=== PATIENT | male | born 1950 | race Caucasian/White ===

== ENCOUNTER 2020-08-26 11:20 | Outpatient (REF) | payer MEDICARE, SELFPAY ==
--- NOTE | 2020-08-26 11:25 | CT_ITS ---
EXAMINATION: CT CHEST SCREENING CLINICAL INFORMATION: Lung cancer screening COMPARISON: Previous chest CT August 2019 TECHNIQUE: Multidetector volumetric CT imaging of the chest is performed without contrast using low dose technique. Additional 2D coronal and sagittal reformatted images and axial 3D maximum intensity projection (MIP) images are generated on the CT workstation. This CT examination was performed using dose optimization techniques as appropriate, variously including the following: *Automated exposure control *Adjustment of mA and/or kV according to patient size (this includes techniques or standardized protocols for targeted exams where dose is matched to indication/reason for exam; i.e. extremities or head) *Use of iterative reconstruction technique DLP: 278 mGy-cm FINDINGS: LUNGS: The small 3 mm calcified right upper lobe nodule axial image 15 series 4 is stable. The lungs are otherwise clear. There is evidence of mild paraseptal emphysema. No evidence of interstitial lung disease or bronchiectasis is seen. There is no endobronchial or endotracheal lesion. MEDIASTINUM: The heart does not appear enlarged. There is no coronary artery calcification. There is no pericardial effusion. The thoracic aorta is normal upper normal in size. There are small mediastinal lymph nodes. No enlarged lymph nodes are seen. There may be a small esophageal hernia. There is question of a right inferior medial thyroid nodule. This is unchanged. PLEURA: There is no pleural effusion. No pleural mass or thickening. AXILLA: No lymphadenopathy. UPPER ABDOMEN: There are gallstones in the gallbladder. There are 2 low-attenuation liver lesions. The lesion in the lateral segment of the left lobe has decreased in size measuring 1.3 cm compared to 2.4 cm on prior exam. Smaller 1 cm lesion in the medial segment of the left lobe is unchanged. There are gallstones in the gallbladder and question on gallbladder wall thickening. This appears unchanged. There bilateral renal cysts that are stable. OSSEOUS STRUCTURES: There are degenerative changes of the spine. CT/CT lung screening IMPRESSION: Mild emphysema. Stable small calcified right upper lobe nodule. Upper normal-sized thoracic aorta. ASSESSMENT: Lung-RADS category 2: Benign RECOMMENDATION: Annual low-dose chest CT follow-up recommended.
== END 2020-08-26 11:21 | disposition home or self-care (01) ==
LOC: HO.CT 11:20
PROVIDERS: Visit Provider Surgery
DX: F17.210 Nicotine dependence, cigarettes, uncomplicated (principal)
CPT/HCPCS: 71250

== ENCOUNTER 2020-09-16 07:17 | Day surgery (SDC) | payer MEDICARE, SELFPAY ==
[2020-09-11 15:48] VITALS: BMI 33.5
[2020-09-16 07:56] VITALS: BP 113/79; PULSE 79; RESP 16; TEMP 36.3; O2SAT 100
--- NOTE | 2020-09-16 08:08 | HO.ANESPROP2 ---
[facility] Past Medical History Medical History COPD (chronic obstructive pulmonary disease) Hx of malignant melanoma Polymyositis Renal calculi Smoker Surgical History Surgical History Hx of colonoscopy Hx of hemorrhoidectomy Hx of parotidectomy Social History Social History Alcohol intake: never Smoking Status: Current every day smoker Cigarettes Per Day: 8 Advance Directives: No Advance Directives Information Provided: No Advance Directives on File: No Meds Allergies Allergy/AdvReac Type Severity Reaction Status Date / Time No Known Allergies Allergy Verified 09/11/20 15:47 [No Known Allergies*] Exam Exam Date and Time: September 16, 2020 0808 Height,Weight and Vital Signs: Height 5 ft 11 in Weight 108.862 kg Last Vital Signs Temp 97.3 F 09/16/20 07:56 Pulse 79 09/16/20 07:56 Resp 16 09/16/20 07:56 BP 113/79 09/16/20 07:56 Pulse Ox 100 09/16/20 07:56 Airway Mallampati Class: II TM Dist: >3cm Neck ROM: Full Denture: Upper and Lower
[2020-09-16] MEDS: Lactated Ringers 1,000 ML 100 ML IVCONT (08:14)
[2020-09-16 09:28] VITALS: BP 105/57; PULSE 66; RESP 14; TEMP 35.9; O2SAT 96
--- NOTE | 2020-09-16 09:29 | PM.OP ---
Brief Operative Note Date of Service: 09/16/20 Pre-op diagnosis: Screening Post-op diagnosis: other (Colon polyps, Diverticulosis) Procedure: Colonoscopy to cecum and TI with snare polypectomy, and biopsy and removal of polyps Surgeon: Jah Roth Anesthesia: MAC Estimated blood loss (mL): 2.0 Pathology: other (A. Polyp at 30cm B. Rectal polyps) Condition: stable Disposition: PACU
[2020-09-16 09:42] VITALS: BP 126/82; PULSE 68; RESP 15; TEMP 35.9; O2SAT 97
--- NOTE | 2020-09-16 10:11 | HO.POSTANES ---
Post Anesthesia Evaluation Post Anesthesia Evaluation Vital Signs: Vital Signs Temp Pulse Resp BP Pulse Ox 09/16/20 09:42 97.3 F 68 15 126/82 97 09/16/20 09:28 96.7 F L 66 14 105/57 L 96 09/16/20 07:56 97.3 F 79 16 113/79 100 Anesthesia: Monitored Mental Status: Awake Pain Control: Satisfactory Nausea/Vomiting: None Hydration: Adequate Anesthesia-Related Issues: No Anes. Related Issues
--- NOTE | 2020-09-26 21:32 | OP_ITS ---
SURGEON: Jah Roth MD INDICATIONS: The patient presents for evaluation of colorectal cancer screening and personal history of colon polyps. Full consent has been obtained from him for this, including risks of bleeding and perforation. PREOPERATIVE DIAGNOSIS: POSTOPERATIVE DIAGNOSIS: PROCEDURE PERFORMED: Colonoscopy to the cecum and terminal ileum with snare polypectomy, and biopsy and removal of polyps. ESTIMATED BLOOD LOSS: COMPLICATIONS: ANESTHESIA: Monitored anesthesia care. ASSISTANTS: SPECIMENS: PREOPERATIVE DIAGNOSES: Colorectal cancer screening and personal history of colon polyps. POSTOPERATIVE DIAGNOSES: Colorectal cancer screening and personal history of colon polyps, colon polyps, diverticulosis, and internal hemorrhoids. DESCRIPTION OF PROCEDURE: The patient was placed in the left lateral decubitus position. The digital rectal exam revealed no abnormalities. The Olympus video pediatric colonoscope was entered into the rectum and advanced to the cecum. Once in the cecum, I did identify normal-appearing cecal pouch with appendiceal orifice and a normal-appearing ileocecal valve. The terminal ileum was cannulated and appeared normal. The scope was withdrawn back in the colon. The entire cecum and ileocecal valve appeared normal. The scope was slowly withdrawn assessing all mucosal surfaces carefully. Preparation was excellent. At 30 cm, was an approximately 8 mm polyp, which was snared and recovered by suction. The polypectomy site appeared clean, without any sign of residual polyp nor bleeding. In the rectum, were flat less than 5 mm polyps, which were all biopsied and completely removed and placed in the same container. I did not visualize any other polyps, colitis, nor angiodysplasias. In the rectum, scope was retroflexed visualizing internal hemorrhoids as well. The scope was straightened out and withdrawn from the patient. He tolerated the procedure well and was returned to the recovery area in stable condition. IMPRESSION: 1. Small colon polyps. 2. Diverticulosis. 3. Internal hemorrhoids. PLAN: The results of the pathology will be checked. Given his previous history, I would recommend a followup colonoscopy in 5 years for further screening. He was advised not to use any aspirin and NSAIDs for 1 week. MD CONOR Larry/PATRICK / [phone]
== END 2020-09-16 10:08 | disposition home or self-care (01) ==
PROVIDERS: PCP Internal Medicine; Visit Provider Internal Medicine
PROC: 0DJD8ZZ Inspection of Lower Intestinal Tract, Via Natural or Artificial Opening Endoscopic (ICD-10-PCS; CPT 45378; principal; 2020-09-16 08:30)
DX: Z12.11 Encounter for screening for malignant neoplasm of colon (principal); Z86.010 Personal history of colon polyps; D12.8 Benign neoplasm of rectum; K63.5 Polyp of colon; K57.30 Diverticulosis of large intestine without perforation or abscess without bleeding; K64.8 Other hemorrhoids; M33.20 Polymyositis, organ involvement unspecified; Z85.820 Personal history of malignant melanoma of skin; F17.210 Nicotine dependence, cigarettes, uncomplicated; Z79.1 Long term (current) use of non-steroidal anti-inflammatories (NSAID)
CPT/HCPCS: 45385; 45380; 88305

== ENCOUNTER → 2020-11-05 13:47 | Outpatient (BNVA) | payer MEDICARE, SELFPAY | PROVIDERS: PCP Internal Medicine; Visit Provider Internal Medicine | DX: R91.1 Solitary pulmonary nodule (principal); J44.9 Chronic obstructive pulmonary disease, unspecified; Z72.0 Tobacco use | CPT/HCPCS: 99212 ==

== ENCOUNTER 2020-12-10 12:24 | Outpatient (REF) | payer MEDICARE, SELFPAY ==
[2020-12-10 13:27] LABS: MANUAL DIFF FLAG NO
[2020-12-10 13:29] LABS: Basophils Absolute Auto 0.1 X10*3/uL (0.0-0.2); Basophils Percent Auto 0.6 % (0-2); Eosinophils Absolute Auto 0.1 X10*3/uL (0.0-0.4); Eosinophils Percent Auto 1.5 % (0-4); Hematocrit 38.9 % (42-52); Hemoglobin 12.9 g/dl (14.0-18.0); Imm Gran Abs Auto 0.07 X10*3/uL (0.00-0.03); Imm Gran Pct Auto 0.9 % (0.0-0.4); Lymphocytes Absolute Auto 2.1 X10*3/uL (1.2-4.9); Lymphocytes Percent Auto 26.7 % (20-40); Mean Corpuscular HGB Conc 33.2 g/dl (31.0-36.0); Mean Corpuscular Volume 93.5 fL (80-98); Mean Platelet Volume 9.2 fL (9.4-12.4); Monocytes Absolute Auto 0.7 X10*3/uL (0.1-1.2); Monocytes Percent Auto 9.2 % (2-11); Neutrophils Absolute Auto 4.8 X10*3/uL (2.0-8.3); Neutrophils Percent Auto 61.1 % (45-73); Platelet Count 237 X10*3/uL (160-400); Red Blood Count 4.16 X10*6/uL (4.60-5.80); Red Cell Distribution Width 14.8 % (11.0-16.0); White Blood Count 7.9 X10*3/uL (4.8-10.8)
[2020-12-10 13:51] LABS: Alanine Aminotransferase 12 U/L (0-40); Albumin Level 3.9 g/dL (3.5-5.0); Alkaline Phosphatase 70 U/L (39-117); Anion Gap 11 (12-20); Aspartate Amino Transferase 16 U/L (5-37); Bilirubin Total 0.4 mg/dL (0.0-1.0); Blood Urea Nitrogen 16 mg/dL (9-16); C Reactive Protein 0.98 mg/dL (< or = 0.50); Calcium 8.9 mg/dL (8.4-10.2); Carbon Dioxide 29 mmol/L (22-29); Chloride 104 mmol/L (96-108); Estimated Glomerular Filt Rate > 60; Glucose Random 110 mg/dL (60-115); Potassium 4.7 mmol/L (3.3-5.1); Sodium 139 mmol/L (135-145)
[2020-12-10 14:36] LABS: Erythrocyte Sedimentation Rate 19 MM/HR (0-15)
== END 2020-12-10 12:25 | disposition home or self-care (01) ==
LOC: HO.LAB 12:24
PROVIDERS: PCP Internal Medicine; Referring Provider Internal Medicine; Visit Provider Student in an Organized Health Care Education/Training Program
DX: M33.20 Polymyositis, organ involvement unspecified (principal)
CPT/HCPCS: 36415; 80053; 85025; 85652; 86140; 99212

== ENCOUNTER 2020-12-30 12:21 | Outpatient (REF) | payer MEDICARE, SELFPAY ==
--- NOTE | ~2020-12-30 | US_ITS ---
EXAMINATION: US RETROPERITONEAL LIMITED (RENAL ONLY) CLINICAL INFORMATION: Renal cyst. COMPARISON: Renal ultrasound 12/19/2019 and 12/26/2018. CT abdomen and pelvis 07/13/2018. TECHNIQUE: Real-time imaging of the kidneys. FINDINGS: RIGHT KIDNEY: 11.7 x 5.3 x 5.9 cm (SAG x AP x TRV). The kidney is normal in size, contour, and echogenicity. Renal cortical thickness is normal. There are 3 oval cysts measuring 3.6 x 3.1 x 3.9 cm in the upper pole, 4.8 x 3.7 x 3.7 cm in the midpole and 2.2 x 1.2 x 2.8 cm in the lower pole. No renal calculi or hydronephrosis. LEFT KIDNEY: 12.3 x 6.0 x 5.3 cm (SAG x AP x TRV). The kidney is normal in size, contour, and echogenicity. Renal cortical thickness is normal. There are 3 simple cyst measuring 2.8 x 1.9 x 2 cm in the midpole, 1.2 x 0.8 x 1 cm in the midpole and 3.4 x 2.7 x 5 cm in the lower pole. No renal calculi or hydronephrosis. US/US renal BI IMPRESSION: Bilateral renal simple cysts not appreciably changed from previous exams.
== END 2020-12-30 12:22 | disposition home or self-care (01) ==
LOC: HO.US 12:21
PROVIDERS: Visit Provider Urology
DX: N28.1 Cyst of kidney, acquired (principal)
CPT/HCPCS: 76775

== ENCOUNTER → 2021-03-23 13:16 | Outpatient (BNVA) | payer MEDICARE, SELFPAY | PROVIDERS: Visit Provider Urology | DX: Z13.89 Encounter for screening for other disorder (principal) | CPT/HCPCS: 99212 ==

== ENCOUNTER → 2021-05-11 12:52 | Outpatient (BNVA) | payer MEDICARE, SELFPAY | PROVIDERS: PCP Internal Medicine; Visit Provider Student in an Organized Health Care Education/Training Program | DX: M33.20 Polymyositis, organ involvement unspecified (principal) | CPT/HCPCS: 99212 ==

== ENCOUNTER → 2021-06-07 10:49 | Outpatient (BNVA) | payer MEDICARE, SELFPAY | PROVIDERS: PCP Internal Medicine; Visit Provider Internal Medicine | DX: R91.1 Solitary pulmonary nodule (principal); J43.1 Panlobular emphysema; F17.210 Nicotine dependence, cigarettes, uncomplicated; Z71.6 Tobacco abuse counseling | CPT/HCPCS: 99212 ==

== ENCOUNTER 2021-09-15 14:43 | Outpatient (REF) | payer MEDICARE, SELFPAY ==
[2021-09-15 14:56] LABS: MANUAL DIFF FLAG NO
[2021-09-15 15:06] LABS: Basophils Absolute Auto 0.1 X10*3/uL (0.0-0.2); Basophils Percent Auto 0.9 % (0-2); Eosinophils Absolute Auto 0.1 X10*3/uL (0.0-0.4); Eosinophils Percent Auto 1.2 % (0-4); Hematocrit 40.7 % (42.0-52.0); Hemoglobin 13.7 g/dl (14.0-18.0); Imm Gran Abs Auto 0.08 X10*3/uL (0.00-0.03); Lymphocytes Absolute Auto 2.3 X10*3/uL (1.2-4.9); Lymphocytes Percent Auto 28.5 % (20-40); Mean Corpuscular HGB Conc 33.7 g/dl (31.0-36.0); Mean Corpuscular Hemoglobin 31.6 pg (27.0-33.0); Mean Corpuscular Volume 93.8 fL (80.0-98.0); Mean Platelet Volume 8.9 fL (9.4-12.4); Monocytes Absolute Auto 0.8 X10*3/uL (0.1-1.2); Monocytes Percent Auto 9.7 % (2-11); Neutrophils Absolute Auto 4.8 x10*3/uL (2.0-8.3); Neutrophils Percent Auto 58.7 % (45-73); Platelet Count 250 X10*3/uL (160-400); Red Blood Count 4.34 X10*6/uL (4.60-5.80); Red Cell Distribution Width 14.6 % (11.0-16.0); White Blood Count 8.2 X10*3/uL (4.8-10.8)
[2021-09-15 15:36] LABS: Alanine Aminotransferase 10 U/L (0-40); Alkaline Phosphatase 70 U/L (39-117); Anion Gap 9 (12-20); Aspartate Amino Transferase 12 U/L (5-37); Bilirubin Total 0.3 mg/dL (0.0-1.0); Blood Urea Nitrogen 11 mg/dL (9-16); C Reactive Protein 1.43 mg/dL (< or = 0.50); Calcium 8.9 mg/dL (8.4-10.2); Carbon Dioxide 28 mmol/L (22-29); Chloride 105 mmol/L (96-108); Estimated Glomerular Filt Rate > 60; Glucose Random 99 mg/dL (60-115); Potassium 4.2 mmol/L (3.3-5.1); Sodium 138 mmol/L (135-145); Total Protein 7.2 g/dL (6.5-8.0)
[2021-09-15 16:06] LABS: Erythrocyte Sedimentation Rate 25 MM/HR (0-15)
== END 2021-09-15 14:44 | disposition home or self-care (01) ==
LOC: HO.LAB 14:43
PROVIDERS: PCP Internal Medicine; Visit Provider Student in an Organized Health Care Education/Training Program
DX: M33.20 Polymyositis, organ involvement unspecified (principal)
CPT/HCPCS: 36415; 80053; 85025; 85652; 86140

== ENCOUNTER 2021-12-11 09:01 | Outpatient (REF) | payer MEDICARE, SELFPAY ==
[2021-12-11 09:18] LABS: MANUAL DIFF FLAG NO
[2021-12-11 10:09] LABS: Basophils Absolute Auto 0.1 X10*3/uL (0.0-0.2); Basophils Percent Auto 0.8 % (0-2); Eosinophils Absolute Auto 0.1 X10*3/uL (0.0-0.4); Eosinophils Percent Auto 1.5 % (0-4); Hematocrit 40.7 % (42.0-52.0); Hemoglobin 13.6 g/dl (14.0-18.0); Imm Gran Abs Auto 0.07 X10*3/uL (0.00-0.03); Imm Gran Pct Auto 0.9 % (0.0-0.4); Immature Retic Fraction 12.4 % (2.3-13.4); Lymphocytes Absolute Auto 1.9 X10*3/uL (1.2-4.9); Lymphocytes Percent Auto 24.9 % (20-40); Mean Corpuscular HGB Conc 33.4 g/dl (31.0-36.0); Mean Corpuscular Volume 92.7 fL (80.0-98.0); Mean Platelet Volume 9.2 fL (9.4-12.4); Monocytes Percent Auto 12.7 % (2-11); Neutrophils Absolute Auto 4.6 x10*3/uL (2.0-8.3); Neutrophils Percent Auto 59.2 % (45-73); Platelet Count 234 X10*3/uL (160-400); Red Blood Count 4.39 X10*6/uL (4.60-5.80); Red Cell Distribution Width 14.7 % (11.0-16.0); Retic HGB Equivalent 34.5 pg (30.0-35.0); Reticulocyte Percent 1.5 % (0.5-1.8); Reticulocytes Absolute 0.065 X10*6/uL (0.026-0.095); White Blood Count 7.8 X10*3/uL (4.8-10.8)
[2021-12-11 10:20] LABS: Estimated Average Glucose 117 mg/dL; Hemoglobin A1c % 5.7 %
[2021-12-11 10:29] LABS: Alanine Aminotransferase 9 U/L (0-40); Albumin Level 3.9 g/dL (3.5-5.0); Alkaline Phosphatase 68 U/L (39-117); Anion Gap 12 (12-20); Aspartate Amino Transferase 13 U/L (5-37); Bilirubin Total 0.6 mg/dL (0.0-1.0); Blood Urea Nitrogen 12 mg/dL (9-16); Calcium 9.2 mg/dL (8.4-10.2); Carbon Dioxide 27 mmol/L (22-29); Chloride 104 mmol/L (96-108); Cholesterol 189 mg/dL; Estimated Glomerular Filt Rate > 60; Glucose Random 91 mg/dL (60-115); HDL Cholesterol 38 mg/dL; Iron 108 mcg/dL (45-160); LDL Cholesterol Calculated 130 mg/dl; Potassium 4.7 mmol/L (3.3-5.1); Sodium 138 mmol/L (135-145); Total Protein 7.5 g/dL (6.5-8.0); Triglycerides 106 mg/dL
[2021-12-11 10:40] LABS: Percent Iron Saturation 39 % (15-50); Total Iron Binding Capacity 280 mcg/dL (228-428); Unsaturated Iron Binding 172 ug/dL
[2021-12-11 10:59] LABS: Ferritin 230 ng/mL (20-250); Free T4 (Free Thyroxine) 0.94 ng/dL (0.71-1.85); Thyroid Stimulating Hormone 1.97 uIU/mL (0.32-4.0)
[2021-12-13 04:46] LABS: Folate 8.5 ng/mL (> or = 4.0); Vitamin B12 312 pg/mL (200-900)
== END 2021-12-11 09:02 | disposition home or self-care (01) ==
LOC: HO.LAB 09:01
PROVIDERS: PCP Internal Medicine; Visit Provider Internal Medicine
DX: Z12.5 Encounter for screening for malignant neoplasm of prostate (principal); E66.9 Obesity, unspecified; E78.00 Pure hypercholesterolemia, unspecified; M33.20 Polymyositis, organ involvement unspecified
CPT/HCPCS: 36415; 80053; 80061; 82607; 82728; 82746; 83036; 83540; 84153; 84439; 84443; 85025; 85045

== ENCOUNTER 2021-12-29 12:35 | Outpatient (REF) | payer MEDICARE, SELFPAY ==
--- NOTE | ~2021-12-29 | CT_ITS ---
EXAMINATION: CT CHEST SCREENING CLINICAL INFORMATION: Current smoker. 30 pack-year history. COMPARISON: Previous CT of the chest most recent July 2020 TECHNIQUE: Multidetector volumetric CT imaging of the chest is performed without contrast using low dose technique. Additional 2D coronal and sagittal reformatted images and axial 3D maximum intensity projection (MIP) images are generated on the CT workstation. This CT examination was performed using dose optimization techniques as appropriate, variously including the following: *Automated exposure control *Adjustment of mA and/or kV according to patient size (this includes techniques or standardized protocols for targeted exams where dose is matched to indication/reason for exam; i.e. extremities or head) *Use of iterative reconstruction technique DLP: 83 mGy-cm FINDINGS: LUNGS: There is a 3 mm calcified right upper lobe nodule axial image 138 series 5 that is stable. The lungs are otherwise clear. There is evidence of mild paraseptal emphysema. No endobronchial or endotracheal lesion. MEDIASTINUM: The mediastinum is normal. PLEURA: There is no pleural effusion. No pleural mass or thickening. AXILLA: No lymphadenopathy. UPPER ABDOMEN: There is a 1 cm low-attenuation lesion in the medial segment of the liver axial image 67 series 3 that is stable. There is a 1.3 cm low-attenuation lesion left lobe of the liver axial image 56 series 3 that is stable. There are gallstones. There are bilateral renal cysts OSSEOUS STRUCTURES: There are mild degenerative changes. CT/CT lung screening IMPRESSION: Mild emphysema. Stable 3 mm calcified right upper lobe nodule. Stable abdominal findings. ASSESSMENT: Lung-RADS category 2: Benign RECOMMENDATION: Annual low-dose chest CT follow-up recommended.
== END 2021-12-29 12:36 | disposition home or self-care (01) ==
LOC: HO.CT 12:35
PROVIDERS: Visit Provider Physician Assistant Medical
DX: F17.210 Nicotine dependence, cigarettes, uncomplicated (principal)
CPT/HCPCS: 71271

== ENCOUNTER 2022-04-29 15:21 | Outpatient (REF) | payer MEDICARE, SELFPAY ==
--- NOTE | ~2022-04-29 | US_ITS ---
EXAMINATION: US RETROPERITONEAL LIMITED (RENAL ONLY) CLINICAL INFORMATION: Cyst of kidney, acquired. COMPARISON: Renal ultrasound 12/30/2020 and 12/19/2019. CT abdomen and pelvis 07/13/2018. TECHNIQUE: Real-time imaging of the kidneys. FINDINGS: RIGHT KIDNEY: 10.9 x 5.2 x 6.2 cm (SAG x AP x TRV). The kidney is normal in size, contour, and echogenicity. Renal cortical thickness is normal. There is an echogenic density questionable for a stone or cluster of stones in the upper pole measuring 7 x 7 x 5 mm. There are 3 left renal cysts measuring 4.1 x 3.6 x 3.1 cm and 4.3 x 3.8 x 3.7 cm in the upper pole and 1.7 x 1.6 x 1.3 cm in the midpole. No hydronephrosis. LEFT KIDNEY: 10.8 x 5.7 x 5.6 cm (SAG x AP x TRV). The kidney is normal in size, contour, and echogenicity. Renal cortical thickness is normal. There are 3 cysts in the midpole measuring 4 x 2 x 3 cm, 2.6 x 2.7 x 2 cm and 1.2 cm. No renal calculi or hydronephrosis. US/US renal BI IMPRESSION: Bilateral renal cysts. Question right upper pole renal stone.
== END 2022-04-29 15:22 | disposition home or self-care (01) ==
LOC: HO.US 15:21
PROVIDERS: Visit Provider Urology
DX: N28.1 Cyst of kidney, acquired (principal)
CPT/HCPCS: 76775

== ENCOUNTER → 2022-05-23 | Outpatient (BNVA) | payer MEDICARE, SELFPAY | PROVIDERS: PCP Internal Medicine; Visit Provider Internal Medicine | DX: J43.1 Panlobular emphysema (principal); R91.1 Solitary pulmonary nodule; F17.210 Nicotine dependence, cigarettes, uncomplicated | CPT/HCPCS: 99212 ==

== ENCOUNTER → 2022-05-25 09:16 | Outpatient (BNVA) | payer MEDICARE, SELFPAY | PROVIDERS: PCP Internal Medicine; Visit Provider Urology | DX: N52.9 Male erectile dysfunction, unspecified (principal); N28.1 Cyst of kidney, acquired; N40.0 Benign prostatic hyperplasia without lower urinary tract symptoms | CPT/HCPCS: 99212 ==

== ENCOUNTER 2023-03-10 07:03 | Outpatient (REF) | payer MEDICARE, SELFPAY ==
[2023-03-10 07:11] LABS: MANUAL DIFF FLAG NO
[2023-03-10 07:20] LABS: Basophils Absolute Auto 0.1 X10*3/uL (0.0-0.2); Basophils Percent Auto 0.8 % (0-2); Eosinophils Absolute Auto 0.1 X10*3/uL (0.0-0.4); Eosinophils Percent Auto 1.7 % (0-4); Hemoglobin 13.4 g/dl (14.0-18.0); Imm Gran Abs Auto 0.07 X10*3/uL (0.00-0.03); Imm Gran Pct Auto 0.8 % (0.0-0.4); Lymphocytes Percent Auto 23.9 % (20-40); Mean Corpuscular HGB Conc 33.5 g/dl (31.0-36.0); Mean Corpuscular Hemoglobin 32.1 pg (27.0-33.0); Mean Corpuscular Volume 95.9 fL (80.0-98.0); Mean Platelet Volume 9.4 fL (9.4-12.4); Monocytes Absolute Auto 1.3 X10*3/uL (0.1-1.2); Monocytes Percent Auto 15.4 % (2-11); Neutrophils Absolute Auto 4.8 x10*3/uL (2.0-8.3); Neutrophils Percent Auto 57.4 % (45-73); Platelet Count 217 X10*3/uL (160-400); Red Blood Count 4.17 X10*6/uL (4.60-5.80); Red Cell Distribution Width 14.6 % (11.0-16.0); Retic HGB Equivalent 36.2 pg (30.0-35.0); Reticulocyte Percent 1.5 % (0.5-1.8); Reticulocytes Absolute 0.064 X10*6/uL (0.026-0.095); White Blood Count 8.3 X10*3/uL (4.8-10.8)
[2023-03-10 07:44] LABS: Estimated Average Glucose 111 mg/dL; Hemoglobin A1c % 5.5 %
[2023-03-10 08:06] LABS: Alanine Aminotransferase 10 U/L (0-40); Albumin Level 3.9 g/dL (3.5-5.0); Alkaline Phosphatase 62 U/L (39-117); Anion Gap 11 (12-20); Aspartate Amino Transferase 13 U/L (5-37); Bilirubin Total 0.7 mg/dL (0.0-1.0); Blood Urea Nitrogen 12 mg/dL (9-16); Calcium 8.9 mg/dL (8.4-10.2); Carbon Dioxide 27 mmol/L (22-29); Chloride 108 mmol/L (96-108); Cholesterol 159 mg/dL; Estimated Glomerular Filt Rate > 60; Glucose Random 98 mg/dL (60-115); HDL Cholesterol 38 mg/dL; Iron 62 mcg/dL (45-160); LDL Cholesterol Calculated 110 mg/dl; Percent Iron Saturation 28 % (15-50); Potassium 4.7 mmol/L (3.3-5.1); Sodium 141 mmol/L (135-145); Total Iron Binding Capacity 224 mcg/dL (228-428); Total Protein 6.9 g/dL (6.5-8.0); Triglycerides 58 mg/dL; Unsaturated Iron Binding 162 ug/dL
[2023-03-10 08:35] LABS: Ferritin 196 ng/mL (20-250); Folate 10.1 ng/mL (> or = 4.0); Thyroid Stimulating Hormone 1.76 uIU/mL (0.32-4.0); Vitamin B12 278 pg/mL (200-900)
== END 2023-03-10 07:04 | disposition home or self-care (01) ==
LOC: HO.LAB 07:03
PROVIDERS: PCP Internal Medicine; Visit Provider Internal Medicine
DX: R73.01 Impaired fasting glucose (principal); H02.9 Unspecified disorder of eyelid; E78.00 Pure hypercholesterolemia, unspecified; D64.9 Anemia, unspecified
CPT/HCPCS: 36415; 80053; 80061; 82607; 82728; 82746; 83036; 83540; 84439; 84443; 85025; 85045

== ENCOUNTER 2023-05-01 12:29 | Outpatient (REF) | payer MEDICARE, SELFPAY | END 2023-05-01 12:30 | disposition home or self-care (01) | LOC: HO.US 12:29 | PROVIDERS: PCP Internal Medicine; Visit Provider Urology | DX: N28.1 Cyst of kidney, acquired (principal) | CPT/HCPCS: 76775 ==

== ENCOUNTER 2023-05-25 11:34 | Outpatient (AMB) | payer MEDICARE, SELFPAY ==
--- NOTE | 2023-05-25 11:43 | A.OFFVIS_ITS ---
Intake Intake Visit Reasons: 1Y US(set) Intake Note: Patient is present for Follow Up Ultrasound Urology Med: Sildenafil Antibiotic Allergy: None Blood Thinner: None Pharmacy: [facility] [place] Allergies No Known Allergies [No Known Allergies*] Allergy (Verified 02/10/23 15:45) Medication List - Last Reconciled 05/25/23 by Nino Castrejon MD clotrimazole 1% 1 appl topical BID 4 weeks ibuprofen (Advil) 200 mg PO Q6H PRN sildenafil 100 mg PO ONCE 30 days HPI HPI Comments History of Present Illness Details Mr Michel is a very pleasant male. They are a patient of Dr Peacock. They are seen in the office today for the following urologic conditions. - renal cyst - erectile dysfunction Telemedicine Evaluation 15 min Consultation [employer] Video attempted Good response to sildenafil 100 mg Refill provided Happy with response Erectile dysfunction: Symptoms have been present for/since occurred after interferon therapy. Current treatment includes OTC. Prior therapies include oral medications - had side effects with viagra Microscopic Hematuria: Bilateral cysts on imaging. 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 They are here for the discussion of imaging findings. Since the last visit the patient has has not noticed gross hematuria, continues to test postive for microscopic hematuria. Relevant medical history for tobacco use. Radiographic imaging: CT IVP March 2016 Dr Peacock - 12/16 US renal, bilateral cysts, 4 mm right kidney stone - 07/16 , US renal, bilateral cysts - 01/15 , US renal, bilateral small 1-2cm cysts, ? small right renal stone right - 12/19 US bilateral cysts 4cm, no stones - 01/17 renal ultrasound, bilateral cysts up to 4 cm, 3 cyst each side, no stones - 04/20 ultrasound bilateral renal cysts up to 4 cm, 3 cyst each side, question of stone on right side 7 mm Radiology report no genitourinary abnormality - hyperdense left upper pole renal cyst. Other investigations cytology, normal. Cystoscopy findings normal May 2016. Therapeutic plan surveillance imaging [facility] Medical History BPH (benign prostatic hyperplasia) Cholelithiasis COPD (chronic obstructive pulmonary disease) COPD (chronic obstructive pulmonary disease) Erectile dysfunction Hx of malignant melanoma Knee osteoarthritis Obesity (BMI 30-39.9) Parotid mass Polymyositis Polymyositis Pulmonary nodule Pulmonary nodule, right Renal calculi Tobacco abuse Vitamin D deficiency Surgical History History of melanoma excision Hx of colonoscopy Hx of hemorrhoidectomy Hx of parotidectomy Hx of rectal sphincterotomy Family History Father Lung cancer CVD (cardiovascular disease) Stroke Liver cancer CHF (congestive heart failure) Mother CVD (cardiovascular disease) CHF (congestive heart failure) Sister Ovarian cancer Social History Housing: House Alcohol intake: current Alcohol intake frequency: holidays/special occasions only Alcohol type: beer Patient Tobacco Use Status: Current everyday Tobacco user Tobacco use type: Cigarette Cigarettes Per Day: 15 Years Smoked: 40 e-Cigarette/Vaping Use: Never Used Second Hand Smoke Exposure: No service: Yes Current occupational status: retired Cognitive needs: No Hearing needs: No Vision needs: Yes Review of Systems Const Denies chills and Denies fever(s) Card Reports no additional complaints and Denies syncope Resp Denies cough GI Denies abdominal pain and Denies heartburn Reports as per HPI and Denies change in libido Neuro Denies syncope Psych Denies change in libido Endo Denies change in libido Physical Exam Const General: cooperative, healthy appearing, comfortable and no acute distress Orientation/consciousness: patient oriented x3 HEENT Face and sinus: Yes normal facial exam Mouth: moist mucous membranes Neck Neck: Yes normal visual inspection, Yes full ROM and Yes trachea midline Chest Chest palpation & inspection: normal inspection of the chest Resp Effort & Inspection: normal respiratory effort, able to speak in complete sentences and no respiratory distress GI Inspection: Yes normal to inspection Back/Spine/Pelvis Cervical Spine: normal cervical lordosis Thoracic/Lumbar Spine: thoracic and lumbar spine normal to inspection Skin General skin exam: no rashes or lesions noted Neuro General: patient oriented x3, gait normal, tone normal and moves all extremities Extrem General: Yes normal to inspection and Yes capillary refill normal Assessment & Plan Assessment & Plan (1) BPH (benign prostatic hyperplasia): Comment: October 2016 Code(s): N40.0 - Benign prostatic hyperplasia without lower urinary tract symptoms (2) Erectile dysfunction: Code(s): N52.9 - Male erectile dysfunction, unspecified Plan Six month follow-up Medications: Refilled sildenafil administer 60 minutes before intended activity 100 mg PO ONCE 30 days 30 tabs 1RF sexual activity N52.9 - Male erectile dysfunction, unspecified Patient Instructions: Imaging studies, laboratory and physical exam results were discussed and reviewed in detail. No major barriers to patient understanding were identified. An opportunity to ask questions regarding the treatment plan was provided. All questions were answered. The patient expressed understanding and agreement with the above treatment plan. The patient is aware they should contact our office by phone for worsening of their current condition or the appearance of new urologic symptoms. Compliance is encouraged with any medications and followup testing that is ordered. It is a privilege to participate in the urologic care of your patient. If you have any questions or concerns regarding treatment for the above conditions, or other urologic issues, please do not hesitate to contact me. The office telephone contact is [phone]. This note is constructed using voice recognition software. While every effort has been made to ensure accuracy homicide investigator errors may have been included. Yours sincerely, Dr Nino Castrejon MD, JD [facility] - Urology Providers of Expert, Compassionate Care for the Genitourinary System Coding Level of Care Code Est Pt Level 3 (02749) Diagnoses BPH (benign prostatic hyperplasia) N40.0 Erectile dysfunction N52.9
== END 2023-05-25 12:27 | disposition home or self-care (01) ==
PROVIDERS: Visit Provider Urology
DX: N40.0 Benign prostatic hyperplasia without lower urinary tract symptoms (principal); N52.9 Male erectile dysfunction, unspecified
CPT/HCPCS: 99213

== ENCOUNTER → 2023-05-25 11:34 | Outpatient (BNVA) | payer MEDICARE, SELFPAY | PROVIDERS: Visit Provider Urology | DX: N28.1 Cyst of kidney, acquired (principal); N52.9 Male erectile dysfunction, unspecified; R31.29 Other microscopic hematuria; N40.0 Benign prostatic hyperplasia without lower urinary tract symptoms; Z79.899 Other long term (current) drug therapy | CPT/HCPCS: 99212 ==

== ENCOUNTER 2023-05-30 13:12 | Outpatient (AMB) | payer MEDICARE, SELFPAY ==
[2023-05-30 13:23] VITALS: BP 128/70; PULSE 81; O2SAT 96; BMI 34.0
--- NOTE | 2023-05-30 13:23 | MHC.OFFVIS ---
Intake Vital Signs 05/30/23 13:23 Height 5 ft 11 in Weight 244 lb BMI 34.0 BP 128/70 Blood Pressure Location Lt brachial Position Standing Pulse 81 Pulse Source Pulse Oximeter Pulse Oximetry (%) 96 Oxygen Delivery Method Room Air Intake Visit Reasons: COPD Intake Note: pt is here for follow up and states he can feel the shortness of breath is increasing, he would like to know if copd is related to runny nose every morning for about an hour. Equipment Operation Instructor Required: No Allergies No Known Allergies [No Known Allergies*] Allergy (Verified 05/30/23 13:31) Medication List - Last Reconciled 05/30/23 by Maximilian Hager MD clotrimazole 1% 1 appl topical BID 4 weeks ibuprofen (Advil) 200 mg PO Q6H PRN sildenafil 100 mg PO ONCE 30 days Do you need a note to return to daycare/school/sports/work: No HPI COPD HPI Details 72 YEARS OLD GENTLEMAN, MILD COPD WHICH IS NOT VERY SYMPTOMATIC, SO HE HAS NOT USED ANY BRONCHODILATOR INHALER DURING THE PAST YEAR. GETS SHORT OF BREATH ONLY IF HE WALKS UP HILL OR. CLIMBS STAIRS NO WHEEZING ATTACKS. DOES HAVE MILD COUGH OFF. AND ON ESPECIALLY IN THE MORNING HOURS HIS MAIN COMPLAINT IS NASAL CONGESTION AND RUNNY NOSE WHEN HE WAKES UP IN THE MORNING AND THIS GOES ON FOR A FEW HOURS. IN THE PAST HE HAS TRY TO USE FLONASE BUT IT MAKES HIS NASAL CONGESTION WORSE. OTHER PROBLEM IS THAT HE CONTINUES TO SMOKE, ABOUT 15 CIGARETTES A DAY. IN THE PAST HE HAS TRIED NICOTINE PRODUCTS WELL CHANTIX WITHOUT ANY BENEFIT. HE IS LOOKING INTO UNDERGOING HIP NOTICE SOME, BUT CANNOT LOCATE ANY ANYONE WHO DOES HIP NOTICE IN THE DAYS. HE DOES PARTICIPATE IN ANNUAL LUNG SCREENING PROGRAM, LAST CT SCAN 1 YEAR AGO WHICH SHOWED A SMALL PULMONARY NODULE, HE IS STILL WAITING TO GET THE CT SCAN THIS YEAR. [facility] Medical History (Updated 05/30/23 @ 13:55 by Maximilian Hager MD) Allergic rhinitis BPH (benign prostatic hyperplasia) Cholelithiasis COPD (chronic obstructive pulmonary disease) COPD (chronic obstructive pulmonary disease) Erectile dysfunction Hx of malignant melanoma Knee osteoarthritis Obesity (BMI 30-39.9) Parotid mass Polymyositis Polymyositis Pulmonary nodule Pulmonary nodule, right Renal calculi Tobacco abuse Vitamin D deficiency Surgical History History of melanoma excision Hx of colonoscopy Hx of hemorrhoidectomy Hx of parotidectomy Hx of rectal sphincterotomy Family History Father Lung cancer CVD (cardiovascular disease) Stroke Liver cancer CHF (congestive heart failure) Mother CVD (cardiovascular disease) CHF (congestive heart failure) Sister Ovarian cancer Social History Housing: House Alcohol intake: current Alcohol intake frequency: holidays/special occasions only Alcohol type: beer Patient Tobacco Use Status: Current everyday Tobacco user Tobacco use type: Cigarette Cigarettes Per Day: 10 Years Smoked: 40 e-Cigarette/Vaping Use: Never Used Second Hand Smoke Exposure: No service: Yes Current occupational status: retired Cognitive needs: No Hearing needs: No Vision needs: Yes Review of Systems Const All systems reviewed & are unremarkable except as noted in HPI and below ENT Reports nasal congestion (IN A.M. HOURS) Card Denies chest pain and Reports dyspnea on exertion Resp Reports cough (mild intermittent .), Reports dyspnea on exertion and Denies wheezing Musc Reports arthralgias (rt elbow ) Aller/Immun Denies wheezing Physical Exam Vital Signs: Last Vital Signs Pulse 81 05/30/23 13:23 BP 128/70 05/30/23 13:23 Pulse Ox 96 05/30/23 13:23 Oxygen Delivery Method Room Air 05/30/23 13:23 BMI result Body Mass Index 34.0 Office Procedures Spirometry Testing Spirometry Comments: Spirometry done in the office, Dr. Hager has the results results scanned to his chart. [id number] Spirometry Results Reviewed Results Reviewed: SPIROMETRY FVC 86%, FEV1 59%, FEF 25-75 =32% c/w moderately severe obstructive airway disorder. No significant change from 2020. Assessment & Plan Assessment & Plan (1) Tobacco abuse: Comment: Had a good discussion again , he is made aware of all the risks involved due to continued smoking. Is going to try his best to stop or at least cut down as much as possible. Does not want to consider using nicotine patch or gums. Wants to look into undergoing Hypnotism . Code(s): Z72.0 - Tobacco use (2) COPD (chronic obstructive pulmonary disease): Comment: He does have Moderate degree of obstructive airway disorder. He is relatively asymptomatic and so he does not want to use any maintenance inhaler. Will use ProAir 2 puffs Q 4-6 hours only p.r.n. but has not used it for the last 1 year. RE VISIT Q 1 YEAR AND NEEDED . Code(s): J44.9 - Chronic obstructive pulmonary disease, unspecified Qualifiers: COPD type: emphysema Emphysema type: panlobular Qualified Code(s): J43.1 - Panlobular emphysema (3) Pulmonary nodule, right: Comment: He has a partially calcified nodule 3 mm. in right upper lobe.. Last low-dose CT scan in April 2022 , benign category 2 . Needs annual LDCT , for screening program. He is participating in the Annual screening program . Code(s): R91.1 - Solitary pulmonary nodule (4) Allergic rhinitis: Comment: Symptoms of ALLERGIC rhinitis especially in the morning probably related to allergy to household air and other items. TX: Does not want to use any nasal spray. May try cetirizine 10 mg or loratadine 10 mg 1 tablet at nighttime. Code(s): J30.9 - Allergic rhinitis, unspecified Orders: Orders AMB Spirometry Testing Today J44.9 - Chronic obstructive pulmonary disease, unspecified Coding Level of Care Code Est Pt Level 3 (93907) Diagnoses Tobacco abuse Z72.0 COPD (chronic obstructive pulmonary disease) J43.1 COPD type: emphysema Emphysema type: panlobular Pulmonary nodule, right R91.1 Allergic rhinitis J30.9 CPT Codes Spirometry - CPT: 37524- Spirometry ([id number])
== END 2023-05-30 13:57 | disposition home or self-care (01) ==
PROVIDERS: PCP Internal Medicine; Visit Provider Internal Medicine
DX: Z72.0 Tobacco use (principal); J43.1 Panlobular emphysema; R91.1 Solitary pulmonary nodule; J30.9 Allergic rhinitis, unspecified
CPT/HCPCS: 94010; 99213

== ENCOUNTER → 2023-05-30 13:12 | Outpatient (BNVA) | payer MEDICARE, SELFPAY | PROVIDERS: PCP Internal Medicine; Visit Provider Internal Medicine | DX: J43.1 Panlobular emphysema (principal); J30.9 Allergic rhinitis, unspecified; R91.1 Solitary pulmonary nodule; F17.210 Nicotine dependence, cigarettes, uncomplicated | CPT/HCPCS: 94010; 99212 ==

== ENCOUNTER 2023-06-07 11:14 | Outpatient (AMB) | payer MEDICARE, SELFPAY ==
[2023-06-07 11:22] VITALS: BP 112/66; PULSE 69; O2SAT 95; BMI 33.5
--- NOTE | 2023-06-07 11:22 | AM.OFFVISMDC ---
Intake Vital Signs 06/07/23 11:22 Height 5 ft 11 in Weight 240 lb BMI 33.5 BP 112/66 Blood Pressure Location Lt brachial Position Sitting Pulse 69 Pulse Source Pulse Oximeter Temp Source Skin Pulse Oximetry (%) 95 Oxygen Delivery Method Room Air Intake Visit Reasons: ROSELYN [id number] Intake Note: Patient is here for an Annual Wellness Visit. 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 Patient of Dr. Peacock. Today we discussed patient's need for prostate cancer screening. Up-to-date with immunizations. [place] of care was reviewed with the patient and he was provided with a screening schedule. End of life planning was discussed with the patient and he was provided with healthcare proxy and MOLST forms. [facility] Medical History Allergic rhinitis BPH (benign prostatic hyperplasia) Cholelithiasis COPD (chronic obstructive pulmonary disease) COPD (chronic obstructive pulmonary disease) Erectile dysfunction Hx of malignant melanoma Knee osteoarthritis Obesity (BMI 30-39.9) Parotid mass Polymyositis Polymyositis Pulmonary nodule Pulmonary nodule, right Renal calculi Tobacco abuse Vitamin D deficiency Surgical History History of melanoma excision Hx of colonoscopy Hx of hemorrhoidectomy Hx of parotidectomy Hx of rectal sphincterotomy Family History Father Lung cancer CVD (cardiovascular disease) Stroke Liver cancer CHF (congestive heart failure) Mother CVD (cardiovascular disease) CHF (congestive heart failure) Sister Ovarian cancer Social History Housing: House Alcohol intake: current Alcohol intake frequency: holidays/special occasions only Alcohol type: beer Patient Tobacco Use Status: Current everyday Tobacco user Tobacco use type: Cigarette Cigarettes Per Day: 10 Years Smoked: 40 e-Cigarette/Vaping Use: Never Used Second Hand Smoke Exposure: No service: Yes Current occupational status: retired Cognitive needs: No Hearing needs: No Vision needs: Yes Questionnaire Medicare Wellness Checkup [age] What gender do you identify with?: male During the past 4 weeks, how much have you been bothered by emotional problems such as feeling anxious, depressed, irritable, sad or downhearted, and blue?: not at all During the past 4 weeks, has your physical & emotional health limited your social activities with family, friends, neighbors, or groups?: not at all During the past 4 weeks, how much bodily pain have you generally had?: no pain During the past 4 weeks, was someone available to help you if you needed & wanted help?: yes, as much as I wanted During the past 4 weeks, what was the hardest physical activity you could do for at least 2 minutes?: heavy Can you get to places out of walking distance without help? (For eg., can you travel alone on buses, taxis or drive your car?): Yes Can you go shopping for groceries or clothes without someone's help?: Yes Can you prepare your own meals?: Yes Can you do your housework without help?: Yes Because of any health problems, do you need the help of another person with your personal care needs such as eating, bathing, dressing or getting around the house?: No Can you handle your own money without help?: Yes During the past 4 weeks, how would you rate your health in general?: very good During the past 4 weeks how have things been going for you?: very well; could hardly better Are you having difficulties driving your car?: no Do you always fasten your seat belt when you are in a car?: yes, sometimes During past 4 weeks, have you been bothered by the following: never: Falling or dizzy when standing up, Sexual problems?, Trouble eating well?, Teeth or denture problems?, Problems using the telephone? and Tiredness or fatigue? Have you fallen 2 or more times in the past year?: No Are you afraid of falling?: No Are you a smoker?: yes, and I might quit During the past 4 weeks, how many drinks of wine, beer, or other alcoholic beverages did you have?: 2-5 drinks per week Do you exercise for about 20 minutes 3 or more times a week?: no, I usually do not exercise this much Have you been given information to help with the following?: yes: Hazards in your house that might hurt you? and yes: Keeping track of your medications? How often do you have trouble taking medicines the way you have been told to take them?: I always take medicine as prescribed How confident are you that you can control & manage most of your health problems?: very confident What is your race?: White Mini Mental State Exam (MMSE) Orientation What is the (year) (season) (date) (day) (month)?: year, season, date, day and month Score Score: 5 Activity of Daily Living Bathing - sponge bath, tub bath or shower: receives no assistance (gets in/out by self, if usual bathing means Dressing - getting clothes from closets & drawers, including inner/outer garments & fasteners.: gets clothes & gets completely dressed without help Toileting - going to the 'toilet room' for urine/bowel elimination & cleaning self/arranging clothes: goes to toilet room, cleans self, arranges clothes without help Transfer: moves in & out of bed and chair without help (may use support object) Continence: controls urination/bowel movements completely by self Feeding: feeds self without help Total Score: 0 Information obtained from: patient Using telephone: independent Traveling: independent Shopping: independent Preparing meals: independent Housework: independent Taking medicine: independent Managing money: independent PHQ-9 Over the last 2 weeks, how often have you been bothered by any of the following problems? 1. Little interest or pleasure in doing things: not at all 2. Feeling down, depressed, or hopeless: not at all 3. Trouble falling or staying asleep, or sleeping too much: not at all 4. Feeling tired or having little energy: not at all 5. Poor appetite or overeating: not at all 6. Feeling bad about yourself - or that you are a failure or have let yourself or your family down: not at all 7. Trouble concentrating on things, such as reading the newspaper or watching television: not at all 8. Moving or speaking so slowly that other people could have noticed. Or the opposite - being so fidgety or restless that you have been moving around a lot more than usual: not at all 9. Thoughts that you would be better off or of hurting yourself in some way: not at all Total score: 0 Depression Screening Interpretation: Negative [id number] - PHQ-9 Billing: Yes Source: Developed by Drs. Jah Altamirano, Nicole Sandhu, Mc Gomez and colleagues, with an educational katharine from [employer]. ROB-7 AMB Questionnaire ROB-7 Date ROB - 7 assessed: 02/10/23 Feeling nervous, anxious, or on edge: 0 = Not at all Not being able to stop or control worryin = Not at all Worrying too much about different things: 0 = Not at all Trouble relaxin = Not at all Being so restless that it is hard to sit still: 0 = Not at all Becoming easily annoyed or irritable: 0 = Not at all Feeling afraid as if something awful might happen: 0 = Not at all Total ROB-7 score (0-4 normal; 5-9 mild; 10-14 moderate; 15-21 severe): 0 Source: Developed by Drs. Jah Altamirano, Nicole Sandhu, Mc Gomez and colleagues, with an educational katharine from [employer]. ROB-7 Assessment Billing ROB-7 Assessment Tool: ROB-7 Assessment 45636 AUDIT C Alcohol Use Questionnaire (AUDIT-C) 1. How often do you have a drink containing alcohol?: Monthly or less 2. How many drinks containing alcohol do you have on a typical day when you are drinking?: 1 or 2 3. How often do you have six or more drinks on one occasion?: Never Total Score: 1 Score Reviewed/Action Taken: No Thrive Questionnaire Date Thrive assessed: 02/10/23 I am a: Patient What is your living situation today?: I have a steady place to live Within the past 12 months, did the food you bought not last and you didn't have the money to get more?: Never true Within the past 12 months, did you worry whether your food would run out before you got money to buy more?: Never true Currently or been in a relationship where the following occur: no concerns reported Physical Exam Vital Signs: Last Vital Signs Pulse 69 06/07/23 11:22 BP 112/66 06/07/23 11:22 Pulse Ox 95 06/07/23 11:22 Oxygen Delivery Method Room Air 06/07/23 11:22 BMI result Body Mass Index 33.5 Const General: cooperative and no acute distress Orientation/consciousness: patient oriented x3 HEENT Other: Whisper test: pass Neuro Other: Balance: Normal Get up and walk: able to Romberg: negative Tandem gait: able to General: patient oriented x3 Assessment & Plan Assessment & Plan (1) Screening for prostate cancer: Code(s): Z12.5 - Encounter for screening for malignant neoplasm of prostate (2) Complex renal cyst: Code(s): N28.1 - Cyst of kidney, acquired Plan: Continue to follow-up with urology Dr. Castrejon as scheduled (3) Erectile dysfunction: Code(s): N52.9 - Male erectile dysfunction, unspecified Plan: Continue to follow-up with urology (4) BPH (benign prostatic hyperplasia): Comment: October 2016 Code(s): N40.0 - Benign prostatic hyperplasia without lower urinary tract symptoms Plan: Continue to follow-up with urology (5) Pulmonary nodule, right: Comment: He has a partially calcified nodule 3 mm. in right upper lobe.. Last low-dose CT scan in April 2022 , benign category 2 . Needs annual LDCT , for screening program. He is participating in the Annual screening program . Code(s): R91.1 - Solitary pulmonary nodule Plan: Continue to follow-up with pulmonology Dr. Hager (6) COPD (chronic obstructive pulmonary disease): Comment: He does have Moderate degree of obstructive airway disorder. He is relatively asymptomatic and so he does not want to use any maintenance inhaler. Will use ProAir 2 puffs Q 4-6 hours only p.r.n. but has not used it for the last 1 year. RE VISIT Q 1 YEAR AND NEEDED . Code(s): J44.9 - Chronic obstructive pulmonary disease, unspecified Qualifiers: COPD type: emphysema Emphysema type: panlobular Qualified Code(s): J43.1 - Panlobular emphysema Plan: Continue to follow-up with pulmonology Dr. Hager (7) Obesity (BMI 30-39.9): Code(s): E66.9 - Obesity, unspecified Plan: Healthy food choices and exercise as tolerated (8) Tobacco abuse: Comment: Had a good discussion again , he is made aware of all the risks involved due to continued smoking. Is going to try his best to stop or at least cut down as much as possible. Does not want to consider using nicotine patch or gums. Wants to look into undergoing Hypnotism . Code(s): Z72.0 - Tobacco use Plan: Encouraged smoking cessation (9) Impaired fasting glucose: Code(s): R73.01 - Impaired fasting glucose Plan: A1c 5.5 02/2023 (10) Hypercholesterolemia: Code(s): E78.00 - Pure hypercholesterolemia, unspecified Plan: Low-cholesterol diet and weight loss (11) Adult general medical exam: Code(s): Z00.00 - Encounter for general adult medical examination without abnormal findings Orders: Orders Prostate Specific Antigen Today Z12.5 - Encounter for screening for malignant neoplasm of prostate Quality Reporting (2019) Fall Risk Screening ([facility] 139) Last assessed Fall Risk: 06/07/23 Fall risk assessment: No Falls in past year Depression/Bipolar (159/160/161/177) PHQ-9: Total score: 0 Coding Level of Care Code Medicare Subsequent (G0439) Diagnoses Screening for prostate cancer Z12.5 Complex renal cyst N28.1 Erectile dysfunction N52.9 BPH (benign prostatic hyperplasia) N40.0 Pulmonary nodule, right R91.1 COPD (chronic obstructive pulmonary disease) J43.1 COPD type: emphysema Emphysema type: panlobular Obesity (BMI 30-39.9) E66.9 Tobacco abuse Z72.0 Impaired fasting glucose R73.01 Hypercholesterolemia E78.00 Adult general medical exam Z00.00 CPT Codes Advance Care Planning - Time spent: 1-15 minutes, not on file ([id number]) Additional Codes ROB-7 Assessment Billing - ROB-7 Assessment Tool: ROB-7 Assessment [id number] ([id number]) Advance Care Planning Date of discussion: 06/07/23 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
== END 2023-06-07 11:46 | disposition home or self-care (01) ==
PROVIDERS: PCP Internal Medicine; Visit Provider Nurse Practitioner Family
DX: Z00.00 Encounter for general adult medical examination without abnormal findings (principal); N40.0 Benign prostatic hyperplasia without lower urinary tract symptoms; J43.1 Panlobular emphysema; Z12.5 Encounter for screening for malignant neoplasm of prostate; N28.1 Cyst of kidney, acquired; N52.9 Male erectile dysfunction, unspecified; R91.1 Solitary pulmonary nodule; E66.9 Obesity, unspecified; Z72.0 Tobacco use; R73.01 Impaired fasting glucose; E78.00 Pure hypercholesterolemia, unspecified
CPT/HCPCS: 1124F; G0439

== ENCOUNTER 2023-08-14 13:23 | Outpatient (AMB) | payer MEDICARE, SELFPAY ==
[2023-08-14 13:38] VITALS: BP 128/82; PULSE 63; O2SAT 98; BMI 34.0
--- NOTE | 2023-08-14 13:38 | A.OFFPC_ITS ---
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 Patient is here for follow-up last seen in January 2023 colonoscopy is up-to-date. Review of the notes in May patient was seen by the nurse practitioner for annual well visit. Patient has seen Pulmonary in May 2023 regarding again about the tobacco abuse relatively asymptomatic and not using any inhaler patient has a partially calcified nodule 3 mm right upper lobe low-dose CT April [address] Patient also follows up with urology for the renal cyst and erectile dysfunction on sildenafil. still smoking - alittle under a pack . patient fell on the L rib area. no bruise. decline xray for rib. still has leg swelling PFSH Medical History Allergic rhinitis BPH (benign prostatic hyperplasia) Cholelithiasis COPD (chronic obstructive pulmonary disease) COPD (chronic obstructive pulmonary disease) Erectile dysfunction Hx of malignant melanoma Knee osteoarthritis Obesity (BMI 30-39.9) Parotid mass Polymyositis Polymyositis Pulmonary nodule Pulmonary nodule, right Renal calculi Tobacco abuse Vitamin D deficiency Surgical History History of melanoma excision Hx of colonoscopy Hx of hemorrhoidectomy Hx of parotidectomy Hx of rectal sphincterotomy Family History Father Lung cancer CVD (cardiovascular disease) Stroke Liver cancer CHF (congestive heart failure) Mother CVD (cardiovascular disease) CHF (congestive heart failure) Sister Ovarian cancer Social History Housing: House Alcohol intake: current Alcohol intake frequency: holidays/special occasions only Alcohol type: beer Patient Tobacco Use Status: Current everyday Tobacco user Tobacco use type: Cigarette Cigarettes Per Day: 10 Years Smoked: 40 e-Cigarette/Vaping Use: Never Used Second Hand Smoke Exposure: No service: Yes Current occupational status: retired Cognitive needs: No Hearing needs: No Vision needs: Yes Questionnaire Thrive Questionnaire Date Thrive assessed: 02/10/23 AUDIT C Alcohol Use Questionnaire (AUDIT-C) 1. How often do you have a drink containing alcohol?: Monthly or less 2. How many drinks containing alcohol do you have on a typical day when you are drinking?: 1 or 2 3. How often do you have six or more drinks on one occasion?: Never Total Score: 1 Score Reviewed/Action Taken: No ROB-7 AMB Questionnaire ROB-7 Date ROB - 7 assessed: 02/10/23 Source: Developed by Drs. Jah Altamirano, Nicole Sandhu, Mc Gomez and colleagues, with an educational katharine from [employer]. Physical exam (Primary Care) Vital Signs: Last Vital Signs Pulse 63 08/14/23 13:38 BP 128/82 08/14/23 13:38 Pulse Ox 98 08/14/23 13:38 Oxygen Delivery Method Room Air 08/14/23 13:38 BMI result Body Mass Index 34.0 Tobacco/Smoking Status: Tobacco use Status Tobacco use date assessed 08/14/23 08/14/23 13:42 Patient Tobacco Use Status Current everyday Tobacco 08/14/23 13:42 Tobacco use type Cigarette 08/14/23 13:42 e-Cigarette/Vaping Use Never Used 08/14/23 13:42 Thrive Assessment: Date of Thrive Assessment Date Thrive assessed 02/10/23 08/14/23 13:42 Const General: alert; No acute distress Eyes Conjunctivae: conjunctivae normal Resp Auscultation: clear to auscultation bilaterally Cardio Rate: regular rate Rhythm: regular rhythm GI Inspection: Yes normal to inspection Extrem General: Yes normal to inspection and No edema Assessment and Plan Assessment & Plan (1) Tobacco abuse: Comment: Had a good discussion again , he is made aware of all the risks involved due to continued smoking. Is going to try his best to stop or at least cut down as much as possible. Does not want to consider using nicotine patch or gums. Wants to look into undergoing Hypnotism . Code(s): Z72.0 - Tobacco use Plan: Patient strongly advised to stop smoking! (2) COPD (chronic obstructive pulmonary disease): Comment: He does have Moderate degree of obstructive airway disorder. He is relatively asymptomatic and so he does not want to use any maintenance inhaler. Will use ProAir 2 puffs Q 4-6 hours only p.r.n. but has not used it for the last 1 year. RE VISIT Q 1 YEAR AND NEEDED . Code(s): J44.9 - Chronic obstructive pulmonary disease, unspecified Qualifiers: COPD type: emphysema Emphysema type: panlobular Qualified Code(s): J43.1 - Panlobular emphysema Plan: Patient is controlled and does not need any inhaler (3) Pulmonary nodule, right: Comment: He has a partially calcified nodule 3 mm. in right upper lobe.. Last low-dose CT scan in April 2022 , benign category 2 . Needs annual LDCT , for screening program. He is participating in the Annual screening program . Code(s): R91.1 - Solitary pulmonary nodule Plan: Reminded about the CT scan that supposed to have been done in April 2023 (4) BPH (benign prostatic hyperplasia): Comment: October 2016 Code(s): N40.0 - Benign prostatic hyperplasia without lower urinary tract symptoms Plan: Patient continues to follow-up with Urology (5) Erectile dysfunction: Code(s): N52.9 - Male erectile dysfunction, unspecified Plan: Continue with sildenafil (6) Impaired fasting glucose: Code(s): R73.01 - Impaired fasting glucose Plan: Decrease the amount of carbohydrate intake, pasta, bread, rice and potatoes are all sugar and that is aside from all the sweet stuff, remember that fruits are good but they are Sweet also. (7) Hypercholesterolemia: Code(s): E78.00 - Pure hypercholesterolemia, unspecified Plan: Avoid fried foods, chicken skin, eggs, butter margarine, pastries and meat. Be it pork or beef they have a lot of cholesterol LDL goal of less than 130 and triglyceride of less than 150 (8) Vitamin B 12 deficiency: Code(s): E53.8 - Deficiency of other specified B group vitamins (9) Peripheral vascular disease: Code(s): I73.9 - Peripheral vascular disease, unspecified Plan: elevate legs, exercise or support stockings (10) Nasal congestion: Code(s): R09.81 - Nasal congestion Plan: flonase NS Orders: Referrals Thoracic Surgery Referral Z72.0 - Tobacco use Medications: New miconazole nitrate 2% (Zeasorb AF) 1 appl topical BID 85 grams 2RF B35.6 - Tinea cruris Refilled econazole 1% 1 appl topical BID 85 grams 0RF Z72.0 - Tobacco use Coding Level of Care Code Est Pt Level 4 (47399) Diagnoses Tobacco abuse Z72.0 Panlobular emphysema J43.1 COPD type: emphysema Emphysema type: panlobular Pulmonary nodule, right R91.1 BPH (benign prostatic hyperplasia) N40.0 Erectile dysfunction N52.9 Impaired fasting glucose R73.01 Hypercholesterolemia E78.00 Vitamin B 12 deficiency E53.8 Peripheral vascular disease I73.9 Nasal congestion R09.81
== END 2023-08-14 14:22 | disposition home or self-care (01) ==
PROVIDERS: Visit Provider Internal Medicine
DX: E78.00 Pure hypercholesterolemia, unspecified (principal); J43.1 Panlobular emphysema; I73.9 Peripheral vascular disease, unspecified; M33.20 Polymyositis, organ involvement unspecified; R91.1 Solitary pulmonary nodule; E53.8 Deficiency of other specified B group vitamins; R09.81 Nasal congestion
CPT/HCPCS: 99214

== ENCOUNTER 2023-09-08 14:12 | Outpatient (REF) | payer MEDICARE, SELFPAY ==
--- NOTE | ~2023-09-08 | CT_ITS ---
EXAMINATION: CT CHEST SCREENING CLINICAL INFORMATION: Current smoker. 50 pack year history. COMPARISON: Previous chest CT December 2021 TECHNIQUE: Multidetector volumetric CT imaging of the chest is performed without contrast using low dose technique. Additional 2D coronal and sagittal reformatted images and axial 3D maximum intensity projection (MIP) images are generated on the CT workstation. This CT examination was performed using dose optimization techniques as appropriate, variously including the following: *Automated exposure control *Adjustment of mA and/or kV according to patient size (this includes techniques or standardized protocols for targeted exams where dose is matched to indication/reason for exam; i.e. extremities or head) *Use of iterative reconstruction technique DLP: 63 mGy-cm FINDINGS: LUNGS: There is evidence of emphysema. There is a 3 mm calcified right upper lobe nodule axial image 105 series 5 that is stable. The lungs are otherwise clear. No endobronchial or endotracheal lesion. MEDIASTINUM: The mediastinum is normal. CORONARY ARTERY CALCIFICATION: None visualized on this study. PLEURA: There is no pleural effusion. No pleural mass or thickening. AXILLA: No lymphadenopathy. UPPER ABDOMEN: Unremarkable OSSEOUS STRUCTURES: Degenerative changes of the spine. CT/CT lung screening IMPRESSION: Emphysema. Stable small calcified right upper lobe nodule. ASSESSMENT: Lung-RADS category 2: Benign RECOMMENDATION: Annual low-dose chest CT follow-up in one year.
== END 2023-09-08 14:13 | disposition home or self-care (01) ==
LOC: HO.CT 14:12
PROVIDERS: PCP Internal Medicine; Visit Provider Physician Assistant Medical
DX: Z12.2 Encounter for screening for malignant neoplasm of respiratory organs (principal); F17.210 Nicotine dependence, cigarettes, uncomplicated
CPT/HCPCS: 71271

== ENCOUNTER 2023-11-28 11:35 | Outpatient (AMB) | payer MEDICARE, SELFPAY ==
--- NOTE | 2023-11-28 11:38 | A.OFFVIS_ITS ---
Intake Intake Visit Reasons: 6M Follow Up(BPH/ED) Intake Note: Patient is present for Follow Up Urology Med: Sildenafil Antibiotic Allergy: None Blood Thinner: None Pharmacy: [facility] Required: No Accompanied by: Self / Same As Patient Allergies No Known Allergies [No Known Allergies*] Allergy (Verified 11/28/23 11:38) Medication List - Last Reconciled 11/28/23 by Nino Castrejon MD clotrimazole 1% 1 appl topical BID 4 weeks econazole 1% 1 appl topical BID ibuprofen (Advil) 200 mg PO Q6H PRN miconazole nitrate 2% (Zeasorb AF) 1 appl topical BID sildenafil 100 mg PO ONCE 30 days HPI HPI Comments History of Present Illness Details Mr Michel is a very pleasant male. They are a patient of Dr Peacock. They are seen in the office today for the following urologic conditions. - renal cyst - erectile dysfunction Telemedicine Evaluation 15 min Consultation 5minutes Reji Video attempted Six-month follow-up Good response to sildenafil 100 mg Refill provided Happy with response Erectile dysfunction: Symptoms have been present for/since occurred after interferon therapy. Current treatment includes OTC. Prior therapies include oral medications - had side effects with viagra Microscopic Hematuria: Bilateral cysts on imaging. 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 They are here for the discussion of imaging findings. Since the last visit the patient has has not noticed gross hematuria, continues to test postive for microscopic hematuria. Relevant medical history for tobacco use. Radiographic imaging: CT IVP March 2016 Dr Peacock - 12/16 US renal, bilateral cysts, 4 mm right kidney stone - 07/16 , US renal, bilateral cysts - 01/15 , US renal, bilateral small 1-2cm cysts, ? small right renal stone right - 12/19 US bilateral cysts 4cm, no stones - 01/17 renal ultrasound, bilateral cysts up to 4 cm, 3 cyst each side, no stones - 04/20 ultrasound bilateral renal cysts up to 4 cm, 3 cyst each side, question of stone on right side 7 mm Radiology report no genitourinary abnormality - hyperdense left upper pole renal cyst. Other investigations cytology, normal. Cystoscopy findings normal May 2016. Therapeutic plan surveillance imaging [facility] Medical History Allergic rhinitis Polymyositis Pulmonary nodule, right COPD (chronic obstructive pulmonary disease) Pulmonary nodule Parotid mass Obesity (BMI 30-39.9) Knee osteoarthritis Tobacco abuse BPH (benign prostatic hyperplasia) Cholelithiasis Vitamin D deficiency Erectile dysfunction Hx of malignant melanoma Renal calculi Polymyositis COPD (chronic obstructive pulmonary disease) Surgical History History of melanoma excision Hx of rectal sphincterotomy Hx of colonoscopy Hx of hemorrhoidectomy Hx of parotidectomy Family History Father Lung cancer CVD (cardiovascular disease) Stroke Liver cancer CHF (congestive heart failure) Mother CVD (cardiovascular disease) CHF (congestive heart failure) Sister Ovarian cancer Social History Housing: House Alcohol intake: current Alcohol intake frequency: holidays/special occasions only Alcohol type: beer Patient Tobacco Use Status: Current everyday Tobacco user Tobacco use type: Cigarette Cigarettes Per Day: 10 Years Smoked: 40 e-Cigarette/Vaping Use: Never Used Second Hand Smoke Exposure: No service: Yes Current occupational status: retired Cognitive needs: No Hearing needs: No Vision needs: Yes Review of Systems Const All systems reviewed & are unremarkable except as noted in HPI and below Reports no additional complaints Resp Reports no additional complaints GI Reports no additional complaints Reports as per HPI Musc Reports no additional complaints Physical Exam Telemedicine evaluation Appropriate responses Regular breathing rate and rhythm HEENT Head: Yes normal to inspection Ears: hearing grossly normal bilaterally Eyes General: appearance normal, both eyes and all related structures Neck Neck: Yes normal visual inspection Chest Chest palpation & inspection: normal inspection of the chest Resp Effort & Inspection: normal respiratory effort and able to speak in complete sentences Assessment & Plan Assessment & Plan (1) Erectile dysfunction: Code(s): N52.9 - Male erectile dysfunction, unspecified (2) BPH (benign prostatic hyperplasia): Comment: October 2016 Code(s): N40.0 - Benign prostatic hyperplasia without lower urinary tract symptoms Plan Six-month follow-up renal ultrasound Refill sildenafil Orders: Orders US renal BI 6 Months N28.1 - Cyst of kidney, acquired Medications: Refilled sildenafil administer 60 minutes before intended activity 100 mg PO ONCE 30 tabs 1RF sexual activity 30 days N52.9 - Male erectile dysfunction, unspecified Patient Instructions: Imaging studies, laboratory and physical exam results were discussed and reviewed in detail. No major barriers to patient understanding were identified. An opportunity to ask questions regarding the treatment plan was provided. All questions were answered. The patient expressed understanding and agreement with the above treatment plan. The patient is aware they should contact our office by phone for worsening of their current condition or the appearance of new urologic symptoms. Compliance is encouraged with any medications and followup testing that is ordered. It is a privilege to participate in the urologic care of your patient. If you have any questions or concerns regarding treatment for the above conditions, or other urologic issues, please do not hesitate to contact me. The office telephone contact is [phone]. This note is constructed using voice recognition software. While every effort has been made to ensure accuracy joss house keeper errors may have been included. Yours sincerely, Dr Nino Castrejon MD, JD [facility] - Urology Providers of Expert, Compassionate Care for the Genitourinary System Telehealth Telehealth Location of provider rendering services: practice address Location of patient: address on file Patient Identification confirmed using: Name, : Yes Telehealth method: video Patient verbally consented to treatment: Yes Patient verbally consented to billing insurance company: Yes Patient informed of any privacy concerns related to visit: Yes Coding Level of Care Code Tele Est Pt Level 3 (62349) Diagnoses Erectile dysfunction N52.9 BPH (benign prostatic hyperplasia) N40.0
== END 2023-11-28 12:10 | disposition home or self-care (01) ==
LOC: HO.HUSH 11:35
PROVIDERS: PCP Internal Medicine; Visit Provider Urology
DX: N52.9 Male erectile dysfunction, unspecified (principal); N40.0 Benign prostatic hyperplasia without lower urinary tract symptoms
CPT/HCPCS: 99213

== ENCOUNTER → 2023-11-28 11:35 | Outpatient (BNVA) | payer MEDICARE, SELFPAY | PROVIDERS: PCP Internal Medicine; Visit Provider Urology ==

== ENCOUNTER 2024-02-20 13:23 | Outpatient (AMB) | payer MEDICARE, SELFPAY ==
--- NOTE | 2024-02-20 13:26 | MHC.PC.OV ---
Vital Signs 02/20/24 13:27 02/20/24 14:12 Height 5 ft 11 in Weight 246 lb BMI 34.3 BP 150/82 H 142/80 H Blood Pressure Location Lt brachial Lt brachial Position Sitting Sitting Pulse 85 Pulse Source Pulse Oximeter Pulse Oximetry (%) 98 Oxygen Delivery Method Room Air Intake Visit Reasons: COPD , smoking Allergies No Known Allergies [No Known Allergies*] Allergy (Verified 02/20/24 13:27) Medication List - Last Reconciled 02/20/24 by Dima Peacock MD clotrimazole 1% 1 appl topical BID 4 weeks econazole 1% 1 appl topical BID ibuprofen (Advil) 200 mg PO Q6H PRN miconazole nitrate 2% (Zeasorb AF) 1 appl topical BID sildenafil 100 mg PO ONCE 30 days Tobacco use date assessed: 02/20/24 Fall risk assessment: No Falls in past year Last assessed Fall Risk: 02/20/24 Dental Screening Dental Screen Date: 02/20/24 Did you have a dental visit in the last 12 months?: Yes Did you have a dental problem in the last 6 months where you did not have access to dental care?: No Was dental information given to patient?: Patient has dentist HPI COPD , smoking HPI Details 73-year-old obese male smoker with COPD BPH erectile dysfunction impaired glucose tolerance hypercholesterolemia peripheral vascular disease last seen in July 2023 patient is here for follow-up. Up-to-date with colonoscopy. Review of the notes has followed up with Urology had Telehealth on sildenafil patient has been advised ultrasound of the kidneys in 6 months. Because of the smoking patient had a CT scan in August 2023 and will have annual CT scan. still smoking [facility] Medical History Allergic rhinitis Polymyositis Pulmonary nodule, right COPD (chronic obstructive pulmonary disease) Pulmonary nodule Parotid mass Obesity (BMI 30-39.9) Knee osteoarthritis Tobacco abuse BPH (benign prostatic hyperplasia) Cholelithiasis Vitamin D deficiency Erectile dysfunction Hx of malignant melanoma Renal calculi Polymyositis COPD (chronic obstructive pulmonary disease) Surgical History History of melanoma excision Hx of rectal sphincterotomy Hx of colonoscopy Hx of hemorrhoidectomy Hx of parotidectomy Family History Father Lung cancer CVD (cardiovascular disease) Stroke Liver cancer CHF (congestive heart failure) Mother CVD (cardiovascular disease) CHF (congestive heart failure) Sister Ovarian cancer Social History Housing: House Alcohol intake: current Alcohol intake frequency: holidays/special occasions only Alcohol type: beer Patient Tobacco Use Status: Current everyday Tobacco user Tobacco use type: Cigarette Cigarettes Per Day: 10 Years Smoked: 40 e-Cigarette/Vaping Use: Never Used Second Hand Smoke Exposure: No service: Yes Current occupational status: retired Cognitive needs: No Hearing needs: No Vision needs: Yes Questionnaire PHQ-9 Over the last 2 weeks, how often have you been bothered by any of the following problems? 1. Little interest or pleasure in doing things: not at all 2. Feeling down, depressed, or hopeless: not at all 3. Trouble falling or staying asleep, or sleeping too much: not at all 4. Feeling tired or having little energy: not at all 5. Poor appetite or overeating: not at all 6. Feeling bad about yourself - or that you are a failure or have let yourself or your family down: not at all 7. Trouble concentrating on things, such as reading the newspaper or watching television: not at all 8. Moving or speaking so slowly that other people could have noticed. Or the opposite - being so fidgety or restless that you have been moving around a lot more than usual: not at all 9. Thoughts that you would be better off or of hurting yourself in some way: not at all Total score: 0 Depression Screening Interpretation: Negative Depression Screening Done: Yes 43192 - PHQ-9 Billing: Yes Source: Developed by Drs. Jah Altamirano, Nicole Sandhu, Mc Gomez and colleagues, with an educational katharine from [employer]. Thrive Questionnaire Date Thrive assessed: 02/20/24 I am a: Patient What is your living situation today?: I have a steady place to live Within the past 12 months, did the food you bought not last and you didn't have the money to get more?: Never true Within the past 12 months, did you worry whether your food would run out before you got money to buy more?: Never true Do you have trouble paying for medicines?: No Do you have trouble getting transportation to medical appointments?: No Do you have trouble paying your heating and electricity bill?: No Do you have trouble taking care of your child, family member or friend?: No Do you have trouble with day-to-day activities such as bathing, preparing meals, shopping, managing finances, etc.?: No Are you currently unemployed and looking for a job?: No Are you interested in more education?: No Currently or been in a relationship where the following occur: no concerns reported THRIVE Score: 0 AUDIT C Alcohol Use Questionnaire (AUDIT-C) 1. How often do you have a drink containing alcohol?: Monthly or less 2. How many drinks containing alcohol do you have on a typical day when you are drinking?: 1 or 2 3. How often do you have six or more drinks on one occasion?: Never Total Score: 1 Score Reviewed/Action Taken: No ROB-7 AMB Questionnaire ROB-7 Date ROB - 7 assessed: 02/20/24 Feeling nervous, anxious, or on edge: 0 = Not at all Not being able to stop or control worryin = Not at all Worrying too much about different things: 0 = Not at all Trouble relaxin = Not at all Being so restless that it is hard to sit still: 0 = Not at all Becoming easily annoyed or irritable: 0 = Not at all Feeling afraid as if something awful might happen: 0 = Not at all Total ROB-7 score (0-4 normal; 5-9 mild; 10-14 moderate; 15-21 severe): 0 Source: Developed by Drs. Jah Altamirano, Nicole Sandhu, Mc Gomez and colleagues, with an educational katharine from [employer]. Physical exam (Primary Care) Vital Signs: Last Vital Signs Pulse 85 02/20/24 13:27 BP 150/82 H 02/20/24 13:27 Pulse Ox 98 02/20/24 13:27 Oxygen Delivery Method Room Air 02/20/24 13:27 BMI result Body Mass Index 34.3 Tobacco/Smoking Status: Tobacco use Status Tobacco use date assessed 02/20/24 02/20/24 13:31 Patient Tobacco Use Status Current everyday Tobacco 02/20/24 13:31 Tobacco use type Cigarette 02/20/24 13:31 e-Cigarette/Vaping Use Never Used 02/20/24 13:31 PHQ-9: PHQ-9 Score PHQ-9: Total score 0 02/20/24 13:31 Depression Screening Interpretation: Negative Thrive Assessment: Date of Thrive Assessment Date Thrive assessed 02/20/24 02/20/24 13:31 Currently or been in a relationship where the following occur: no concerns reported Const General: alert; No acute distress Eyes Conjunctivae: conjunctivae normal Resp Auscultation: clear to auscultation bilaterally Cardio Rate: regular rate Rhythm: regular rhythm GI Inspection: Yes normal to inspection Extrem General: Yes normal to inspection and No edema Assessment and Plan Assessment & Plan (1) Tobacco abuse: Comment: Had a good discussion again , he is made aware of all the risks involved due to continued smoking. Is going to try his best to stop or at least cut down as much as possible. Does not want to consider using nicotine patch or gums. Wants to look into undergoing Hypnotism . Code(s): Z72.0 - Tobacco use Plan: Patient is strongly advised to stop smoking. Patient is enrolled in the lung cancer screening and the last CT scan was done in August 2023 (2) Obesity (BMI 30-39.9): Code(s): E66.9 - Obesity, unspecified Plan: Diet and exercise (3) COPD (chronic obstructive pulmonary disease): Comment: He does have Moderate degree of obstructive airway disorder. He is relatively asymptomatic and so he does not want to use any maintenance inhaler. Will use ProAir 2 puffs Q 4-6 hours only p.r.n. but has not used it for the last 1 year. RE VISIT Q 1 YEAR AND NEEDED . Code(s): J44.9 - Chronic obstructive pulmonary disease, unspecified Qualifiers: COPD type: emphysema Emphysema type: panlobular Qualified Code(s): J43.1 - Panlobular emphysema Plan: Stop smoking! . (4) BPH (benign prostatic hyperplasia): Comment: October 2016 Code(s): N40.0 - Benign prostatic hyperplasia without lower urinary tract symptoms Plan: Follows up with urology on sildenafil for erectile dysfunction. (5) Impaired fasting glucose: Code(s): R73.01 - Impaired fasting glucose Plan: Decrease the amount of carbohydrate intake, pasta, bread, rice and potatoes are all sugar and that is aside from all the sweet stuff, remember that fruits are good but they are Sweet also. (6) Hypercholesterolemia: Code(s): E78.00 - Pure hypercholesterolemia, unspecified Plan: Avoid fried foods, chicken skin, eggs, butter margarine, pastries and meat. Be it pork or beef they have a lot of cholesterol LDL goal of less than 130 and triglyceride of less than 150 (7) Peripheral vascular disease: Code(s): I73.9 - Peripheral vascular disease, unspecified Plan: When sitting down elevate the legs, exercise, and support stockings (8) Blood pressure elevated without history of HTN: Code(s): R03.0 - Elevated blood-pressure reading, without diagnosis of hypertension Plan: monitor BP and ff up Orders: Orders Lipid Panel Today E78.00 - Pure hypercholesterolemia, unspecified Free T4 (Free Thyroxine) Today E78.00 - Pure hypercholesterolemia, unspecified Vitamin B12 and Folate Today E78.00 - Pure hypercholesterolemia, unspecified Hemoglobin A1c Today R73.01 - Impaired fasting glucose Comprehensive Met. Panel Today R73.01 - Impaired fasting glucose Complete Blood Count Auto Diff Today E78.00 - Pure hypercholesterolemia, unspecified Thyroid Stimulating Hormone Today E78.00 - Pure hypercholesterolemia, unspecified Coding Level of Care Code Est Pt Level 4 (14391) Diagnoses Tobacco abuse Z72.0 Obesity (BMI 30-39.9) E66.9 Panlobular emphysema J43.1 COPD type: emphysema Emphysema type: panlobular BPH (benign prostatic hyperplasia) N40.0 Impaired fasting glucose R73.01 Hypercholesterolemia E78.00 Peripheral vascular disease I73.9 Blood pressure elevated without history of HTN R03.0
[2024-02-20 13:27] VITALS: BP 150/82; PULSE 85; O2SAT 98; BMI 34.3
[2024-02-20 14:12] VITALS: BP 142/80
== END 2024-02-20 14:15 | disposition home or self-care (01) ==
PROVIDERS: PCP Internal Medicine; Visit Provider Internal Medicine
DX: J43.1 Panlobular emphysema (principal); F17.210 Nicotine dependence, cigarettes, uncomplicated; R73.01 Impaired fasting glucose; E78.00 Pure hypercholesterolemia, unspecified; N40.0 Benign prostatic hyperplasia without lower urinary tract symptoms; I73.9 Peripheral vascular disease, unspecified; R03.0 Elevated blood-pressure reading, without diagnosis of hypertension
CPT/HCPCS: 99214

== ENCOUNTER 2024-03-22 06:46 | Outpatient (REF) | payer MEDICARE, SELFPAY ==
[2024-03-22 07:00] LABS: MANUAL DIFF FLAG NO
[2024-03-22 07:44] LABS: Basophils Absolute Auto 0.1 X10*3/uL (0.0-0.2); Basophils Percent Auto 0.9 % (0-2); Eosinophils Absolute Auto 0.2 X10*3/uL (0.0-0.4); Eosinophils Percent Auto 2.1 % (0-4); Hematocrit 41.4 % (42.0-52.0); Hemoglobin 13.7 g/dl (14.0-18.0); Imm Gran Abs Auto 0.06 X10*3/uL (0.00-0.03); Imm Gran Pct Auto 0.7 % (0.0-0.4); Lymphocytes Absolute Auto 2.6 X10*3/uL (1.2-4.9); Lymphocytes Percent Auto 31.2 % (20-40); Mean Corpuscular HGB Conc 33.1 g/dl (31.0-36.0); Mean Corpuscular Hemoglobin 31.6 pg (27.0-33.0); Mean Corpuscular Volume 95.4 fL (80.0-98.0); Monocytes Percent Auto 12.4 % (2-11); Neutrophils Absolute Auto 4.3 x10*3/uL (2.0-8.3); Neutrophils Percent Auto 52.7 % (45-73); Platelet Count 227 X10*3/uL (160-400); Red Blood Count 4.34 X10*6/uL (4.60-5.80); White Blood Count 8.2 X10*3/uL (4.8-10.8)
[2024-03-22 08:04] LABS: Estimated Average Glucose 114 mg/dL; Hemoglobin A1c % 5.6 % (<6.0)
[2024-03-22 08:28] LABS: Alanine Aminotransferase 10 U/L (0-40); Albumin Level 3.9 g/dL (3.5-5.0); Alkaline Phosphatase 58 U/L (39-117); Anion Gap 11 (12-20); Aspartate Amino Transferase 14 U/L (5-37); Bilirubin Total 0.5 mg/dL (0.0-1.0); Blood Urea Nitrogen 14 mg/dL (9-16); Carbon Dioxide 26 mmol/L (22-29); Chloride 107 mmol/L (96-108); Cholesterol 162 mg/dL (<200); Estimated Glomerular Filt Rate > 60; Glucose Random 95 mg/dL (60-115); HDL Cholesterol 43 mg/dL (>40); LDL Cholesterol Calculated 105 mg/dL (<100); Potassium 4.2 mmol/L (3.3-5.1); Sodium 140 mmol/L (135-145); Total Protein 7.2 g/dL (6.5-8.0); Triglycerides 70 mg/dL (<150)
[2024-03-22 08:30] LABS: Free T4 (Free Thyroxine) 1.11 ng/dL (0.71-1.85)
[2024-03-22 08:43] LABS: Folate 8.6 ng/mL (> or = 4.0); Vitamin B12 306 pg/mL (200-900)
== END 2024-03-22 06:47 | disposition home or self-care (01) ==
LOC: HO.LAB 06:46
PROVIDERS: PCP Internal Medicine; Visit Provider Internal Medicine
DX: E78.00 Pure hypercholesterolemia, unspecified (principal); R73.01 Impaired fasting glucose
CPT/HCPCS: 36415; 80053; 80061; 82607; 82746; 83036; 84439; 84443; 85025

== ENCOUNTER 2024-05-23 11:23 | Outpatient (REF) | payer MEDICARE, SELFPAY ==
--- NOTE | ~2024-05-23 | US_ITS ---
EXAMINATION: US RETROPERITONEAL LIMITED (RENAL ONLY) CLINICAL INFORMATION: Cyst of kidney, acquired. COMPARISON: Renal ultrasound 05/01/2023 and 04/29/2022. CT abdomen and pelvis 07/13/2018. TECHNIQUE: Real-time imaging of the kidneys. FINDINGS: RIGHT KIDNEY: 11.6 x 5.7 x 5.9 cm (SAG x AP x TRV). The kidney is normal in size, contour, and echogenicity. Renal cortical thickness is normal. No renal calculi or hydronephrosis. Cyst in the middle pole measures 4 x 3.8 x 4.5 cm there is echogenic focus within this cyst measures 9 mm. Might be a stone.. There is a simple cyst middle/upper pole measures 3.9 x 4.6 x 3.9 cm. Smaller cyst lower pole 1.9 x 2 x 2.3 cm. LEFT KIDNEY: 10.9 x 5.9 x 5.3 cm (SAG x AP x TRV). The kidney is normal in size, contour, and echogenicity. Renal cortical thickness is normal. No renal calculi or hydronephrosis. Cyst in the upper pole measures a 3.2 x 2.2 x 2.8 cm. Simple cyst middle pole 1.3 x 1.3 x 1.2 cm. Cyst protruding from the lower pole 2.5 x 2 x 4.2 cm. No solid lesion found. US/US renal BI IMPRESSION: Redemonstration of a cyst with echogenic focus upper pole right kidney 4.5 cm unchanged allowing for interobserver variability.. Redemonstration of multiple other simple cysts bilaterally. No kidney stone or hydronephrosis.
== END 2024-05-23 11:24 | disposition home or self-care (01) ==
LOC: HO.US 11:23
PROVIDERS: PCP Internal Medicine; Visit Provider Urology
DX: N28.1 Cyst of kidney, acquired (principal)
CPT/HCPCS: 76775

== ENCOUNTER 2024-05-28 10:48 | Outpatient (AMB) | payer MEDICARE, SELFPAY ==
--- NOTE | 2024-05-28 10:58 | MHC.OFFVIS ---
Intake Visit Reasons: 6M Follow Up- U/S(05/23) Intake Note: Patient is Present for Follow Up Ultrasound Urology Medication: Sildenafil Antibiotic Allergies: None Blood Thinners: None Cooling Machine Operator Required: No Allergies No Known Allergies [No Known Allergies*] Allergy (Verified 08/01/24 11:31) HPI Comments Details: Mr Michel is a very pleasant male. They are a patient of Dr Peacock. They are seen in the office today for the following urologic conditions. - renal cyst - erectile dysfunction Six-month follow-up Good response to sildenafil 100 mg Refill provided Happy with response Twelve month follow-up PSA Erectile dysfunction: Symptoms have been present for/since occurred after interferon therapy. Current treatment includes OTC. Prior therapies include oral medications - had side effects with viagra Microscopic Hematuria: Bilateral cysts on imaging. 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 They are here for the discussion of imaging findings. Since the last visit the patient has has not noticed gross hematuria, continues to test postive for microscopic hematuria. Relevant medical history for tobacco use. Radiographic imaging: CT IVP March 2016 Dr Peacock - 12/16 US renal, bilateral cysts, 4 mm right kidney stone - 07/16 , US renal, bilateral cysts - 01/15 , US renal, bilateral small 1-2cm cysts, ? small right renal stone right - 12/19 US bilateral cysts 4cm, no stones - 01/17 renal ultrasound, bilateral cysts up to 4 cm, 3 cyst each side, no stones - 04/20 ultrasound bilateral renal cysts up to 4 cm, 3 cyst each side, question of stone on right side 7 mm Radiology report no genitourinary abnormality - hyperdense left upper pole renal cyst. Other investigations cytology, normal. Cystoscopy findings normal May 2016. Therapeutic plan surveillance imaging [facility] Medical History Hx of malignant melanoma Polymyositis Parotid mass Peripheral vascular disease Hypercholesterolemia COPD (chronic obstructive pulmonary disease) Pulmonary nodule Nicotine dependence, cigarettes, uncomplicated Allergic rhinitis BPH (benign prostatic hyperplasia) Obesity (BMI 30-39.9) Knee osteoarthritis Cholelithiasis Vitamin D deficiency Erectile dysfunction Tubular adenoma of colon Renal calculi Surgical History History of parotidectomy History of melanoma excision History of rectal sphincterotomy History of hemorrhoidectomy History of colonoscopy Family History Father Lung cancer CVD (cardiovascular disease) Stroke Liver cancer CHF (congestive heart failure) Mother CVD (cardiovascular disease) CHF (congestive heart failure) Sister Ovarian cancer Social History Housing: House Alcohol intake: current Alcohol intake frequency: holidays/special occasions only Alcohol type: beer Patient Tobacco Use Status: Current everyday Tobacco user Tobacco use type: Cigarette Cigarettes Per Day: 10 Years Smoked: 40 e-Cigarette/Vaping Use: Never Used Second Hand Smoke Exposure: No Substance Use Type: Marijuana service: Yes Current occupational status: retired Cognitive needs: No Hearing needs: No Vision needs: Yes Review of Systems Const Denies chills and Denies fever(s) Card Reports no additional complaints and Denies syncope Resp Denies cough GI Denies abdominal pain and Denies heartburn Reports as per HPI and Denies change in libido Neuro Denies syncope Psych Denies change in libido Endo Denies change in libido Physical Exam Const General: cooperative, healthy appearing, comfortable and no acute distress Orientation/consciousness: patient oriented x3 HEENT Face and sinus: Yes normal facial exam Mouth: moist mucous membranes Neck Neck: Yes normal visual inspection, Yes full ROM and Yes trachea midline Chest Chest palpation & inspection: normal inspection of the chest Resp Effort & Inspection: normal respiratory effort, able to speak in complete sentences and no respiratory distress GI Inspection: Yes normal to inspection Back/Spine/Pelvis Cervical Spine: normal cervical lordosis Thoracic/Lumbar Spine: thoracic and lumbar spine normal to inspection Skin General skin exam: no rashes or lesions noted Neuro General: patient oriented x3, gait normal, tone normal and moves all extremities Extrem General: Yes normal to inspection and Yes capillary refill normal Assessment & Plan Assessment & Plan (1) BPH (benign prostatic hyperplasia): Comment: October 2016 Code(s): N40.0 - Benign prostatic hyperplasia without lower urinary tract symptoms Category: Medical Plan Nearly follow-up Orders: Orders Prostate Specific Antigen 364 Days N40.0 - Benign prostatic hyperplasia without lower urinary tract symptoms Patient Instructions: Imaging studies, laboratory and physical exam results were discussed and reviewed in detail. No major barriers to patient understanding were identified. An opportunity to ask questions regarding the treatment plan was provided. All questions were answered. The patient expressed understanding and agreement with the above treatment plan. The patient is aware they should contact our office by phone for worsening of their current condition or the appearance of new urologic symptoms. Compliance is encouraged with any medications and followup testing that is ordered. It is a privilege to participate in the urologic care of your patient. If you have any questions or concerns regarding treatment for the above conditions, or other urologic issues, please do not hesitate to contact me. The office telephone contact is [phone]. This note is constructed using voice recognition software. While every effort has been made to ensure accuracy market development executive errors may have been included. Yours sincerely, Dr Nino Castrejon MD, JD [facility] - Urology Providers of Expert, Compassionate Care for the Genitourinary System Coding Level of Care Code Est Pt Level 3 (99744) Diagnoses BPH (benign prostatic hyperplasia) N40.0
== END 2024-05-28 12:10 | disposition home or self-care (01) ==
PROVIDERS: PCP Internal Medicine; Visit Provider Urology
DX: N40.0 Benign prostatic hyperplasia without lower urinary tract symptoms (principal)
CPT/HCPCS: 99213

== ENCOUNTER → 2024-05-28 10:48 | Outpatient (BNVA) | payer MEDICARE, SELFPAY | PROVIDERS: PCP Internal Medicine; Visit Provider Urology | DX: N40.0 Benign prostatic hyperplasia without lower urinary tract symptoms (principal); N52.9 Male erectile dysfunction, unspecified; N28.1 Cyst of kidney, acquired | CPT/HCPCS: 99212 ==

== ENCOUNTER 2024-06-11 11:28 | Outpatient (AMB) | payer MEDICARE, SELFPAY ==
[2024-06-11 11:20] VITALS: BP 146/80; PULSE 66; O2SAT 95; BMI 32.9
--- NOTE | 2024-06-11 11:20 | AM.OFFVISMDC ---
Intake Vital Signs 06/11/24 11:20 06/11/24 11:53 Height 5 ft 11 in Weight 236 lb 0.6 oz BMI 32.9 BP 146/80 H 120/78 Blood Pressure Location Lt brachial Lt brachial Position Sitting Sitting Pulse 66 Pulse Source Pulse Oximeter Pulse Oximetry (%) 95 Oxygen Delivery Method Room Air Intake Visit Reasons: sawv Social Worker Clinical Required: No Allergies No Known Allergies [No Known Allergies*] Allergy (Verified 06/11/24 11:50) Medication List - Last Reconciled 06/11/24 by Natasha Moran PA-C clotrimazole 1% 1 appl topical BID 4 weeks ibuprofen (Advil) 200 mg PO Q6H PRN lactulose 20 grams (30 mL) PO BID sildenafil 100 mg PO ONCE 30 days HPI sawv HPI Details 73-year-old male with past medical history of tobacco abuse, COPD, BPH, hypercholesterolemia, impaired glucose tolerance, peripheral vascular disease last seen by Dr. Peacock January 2024 coming in for annual well visit. In review of the notes, patient was seen by Urology 04/2024 for erectile dysfunction and renal cyst. Doing well on sildenafil and we will continue to monitor with serial imaging for renal cyst. Patient is up-to-date with his colonoscopy 2019 with follow up in 5 years and he routinely follows with annual lung cancer screening 08/2023. Today he tells us he is still smoking cigarettes daily and is trying to quit. He has tried patches, pills, and gums in the past with no success. He also mentions he has mild leg swelling which has been chronic and not worsening. He has no other acute concerns today. [facility] Medical History Allergic rhinitis Polymyositis Pulmonary nodule, right COPD (chronic obstructive pulmonary disease) Pulmonary nodule Parotid mass Obesity (BMI 30-39.9) Knee osteoarthritis Tobacco abuse BPH (benign prostatic hyperplasia) Cholelithiasis Vitamin D deficiency Erectile dysfunction Hx of malignant melanoma Renal calculi Polymyositis COPD (chronic obstructive pulmonary disease) Surgical History History of melanoma excision Hx of rectal sphincterotomy Hx of colonoscopy Hx of hemorrhoidectomy Hx of parotidectomy Family History Father Lung cancer CVD (cardiovascular disease) Stroke Liver cancer CHF (congestive heart failure) Mother CVD (cardiovascular disease) CHF (congestive heart failure) Sister Ovarian cancer Social History Housing: House Alcohol intake: current Alcohol intake frequency: holidays/special occasions only Alcohol type: beer Patient Tobacco Use Status: Current everyday Tobacco user Tobacco use type: Cigarette Cigarettes Per Day: 10 Years Smoked: 40 e-Cigarette/Vaping Use: Never Used Second Hand Smoke Exposure: No service: Yes Current occupational status: retired Cognitive needs: No Hearing needs: No Vision needs: Yes Questionnaire Medicare Wellness Checkup [age] What gender do you identify with?: male During the past 4 weeks, how much have you been bothered by emotional problems such as feeling anxious, depressed, irritable, sad or downhearted, and blue?: slightly During the past 4 weeks, has your physical & emotional health limited your social activities with family, friends, neighbors, or groups?: not at all During the past 4 weeks, how much bodily pain have you generally had?: no pain During the past 4 weeks, was someone available to help you if you needed & wanted help?: yes, as much as I wanted During the past 4 weeks, what was the hardest physical activity you could do for at least 2 minutes?: heavy Can you get to places out of walking distance without help? (For eg., can you travel alone on buses, taxis or drive your car?): Yes Can you go shopping for groceries or clothes without someone's help?: Yes Can you prepare your own meals?: Yes Can you do your housework without help?: Yes Because of any health problems, do you need the help of another person with your personal care needs such as eating, bathing, dressing or getting around the house?: No Can you handle your own money without help?: Yes During the past 4 weeks, how would you rate your health in general?: very good During the past 4 weeks how have things been going for you?: very well; could hardly better Are you having difficulties driving your car?: no Do you always fasten your seat belt when you are in a car?: yes, usually During past 4 weeks, have you been bothered by the following: never: Trouble eating well? and Problems using the telephone?, seldom: Falling or dizzy when standing up and Tiredness or fatigue? and often: Sexual problems? and Teeth or denture problems? Have you fallen 2 or more times in the past year?: No Are you afraid of falling?: No Are you a smoker?: yes, and I might quit During the past 4 weeks, how many drinks of wine, beer, or other alcoholic beverages did you have?: 2-5 drinks per week Do you exercise for about 20 minutes 3 or more times a week?: yes, some of the time Have you been given information to help with the following?: yes: Hazards in your house that might hurt you? and no: Keeping track of your medications? How often do you have trouble taking medicines the way you have been told to take them?: I do not have to take medicine How confident are you that you can control & manage most of your health problems?: very confident What is your race?: White Activity of Daily Living Bathing - sponge bath, tub bath or shower: receives no assistance (gets in/out by self, if usual bathing means Dressing - getting clothes from closets & drawers, including inner/outer garments & fasteners.: gets clothes & gets completely dressed without help Toileting - going to the 'toilet room' for urine/bowel elimination & cleaning self/arranging clothes: goes to toilet room, cleans self, arranges clothes without help Transfer: moves in & out of bed and chair without help (may use support object) Continence: controls urination/bowel movements completely by self Feeding: feeds self without help Total Score: 0 Information obtained from: patient Using telephone: independent Traveling: independent Shopping: independent Preparing meals: independent Housework: independent Taking medicine: independent Managing money: independent PHQ-9 Over the last 2 weeks, how often have you been bothered by any of the following problems? 1. Little interest or pleasure in doing things: not at all 2. Feeling down, depressed, or hopeless: not at all 3. Trouble falling or staying asleep, or sleeping too much: not at all 4. Feeling tired or having little energy: not at all 5. Poor appetite or overeating: not at all 6. Feeling bad about yourself - or that you are a failure or have let yourself or your family down: not at all 7. Trouble concentrating on things, such as reading the newspaper or watching television: not at all 8. Moving or speaking so slowly that other people could have noticed. Or the opposite - being so fidgety or restless that you have been moving around a lot more than usual: not at all 9. Thoughts that you would be better off or of hurting yourself in some way: not at all Total score: 0 Depression Screening Interpretation: Negative Depression Screening Done: Yes 34183 - PHQ-9 Billing: Yes Source: Developed by Drs. Jah Altamirano, Nicole Sandhu, Mc Gomez and colleagues, with an educational katharine from [employer]). Review of Systems Const Denies body aches, Denies fatigue, Denies fever(s), Denies frequent falls, Denies headache(s) and Denies weakness Eyes Reports no additional complaints and Denies change in vision ENT Denies dysphagia, Denies dizziness, Denies facial pain, Denies headache(s), Denies nasal congestion and Denies odynophagia Card Denies chest pain, Denies syncope, Denies irregular heart rhythm, Denies leg edema, Denies lightheadedness and Denies dyspnea Resp Denies cough and Denies dyspnea GI Reports constipation, Denies dysphagia, Denies dyspepsia, Denies diarrhea, Denies nausea, Denies odynophagia and Denies vomiting Denies oliguria, Denies dysuria, Denies urinary frequency, Denies urinary hesitancy and Denies urinary urgency Musc Details: Mild bilateral leg swelling Denies back pain and Denies myalgias Skin/Breast Reports system reviewed and no additional complaints, except as documented Neuro Denies dizziness, Denies syncope, Denies frequent falls, Denies headache(s) and Denies weakness Psych Reports no additional complaints Endo Denies fatigue Physical Exam Vital Signs: Oxygen Delivery Method Room Air 06/11/24 11:20 Const General: cooperative, healthy appearing, comfortable and no acute distress Orientation/consciousness: patient oriented x3 HEENT Head: Yes normocephalic Ears: hearing grossly normal bilaterally, external ears normal, TM's normal bilaterally, EAC's normal and Abnormal EAC present excessive cerumen bilateral General nose exam: Normal external nose present Face and sinus: Yes normal facial exam and Yes sinuses nontender Mouth: Normal oral and palatal mucosa present and tongue normal Throat: Yes posterior oropharynx normal Eyes General: appearance normal, both eyes and all related structures Conjunctivae: conjunctivae normal Pupils: Equal, round and reactive pupils present EOM: EOMs intact bilaterally and No Nystagmus present Neck Neck: Yes normal visual inspection, Yes full ROM and Yes no lymphadenopathy Chest Chest palpation & inspection: normal inspection of the chest Resp Effort & Inspection: normal respiratory effort Auscultation: clear to auscultation bilaterally, no crackles, no rales, no rhonchi, no wheezes and breath sounds present Cardio Rate: regular rate Rhythm: regular rhythm Peripheral pulses: radial pulses present and dorsalis pedis present GI Inspection: Yes normal to inspection and No Abdominal wall edema Palpation (GI): Soft to palpation, not firm and nontender Auscultation: normal bowel sounds Rectal Exam - Male: Yes deferred General: Yes no CVA tenderness Back/Spine/Pelvis Back: no CVA tenderness Skin General skin exam: no rashes or lesions noted Neuro General: patient oriented x3 Cranial nerves: Yes Equal, round and reactive pupils present, Yes Midline tongue present, Yes Ability to bilaterally elevate shoulders present and No Nystagmus present Gait exam (Neuro): Normal gait present Extrem Other: Mild nonpitting edema of bilateral legs with intact pulses and without overlying skin changes. General: Yes normal to inspection, Yes full ROM, No no pedal edema and No edema Psych Speech and movement: Normal speech and movement present Affect: normal affect Insight: Good insight present (Psych) Judgement: Good judgement present (Psych) Assessment & Plan Assessment & Plan (1) Medicare annual wellness visit, subsequent: Code(s): Z00.00 - Encounter for general adult medical examination without abnormal findings Plan: Patient is up-to-date on all routine screenings and vaccinations for his age. Discussed abdominal aortic aneurysm screening and patient will consider this and have an answer at his next visit. Blood work is up-to-date and within normal limits. (2) Blood pressure elevated without history of HTN: Code(s): R03.0 - Elevated blood-pressure reading, without diagnosis of hypertension Plan: Blood pressure mildly elevated at the office today however when retaken was 120/78. Continue to monitor. Avoid salt intake and encourage healthy diet and regular exercise. (3) Peripheral vascular disease: Code(s): I73.9 - Peripheral vascular disease, unspecified Plan: Encouraged healthy diet and exercise with blood pressure management. (4) Hypercholesterolemia: Code(s): E78.00 - Pure hypercholesterolemia, unspecified Plan: Patient is not currently on medical management. Last labs showed LDL of 105 which is mildly elevated. Avoid foods that are high in cholesterol such as red meat, fried foods, eggs and baked goods. Triglyceride goal of less than 150 and LDL goal of less than 100. (5) Impaired fasting glucose: Code(s): R73.01 - Impaired fasting glucose Plan: Last A1c 5.6%. Not currently on medical management. Decrease the amount of carbohydrates such as pasta, bread, rice, and potatoes and limit the amount of sweets. Although fruits are generally healthy they should be eaten in moderation as they are still high in sugar. (6) BPH (benign prostatic hyperplasia): Comment: October 2016 Code(s): N40.0 - Benign prostatic hyperplasia without lower urinary tract symptoms Plan: Continue to follow with Urology and serial PSA. (7) Pulmonary nodule, right: Comment: He has a partially calcified nodule 3 mm. in right upper lobe.. Last low-dose CT scan in August 2023, benign category 2 . He is participating in the Annual screening program . Code(s): R91.1 - Solitary pulmonary nodule (8) COPD (chronic obstructive pulmonary disease): Comment: He does have Moderate degree of obstructive airway disorder. He is relatively asymptomatic and so he does not want to use any maintenance inhaler. RE VISIT Q 1 YEAR AND NEEDED . Code(s): J44.9 - Chronic obstructive pulmonary disease, unspecified Qualifiers: COPD type: emphysema Emphysema type: panlobular Qualified Code(s): J43.1 - Panlobular emphysema Plan: Continue to follow with pulmonology, not currently on medical management. Strongly advised to stop smoking. (9) Tobacco abuse: Code(s): Z72.0 - Tobacco use Plan: Discussed at length options for tobacco cessation. Patient states he would like to try hypnotism and will look into this further. Enrolled in annual lung cancer screening. Plan This note was constructed using voice recognition software. While every effort has been made to ensure accuracy and daub color mixer, still areas may have been included sometimes these areas may affect the content or meeting of the given symptoms. Total time spent caring for the patient today was 30 minutes. This includes time spent before the visit reviewing the chart, time spent during the visit, and time spent after the visit and documentation. Quality Reporting (2019) Adult ([facility] 138//69) Smoking risk assessment performed?: Yes Patient Tobacco Use Status: Current everyday Tobacco user Tobacco cessation counseling provided: Yes Depression screening performed: Yes Screen Results: Yes Negative screen Recommended changes: lifestyle and weight reduction Recommended changes not done: weight reduction Depression/Bipolar (159/160/161/177) PHQ-9: Total score: 0 Coding Level of Care Code Medicare Subsequent (G0439) Diagnoses Medicare annual wellness visit, subsequent Z00.00 Blood pressure elevated without history of HTN R03.0 Peripheral vascular disease I73.9 Hypercholesterolemia E78.00 Impaired fasting glucose R73.01 BPH (benign prostatic hyperplasia) N40.0 Pulmonary nodule, right R91.1 Panlobular emphysema J43.1 COPD type: emphysema Emphysema type: panlobular Tobacco abuse Z72.0 CPT Codes Advance Care Planning - Advance Care Planning discussion: On file, no changes ([id number]) Advance Care Planning - Time spent: 1-15 minutes, on File ([id number]) Advance Care Planning Advance Care Planning discussion: On file, no changes Date of discussion: 06/11/24 Forms completed: Health Care Proxy and [facility] Time spent: 1-15 minutes, on File Actual minutes spent: 5
[2024-06-11 11:53] VITALS: BP 120/78
== END 2024-06-11 12:14 | disposition home or self-care (01) ==
PROVIDERS: PCP Internal Medicine
DX: Z00.00 Encounter for general adult medical examination without abnormal findings (principal); R03.0 Elevated blood-pressure reading, without diagnosis of hypertension; I73.9 Peripheral vascular disease, unspecified; J43.1 Panlobular emphysema; E78.00 Pure hypercholesterolemia, unspecified; R73.01 Impaired fasting glucose; N40.0 Benign prostatic hyperplasia without lower urinary tract symptoms; R91.1 Solitary pulmonary nodule; Z72.0 Tobacco use
CPT/HCPCS: 1123F; G0439

== ENCOUNTER 2024-06-17 15:21 | Outpatient (AMB) | payer MEDICARE, SELFPAY ==
--- NOTE | 2024-06-17 15:28 | MHC.PC.OV ---
Vital Signs 06/17/24 15:33 Height 5 ft 11 in Weight 237 lb BMI 33.1 BP 134/72 Blood Pressure Location Lt brachial Position Sitting Pulse 70 Pulse Source Pulse Oximeter Pulse Oximetry (%) 98 Oxygen Delivery Method Room Air Intake Visit Reasons: Ear flush both ears Allergies No Known Allergies [No Known Allergies*] Allergy (Verified 06/11/24 11:50) Tobacco use date assessed: 02/20/24 Dental Screening Dental Screen Date: 02/20/24 HPI Ear flush both ears HPI Details 73-year-old male with past medical history of tobacco abuse, COPD, BPH, hypercholesterolemia, impaired glucose tolerance, peripheral vascular disease coming to the office for bilateral ear flushing. He routinely cleans his ears with a bulb syringe and ear wax softening drops. He does have issues with hearing and persistent ringing in the bilateral ears. He has not had his ears cleaned in around fifty years. [facility] Medical History Allergic rhinitis Polymyositis Pulmonary nodule, right COPD (chronic obstructive pulmonary disease) Pulmonary nodule Parotid mass Obesity (BMI 30-39.9) Knee osteoarthritis Tobacco abuse BPH (benign prostatic hyperplasia) Cholelithiasis Vitamin D deficiency Erectile dysfunction Hx of malignant melanoma Renal calculi Polymyositis COPD (chronic obstructive pulmonary disease) Surgical History History of melanoma excision Hx of rectal sphincterotomy Hx of colonoscopy Hx of hemorrhoidectomy Hx of parotidectomy Family History Father Lung cancer CVD (cardiovascular disease) Stroke Liver cancer CHF (congestive heart failure) Mother CVD (cardiovascular disease) CHF (congestive heart failure) Sister Ovarian cancer Social History Housing: House Alcohol intake: current Alcohol intake frequency: holidays/special occasions only Alcohol type: beer Patient Tobacco Use Status: Current everyday Tobacco user Tobacco use type: Cigarette Cigarettes Per Day: 10 Years Smoked: 40 e-Cigarette/Vaping Use: Never Used Second Hand Smoke Exposure: No service: Yes Current occupational status: retired Cognitive needs: No Hearing needs: No Vision needs: Yes Questionnaire Thrive Questionnaire Date Thrive assessed: 02/20/24 AUDIT C Alcohol Use Questionnaire (AUDIT-C) 1. How often do you have a drink containing alcohol?: Monthly or less 2. How many drinks containing alcohol do you have on a typical day when you are drinking?: 1 or 2 3. How often do you have six or more drinks on one occasion?: Never Total Score: 1 Score Reviewed/Action Taken: No ROB-7 AMB Questionnaire ROB-7 Date ROB - 7 assessed: 02/20/24 Source: Developed by Drs. Jah Altamirano, Nicole Sandhu, Mc Gomez and colleagues, with an educational katharine from [employer]. Review of Systems Eyes Reports no additional complaints ENT Reports as per HPI and Denies otalgia Card Reports no additional complaints Resp Reports no additional complaints GI Reports no additional complaints Reports no additional complaints Musc Reports no additional complaints and Denies abnormal gait Skin/Breast Reports system reviewed and no additional complaints, except as documented Neuro Denies abnormal gait Psych Reports no additional complaints Physical exam (Primary Care) Vital Signs: Last Vital Signs Pulse 70 06/17/24 15:33 BP 134/72 06/17/24 15:33 Pulse Ox 98 06/17/24 15:33 Oxygen Delivery Method Room Air 06/17/24 15:33 BMI result Body Mass Index 33.1 Tobacco/Smoking Status: Tobacco use Status Tobacco use date assessed 02/20/24 06/17/24 15:28 Patient Tobacco Use Status Current everyday Tobacco 06/17/24 15:28 Tobacco use type Cigarette 06/17/24 15:28 e-Cigarette/Vaping Use Never Used 06/17/24 15:28 Thrive Assessment: Date of Thrive Assessment Date Thrive assessed 02/20/24 06/17/24 15:28 Const General: cooperative, healthy appearing, comfortable and no acute distress HENMT Head: Yes normocephalic Ears: TM normal on the left, Abnormal EAC present excessive cerumen on the right and unable to visualize TM on the right Neck Neck: Yes full ROM and Yes no lymphadenopathy Resp Effort & Inspection: normal respiratory effort and able to speak in complete sentences Cardio Rate: regular rate Office Procedures Cerumen Removal From which ear canal was the cerumen removed: right Removal: irrigation Notes: patient tolerated procedure well, no complications and ear canal clear [id number] Irrigation/Lavage Assessment and Plan Assessment & Plan (1) Cerumen impaction: Code(s): H61.20 - Impacted cerumen, unspecified ear Plan: Right ear was irrigated with warm water and hydrogen peroxide. Bilateral TM were visualized as intact with well aerated middle ear spaces. No complications. Patient does have history of decreased hearing and tinnitus. Declined the need for audiogram or referral to speech and hearing. Follow up as needed for cerumen impaction. Plan This note was constructed using voice recognition software. While every effort has been made to ensure accuracy and travel freight and passenger agent, still areas may have been included sometimes these areas may affect the content or meeting of the given symptoms. Total time spent caring for the patient today was 20 minutes. This includes time spent before the visit reviewing the chart, time spent during the visit, and time spent after the visit and documentation. Coding Level of Care Code Est Pt Level 3 (08731) Diagnoses Cerumen impaction H61.20 CPT Codes Office Procedure - CPT: 33962-Hky Irrigation/Lavage ([id number])
[2024-06-17 15:33] VITALS: BP 134/72; PULSE 70; O2SAT 98; BMI 33.1
== END 2024-06-17 15:52 | disposition home or self-care (01) ==
PROVIDERS: PCP Internal Medicine
DX: H61.23 Impacted cerumen, bilateral (principal)
CPT/HCPCS: 69209; 99213

== ENCOUNTER 2024-07-17 20:18 | Emergency (ER) | payer MEDICARE, SELFPAY ==
--- NOTE | ~2024-07-17 | XR_ITS ---
EXAMINATION: XR CHEST CLINICAL INFORMATION: Cough COMPARISON: None available. TECHNIQUE: 2 views of the chest were obtained. FINDINGS: No significant abnormality is noted involving the heart, lungs, mediastinum, bony thorax or soft tissues. XR/XR chest 2V IMPRESSION: Unremarkable examination. Electronically signed by: Sean Rice MD 07/17/2024 10:14 PM EDT RP
[2024-07-17 20:48] VITALS: BP 154/88; PULSE 77; RESP 20; TEMP 36.6; O2SAT 95; BMI 33.1
--- NOTE | 2024-07-17 20:52 | ED.GENADULT ---
HPI - General Adult General Chief complaint: Dyspnea Stated complaint: cold/sob Time Seen by Provider: 07/18/24 06:32 Source: patient, RN notes reviewed and old records reviewed Mode of arrival: ambulatory History of Present Illness ED Provider: Carrie Rodriguez PA-C [facility] narrative: 73-year-old male past medical history HTN, HLD, COPD, BPH, presenting to the ED complaining of upper respiratory symptoms including subjective fever, chills, sore throat, dry cough, myalgias, congestion, SOB x few days, worsening yesterday. Denies using inhalers at home. Denies abdominal pain, nausea/vomiting, travel, sick contacts, pedal edema Related Data Previous Rx's ?Medication ?Instructions ?Recorded ibuprofen 200 mg tablet (Advil) 200 mg PO Q6H PRN pain #30 tabs 02/12/21 clotrimazole 1 % topical cream 1 appl topical BID 4 weeks #45 08/16/23 grams sildenafil 100 mg tablet 100 mg PO ONCE sexual activity 30 11/28/23 days #30 tabs lactulose 20 gram/30 mL oral 20 g (30 mL) PO BID #1,200 mL 04/25/24 solution albuterol sulfate 90 mcg/actuation 2 puff inhalation Q4-6H PRN 07/18/24 aerosol inhaler shortness of breath or wheezing #6.7 grams prednisone 20 mg tablet 40 mg (2 x 20 mg) PO DAILY 5 days 07/18/24 #10 tabs Allergies Allergy/AdvReac Type Severity Reaction Status Date / Time No Known Allergies Allergy Verified 07/17/24 20:48 [No Known Allergies*] Review of Systems Review of Systems: Yes all other systems are reviewed and are negative Constitutional: Constitutional: Reports as per [facility] Past Medical History Attestation statement: The following information was validated with the patient. Source: old records reviewed Medical History Hx of malignant melanoma Polymyositis Parotid mass Peripheral vascular disease Hypercholesterolemia COPD (chronic obstructive pulmonary disease) Pulmonary nodule Nicotine dependence, cigarettes, uncomplicated Allergic rhinitis BPH (benign prostatic hyperplasia) Obesity (BMI 30-39.9) Knee osteoarthritis Cholelithiasis Vitamin D deficiency Erectile dysfunction Tubular adenoma of colon Renal calculi Surgical History History of parotidectomy History of melanoma excision History of rectal sphincterotomy History of hemorrhoidectomy History of colonoscopy Family History Family History Father Lung cancer CVD (cardiovascular disease) Stroke Liver cancer CHF (congestive heart failure) Mother CVD (cardiovascular disease) CHF (congestive heart failure) Sister Ovarian cancer Social History Social History Housing: House Alcohol intake: current Alcohol intake frequency: holidays/special occasions only Alcohol type: beer Patient Tobacco Use Status: Current everyday Tobacco user Tobacco use type: Cigarette Cigarettes Per Day: 10 Years Smoked: 40 Smoked in Last 30 Days: Yes e-Cigarette/Vaping Use: Never Used Second Hand Smoke Exposure: No Substance Use Type: Marijuana Advance Directives: No Advance Directives Information Provided: No Do you have a plan to hurt others: No Plan service: Yes Current occupational status: retired Cognitive needs: No Hearing needs: No Vision needs: Yes Physical Exam ED Vital Signs: Vital Signs - 24 hr 07/17/24 20:48 07/18/24 02:44 07/18/24 06:00 Temperature 97.9 F 98.0 F 97.9 F Pulse Rate 77 75 85 Respiratory Rate 20 20 16 Blood Pressure 154/88 H 167/85 H 138/86 Pulse Oximetry 95 96 94 Oxygen Delivery Method Room Air Nasal Cannula Room Air Oxygen Flow Rate 2 07/18/24 07:23 07/18/24 07:23 07/18/24 09:51 Temperature Pulse Rate 93 78 Respiratory Rate 22 H 18 Blood Pressure 132/77 Pulse Oximetry 93 96 Oxygen Delivery Method Room Air Oxygen Flow Rate 07/18/24 11:16 Temperature 97.8 F Pulse Rate 86 Respiratory Rate 18 Blood Pressure 134/78 Pulse Oximetry 95 Oxygen Delivery Method Room Air Oxygen Flow Rate BMI result Body Mass Index 33.1 Const General: cooperative, healthy appearing and no acute distress Orientation/consciousness: patient oriented x3 Limitations: no limitations HENMT Head: Yes normal to inspection and Yes atraumatic Ears: hearing grossly normal bilaterally General nose exam: Normal external nose present Face and sinus: Yes normal facial exam Eyes General: appearance normal, both eyes and all related structures EOM: EOMs intact bilaterally Neck Neck: Yes normal visual inspection and Yes no meningeal signs Resp Effort & Inspection: normal respiratory effort and no respiratory distress Auscultation: clear to auscultation bilaterally, wheezes expiratory wheezes and scattered wheezes and diminished lung sounds Cardio Rate: regular rate Heart sounds: S1 normal heart sound present and S2 normal heart sound present GI Inspection: Yes normal to inspection Palpation (GI): Soft to palpation, nontender, no guarding and not rigid Skin Rashes: no rashes Wounds: no wounds Neuro General: patient oriented x3, tone normal and no meningeal signs Cranial nerves: Yes CN's II-XII intact bilaterally Gait exam (Neuro): Normal gait present Extrem General: Yes normal to inspection, Yes no pedal edema and Yes no calf tenderness Course Course Course Narrative: This is a rapid medical exam performed by Marcella Khan NP: Additional HPI, ROS, PE not included below will be deferred to primary provider. Patient is a 73-year-old male with history of COPD presenting with nasal congestion, cough since Monday. Plan: viral swabs, cxr XR chest 2V IMPRESSION: Unremarkable examination. -viral studies negative -labs reassuring. Patient ambulated on pulse ox maintaining saturation of 96% or greater >1030--on re-evaluation patient reports symptomatic improvement. Lungs CTA after DuoNebs/p.o. prednisone. Results discussed with patient including worrisome signs and symptoms and strict return precautions, and when to return to the emergency department. They verbalized understanding and feel safe for discharge at this time. Medications Administered Discontinued Medications Generic Name Dose Route Start Last Admin Trade Name Freq PRN Reason Stop Dose Admin Albuterol Sulfate 4 puff 07/18/24 10:55 07/18/24 11:07 Albuterol Sulfate 90 Mcg 8 Gm Inhaler INHALE 07/18/24 10:56 4 puff ONCE ONE Administration Albuterol/Ipratropium 3 ml 07/18/24 07:19 07/18/24 07:21 Albuterol/Iprat 2.5/0.5mg 3 Ml Ampul.Neb INHALE 07/18/24 07:20 3 ml ONCE ONE Administration Prednisone 40 mg 07/18/24 08:27 07/18/24 09:10 Prednisone 20 Mg Tablet PO 07/18/24 08:28 40 mg ONCE ONE Administration Medical Decision Making Medical Decision Making MDM Narrative: 73-year-old male past medical history HTN, HLD, COPD, BPH, presenting to the ED complaining of upper respiratory symptoms including subjective fever, chills, sore throat, dry cough, myalgias, congestion, SOB x few days, worsening yesterday. On exam vital signs stable, NAD, nontoxic appearing, talking in complete sentences, lungs with diminished breath sounds in scattered expiratory wheeze. Concern for viral illness vs pneumonia vs COPD exacerbation. Lower suspicion for ACS/PE or CHF at this time. Unlikely severe sepsis Plan: EKG, labs, CXR, viral studies, ED bronchodilator protocol, p.o. prednisone Please refer to course for remaining clinical decision making, interpretation of labs/imaging results, and discussions with consultants and/or family members. Differential Diagnosis Differential Diagnoses: The differential diagnosis associated with the presentation includes As above Admission/Observation Consideration of admission/observation: Escalation of care including admission/observation considered Lab Data MDM Lab Attestation statement: I reviewed the patient's lab results. 07/18/24 08:26 07/18/24 08:26 Labs: Lab Results 07/17/24 07/18/24 Range/Units 21:42 08:26 WBC 9.9 (4.8-10.8) X10*3/uL RBC 4.27 L (4.60-5.80) X10*6/uL Hgb 13.6 L (14.0-18.0) g/dl Hct 39.9 L (42.0-52.0) % MCV 93.4 (80.0-98.0) fL MCH 31.9 (27.0-33.0) pg MCHC 34.1 (31.0-36.0) g/dl RDW 15.5 (11.0-16.0) % Plt Count 172 (160-400) X10*3/uL MPV 10.4 (9.4-12.4) fL Immature Gran % (Auto) 0.6 H (0.0-0.4) % Neut % (Auto) 70.5 (45-73) % Lymph % (Auto) 10.0 L (20-40) % [place] % (Auto) 18.0 H (2-11) % Eos % (Auto) 0.5 (0-4) % Baso % (Auto) 0.4 (0-2) % Lymph # (Auto) 1.0 L (1.2-4.9) X10*3/uL [place] # (Auto) 1.8 H (0.1-1.2) X10*3/uL Eos # (Auto) 0.1 (0.0-0.4) X10*3/uL Baso # (Auto) 0.0 (0.0-0.2) X10*3/uL Abs Immat Gran (auto) 0.06 H (0.00-0.03) X10*3/uL Absolute Neuts (auto) 7.0 (2.0-8.3) x10*3/uL Absolute Nucleated RBC 0.000 (0.0-0.012) X10*3/uL Nucleated RBC % (auto) 0.0 (0.0-0.2) /100WBC Smear Tech's Comments VERIFIED Sodium 138 (135-145) mmol/L Potassium 4.5 (3.3-5.1) mmol/L Chloride 104 (96-108) mmol/L Carbon Dioxide 25 (22-29) mmol/L Anion Gap 14 (12-20) BUN 12 (9-16) mg/dL Creatinine 0.81 (0.5-1.4) mg/dL Estim Creat Clear Calc 101.3 Estimated GFR > 60 Random Glucose 113 (60-115) mg/dL Calcium 9.1 (8.4-10.2) mg/dL B-Natriuretic Peptide 29 (<100) pg/mL Influenza Type A (PCR) NEGATIVE (Negative) Influenza Type B (PCR) NEGATIVE (Negative) RSV RNA Qual (PCR) NEGATIVE (Negative) SARS-CoV-2 RNA (RT-PCR) NEGATIVE (Negative) S. pyogenes GrpA MICHELET Negative (Negative) Independent Interpretation I performed an independent interpretation of an: EKG and Plain X-Ray Radiology Impression Discussion of test interpretation with radiology: I have reviewed the radiologist's reading. External Record Review External record reviewed: Inpatient record, Office record, Outpatient record, Prior outpatient labs, Prior outpatient radiology, Primary care record and Outside ED record Tests considered The following testing was considered but not selected: As above Chronic Conditions Patient?s care impacted by: Hypertension and Other (COPD) Discharge Plan Discharge Clinical Impression: COPD exacerbation Patient Disposition: Home, Self-Care Instructions: COPD (Chronic Obstructive Pulmonary Disease) (DC) Additional Instructions: Your blood work, x-ray, and viral studies are reassuring Please use albuterol inhaler at home for shortness of breath/wheezing Prednisone as a steroid Make sure you're staying hydrated Call your doctor for close follow-up If symptoms persist or worsen, you constant worsening chest pain, shortness of breath, develop fever return to the emergency department Prescriptions: New prednisone 20 mg tablet 40 mg PO DAILY 5 Days Qty: 10 0RF albuterol sulfate 90 mcg/actuation HFA aerosol inhaler 2 puff inhalation Q4-6H PRN (Reason: shortness of breath or wheezing) Qty: 6.7 0RF No Action clotrimazole 1 % cream 1 appl topical BID 28 Days Qty: 45 0RF lactulose 20 gram/30 mL solution 20 g PO BID Qty: 1200 0RF ibuprofen [Advil] 200 mg tablet 200 mg PO Q6H PRN (Reason: pain) Qty: 30 0RF sildenafil 100 mg tablet 100 mg PO ONCE 30 Days Qty: 30 1RF Rx Instructions: administer 60 minutes before intended activity Referrals: Dima Peacock MD [Primary Care Provider] - 5 days Interventions: ED Discharge Assessment Last Done: 07/18/24 11:16 Discharge Date/Time: 07/18/24 11:17 Print Language: Upper Sorbian
[2024-07-17 22:57] LABS: Influenza A PCR NEGATIVE (Negative); Influenza B PCR NEGATIVE (Negative); Resp Syncy Virus RNA Qual PCR NEGATIVE (Negative); SARS COV2 PCR INHOUSE NEGATIVE (Negative)
[2024-07-18 02:44] VITALS: BP 167/85; PULSE 75; RESP 20; TEMP 36.7; O2SAT 96
--- NOTE | 2024-07-18 05:07 | PC.NURSE ---
samantha chavez on stretcher with eyes closed, resp with ease, no s/s of acute distress
[2024-07-18 06:00] VITALS: BP 138/86; PULSE 85; RESP 16; TEMP 36.6; O2SAT 94
--- NOTE | 2024-07-18 06:11 | PC.NURSE ---
pt up and walked to the bathroom, without assistance, pt was able to walk, without stopping, no difficulty in breathing at this time. awaiting ED provider
--- NOTE | 2024-07-18 07:04 | PC.NURSE ---
report given to Koki STOCK
[2024-07-18] MEDS: Albuterol/Iprat 2.5/0.5MG 3 ML AMPUL.NEB INHALE (07:21)
[2024-07-18 07:23] VITALS: BP 132/77; PULSE 78; PULSE 93; RESP 18; RESP 22; O2SAT 92; O2SAT 93
--- NOTE | 2024-07-18 07:24 | PC.NURSE ---
Care of Pt assumed at change of shift. Pt is resting quietly on stretcher with the light dimmed. VSS and Pt denies any pain. RT at bedside for eval and initiation on nebulizer treatment.
[2024-07-18 08:31] LABS: Basophils Percent Auto 0.4 % (0-2); Eosinophils Absolute Auto 0.1 X10*3/uL (0.0-0.4); Eosinophils Percent Auto 0.5 % (0-4); Hematocrit 39.9 % (42.0-52.0); Hemoglobin 13.6 g/dl (14.0-18.0); Imm Gran Abs Auto 0.06 X10*3/uL (0.00-0.03); Imm Gran Pct Auto 0.6 % (0.0-0.4); MANUAL DIFF FLAG SCAN; Mean Corpuscular HGB Conc 34.1 g/dl (31.0-36.0); Mean Corpuscular Hemoglobin 31.9 pg (27.0-33.0); Mean Corpuscular Volume 93.4 fL (80.0-98.0); Mean Platelet Volume 10.4 fL (9.4-12.4); Monocytes Absolute Auto 1.8 X10*3/uL (0.1-1.2); Neutrophils Percent Auto 70.5 % (45-73); Platelet Count 172 X10*3/uL (160-400); Red Blood Count 4.27 X10*6/uL (4.60-5.80); Red Cell Distribution Width 15.5 % (11.0-16.0); SCAN SMEAR FLAG 1; White Blood Count 9.9 X10*3/uL (4.8-10.8)
[2024-07-18 08:49] LABS: Anion Gap 14 (12-20); Blood Urea Nitrogen 12 mg/dL (9-16); Calcium 9.1 mg/dL (8.4-10.2); Carbon Dioxide 25 mmol/L (22-29); Chloride 104 mmol/L (96-108); Creatinine Clr Calc Pharmacy 101.3; Estimated Glomerular Filt Rate > 60; Glucose Random 113 mg/dL (60-115); Potassium 4.5 mmol/L (3.3-5.1); Sodium 138 mmol/L (135-145)
[2024-07-18 08:51] LABS: IDNOW Serial# 08D9AD1C; Strep A Nucleic Acid Negative (Negative)
[2024-07-18] MEDS: predniSONE 20 MG TABLET 40 MG PO (09:10)
[2024-07-18 09:11] LABS: SLIDE REVIEW VERIFIED
--- NOTE | 2024-07-18 09:17 | MHC.EDTECH ---
Ambulation Trial with O2 sat monitor successful. Constant 96% Saturation during ambulation. No supplemental O2 used.
[2024-07-18 09:46] LABS: B Type Natriuretic Peptide 29 pg/mL (<100)
--- NOTE | 2024-07-18 09:47 | PC.NURSE ---
pt a&ox3, lungs renetta/lll expiratory wheezing, lll rhales, pt currently speaking in full sentences, non productive cough, vitals have been stable, denies pain/discomfort, pt to have walking O2 sat performed by tech, call olmedo within reach, will continue to monitor
[2024-07-18 09:51] VITALS: O2SAT 96
[2024-07-18] MEDS: Albuterol Sulfate 90 MCG 8 GM INHALER 4 PUFF INHALE (11:07)
--- NOTE | 2024-07-18 11:09 | PC.NURSE ---
rt is at bedside doing teaching on the inhailer.
[2024-07-18 11:16] VITALS: BP 134/78; PULSE 86; RESP 18; TEMP 36.6; O2SAT 95
== END 2024-07-18 11:17 | disposition home or self-care (01) ==
PROVIDERS: Physician Assistant; Registered Nurse Emergency; Emergency Provider Emergency Medicine; PCP Internal Medicine
DX: J44.1 Chronic obstructive pulmonary disease with (acute) exacerbation (principal); Z03.818 Encounter for observation for suspected exposure to other biological agents ruled out; R06.02 Shortness of breath; R05.9 Cough, unspecified; J02.9 Acute pharyngitis, unspecified; I10 Essential (primary) hypertension; E78.00 Pure hypercholesterolemia, unspecified; J44.9 Chronic obstructive pulmonary disease, unspecified; F17.210 Nicotine dependence, cigarettes, uncomplicated
CPT/HCPCS: 0241U; 36415; 71046; 80048; 83880; 85025; 87651; 94640; 99284; 99285

== ENCOUNTER 2024-07-19 14:20 | Outpatient (AMB) | payer MEDICARE, SELFPAY ==
--- NOTE | 2024-07-19 14:21 | MHC.PC.OV ---
Intake Visit Reasons: Congested Intake Note: Patient is here to follow up on Congested was seen at [facility] on 07/17/24. Zmt Operator Required: No Talent Specialist: Not Required per policy Accompanied by: Self / Same As Patient Allergies No Known Allergies [No Known Allergies*] Allergy (Verified 07/19/24 14:22) Tobacco use date assessed: 07/19/24 Fall risk assessment: No Falls in past year Last assessed Fall Risk: 07/19/24 Dental Screening Dental Screen Date: 02/20/24 HPI Congested HPI Details 74-year obese-old male smoker with BPH, COPD impaired glucose tolerance hypercholesterolemia and polymyositis Colace through Telehealth last seen in 06/18/2024 for cerumen impaction. Review of the notes was in the emergency room for fever chills sore throat and shortness of breath x-ray done negative viral studies negative diagnosis of COPD exacerbation and was given prednisone and albuterol. This was July 18. 2 days ago sob, - RSV, Covid, no fever. had updraft trreatment- nasal congested. [facility] Medical History Hx of malignant melanoma Polymyositis Parotid mass Peripheral vascular disease Hypercholesterolemia COPD (chronic obstructive pulmonary disease) Pulmonary nodule Nicotine dependence, cigarettes, uncomplicated Allergic rhinitis BPH (benign prostatic hyperplasia) Obesity (BMI 30-39.9) Knee osteoarthritis Cholelithiasis Vitamin D deficiency Erectile dysfunction Tubular adenoma of colon Renal calculi Surgical History History of parotidectomy History of melanoma excision History of rectal sphincterotomy History of hemorrhoidectomy History of colonoscopy Family History Father Lung cancer CVD (cardiovascular disease) Stroke Liver cancer CHF (congestive heart failure) Mother CVD (cardiovascular disease) CHF (congestive heart failure) Sister Ovarian cancer Social History Housing: House Alcohol intake: current Alcohol intake frequency: holidays/special occasions only Alcohol type: beer Patient Tobacco Use Status: Current everyday Tobacco user Tobacco use type: Cigarette Cigarettes Per Day: 10 Years Smoked: 40 e-Cigarette/Vaping Use: Never Used Second Hand Smoke Exposure: No Substance Use Type: Marijuana service: Yes Current occupational status: retired Cognitive needs: No Hearing needs: No Vision needs: Yes Questionnaire Thrive Questionnaire Date Thrive assessed: 02/20/24 ROB-7 AMB Questionnaire ROB-7 Date ROB - 7 assessed: 02/20/24 Source: Developed by Drs. Jah Altamirano, Nicole Sandhu, Mc Gomez and colleagues, with an educational katharine from [employer]. Physical exam (Primary Care) Tobacco/Smoking Status: Tobacco use Status Tobacco use date assessed 07/19/24 07/19/24 14:24 Patient Tobacco Use Status Current everyday Tobacco 07/19/24 14:24 Tobacco use type Cigarette 07/19/24 14:24 e-Cigarette/Vaping Use Never Used 07/19/24 14:24 Thrive Assessment: Date of Thrive Assessment Date Thrive assessed 02/20/24 07/19/24 14:24 Telehealth Telehealth Telehealth Platform: Telephone Location of provider rendering services: practice address Location of patient: address on file Patient Identification confirmed using: Name, : Yes Telehealth method: voice only Patient verbally consented to treatment: Yes Patient verbally consented to billing insurance company: Yes Patient informed of any privacy concerns related to visit: Yes Minutes spent on Phone/Video with Pt.: 25 Assessment and Plan Assessment & Plan (1) COPD exacerbation: Code(s): J44.1 - Chronic obstructive pulmonary disease with (acute) exacerbation Plan: take mucinex 600 mg BID, increase oral fluid, finish the steroid patient does feel little bit better, continue with albuterol inhaler as needed (2) COPD (chronic obstructive pulmonary disease): Comment: He does have Moderate degree of obstructive airway disorder. He is relatively asymptomatic and so he does not want to use any maintenance inhaler. RE VISIT Q 1 YEAR AND NEEDED . Code(s): J44.9 - Chronic obstructive pulmonary disease, unspecified Qualifiers: COPD type: emphysema Emphysema type: panlobular Qualified Code(s): J43.1 - Panlobular emphysema Plan: Patient on albuterol inhaler. Patient is strongly advised to stop smoking! (3) Nicotine dependence, cigarettes, uncomplicated: Comment: (40PYH) Code(s): F17.210 - Nicotine dependence, cigarettes, uncomplicated Plan: advised to stop smoking. Patient has been smoking still and hopefully can stop smoking. Medications: New fluticasone propionate 50 mcg/actuation (Flonase Allergy Relief) administer into each nostril 2 sprays intranasal DAILY 16 grams 0RF J44.1 - Chronic obstructive pulmonary disease with (acute) exacerbation Coding Level of Care Code Tele Est Pt Level 4 (08581) Diagnoses COPD exacerbation J44.1 Panlobular emphysema J43.1 COPD type: emphysema Emphysema type: panlobular Nicotine dependence, cigarettes, uncomplicated F17.210
== END 2024-07-19 17:01 | disposition home or self-care (01) ==
LOC: HO.HMCH 14:20
PROVIDERS: PCP Internal Medicine; Visit Provider Internal Medicine
DX: J44.1 Chronic obstructive pulmonary disease with (acute) exacerbation (principal); J43.1 Panlobular emphysema; F17.210 Nicotine dependence, cigarettes, uncomplicated

== ENCOUNTER → 2024-07-19 14:20 | Outpatient (BNVA) | payer MEDICARE, SELFPAY | PROVIDERS: PCP Internal Medicine; Visit Provider Internal Medicine ==

== ENCOUNTER 2024-07-25 15:56 | Outpatient (AMB) | payer MEDICARE, SELFPAY ==
[2024-07-25 15:59] VITALS: BP 130/70; PULSE 73; O2SAT 93; BMI 32.4
--- NOTE | 2024-07-25 15:59 | MHC.PC.OV ---
Vital Signs 07/25/24 15:59 07/25/24 16:18 Height 5 ft 11 in Weight 232 lb BMI 32.4 BP 130/70 Blood Pressure Location Lt brachial Position Sitting Pulse 73 Pulse Source Pulse Oximeter Pulse Oximetry (%) 93 95 Oxygen Delivery Method Room Air Room Air Intake Visit Reasons: [facility] [place] COPD Intake Note: Patient is here to follow-up after a visit the emergency department at [facility] on 07/18/24 Payroll Representative Required: No Allergies No Known Allergies [No Known Allergies*] Allergy (Verified 07/25/24 15:59) Medication List - Last Reconciled 07/25/24 by Natasha Moran PA-C albuterol sulfate 90 mcg/actuation 2 puffs inhalation Q4-6H PRN clotrimazole 1% 1 appl topical BID 4 weeks fluticasone propionate 50 mcg/actuation (Flonase Allergy Relief) 2 sprays intranasal DAILY ibuprofen (Advil) 200 mg PO Q6H PRN lactulose 20 grams (30 mL) PO BID sildenafil 100 mg PO ONCE 30 days Tobacco use date assessed: 07/19/24 Fall risk assessment: No Falls in past year Last assessed Fall Risk: 07/25/24 Dental Screening Dental Screen Date: 02/20/24 HPI [facility] 07/18 COPD HPI Details 74-year-old male with past medical history of tobacco abuse, COPD, BPH, hypercholesterolemia, impaired glucose tolerance, peripheral vascular disease coming to the office for hospital follow up.? In review of the notes, patient was seen in [facility] ED 07/18/2024 for worsening shortness of breath.? Patient was given prednisone and serial DuoNebs and was stabilized and discharged home with steroids and follow up with PCP. Patient states since discharge of the hospital his symptoms have not worsened but they have not improved. He finished his course of prednisone and has been using the albuterol inhaler as needed but continues to have cough and sinus congestion. He feels his head is very full and denies any fevers at this time. He is short of breath and occasionally will have cough but the inhaler does help with the symptoms. He used Flonase with no relief. [facility] Medical History Hx of malignant melanoma Polymyositis Parotid mass Peripheral vascular disease Hypercholesterolemia COPD (chronic obstructive pulmonary disease) Pulmonary nodule Nicotine dependence, cigarettes, uncomplicated Allergic rhinitis BPH (benign prostatic hyperplasia) Obesity (BMI 30-39.9) Knee osteoarthritis Cholelithiasis Vitamin D deficiency Erectile dysfunction Tubular adenoma of colon Renal calculi Surgical History History of parotidectomy History of melanoma excision History of rectal sphincterotomy History of hemorrhoidectomy History of colonoscopy Family History Father Lung cancer CVD (cardiovascular disease) Stroke Liver cancer CHF (congestive heart failure) Mother CVD (cardiovascular disease) CHF (congestive heart failure) Sister Ovarian cancer Social History Housing: House Alcohol intake: current Alcohol intake frequency: holidays/special occasions only Alcohol type: beer Patient Tobacco Use Status: Current everyday Tobacco user Tobacco use type: Cigarette Cigarettes Per Day: 10 Years Smoked: 40 e-Cigarette/Vaping Use: Never Used Second Hand Smoke Exposure: No Substance Use Type: Marijuana service: Yes Current occupational status: retired Cognitive needs: No Hearing needs: No Vision needs: Yes Questionnaire Thrive Questionnaire Date Thrive assessed: 02/20/24 AUDIT C Alcohol Use Questionnaire (AUDIT-C) 1. How often do you have a drink containing alcohol?: Monthly or less 2. How many drinks containing alcohol do you have on a typical day when you are drinking?: 1 or 2 3. How often do you have six or more drinks on one occasion?: Never Total Score: 1 Score Reviewed/Action Taken: No ROB-7 AMB Questionnaire ROB-7 Date ROB - 7 assessed: 02/20/24 Source: Developed by Drs. Jah Altamirano, Nicole Sandhu, Mc Gomez and colleagues, with an educational katharine from [employer]. Review of Systems Const Denies body aches, Denies chills and Denies fever(s) Eyes Reports no additional complaints ENT Denies otalgia, Reports nasal congestion, Reports nasal discharge, Reports sinus pain, Reports sinus pressure and Denies sore throat Card Denies chest pain, Denies leg edema and Reports dyspnea (Occasional) Resp Reports cough, Reports excessive phlegm production (Clear phlegm) and Reports dyspnea (Occasional) Musc Reports no additional complaints Skin/Breast Reports system reviewed and no additional complaints, except as documented Physical exam (Primary Care) Vital Signs: Last Vital Signs Pulse 73 07/25/24 15:59 BP 130/70 07/25/24 15:59 Pulse Ox 93 07/25/24 15:59 Oxygen Delivery Method Room Air 07/25/24 15:59 BMI result Body Mass Index 32.4 Tobacco/Smoking Status: Tobacco use Status Tobacco use date assessed 07/19/24 07/19/24 14:24 Patient Tobacco Use Status Current everyday Tobacco 07/19/24 14:24 Tobacco use type Cigarette 07/19/24 14:24 e-Cigarette/Vaping Use Never Used 07/19/24 14:24 Thrive Assessment: Date of Thrive Assessment Date Thrive assessed 02/20/24 07/19/24 14:24 Const General: cooperative, healthy appearing, comfortable and no acute distress Orientation/consciousness: patient oriented x3 HENMT Head: Yes normocephalic Ears: hearing grossly normal bilaterally General nose exam: Normal external nose present Eyes General: appearance normal, both eyes and all related structures Conjunctivae: conjunctivae normal Neck Neck: Yes full ROM and Yes no lymphadenopathy Resp Effort & Inspection: normal respiratory effort Auscultation: clear to auscultation bilaterally, no crackles, no rales, no rhonchi and no wheezes Cardio Rate: regular rate Rhythm: regular rhythm Skin General skin exam: no rashes or lesions noted Neuro General: patient oriented x3 Gait exam (Neuro): Normal gait present Extrem General: Yes normal to inspection, Yes full ROM and No edema Psych Affect: normal affect Attitude: cooperative Insight: Good insight present (Psych) Judgement: Good judgement present (Psych) Assessment and Plan Assessment & Plan (1) COPD (chronic obstructive pulmonary disease): Comment: He does have Moderate degree of obstructive airway disorder. He is relatively asymptomatic and so he does not want to use any maintenance inhaler. RE VISIT Q 1 YEAR AND NEEDED . Code(s): J44.9 - Chronic obstructive pulmonary disease, unspecified Qualifiers: COPD type: emphysema Emphysema type: panlobular Qualified Code(s): J43.1 - Panlobular emphysema Plan: Not currently on medical management. Continue to avoid triggers such as allergens and smoke. Patient has finished the prednisone with mild relief in symptoms however still having sinus congestion. (2) Nicotine dependence, cigarettes, uncomplicated: Comment: (40PYH) Code(s): F17.210 - Nicotine dependence, cigarettes, uncomplicated Plan: Strongly advised to stop smoking. (3) Blood pressure elevated without history of HTN: Code(s): R03.0 - Elevated blood-pressure reading, without diagnosis of hypertension Plan: Blood pressure at goal today encouraged healthy diet and regular exercise. (4) Sinusitis: Code(s): J32.9 - Chronic sinusitis, unspecified Plan: Patient has had head blocked feeling and congestion for over 10 days and would benefit from an antibiotic. Advised to still use [id number]-mac-jpaovee Mucinex as needed and saline spray as needed for nasal congestion. Amoxicillin sent to pharmacy. Advised patient to follow up if symptoms do not improve in 4-5 days. Plan This note was constructed using voice recognition software. While every effort has been made to ensure accuracy and kitchen helper, still areas may have been included sometimes these areas may affect the content or meeting of the given symptoms. Total time spent caring for the patient today was 30 minutes. This includes time spent before the visit reviewing the chart, time spent during the visit, and time spent after the visit and documentation. Medications: New amoxicillin 875 mg PO BID 7 days 14 tabs 0RF Coding Level of Care Code Est Pt Level 3 (56014) Diagnoses Panlobular emphysema J43.1 COPD type: emphysema Emphysema type: panlobular Nicotine dependence, cigarettes, uncomplicated F17.210 Blood pressure elevated without history of HTN R03.0 Sinusitis J32.9
[2024-07-25 16:18] VITALS: O2SAT 95
== END 2024-07-25 16:24 | disposition home or self-care (01) ==
LOC: HO.HMCH 15:56
PROVIDERS: PCP Internal Medicine
DX: J43.1 Panlobular emphysema (principal); F17.210 Nicotine dependence, cigarettes, uncomplicated; R03.0 Elevated blood-pressure reading, without diagnosis of hypertension; J32.9 Chronic sinusitis, unspecified

== ENCOUNTER → 2024-07-25 15:56 | Outpatient (BNVA) | payer MEDICARE, SELFPAY | PROVIDERS: PCP Internal Medicine | DX: J43.1 Panlobular emphysema (principal); R03.0 Elevated blood-pressure reading, without diagnosis of hypertension; J32.9 Chronic sinusitis, unspecified; F17.210 Nicotine dependence, cigarettes, uncomplicated; Z71.6 Tobacco abuse counseling | CPT/HCPCS: 99212 ==

== ENCOUNTER 2024-08-01 10:56 | Outpatient (REF) | payer MEDICARE, SELFPAY ==
--- NOTE | ~2024-08-01 | XR_ITS ---
EXAMINATION: XR SINUSES 4 VIEWS CLINICAL INFORMATION: Chronic sinusitis, unspecified J32.9. Chronic left sided congestion. COMPARISON: None available TECHNIQUE: 4 views of the sinuses were obtained. FINDINGS: Paranasal sinuses appear clear without air-fluid levels. No fractures are identified. No radiodense foreign bodies. XR/XR sinus <3V IMPRESSION: Unremarkable examination. Electronically signed by: Ganesh Flores MD 10/14/2024 09:01 AM CHADD
== END 2024-08-01 10:57 | disposition home or self-care (01) ==
LOC: HO.XRAY 10:56
PROVIDERS: PCP Internal Medicine; Visit Provider Internal Medicine
DX: J32.9 Chronic sinusitis, unspecified (principal); J30.9 Allergic rhinitis, unspecified; J43.1 Panlobular emphysema; F17.210 Nicotine dependence, cigarettes, uncomplicated; Z71.6 Tobacco abuse counseling
CPT/HCPCS: 70210; 99212

== ENCOUNTER 2024-08-01 10:56 | Outpatient (AMB) | payer MEDICARE, SELFPAY ==
--- NOTE | 2024-08-01 11:01 | MHC.OFFVIS ---
Vital Signs 08/01/24 11:04 Height 5 ft 11 in BP 114/68 Blood Pressure Location Lt brachial Position Sitting Pulse 71 Pulse Source Pulse Oximeter Pulse Oximetry (%) 95 Oxygen Delivery Method Room Air Intake Visit Reasons: COPD Intake Note: pt is here for folllow up and states he is feeling okay today, but he did end up in ER on 07/17 for his breathing. pt has not smoked since 07/17/24. Punch Press Feeder Required: No Allergies No Known Allergies [No Known Allergies*] Allergy (Verified 08/01/24 11:31) Medication List - Last Reconciled 08/01/24 by Maximilian Hager MD albuterol sulfate 90 mcg/actuation 2 puffs inhalation Q4-6H PRN clotrimazole 1% 1 appl topical BID 4 weeks fluticasone propionate 50 mcg/actuation (Flonase Allergy Relief) 2 sprays intranasal DAILY PRN ibuprofen (Advil) 200 mg PO Q6H PRN montelukast (Singulair) 10 mg PO BEDTIME 30 days sildenafil 100 mg PO ONCE 30 days Do you need a note to return to daycare/school/sports/work: No HPI HPI COPD: Details: THIS 74 YEARS OLD GENTLEMAN HAS BEEN PREVIOUSLY TREATED FOR MILD OBSTRUCTIVE AIRWAY DISORDER AND ONGOING INTERMITTENT SYMPTOMS OF ALLERGIC RHINITIS/SINUSITIS. HE HAS BEEN A SMOKER AND QUIT SINCE 07/17. HE WAS SEEN IN THE EMERGENCY ROOM ON 07/17 WITH NASAL CONGESTION POSTNASAL DISCHARGE COUGH AND WHEEZING. CHEST X-RAY. WAS UNREMARKABLE HE WAS ADVISED TO TAKE ANTIHISTAMINIC AGENTS AND ALSO KEEP ON USING FLONASE. SUBSEQUENTLY HE SAW HIS PCP IN THE OFFICE AND WAS TREATED WITH A COURSE OF AUGMENTIN WHICH HE JUST COMPLETED YESTERDAY. WHILE HE WAS FEELING SOMEWHAT BETTER AFTER THE ER VISIT, HE CONTINUES TO HAVE POSTNASAL DISCHARGE WITH EARS POPPING OFF AND ON . CONTINUES TO HAVE MILD COUGH WITHOUT ANY EXPECTORATION. HE HAS HAD NO FEVER OR CHILLS. HIS PAST HISTORY DOES INCLUDE ALLERGIC RHINITIS OFF AND ON, AND MILD COPD WHICH WAS TREATED BY ALBUTEROL P.R.N.. [facility] Medical History Hx of malignant melanoma Polymyositis Parotid mass Peripheral vascular disease Hypercholesterolemia COPD (chronic obstructive pulmonary disease) Pulmonary nodule Nicotine dependence, cigarettes, uncomplicated Allergic rhinitis BPH (benign prostatic hyperplasia) Obesity (BMI 30-39.9) Knee osteoarthritis Cholelithiasis Vitamin D deficiency Erectile dysfunction Tubular adenoma of colon Renal calculi Surgical History History of parotidectomy History of melanoma excision History of rectal sphincterotomy History of hemorrhoidectomy History of colonoscopy Family History Father Lung cancer CVD (cardiovascular disease) Stroke Liver cancer CHF (congestive heart failure) Mother CVD (cardiovascular disease) CHF (congestive heart failure) Sister Ovarian cancer Social History Housing: House Alcohol intake: current Alcohol intake frequency: holidays/special occasions only Alcohol type: beer Patient Tobacco Use Status: Current everyday Tobacco user Tobacco use type: Cigarette Cigarettes Per Day: 10 Years Smoked: 40 e-Cigarette/Vaping Use: Never Used Second Hand Smoke Exposure: No Substance Use Type: Marijuana service: Yes Current occupational status: retired Cognitive needs: No Hearing needs: No Vision needs: Yes Review of Systems Const All systems reviewed & are unremarkable except as noted in HPI and below ENT Reports hearing loss (WHEN HIS EARS FEEL BLOCKED) and Reports nasal congestion (IN A.M. HOURS) Card Denies chest pain and Reports dyspnea on exertion Resp Reports cough (mild intermittent .), Reports dyspnea on exertion and Denies wheezing Musc Reports arthralgias (rt elbow ) Aller/Immun Denies wheezing Physical Exam Vital Signs: Last Vital Signs Pulse 71 08/01/24 11:04 BP 114/68 08/01/24 11:04 Pulse Ox 95 08/01/24 11:04 Oxygen Delivery Method Room Air 08/01/24 11:04 Const General: healthy appearing (EXCEPT BEING MODERATELY OVERWEIGHT ), comfortable, no acute distress, alert and awake Orientation/consciousness: patient oriented x3 HEENT Head: Yes normal to inspection General nose exam: No nasal polyps present and nasal discharge present (SOME WHITE MUCUS IN THE POSTERIOR NASOPHARYNX) Face and sinus: Yes sinuses nontender Mouth: oropharynx normal Throat: Yes posterior oropharynx normal Eyes General: appearance normal, both eyes and all related structures Neck Neck: Yes normal visual inspection, Yes no lymphadenopathy, Yes trachea midline and Yes no JVD Thyroid: Thyroid normal Chest Chest palpation & inspection: normal inspection of the chest, normal palpation of entire chest wall and no tenderness Resp Effort & Inspection: prolonged expiratory phase Auscultation: no crackles, no wheezes and diminished lung sounds (SLIGHTLY DISTANT ) Cardio Palpation: normal PMI Rate: regular rate Rhythm: regular rhythm Heart sounds: no gallops and no murmurs Peripheral pulses: Peripheral pulses 2+ throughout GI Palpation (GI): Soft to palpation, nontender, No hepatosplenomegaly present and no masses Auscultation: normal bowel sounds Back/Spine/Pelvis Thoracic/Lumbar Spine: thoracic and lumbar spine normal to inspection Skin General skin exam: no rashes or lesions noted Neuro General: patient oriented x3 and no focal motor deficits Cranial nerves: Yes CN's II-XII intact bilaterally Extrem General: Yes normal to inspection, Yes no clubbing, cyanosis or edema and Yes no calf tenderness Psych Speech and movement: Normal speech and movement present Quality Reporting (2019) Adult ([facility] 138/12/21/68) Smoking risk assessment performed?: Yes Patient Tobacco Use Status: Current everyday Tobacco user Results Reviewed Results Reviewed: CHEST X-RAY ON 07/17/2024 UNREMARKABLE. CBC ON 07/17/2024 , NO LEUKOCYTOSIS. Assessment & Plan Assessment & Plan (1) Sinusitis: Comment: I THINK HE HAS CHRONIC ALLERGIC RHINO SINUSITIS. HIS SYMPTOMS ARE SOMEWHAT ACTIVE AT THIS TIME. Code(s): J32.9 - Chronic sinusitis, unspecified Category: Medical Plan: X-RAY OF SINUSES ORDERED TO RULE OUT ANY ACTIVE SINUSITIS. TREATMENT WRITTEN UNDER ALLERGIC RHINITIS. ADVISED TO USE STEAM INHALATION AT LEAST 3 TIMES A DAY UNTIL HIS EARS CLEAR UP COMPLETELY. (2) Allergic rhinitis: Comment: Allergic rhinitis sx especially in morning probably related to allergy to household air and other items, CHRONIC, with seasonal flare ups Code(s): J30.9 - Allergic rhinitis, unspecified Category: Medical Plan: TX: Use Flonase nasal spray 1 spray in each nostril once a day at least for 3-4 days at a time.. May try cetirizine 10 mg or loratadine 10 mg 1 tablet at nighttime. ALSO STARTED ON MONTELUKAST 10 MG DAILY FOR HIS ONGOING CHRONIC ALLERGY SYMPTOMS. (3) COPD (chronic obstructive pulmonary disease): Comment: He does have Moderate degree of obstructive airway disorder. He is relatively asymptomatic and so he does not want to use any maintenance inhaler. Code(s): J44.9 - Chronic obstructive pulmonary disease, unspecified Category: Medical Qualifiers: COPD type: emphysema Emphysema type: panlobular Qualified Code(s): J43.1 - Panlobular emphysema Plan: MAY USE ALBUTEROL INHALER 2 PUFFS Q 6 HOURS P.R.N., FOR PERSISTENT COUGH OR WHEEZING. (4) Nicotine dependence, cigarettes, uncomplicated: Comment: (40PYH), LUCKILY HE CLAIMS THAT HE HAS QUIT SMOKING SINCE 2 WEEKS AGO Code(s): F17.210 - Nicotine dependence, cigarettes, uncomplicated Category: Medical Plan: ENCOURAGED TO STAY OFF SMOKING COMPLETELY. CONTINUE TO HAVE ANNUAL LUNG SCREENING WITH LDCT Orders: Orders XR sinus <3V Today J30.9 - Allergic rhinitis, unspecified, J32.9 - Chronic sinusitis, unspecified Medications: New montelukast (Singulair) 10 mg PO BEDTIME 30 days 30 tabs 3RF ALLERGIC rHINITIS Coding Level of Care Code Est Pt Level 3 (01173) Diagnoses Sinusitis J32.9 Allergic rhinitis J30.9 Panlobular emphysema J43.1 COPD type: emphysema Emphysema type: panlobular Nicotine dependence, cigarettes, uncomplicated F17.210
[2024-08-01 11:04] VITALS: BP 114/68; PULSE 71; O2SAT 95
== END 2024-08-01 11:29 | disposition home or self-care (01) ==
PROVIDERS: PCP Internal Medicine; Visit Provider Internal Medicine
DX: J32.9 Chronic sinusitis, unspecified (principal); J30.9 Allergic rhinitis, unspecified; J43.1 Panlobular emphysema; F17.210 Nicotine dependence, cigarettes, uncomplicated
CPT/HCPCS: 99213

== ENCOUNTER 2024-09-03 13:58 | Outpatient (AMB) | payer MEDICARE, SELFPAY ==
--- NOTE | 2024-09-03 14:14 | MHC.OFFVIS ---
Vital Signs 09/03/24 14:15 Height 5 ft 11 in Weight 249 lb 1.957 oz BMI 34.7 BP 124/68 Blood Pressure Location Rt brachial Position Sitting Pulse 79 Pulse Source Pulse Oximeter Pulse Oximetry (%) 96 Oxygen Delivery Method Room Air Intake Visit Reasons: COPD Manager Transplant Required: No Strategy Execution Consultant: Strategy Execution Consultant offered & declined Accompanied by: Self / Same As Patient Allergies No Known Allergies [No Known Allergies*] Allergy (Verified 09/03/24 14:36) Medication List - Last Reconciled 09/03/24 by Maximilian Hager MD albuterol sulfate 90 mcg/actuation 2 puffs inhalation Q4-6H PRN clotrimazole 1% 1 appl topical BID 4 weeks fluticasone propionate 50 mcg/actuation (Flonase Allergy Relief) 2 sprays intranasal DAILY PRN ibuprofen (Advil) 200 mg PO Q6H PRN montelukast (Singulair) 10 mg PO BEDTIME 30 days sildenafil 100 mg PO ONCE 30 days Do you need a note to return to daycare/school/sports/work: No HPI HPI COPD: Details: This 74 years old gentleman, comes for follow-up after 1 month after treatment of acute rhinosinusitis . After his last visit and completing the course of antibiotics, he has been doing well. He has mild nasal congestion off and on. He does not use Flonase because it makes him have increased nasal congestion. He does use Singulair 10 mg daily and uses the Claritin 10 mg once a day but only p.r.n. Breathing has been very stable and he has not required to use the rescue inhaler much. He has mild intermittent bouts of cough. He gets short of breath only on walking up hill or climbing stairs. [facility] Medical History Hx of malignant melanoma Polymyositis Parotid mass Peripheral vascular disease Hypercholesterolemia COPD (chronic obstructive pulmonary disease) Pulmonary nodule Nicotine dependence, cigarettes, uncomplicated Allergic rhinitis BPH (benign prostatic hyperplasia) Obesity (BMI 30-39.9) Knee osteoarthritis Cholelithiasis Vitamin D deficiency Erectile dysfunction Tubular adenoma of colon Renal calculi Surgical History History of parotidectomy History of melanoma excision History of rectal sphincterotomy History of hemorrhoidectomy History of colonoscopy Family History Father Lung cancer CVD (cardiovascular disease) Stroke Liver cancer CHF (congestive heart failure) Mother CVD (cardiovascular disease) CHF (congestive heart failure) Sister Ovarian cancer Social History Housing: House Alcohol intake: current Alcohol intake frequency: holidays/special occasions only Alcohol type: beer Patient Tobacco Use Status: Current everyday Tobacco user Tobacco use type: Cigarette Cigarettes Per Day: 1 Years Smoked: 40 e-Cigarette/Vaping Use: Never Used Second Hand Smoke Exposure: No Substance Use Type: Marijuana service: Yes Current occupational status: retired Cognitive needs: No Hearing needs: No Vision needs: Yes Review of Systems Const All systems reviewed & are unremarkable except as noted in HPI and below ENT Reports hearing loss (WHEN HIS EARS FEEL BLOCKED) and Reports nasal congestion (IN A.M. HOURS) Card Denies chest pain and Reports dyspnea on exertion Resp Reports cough (mild intermittent .), Reports dyspnea on exertion and Denies wheezing Musc Reports arthralgias (rt elbow ) Aller/Immun Denies wheezing Physical Exam Vital Signs: Last Vital Signs Pulse 79 09/03/24 14:15 BP 124/68 09/03/24 14:15 Pulse Ox 96 09/03/24 14:15 Oxygen Delivery Method Room Air 09/03/24 14:15 BMI result Body Mass Index 34.7 Const General: healthy appearing (EXCEPT BEING MODERATELY OVERWEIGHT ), comfortable, no acute distress, alert and awake Orientation/consciousness: patient oriented x3 HEENT Head: Yes normal to inspection General nose exam: No nasal polyps present and No nasal discharge present Face and sinus: Yes sinuses nontender Mouth: oropharynx normal Throat: Yes posterior oropharynx normal Eyes General: appearance normal, both eyes and all related structures Neck Neck: Yes normal visual inspection, Yes no lymphadenopathy, Yes trachea midline and Yes no JVD Thyroid: Thyroid normal Chest Chest palpation & inspection: normal inspection of the chest, normal palpation of entire chest wall and no tenderness Resp Effort & Inspection: prolonged expiratory phase Auscultation: no crackles, no wheezes and diminished lung sounds (SLIGHTLY DISTANT ) Cardio Palpation: normal PMI Rate: regular rate Rhythm: regular rhythm Heart sounds: no gallops and no murmurs Peripheral pulses: Peripheral pulses 2+ throughout GI Palpation (GI): Soft to palpation, nontender, No hepatosplenomegaly present and no masses Auscultation: normal bowel sounds Back/Spine/Pelvis Thoracic/Lumbar Spine: thoracic and lumbar spine normal to inspection Skin General skin exam: no rashes or lesions noted Neuro General: patient oriented x3 and no focal motor deficits Cranial nerves: Yes CN's II-XII intact bilaterally Extrem General: Yes normal to inspection, Yes no clubbing, cyanosis or edema and Yes no calf tenderness Psych Speech and movement: Normal speech and movement present Quality Reporting (2019) Adult ([facility] 138/12/21/68) Smoking risk assessment performed?: Yes Patient Tobacco Use Status: Current everyday Tobacco user Results Reviewed Results Reviewed: X-ray of sinuses on 08/01 has not been read officially. I looked at the images and do not see any acute abnormality. Assessment & Plan Assessment & Plan (1) COPD (chronic obstructive pulmonary disease): Comment: He does have Moderate degree of obstructive airway disorder. He is relatively asymptomatic and so he does not want to use any maintenance inhaler. Code(s): J44.9 - Chronic obstructive pulmonary disease, unspecified Category: Medical Qualifiers: COPD type: emphysema Emphysema type: panlobular Qualified Code(s): J43.1 - Panlobular emphysema Plan: Albuterol HFA 2 puffs Q 6 hours only p.r.n. (2) Nicotine dependence, cigarettes, uncomplicated: Comment: (40PYH), LUCKILY HE CLAIMS THAT HE HAS QUIT SMOKING . TODAY HE CLAIMS THAT HE SMOKES NO MORE THAN 1 CIGARETTE TODAY IN THE MORNING HOURS. Code(s): F17.210 - Nicotine dependence, cigarettes, uncomplicated Category: Medical Plan: ADVISED TO QUIT COMPLETELY, IF POSSIBLE. (3) Allergic rhinitis: Comment: Allergic rhinitis symptoms especially in morning probably related to allergy to household air and other items, CHRONIC, with seasonal flare ups. Controlled and stable at this time. Code(s): J30.9 - Allergic rhinitis, unspecified Category: Medical Plan: Continue montelukast 10 mg daily. Use Claritin 10 mg once a day p.r.n. He is not able to use Flonase because it increases nasal congestion. Advised to use steam inhalations 2 or 3 times a day if he has any dryness of the nose. Coding Level of Care Code Est Pt Level 3 (73809) Diagnoses Panlobular emphysema J43.1 COPD type: emphysema Emphysema type: panlobular Nicotine dependence, cigarettes, uncomplicated F17.210 Allergic rhinitis J30.9
[2024-09-03 14:15] VITALS: BP 124/68; PULSE 79; O2SAT 96; BMI 34.7
== END 2024-09-03 14:35 | disposition home or self-care (01) ==
LOC: HO.HPS 13:59
PROVIDERS: PCP Internal Medicine; Visit Provider Internal Medicine
DX: J43.1 Panlobular emphysema (principal); F17.210 Nicotine dependence, cigarettes, uncomplicated; J30.9 Allergic rhinitis, unspecified
CPT/HCPCS: 99213

== ENCOUNTER → 2024-09-03 13:58 | Outpatient (BNVA) | payer MEDICARE, SELFPAY | PROVIDERS: PCP Internal Medicine; Visit Provider Internal Medicine | DX: J43.1 Panlobular emphysema (principal); J30.9 Allergic rhinitis, unspecified; F17.210 Nicotine dependence, cigarettes, uncomplicated | CPT/HCPCS: 99212 ==

== ENCOUNTER 2024-09-27 13:05 | Outpatient (REF) | payer MEDICARE, SELFPAY | END 2024-09-27 13:06 | disposition home or self-care (01) | LOC: HO.CT 13:05 | PROVIDERS: PCP Internal Medicine; Visit Provider Physician Assistant Medical | DX: Z12.2 Encounter for screening for malignant neoplasm of respiratory organs (principal); F17.210 Nicotine dependence, cigarettes, uncomplicated | CPT/HCPCS: 71271 ==

== ENCOUNTER → 2024-09-27 13:06 | Outpatient (BNV) | payer MEDICARE, SELFPAY | PROVIDERS: PCP Internal Medicine; Visit Provider Radiology Diagnostic Radiology | DX: Z12.2 Encounter for screening for malignant neoplasm of respiratory organs (principal); F17.210 Nicotine dependence, cigarettes, uncomplicated | CPT/HCPCS: 71271 ==

== ENCOUNTER 2024-12-12 14:15 | Outpatient (AMB) | payer MEDICARE, SELFPAY ==
--- NOTE | 2024-12-12 14:27 | MHC.PC.OV ---
Vital Signs 12/12/24 14:31 Height 5 ft 11 in Weight 253 lb 2 oz BMI 35.3 BP 138/82 Blood Pressure Location Lt brachial Position Sitting Pulse 78 Pulse Source Pulse Oximeter Temp 97.3 F Temp Source Temporal Artery Scan Pulse Oximetry (%) 95 Oxygen Delivery Method Room Air Intake Visit Reasons: f/u BP and COPD w/ Po Dehydrogenation Supervisor Required: No Accompanied by: Self / Same As Patient Allergies No Known Allergies [No Known Allergies*] Allergy (Verified 12/12/24 14:33) Tobacco use date assessed: 12/12/24 Fall risk assessment: No Falls in past year Last assessed Fall Risk: 12/12/24 Dental Screening Dental Screen Date: 12/12/24 Did you have a dental visit in the last 12 months?: Yes Did you have a dental problem in the last 6 months where you did not have access to dental care?: No Was dental information given to patient?: Patient has dentist HPI f/u BP and COPD w/ Po HPI Details still smokng 1/2 to 2/3 of the pack- albuterol use doing good The patient is a 74-year-old male presenting with a follow-up for Chronic Obstructive Pulmonary Disease (COPD) and routine health maintenance. The patient has a history of COPD characterized by moderate obstructive airway disease. Initial diagnosis was made following imaging studies which revealed mild tiny pulmonary nodules, mild thickening of the airways, and features suggestive of mild chronic bronchitis. The patient is currently managed on albuterol, montelukast, and Claritin. Follow-up care from the pulmonary clinic was provided in August 2024, aligning with his current medication regimen to control symptoms and prevent exacerbations. Despite medical advice, the patient continues to smoke and is enrolled in a lung cancer screening program. Imaging studies remain stable with no significant changes noted. The patient's overall health is affected by obesity; a recent increase in weight by 4 pounds was noted. Hypercholesterolemia is managed with a current LDL goal of <130 mg/dL and triglycerides <150 mg/dL. Last cholesterol check showed an LDL of 150 mg/dL. A history of a hiatal hernia was also indicated, and the patient has mild anemia from recent blood work done in June. Colonoscopy was last performed in August 2020, with recommendations for repeat testing in 5 years pending. Renal function and electrolytes were reported within normal limits, indicating stable overall essential systems. [facility] Medical History Hx of malignant melanoma Polymyositis Parotid mass Peripheral vascular disease Hypercholesterolemia COPD (chronic obstructive pulmonary disease) Pulmonary nodule Nicotine dependence, cigarettes, uncomplicated Allergic rhinitis BPH (benign prostatic hyperplasia) Obesity (BMI 30-39.9) Knee osteoarthritis Cholelithiasis Vitamin D deficiency Erectile dysfunction Tubular adenoma of colon Renal calculi Surgical History History of parotidectomy History of melanoma excision History of rectal sphincterotomy History of hemorrhoidectomy History of colonoscopy Family History Father Lung cancer CVD (cardiovascular disease) Stroke Liver cancer CHF (congestive heart failure) Mother CVD (cardiovascular disease) CHF (congestive heart failure) Sister Ovarian cancer Social History Housing: House Alcohol intake: current Alcohol intake frequency: holidays/special occasions only Alcohol type: beer Patient Tobacco Use Status: Current everyday Tobacco user Tobacco use type: Cigarette Cigarettes Per Day: 1 Years Smoked: 40 e-Cigarette/Vaping Use: Never Used Second Hand Smoke Exposure: No Substance Use Type: Marijuana service: Yes Current occupational status: retired Cognitive needs: No Hearing needs: No Vision needs: Yes Questionnaire PHQ-9 Over the last 2 weeks, how often have you been bothered by any of the following problems? 1. Little interest or pleasure in doing things: not at all 2. Feeling down, depressed, or hopeless: not at all 3. Trouble falling or staying asleep, or sleeping too much: not at all 4. Feeling tired or having little energy: not at all 5. Poor appetite or overeating: not at all 6. Feeling bad about yourself - or that you are a failure or have let yourself or your family down: not at all 7. Trouble concentrating on things, such as reading the newspaper or watching television: not at all 8. Moving or speaking so slowly that other people could have noticed. Or the opposite - being so fidgety or restless that you have been moving around a lot more than usual: not at all 9. Thoughts that you would be better off or of hurting yourself in some way: not at all Total score: 0 Depression Screening Interpretation: Negative Depression Screening Done: Yes 12366 - PHQ-9 Billing: Yes Source: Developed by Drs. Jah Altamirano, Nicole Sandhu, Mc Gomez and colleagues, with an educational katharine from [employer]. Thrive Questionnaire Date Thrive assessed: 12/12/24 I am a: Patient What is your living situation today?: I have a steady place to live Within the past 12 months, did the food you bought not last and you didn't have the money to get more?: Never true Within the past 12 months, did you worry whether your food would run out before you got money to buy more?: Never true Do you have trouble paying for medicines?: No Do you have trouble getting transportation to medical appointments?: No Do you have trouble paying your heating and electricity bill?: No Do you have trouble taking care of your child, family member or friend?: No Do you have trouble with day-to-day activities such as bathing, preparing meals, shopping, managing finances, etc.?: No Are you currently unemployed and looking for a job?: No Are you interested in more education?: No Please select the resources that you would like help with: None Currently or been in a relationship where the following occur: No concerns reported THRIVE Score: 0 AUDIT C Alcohol Use Questionnaire (AUDIT-C) 1. How often do you have a drink containing alcohol?: Monthly or less 2. How many drinks containing alcohol do you have on a typical day when you are drinking?: 1 or 2 3. How often do you have six or more drinks on one occasion?: Never Total Score: 1 Score Reviewed/Action Taken: No ROB-7 AMB Questionnaire ROB-7 Date ROB - 7 assessed: 12/12/24 Feeling nervous, anxious, or on edge: 0 = Not at all Not being able to stop or control worryin = Not at all Worrying too much about different things: 0 = Not at all Trouble relaxin = Not at all Being so restless that it is hard to sit still: 0 = Not at all Becoming easily annoyed or irritable: 0 = Not at all Feeling afraid as if something awful might happen: 0 = Not at all Total ROB-7 score (0-4 normal; 5-9 mild; 10-14 moderate; 15-21 severe): 0 Source: Developed by Drs. Jah Altamirano, Nicole Sandhu, Mc Gomez and colleagues, with an educational katharine from [employer]. ROB-7 Assessment Billing ROB-7 Assessment Tool: ROB-7 Assessment 46009 Physical exam (Primary Care) Vital Signs: Last Vital Signs Temp 97.3 F 12/12/24 14:31 Pulse 78 12/12/24 14:31 BP 138/82 12/12/24 14:31 Pulse Ox 95 12/12/24 14:31 Oxygen Delivery Method Room Air 12/12/24 14:31 BMI result Body Mass Index 35.3 Tobacco/Smoking Status: Tobacco use Status Tobacco use date assessed 12/12/24 12/12/24 14:35 Patient Tobacco Use Status Current everyday Tobacco 12/12/24 14:28 Tobacco use type Cigarette 12/12/24 14:28 e-Cigarette/Vaping Use Never Used 12/12/24 14:28 PHQ-9: PHQ-9 Score PHQ-9: Total score 0 12/12/24 14:28 Depression Screening Interpretation: Negative Thrive Assessment: Date of Thrive Assessment Date Thrive assessed 12/12/24 12/12/24 14:28 Currently or been in a relationship where the following occur: No concerns reported Const General: alert; No acute distress Eyes Conjunctivae: conjunctivae normal Resp Auscultation: clear to auscultation bilaterally Cardio Rate: regular rate Rhythm: regular rhythm GI Inspection: Yes normal to inspection Extrem General: Yes normal to inspection and No edema Coding Level of Care Code Est Pt Level 4 (57697) Complex EM visit Add On G2211 Diagnoses Hypercholesterolemia E78.00 Impaired fasting glucose R73.01 Panlobular emphysema J43.1 COPD type: emphysema Emphysema type: panlobular Nicotine dependence, cigarettes, uncomplicated F17.210 BPH (benign prostatic hyperplasia) N40.0 Tubular adenoma of colon D12.6 Coronary artery disease I25.10 Additional Codes ROB-7 Assessment Billing - ROB-7 Assessment Tool: ROB-7 Assessment 52562 ([id number]) PHQ-9 - 45618 - PHQ-9 Billing: Yes ([id number]) Assessment & Plan Assessment & Plan (1) Hypercholesterolemia: Code(s): E78.00 - Pure hypercholesterolemia, unspecified Category: Medical Plan: Avoid fried foods, chicken skin, eggs, butter margarine, pastries and meat. Be it pork or beef they have a lot of cholesterol LDL goal of less than 130 and triglyceride of less than 150. (2) Impaired fasting glucose: Code(s): R73.01 - Impaired fasting glucose Category: Medical Plan: Decrease the amount of carbohydrate intake, pasta, bread, rice and potatoes are all sugar and that is aside from all the sweet stuff, remember that fruits are good but they are Sweet also. (3) COPD (chronic obstructive pulmonary disease): Comment: He does have Moderate degree of obstructive airway disorder. He is relatively asymptomatic and so he does not want to use any maintenance inhaler. Code(s): J44.9 - Chronic obstructive pulmonary disease, unspecified Category: Medical Qualifiers: COPD type: emphysema Emphysema type: panlobular Qualified Code(s): J43.1 - Panlobular emphysema Plan: Patient follows up with Pulmonary on albuterol inhaler. (4) Nicotine dependence, cigarettes, uncomplicated: Comment: (40PYH), LUCKILY HE CLAIMS THAT HE HAS QUIT SMOKING . TODAY HE CLAIMS THAT HE SMOKES NO MORE THAN 1 CIGARETTE TODAY IN THE MORNING HOURS. 09/18/2024 CT scan Code(s): F17.210 - Nicotine dependence, cigarettes, uncomplicated Category: Medical Plan: Patient is strongly advised to stop smoking. Patient is enrolled in the lung cancer screening program and 09/18/[address] scan (5) BPH (benign prostatic hyperplasia): Comment: October 2016 Code(s): N40.0 - Benign prostatic hyperplasia without lower urinary tract symptoms Category: Medical Plan: Stable (6) Tubular adenoma of colon: Comment: (TA on 2005, 2009 and 2019 scopes) Code(s): D12.6 - Benign neoplasm of colon, unspecified Category: Medical Plan: Patient is reminded about colonoscopy. (7) Coronary artery disease: Code(s): I25.10 - Atherosclerotic heart disease of [place] coronary artery without angina pectoris Category: Medical Plan: Control the cholesterol, weight, blood pressure Plan - Reinforce smoking cessation to address COPD and to reduce the risk of further pulmonary complications; remind the patient of the importance of participation in the lung cancer screening program. - Continue current medication regimen with albuterol, montelukast, and Claritin for COPD management to control symptoms and prevent further exacerbations. - Initiate or continue appropriate measures to achieve and maintain LDL goals for hypercholesterolemia with adjustments as necessary to ensure LDL <130 mg/dL and triglycerides <150 mg/dL. - Address weight management strategies to mitigate associated health risks associated with obesity. - Follow-up on anemia to determine etiology and consider further management if indicated. - Plan for scheduled colonoscopy as indicated, consistent with routine screening recommendations. - Reinforce good dietary habits and regular physical activity to support weight control and overall health maintenance. Orders: Orders Comprehensive Met. Panel Today R73.01 - Impaired fasting glucose Complete Blood Count Auto Diff Today I25.10 - Atherosclerotic heart disease of [place] coronary artery without angina pectoris C Reactive Protein Today M33.20 - Polymyositis, organ involvement unspecified UA CC w/rflx Micro + Cult Today M33.20 - Polymyositis, organ involvement unspecified, R30.0 - Dysuria Hemoglobin A1c Today R73.01 - Impaired fasting glucose Lipid Panel Today E78.00 - Pure hypercholesterolemia, unspecified, I25.10 - Atherosclerotic heart disease of [place] coronary artery without angina pectoris Thyroid Stimulating Hormone Today I25.10 - Atherosclerotic heart disease of [place] coronary artery without angina pectoris Erythrocyte Sedimentation Rate Today M33.20 - Polymyositis, organ involvement unspecified Free T4 (Free Thyroxine) Today M33.20 - Polymyositis, organ involvement unspecified Vitamin B12 and Folate Today M33.20 - Polymyositis, organ involvement unspecified Referrals Gastroenterology Referral D12.6 - Benign neoplasm of colon, unspecified
[2024-12-12 14:31] VITALS: BP 138/82; PULSE 78; TEMP 36.3; O2SAT 95; BMI 35.3
== END 2024-12-12 15:08 | disposition home or self-care (01) ==
PROVIDERS: PCP Internal Medicine; Visit Provider Internal Medicine
DX: E78.00 Pure hypercholesterolemia, unspecified (principal); R73.01 Impaired fasting glucose; J43.1 Panlobular emphysema; F17.210 Nicotine dependence, cigarettes, uncomplicated; N40.0 Benign prostatic hyperplasia without lower urinary tract symptoms; D12.6 Benign neoplasm of colon, unspecified; I25.10 Atherosclerotic heart disease of native coronary artery without angina pectoris

== ENCOUNTER → 2024-12-12 14:15 | Outpatient (BNVA) | payer MEDICARE, SELFPAY | PROVIDERS: PCP Internal Medicine; Visit Provider Internal Medicine | DX: E78.00 Pure hypercholesterolemia, unspecified (principal); R73.01 Impaired fasting glucose; J43.1 Panlobular emphysema; N40.0 Benign prostatic hyperplasia without lower urinary tract symptoms; D12.6 Benign neoplasm of colon, unspecified; I25.10 Atherosclerotic heart disease of native coronary artery without angina pectoris; F17.210 Nicotine dependence, cigarettes, uncomplicated; Z71.6 Tobacco abuse counseling | CPT/HCPCS: 96127; 99212 ==

== ENCOUNTER 2024-12-31 18:53 | Inpatient (IN) | payer MEDICARE, SELFPAY ==
--- NOTE | ~2024-12-31 | FL_ITS ---
EXAMINATION: FL GUIDANCE ONLY HISTORY: lap lashonda, possible cholangiogram COMPARISON: Correlation is made with a CT of the abdomen and pelvis dated 12/31/2024. TECHNIQUE: Fluoroscopy time: 25.9 seconds. Cumulative Dose: 15.78 mGy. Images: 5. FINDINGS: Images from an intraoperative cholangiogram demonstrate an occlusion balloon in the common bile duct. There is opacification of the common bile duct, intrahepatic biliary radicles, pancreatic duct, and duodenum. No suspicious filling defects are identified. FL/FL guidance in OR IMPRESSION: Fluoroscopy during procedure. Please see procedure report for additional information. Electronically signed by: Jah Narvaez MD 01/03/2025 08:[address] [facility]
--- NOTE | ~2024-12-31 | CT_ITS ---
CLINICAL HISTORY: Abdominal pain, transaminitis CT abdomen and pelvis with contrast Comparison: US - US ABDOMEN LIMITED - 12/31/24 19:[address]/CO/SR - ABD PELV W IV CON ONLY [id number] - 07/13/18 21:54 EDT Findings: Lung bases are clear. Heart size is normal. The spleen and adrenal glands are unremarkable. There are multiple bilateral renal cysts. No hydronephrosis of either kidney. No ureteral stones. The liver is normal in size. There is a number of small low-attenuation foci within the liver statistically likely to be cysts, but too small for full characterization. One of the cystic structures has a small amount of calcification in the wall. The gallbladder demonstrates contraction of the distal portion of the gallbladder with multiple internal calcifications, similar in comparison to 2018. The appearance is suggestive of diffuse scarring of the distal gallbladder with internal wall calcifications or trapped stones. The proximal gallbladder appears normal, without wall thickening or pericholecystic fluid. There is also dependent gallstones within the more proximal gallbladder, which contains fluid. No intrahepatic biliary ductal dilatation. The common duct is normal caliber. The pancreas enhances diffusely. There is mild stranding in the peripancreatic fat in the region of the pancreatic head and proximal body. No fluid collection or abscess seen. No bowel obstruction, pneumoperitoneum, or pneumatosis. There are scattered colonic diverticula, however no evidence of diverticulitis. Pelvic contents unremarkable. Normal appendix. No ascites. Prostatomegaly present. Urinary bladder is decompressed. Abdominal aorta demonstrates extensive wall calcifications. No acute fracture. Multilevel degenerative change of the lumbar spine. There has been interval development of a mild compression deformity of L3 which appears chronic. IMPRESSION: 1. Mild stranding in the peripancreatic fat of the pancreatic head and proximal body which could be compatible with interstitial edematous pancreatitis. 2. No change in chronic appearance scarred down appearance gallbladder fundus. Cholelithiasis. No evidence of pericolicystic fluid or stranding or acute wall thickening to suggest acute cholecystitis. This document has been electronically signed by: Ag Mustafa MD on 01/01/2025 01:00:53
--- NOTE | ~2024-12-31 | US_ITS ---
CLINICAL HISTORY: RUQ pain US abdomen limited Comparison: CT/[place]/SR - ABD PELV W IV CON ONLY [id number] - 07/13/18 21:54 EDT Findings: The visualized pancreas is normal. The aorta and inferior vena cava are normal caliber. The liver is normal in size and echotexture. There is no intrahepatic bile duct dilatation. The common duct is 4 mm in diameter. Marked gallbladder wall thickening measuring 9 mm. Echogenic material is noted within the gallbladder fundus. Small gallstone is present within the neck. Positive sonographic Barajas sign. The main portal vein is antegrade. No ascites. 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 Small gallstone is noted within the neck. Positive sonographic Barajas sign. Findings may represent acute on chronic cholecystitis. This document has been electronically signed by: Derrell Montelongo MD on 12/31/2024 20:37:21
[2024-12-31 19:18] VITALS: BP 162/79; PULSE 70; RESP 16; TEMP 36.7; O2SAT 97; BMI 35.0
--- NOTE | 2024-12-31 19:24 | ECG_ITS ---
Test Reason : epigastric pain Blood Pressure : */* mmHG Vent. Rate : 69 BPM Atrial Rate : 69 BPM P-R Int : 184 ms QRS Dur : 108 ms QT Int : 402 ms P-R-T Axes : 63 26 29 degrees QTcB Int : 430 ms Sinus rhythm with Blocked Premature atrial complexes Otherwise normal ECG When compared with ECG of 13-Jul-2018 17:22, Premature atrial complexes are now Present Referred By: Tammi Molina Electronically Signed By: JESS WHITE MD
[2024-12-31 19:48] LABS: Basophils Absolute Auto 0.1 X10*3/uL (0.0-0.2); Basophils Percent Auto 0.7 % (0-2); Eosinophils Absolute Auto 0.1 X10*3/uL (0.0-0.4); Eosinophils Percent Auto 0.5 % (0-4); Hematocrit 40.5 % (42.0-52.0); Hemoglobin 13.8 g/dl (14.0-18.0); Imm Gran Abs Auto 0.06 X10*3/uL (0.00-0.03); Imm Gran Pct Auto 0.6 % (0.0-0.4); Lymphocytes Percent Auto 10.4 % (20-40); MANUAL DIFF FLAG NO; Mean Corpuscular HGB Conc 34.1 g/dl (31.0-36.0); Mean Corpuscular Hemoglobin 31.9 pg (27.0-33.0); Mean Corpuscular Volume 93.5 fL (80.0-98.0); Mean Platelet Volume 9.7 fL (9.4-12.4); Monocytes Absolute Auto 1.4 X10*3/uL (0.1-1.2); Monocytes Percent Auto 14.3 % (2-11); Neutrophils Absolute Auto 7.4 x10*3/uL (2.0-8.3); Neutrophils Percent Auto 73.5 % (45-73); Platelet Count 180 X10*3/uL (160-400); Red Blood Count 4.33 X10*6/uL (4.60-5.80)
[2024-12-31 20:11] LABS: Alanine Aminotransferase 375 U/L (0-40); Albumin Level 3.8 g/dL (3.5-5.0); Anion Gap 12 (12-20); Aspartate Amino Transferase 488 U/L (5-37); Bilirubin Direct 1.2 mg/dL (0.0-0.5); Bilirubin Total 1.9 mg/dL (0.0-1.0); Blood Urea Nitrogen 16 mg/dL (9-16); Calcium 9.3 mg/dL (8.4-10.2); Carbon Dioxide 26 mmol/L (22-29); Chloride 106 mmol/L (96-108); Creatinine Clr Calc Pharmacy 102.6; Estimated Glomerular Filt Rate > 60; Glucose Random 112 mg/dL (60-115); Magnesium 2.2 mg/dL (1.6-2.6); Potassium 4.4 mmol/L (3.3-5.1); Sodium 140 mmol/L (135-145); Total Protein 7.6 g/dL (6.5-8.0)
[2024-12-31 20:12] LABS: Troponin-I High Sensitivity < 2.7 ng/L (<3.5-35.0)
[2024-12-31 20:19] LABS: Alkaline Phosphatase 113 U/L (39-117)
[2024-12-31 20:26] LABS: Lipase > 3000 U/L (8-78)
--- NOTE | 2024-12-31 21:48 | ED_ITS ---
HPI - Abdominal Pain General Chief Complaint: Abdominal Pain Stated Complaint: [facility] Time Seen by Provider: 12/31/24 21:23 Source: patient Mode of arrival: ambulatory Limitations: no limitations History of Present Illness ED Provider: Mana Wilkins NP HPI narrative: Patient is a 74-year-old male who presents emergency department for evaluation. He reports this morning he consumed an Yi muffin with butter and peanut butter 2 cups of coffee about 30-60 minutes later developed severe onset right upper quadrant abdominal pain with nausea that has since resolved but the pain has persisted. He had an in-home evaluation and was advised to come to emergency department for imaging. Denies fevers, chills, chest pain, nausea, vomiting, hematemesis, diarrhea, constipation, hematochezia, melena, dysuria, urinary frequency, urinary urgency, urinary hesitancy, hematuria. Related Data Home Medications ?Medication ?Instructions ?Recorded ?Confirmed fluticasone propionate 50 2 spray intranasal DAILY PRN 08/01/24 09/03/24 mcg/actuation nasal spray,suspension (Flonase Allergy Relief) Previous Rx's ?Medication ?Instructions ?Recorded ibuprofen 200 mg tablet (Advil) 200 mg PO Q6H PRN pain #30 tabs 02/12/21 sildenafil 100 mg tablet 100 mg PO ONCE sexual activity 30 11/28/23 days #30 tabs albuterol sulfate 90 mcg/actuation 2 puff inhalation Q4-6H PRN 07/18/24 aerosol inhaler shortness of breath or wheezing #6.7 grams montelukast 10 mg tablet 10 mg PO BEDTIME ALLERGIC rHINITIS 10/28/24 (Singulair) 30 days #30 tabs clotrimazole 1 % topical cream 1 appl topical BID 4 weeks #45 12/03/24 grams Allergies Allergy/AdvReac Type Severity Reaction Status Date / Time No Known Allergies Allergy Verified 12/31/24 19:18 [No Known Allergies*] Review of Systems Review of Systems Yes all other systems are reviewed and are negative PMFSH Past Medical History Attestation statement: The following information was validated with the patient. Source: old records reviewed Medical History Hx of malignant melanoma Polymyositis Parotid mass Peripheral vascular disease Hypercholesterolemia COPD (chronic obstructive pulmonary disease) Pulmonary nodule Nicotine dependence, cigarettes, uncomplicated Allergic rhinitis BPH (benign prostatic hyperplasia) Obesity (BMI 30-39.9) Knee osteoarthritis Cholelithiasis Vitamin D deficiency Erectile dysfunction Tubular adenoma of colon Renal calculi Surgical History History of parotidectomy History of melanoma excision History of rectal sphincterotomy History of hemorrhoidectomy History of colonoscopy Family History Family History Father Lung cancer CVD (cardiovascular disease) Stroke Liver cancer CHF (congestive heart failure) Mother CVD (cardiovascular disease) CHF (congestive heart failure) Sister Ovarian cancer Social History Social History Housing: House Alcohol intake: current Alcohol intake frequency: holidays/special occasions only Alcohol type: beer Patient Tobacco Use Status: Current everyday Tobacco user Tobacco use type: Cigarette Cigarettes Per Day: 1 Years Smoked: 40 e-Cigarette/Vaping Use: Never Used Second Hand Smoke Exposure: No Substance Use Type: Marijuana Advance Directives: No Advance Directives Information Provided: No Do you have a plan to hurt others: No Plan service: Yes Current occupational status: retired Cognitive needs: No Hearing needs: No Vision needs: Yes Physical Exam ED Vital Signs: Vital Signs - 24 hr 12/31/24 19:18 12/31/24 23:09 Temperature 98.1 F 97.7 F Pulse Rate 70 59 Respiratory Rate 16 18 Blood Pressure 162/79 H 127/68 Pulse Oximetry 97 97 Oxygen Delivery Method Room Air Room Air BMI result Body Mass Index 35.0 Appearance: Alert.?Oriented to person, place and time. No acute distress.?Normal affect.?? Neck: Normal inspection.? Neck supple.?? CVS: Heart sounds normal. Normal heart rate and rhythm.? Pulses normal.?? Respiratory: No respiratory distress.? Lung sounds clear to auscultation bilaterally?? Abdomen: Soft and non-tender. No rebound tenderness at McBurney's point. Negative psoas sign. Negative Rovsing sign. Negative Barajas sign. No CVAT. Normoactive bowel sounds. No pulsatile mass.?? Skin: Skin warm and dry.? Normal skin color.? Extremities: No lower extremity edema.? Neuro: Moves all extremities spontaneously. Sensation intact bilaterally. Ambulates with normal steady gait. Course Reevaluation(s) Reevaluation #1: Spoke with general surgeon Dr. De who recommends CT of the abdomen and pelvis for evaluation of pancreatitis, may possibly need MRCP, recommends admission to medicine service Medical Decision Making Medical Decision Making [facility] Narrative: Patient is a 74 year old male with past medical history of hypertension, hyperlipidemia, COPD, BPH who presents emergency department for evaluation of right upper quadrant abdominal pain as per HPI. He has tenderness upon palpation and positive Barajas sign, workup obtained prior to my assumption of care revealing no leukocytosis, mild normocytic anemia not meeting transfusion criteria, no thrombocytopenia. No electrolyte derangement. No MAR. Notably elevated LFTs with total bilirubin 1.9, direct bili 1.2, AST 488, ALT 375, and lipase >3,000. Ultrasound with findings supporting acute cholecystitis, mild gallbladder wall thickening an echogenic material within the gallbladder fundus, small gallstone within the neck, evaluation prior LFTs have been within normal range. Declines analgesic at this time. Differential Diagnosis Differential Diagnoses: The differential diagnosis associated with the presentation includes (Cholecystitis, choledocholithiasis, PNA, muscular pain) Admission/Observation Consideration of admission/observation: Escalation of care including admission/observation considered (See narrative above ) Consult Healthcare Provider Management of the patient was discussed with: Hospitalist (Admission to medicine service, consulted with hospitalist Dr. Westbrook) Lab Data [facility] Lab Attestation statement: I reviewed the patient's lab results. 12/31/24 19:43 12/31/24 19:43 Labs: Lab Results 12/31/24 12/31/24 Range/Units 19:43 22:52 WBC 10.0 (4.8-10.8) X10*3/uL RBC 4.33 L (4.60-5.80) X10*6/uL Hgb 13.8 L (14.0-18.0) g/dl Hct 40.5 L (42.0-52.0) % MCV 93.5 (80.0-98.0) fL MCH 31.9 (27.0-33.0) pg MCHC 34.1 (31.0-36.0) g/dl RDW 15.0 (11.0-16.0) % Plt Count 180 (160-400) X10*3/uL MPV 9.7 (9.4-12.4) fL Immature Gran % (Auto) 0.6 H (0.0-0.4) % Neut % (Auto) 73.5 H (45-73) % Lymph % (Auto) 10.4 L (20-40) % [place]arro % (Auto) 14.3 H (2-11) % Eos % (Auto) 0.5 (0-4) % Baso % (Auto) 0.7 (0-2) % Lymph # (Auto) 1.0 L (1.2-4.9) X10*3/uL [place] # (Auto) 1.4 H (0.1-1.2) X10*3/uL Eos # (Auto) 0.1 (0.0-0.4) X10*3/uL Baso # (Auto) 0.1 (0.0-0.2) X10*3/uL Abs Immat Gran (auto) 0.06 H (0.00-0.03) X10*3/uL Absolute Neuts (auto) 7.4 (2.0-8.3) x10*3/uL Absolute Nucleated RBC 0.000 (0.0-0.012) X10*3/uL Nucleated RBC % (auto) 0.0 (0.0-0.2) /100WBC Sodium 140 (135-145) mmol/L Potassium 4.4 (3.3-5.1) mmol/L Chloride 106 (96-108) mmol/L Carbon Dioxide 26 (22-29) mmol/L Anion Gap 12 (12-20) BUN 16 (9-16) mg/dL Creatinine 0.81 (0.5-1.4) mg/dL Estim Creat Clear Calc 102.6 Estimated GFR > 60 Random Glucose 112 (60-115) mg/dL Lactic Acid 0.8 (0.5-2.0) mmol/L Calcium 9.3 (8.4-10.2) mg/dL Magnesium 2.2 (1.6-2.6) mg/dL Total Bilirubin 1.9 H (0.0-1.0) mg/dL Direct Bilirubin 1.2 H (0.0-0.5) mg/dL AST 488 H (5-37) U/L ALT 375 H (0-40) U/L Alkaline Phosphatase 113 (39-117) U/L Troponin I High Sens < 2.7 (<3.5-35.0) ng/L Total Protein 7.6 (6.5-8.0) g/dL Albumin 3.8 (3.5-5.0) g/dL Lipase > 3000 H (8-78) U/L Independent Interpretation I performed an independent interpretation of an: Ultrasound Radiology Impression Discussion of test interpretation with radiology: I have reviewed the radiologist's reading. 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 Small gallstone is noted within the neck. Positive sonographic Barajas sign. Findings may represent acute on chronic cholecystitis. IMPRESSION: 1. Mild stranding in the peripancreatic fat of the pancreatic head and proximal body which could be compatible with interstitial edematous pancreatitis. 2. No change in chronic appearance scarred down appearance gallbladder fundus. Cholelithiasis. No evidence of pericolicystic fluid or stranding or acute wall thickening to suggest acute cholecystitis. External Record Review External record reviewed: Outpatient record Medications Administered Generic Name Dose Route Start Last Admin Trade Name Freq PRN Reason Stop Dose Admin Sodium Chloride 3 ml 01/01/25 00:00 01/01/25 01:34 0.9 % Sodium Chloride Flush 3 Ml Syringe IVFLUSH Not Given QSHIFT BRUCE Discontinued Medications Generic Name Dose Route Start Last Admin Trade Name Freq PRN Reason Stop Dose Admin Piperacillin Sod/Tazobactam 50 mls @ 100 mls/hr 12/31/24 21:43 12/31/24 23:40 Sod 3.375 gm/ Sodium Chloride IV 12/31/24 22:12 Infused ONCE ONE Infusion Sodium Chloride 1,000 mls @ 999 mls/hr 12/31/24 23:45 01/01/25 01:35 Ns IV 01/01/25 00:45 Infused .Q1H1M BRUCE Infusion Iohexol 85 ml 12/31/24 23:47 12/31/24 23:47 Iohexol 350 Mg/Ml 100 Ml Infus..Btl IV 12/31/24 23:48 85 ml ONCE ONE Administration Discharge Plan Discharge Clinical Impression: Acute calculous cholecystitis Patient Disposition: Admitted As Inpatient
[2024-12-31 23:09] VITALS: BP 127/68; PULSE 59; RESP 18; TEMP 36.5; O2SAT 97
[2024-12-31 23:10] LABS: Lactic Acid 0.8 mmol/L (0.5-2.0)
[2024-12-31] MEDS: Piperacillin Sodium/Tazobactam 3.375 GM in 0.9 % Sodium Chloride 50 ML IV (23:17)
[2024-12-31] MEDS: iohexoL 350 MG/ML 100 ML INFUS..BTL 85 ML IV (23:47)
--- NOTE | 2024-12-31 23:51 | P.HPHOSP_ITS ---
History of Present Illness Date of Service: 12/31/24 Attending physician on admission: Chetan Westbrook Chief Complaint: RUQ pain Patient is a 74-year-old male with a past medical history significant for COPD, HLD, BPH, obesity, kidney stones, parotid mass s/p resection, polymyositis, history melanoma right upper back, who presented to the ED by recommendation of urgent care due to right upper quadrant pain beginning 30-60 minutes after eating breakfast. He reports that he had an Persian muffin with border and peanut butter as well as 2 cups of coffee and then started to experience severe right upper quadrant pain. At that time and was about a 9/10 with nausea, the pain has improved and now he rates this a 3 to 4/10 without any pain management. The pain waxes and wanes, does not change with lying down. He reports that he was told many useful that he has a gallstone but has never had any issues with this. He has a strong family history of cholecystitis requiring cholecystectomy. He has no additional symptoms including any urinary symptoms, right lower quadrant pain, nausea or vomiting currently. No diarrhea, cough, shortness of breath or chest pain. Review of Systems 2 Constitutional: Constitutional: Denies body ache(s), Denies chills, Denies fatigue, Denies fever(s) and Denies headache(s) Eyes: Eyes: Denies change in vision and Denies photophobia ENT: Denies headache(s), Denies nasal congestion, Denies nasal discharge and Denies sore throat Cardiovascular: Cardiovascular: Denies chest pain, Denies rapid heart rate, Denies leg edema, Denies lightheadedness and Denies dyspnea Respiratory: Respiratory: Denies chest congestion, Denies cough, Denies dyspnea and Denies wheezing Gastrointestinal: Gastrointestinal: Reports abdominal pain, Denies diarrhea, Denies nausea, Denies vomiting and Denies hematemesis Genitourinary: Genitourinary: Denies difficulty urinating, Denies dysuria and Denies urinary urgency Musculoskeletal: Musculoskeletal: Denies myalgias Integumentary/Breasts: Skin/Breast: Denies rash Neurologic: Denies confusion and Denies headache(s) Psychiatric: Psychiatric: Denies confusion Endocrine: Endocrine: Denies fatigue Hematologic/Lymphatic: Hematologic/Lymphatic: Denies easy bleeding and Denies easy bruising Allergic/Immunologic: Allergic/Immunologic: Denies wheezing PMFSH Medical History Hx of malignant melanoma Polymyositis Parotid mass Peripheral vascular disease Hypercholesterolemia COPD (chronic obstructive pulmonary disease) Pulmonary nodule Nicotine dependence, cigarettes, uncomplicated Allergic rhinitis BPH (benign prostatic hyperplasia) Obesity (BMI 30-39.9) Knee osteoarthritis Cholelithiasis Vitamin D deficiency Erectile dysfunction Tubular adenoma of colon Renal calculi Family History Father Lung cancer CVD (cardiovascular disease) Stroke Liver cancer CHF (congestive heart failure) Mother CVD (cardiovascular disease) CHF (congestive heart failure) Sister Ovarian cancer Surgical History History of parotidectomy History of melanoma excision History of rectal sphincterotomy History of hemorrhoidectomy History of colonoscopy Social History Housing: House Alcohol intake: current Alcohol intake frequency: holidays/special occasions only Alcohol type: beer Patient Tobacco Use Status: Current everyday Tobacco user Tobacco use type: Cigarette Cigarettes Per Day: 1 Years Smoked: 40 e-Cigarette/Vaping Use: Never Used Second Hand Smoke Exposure: No Substance Use Type: Marijuana Advance Directives: No Advance Directives Information Provided: No Do you have a plan to hurt others: No Plan service: Yes Current occupational status: retired Cognitive needs: No Hearing needs: No Vision needs: Yes Meds Allergies Allergy/AdvReac Type Severity Reaction Status Date / Time No Known Allergies Allergy Verified 12/31/24 19:18 [No Known Allergies*] Active Medications: Current Medications Sodium Chloride (Ns) 1,000 mls @ 999 mls/hr IV .Q1H1M BRUCE Stop: 01/01/25 00:45 Home Medications ?Medication ?Instructions ?Recorded ?Confirmed ?Last Taken ?Type fluticasone propionate 50 2 spray intranasal DAILY PRN 08/01/24 09/03/24 Unknown History mcg/actuation nasal spray,suspension (Flonase Allergy Relief) Physical Exam 2 Vital Signs and Narrative: Vital Signs: Last Vital Signs Temp 97.7 F 12/31/24 23:09 Pulse 59 12/31/24 23:09 Resp 18 12/31/24 23:09 BP 127/68 12/31/24 23:09 Pulse Ox 97 12/31/24 23:09 O2 Del Method Room Air 12/31/24 23:09 BMI result Body Mass Index 35.0 General: AOx3, no acute distress Resp: CTA bilaterally CVS: S1, S2, RRR GI: +BS, tender epigastric region, no right upper quadrant pain with palpation, negative Barajas's sign, negative McBurney's point, no distention Skin: Warm, dry Neuro: Cranial nerves II-XII grossly intact bilaterally. Motor grossly intact bilaterally Extremities: No LE edema Psych: Appropriate affect Const: General: No confusion Orientation/consciousness: No confusion Eyes: Direct Ophthalmoscopy: No photophobia Neuro: General: No confusion Results Labs 12/31/24 19:43 12/31/24 19:43 Labs: Laboratory Results - last 24 hr 12/31/24 12/31/24 19:43 22:52 MCV 93.5 MCH 31.9 MCHC 34.1 RDW 15.0 Plt Count 180 MPV 9.7 Immature Gran % (Auto) 0.6 H Neut % (Auto) 73.5 H Lymph % (Auto) 10.4 L [place] % (Auto) 14.3 H Eos % (Auto) 0.5 Baso % (Auto) 0.7 Lymph # (Auto) 1.0 L [place] # (Auto) 1.4 H Eos # (Auto) 0.1 Baso # (Auto) 0.1 Abs Immat Gran (auto) 0.06 H Absolute Neuts (auto) 7.4 Absolute Nucleated RBC 0.000 Nucleated RBC % (auto) 0.0 Anion Gap 12 Estim Creat Clear Calc 102.6 Estimated GFR > 60 Random Glucose 112 Lactic Acid 0.8 Calcium 9.3 Magnesium 2.2 Total Bilirubin 1.9 H Direct Bilirubin 1.2 H AST 488 H ALT 375 H Alkaline Phosphatase 113 Total Protein 7.6 Albumin 3.8 Lipase > 3000 H Assessment and Plan (1) Acute cholecystitis: Status: Acute (2) Obesity (BMI 30-39.9): Status: Acute Plan Patient is a 74-year-old male with a past medical history significant for COPD, HLD, BPH, obesity, kidney stones, parotid mass s/p resection, polymyositis, history melanoma right upper back, who presented to the ED by recommendation of urgent care due to right upper quadrant pain beginning 30-60 minutes after eating breakfast. ED provider spoke with surgeon who suggested IV antibiotics, medical admission with surgical consult. 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 Small gallstone noted within the neck. Positive sonographic Barajas's sign. Findings may represent acute on chronic cholecystitis. - abdominopelvic CT pending - AST 488, ALT 375, alk-phos 113, T bili 1.9, direct bili 1.2, lipase >3000 - started on zosyn, continue - surgical consult - NPO - monitor CBC and CMP COPD, no acute exacerbation - continue home meds BPH - continue home meds Obesity - BMI 35.0 - Weight loss encouraged Full Code VTE prophylaxis: Pneumoboots Patient with episode of acute cholecystitis, requiring admission for IV antibiotics and surgical consultation for at least 2 midnights stay. Quality Stroke Does the patient have a stroke diagnosis?: No VTE Prior VTE?: No VTE Risk Level:: Medical - moderate - high VTE Device Contraindication: N/A - Device Ordered VTE Drug Contraindication: Treatment Not Indicated
[2025-01-01] MEDS: 0.9 % Sodium Chloride 1,000 ML 999 ML IV (00:03)
[2025-01-01 01:14] VITALS: BP 128/78; PULSE 65; RESP 16; TEMP 36.4; O2SAT 96
[2025-01-01 05:50] LABS: MANUAL DIFF FLAG NO
[2025-01-01] MEDS: Piperacillin Sodium/Tazobactam 3.375 GM in 0.9 % Sodium Chloride 50 ML IV ×4 (06:00→23:40)
[2025-01-01 06:08] LABS: Basophils Percent Auto 0.5 % (0-2); Eosinophils Absolute Auto 0.2 X10*3/uL (0.0-0.4); Eosinophils Percent Auto 2.1 % (0-4); Hemoglobin 12.8 g/dl (14.0-18.0); Imm Gran Abs Auto 0.08 X10*3/uL (0.00-0.03); Lymphocytes Absolute Auto 1.1 X10*3/uL (1.2-4.9); Lymphocytes Percent Auto 13.4 % (20-40); Mean Corpuscular HGB Conc 34.6 g/dl (31.0-36.0); Mean Corpuscular Hemoglobin 32.1 pg (27.0-33.0); Mean Corpuscular Volume 92.7 fL (80.0-98.0); Mean Platelet Volume 9.8 fL (9.4-12.4); Monocytes Absolute Auto 1.2 X10*3/uL (0.1-1.2); Monocytes Percent Auto 14.3 % (2-11); Neutrophils Absolute Auto 5.8 x10*3/uL (2.0-8.3); Neutrophils Percent Auto 68.7 % (45-73); Platelet Count 166 X10*3/uL (160-400); Red Blood Count 3.99 X10*6/uL (4.60-5.80); White Blood Count 8.4 X10*3/uL (4.8-10.8)
[2025-01-01 06:10] LABS: Alanine Aminotransferase 305 U/L (0-40); Albumin Level 3.5 g/dL (3.5-5.0); Alkaline Phosphatase 104 U/L (39-117); Anion Gap 11 (12-20); Aspartate Amino Transferase 214 U/L (5-37); Blood Urea Nitrogen 13 mg/dL (9-16); Calcium 8.4 mg/dL (8.4-10.2); Carbon Dioxide 23 mmol/L (22-29); Chloride 109 mmol/L (96-108); Creatinine Clr Calc Pharmacy 106.5; Estimated Glomerular Filt Rate > 60; Glucose Random 95 mg/dL (60-115); Potassium 4.2 mmol/L (3.3-5.1); Sodium 139 mmol/L (135-145); Total Protein 6.8 g/dL (6.5-8.0)
[2025-01-01 06:16] VITALS: BP 110/73; PULSE 64; RESP 16; TEMP 37.3; O2SAT 97
--- NOTE | 2025-01-01 07:43 | P.CONGS_ITS ---
History of Present Illness Consult details Consult date: 01/01/25 Narrative: Patient was a 74-year-old male who presents here with severe right upper quadrant abdominal pain. He has had 1 episode of this in the past. On this occasion, because of progression of symptoms he presents to the emergency department which on workup with demonstrates findings consistent with acute cholecystitis. Patient has never been jaundiced before. He would arise tolerating his diet. He has regular bowel habits. He is unclear if he has any kind of fatty food intolerance. Chart was reviewed and patient evaluated. Patient was several intercurrent medical problems.. On initial baseline labs from yesterday, LFTs were elevated. Bilirubin has now normalized. [facility] Past Medical History Medical History Hx of malignant melanoma Polymyositis Parotid mass Peripheral vascular disease Hypercholesterolemia COPD (chronic obstructive pulmonary disease) Pulmonary nodule Nicotine dependence, cigarettes, uncomplicated Allergic rhinitis BPH (benign prostatic hyperplasia) Obesity (BMI 30-39.9) Knee osteoarthritis Cholelithiasis Vitamin D deficiency Erectile dysfunction Tubular adenoma of colon Renal calculi Family History Family History Father Lung cancer CVD (cardiovascular disease) Stroke Liver cancer CHF (congestive heart failure) Mother CVD (cardiovascular disease) CHF (congestive heart failure) Sister Ovarian cancer Surgical History Surgical History History of parotidectomy History of melanoma excision History of rectal sphincterotomy History of hemorrhoidectomy History of colonoscopy Social History Social History Housing: House Alcohol intake: current Alcohol intake frequency: holidays/special occasions only Alcohol type: beer Patient Tobacco Use Status: Current everyday Tobacco user Tobacco use type: Cigarette Cigarettes Per Day: 1 Years Smoked: 40 Smoked in Last 30 Days: Yes e-Cigarette/Vaping Use: Never Used Second Hand Smoke Exposure: No Use of substances other than those prescribed or required for medical reasons: No Substance Use Type: Marijuana Substance Use Frequency: Occasionally Any prior treatment program specific to substance use: No Advance Directives: No Advance Directives Information Provided: No Do you have a plan to hurt others: No Plan service: Yes Current occupational status: retired Cognitive needs: No Hearing needs: No Vision needs: Yes Meds Allergies Allergy/AdvReac Type Severity Reaction Status Date / Time No Known Allergies Allergy Verified 12/31/24 19:18 [No Known Allergies*] Active Medications: Current Medications Acetaminophen (Acetaminophen 325 Mg Tablet) 650 mg PO Q6H PRN PRN Reason: Pain, Mild 1-3,fever,headache Calcium Carbonate (Calcium Carbonate 750 Mg Tab.Chew) 750 mg PO Q4H PRN PRN Reason: Heartburn Piperacillin Sod/Tazobactam (Sod 3.375 gm/ Sodium Chloride) 50 mls @ 100 mls/hr IV Q6H [facility] Last Infusion: 01/01/25 07:25 Dose: Infused Magnesium Hydroxide (Milk Of Magnesia 30 Ml Oral.Susp) 30 ml PO DAILY PRN PRN Reason: Constipation Melatonin (Melatonin 3 Mg Tablet) 6 mg PO BEDTIME PRN PRN Reason: Insomnia Morphine Sulfate (Morphine Sulfate 2 Mg/Ml Cartridge) 2 mg IVPUSH Q4H PRN; Protocol PRN Reason: Pain, Moderate(Pain Scale 4-6) Ondansetron HCl (Ondansetron Hcl 4 Mg/2 Ml Vial) 4 mg IVPUSH Q8H PRN PRN Reason: Nausea and Vomiting Polyethylene Glycol (Polyethylene Glycol 3350 17 Gm Powd.Pack) 17 gm PO DAILY PRN PRN Reason: Constipation Sodium Chloride (0.9 % Sodium Chloride Flush 3 Ml Syringe) [facility] Last Admin: 01/01/25 07:25 Dose: Not Given Home Medications ?Medication ?Instructions ?Recorded ?Confirmed ?Last Taken ?Type fluticasone propionate 50 2 spray intranasal DAILY PRN 08/01/24 09/03/24 Unknown History mcg/actuation nasal spray,suspension (Flonase Allergy Relief) Physical Exam 2 Vital Signs: Vital Signs: Last Vital Signs Temp 99.1 F 01/01/25 06:16 Pulse 64 01/01/25 06:16 Resp 16 01/01/25 06:16 BP 110/73 01/01/25 06:16 Pulse Ox 97 01/01/25 06:16 O2 Del Method Room Air 01/01/25 06:16 BMI result Body Mass Index 35.0 Chest: Other: Chest breath sounds bilaterally, HS 1 in 2 GI: Other: Abdomen is soft. Marked right upper quadrant tenderness and a positive Barajas's sign. No other scars or hernias demonstrated. Results Labs 01/01/25 05:37 01/01/25 05:37 Labs: Abnormal lab results 12/31/24 01/01/25 Range/Units 19:43 05:37 RBC 4.33 L 3.99 L (4.60-5.80) X10*6/uL Hgb 13.8 L 12.8 L (14.0-18.0) g/dl Hct 40.5 L 37.0 L (42.0-52.0) % Immature Gran % (Auto) 0.6 H 1.0 H (0.0-0.4) % Neut % (Auto) 73.5 H (45-73) % Lymph % (Auto) 10.4 L 13.4 L (20-40) % [place] % (Auto) 14.3 H 14.3 H (2-11) % Lymph # (Auto) 1.0 L 1.1 L (1.2-4.9) X10*3/uL [place] # (Auto) 1.4 H (0.1-1.2) X10*3/uL Abs Immat Gran (auto) 0.06 H 0.08 H (0.00-0.03) X10*3/uL Chloride 109 H (96-108) mmol/L Anion Gap 11 L (12-20) Total Bilirubin 1.9 H (0.0-1.0) mg/dL Direct Bilirubin 1.2 H (0.0-0.5) mg/dL AST 488 H 214 H (5-37) U/L ALT 375 H 305 H (0-40) U/L Lipase > 3000 H (8-78) U/L Short CBC 12/31/24 01/01/25 Range/Units 19:43 05:37 WBC 10.0 8.4 (4.8-10.8) X10*3/uL Hgb 13.8 L 12.8 L (14.0-18.0) g/dl Hct 40.5 L 37.0 L (42.0-52.0) % Plt Count 180 166 (160-400) X10*3/uL BMP 12/31/24 01/01/25 19:43 05:37 Sodium 140 139 Potassium 4.4 4.2 Chloride 106 109 H Carbon Dioxide 26 23 BUN 16 13 Creatinine 0.81 0.78 Calcium 9.3 8.4 D Liver Function 12/31/24 01/01/25 Range/Units 19:43 05:37 Total Bilirubin 1.9 H 1.0 (0.0-1.0) mg/dL Direct Bilirubin 1.2 H (0.0-0.5) mg/dL AST 488 H 214 H (5-37) U/L ALT 375 H 305 H (0-40) U/L Alkaline Phosphatase 113 104 (39-117) U/L Albumin 3.8 3.5 (3.5-5.0) g/dL All other labs normal. Assessment and Plan (1) Acute calculous cholecystitis: Status: Acute Plan Patient presents with the acute cholecystitis. Risks, benefits, alternatives laparoscopic possible open cholecystectomy were reviewed with the patient and included but not limited to bleeding, infection, numbness, pain, scarring, bowel or bile duct injury or leak and the patient wishes to proceed. All questions answered. Consent signed. Patient will be made an add on surgery for today. He is NPO and receiving IV antibiotics. Procedures Date of Service Date of Service: 01/01/25
--- NOTE | 2025-01-01 08:01 | PHA.MEDREC ---
Addendum entered by Adolfo [facility] 01/01/25 08:07: med rec checked by [facility] Original Note: Pharmacy Consult ? Medication Reconciliation Pharmacy has completed the medication reconciliation. Spoke with patient to confirm. He said he has not taken anything within the past 48 hours.
[2025-01-01 08:25] LABS: Lipase 1159 U/L (8-78)
--- NOTE | 2025-01-01 08:38 | PM.EVENT ---
Event Note Date of Service: 01/01/25 Event Note: Patient was repeat lipase is 1159. We will scheduled for lap choly with possible cholangiogram for tomorrow in anticipation of lipase normalizing by then. We will repeat labs in early a.m. tomorrow Time Spent With Patient Time: Total time managing care of this patient today ____ minutes.
--- NOTE | 2025-01-01 09:08 | HO.PM.IMPN ---
Subjective Subjective Date of Service: 01/02/25 Interval History: Being followed for acute likely gallstone pancreatitis . Complaining of dry mouth, feels better, less abdominal pain localized to right upper quadrant, denies fever, no chills, no headache no nausea, no vomiting, no diarrhea. Review of Systems All other system reviewed and are negative Physical Exam Vital Signs: Vital Signs: Last Vital Signs Temp 99.1 F 01/01/25 06:16 Pulse 64 01/01/25 06:16 Resp 16 01/01/25 06:16 BP 110/73 01/01/25 06:16 Pulse Ox 97 01/01/25 06:16 O2 Del Method Room Air 01/01/25 06:16 BMI result Body Mass Index 35.0 Const: Other: General resting comfortably in no acute distress. Anicteric sclera Neck no JVD. CVS regular rate rhythm, Respiratory lungs clear to auscultation, no respiratory distress Gastrointestinal abdomen soft, mild right upper quadrant tenderness to palpation, no guarding , no rigidity. Extremities no edema. Neuro non focal Skin no rash Appropriate affect Objective Data Active Medications Acetaminophen (Acetaminophen 325 Mg Tablet) 650 mg PO Q6H PRN PRN Reason: Pain, Mild 1-3,fever,headache Calcium Carbonate (Calcium Carbonate 750 Mg Tab.Chew) 750 mg PO Q4H PRN PRN Reason: Heartburn Piperacillin Sod/Tazobactam (Sod 3.375 gm/ Sodium Chloride) 50 mls @ 100 mls/hr IV Q6H [facility] Last Infusion: 01/01/25 07:25 Dose: Infused Documented By: SAVANA Magnesium Hydroxide (Milk Of Magnesia 30 Ml Oral.Susp) 30 ml PO DAILY PRN PRN Reason: Constipation Melatonin (Melatonin 3 Mg Tablet) 6 mg PO BEDTIME PRN PRN Reason: Insomnia Morphine Sulfate (Morphine Sulfate 2 Mg/Ml Cartridge) 2 mg IVPUSH Q4H PRN; Protocol PRN Reason: Pain, Moderate(Pain Scale 4-6) Ondansetron HCl (Ondansetron Hcl 4 Mg/2 Ml Vial) 4 mg IVPUSH Q8H PRN PRN Reason: Nausea and Vomiting Polyethylene Glycol (Polyethylene Glycol 3350 17 Gm Powd.Pack) 17 gm PO DAILY PRN PRN Reason: Constipation Sodium Chloride (0.9 % Sodium Chloride Flush 3 Ml Syringe) 3 ml IVFLUSH QSHIFT [facility] Last Admin: 01/01/25 07:25 Dose: Not Given Documented By: SAVANA Non-Admin Reason: ABX RUNNING/FINISHING Labs 01/02/25 06:18 01/02/25 06:18 Labs: Laboratory Results - last 24 hr 12/31/24 12/31/24 01/01/25 19:43 22:52 05:37 MCV 93.5 92.7 MCH 31.9 32.1 MCHC 34.1 34.6 RDW 15.0 15.0 Plt Count 180 166 MPV 9.7 9.8 Immature Gran % (Auto) 0.6 H 1.0 H Neut % (Auto) 73.5 H 68.7 Lymph % (Auto) 10.4 L 13.4 L [place] % (Auto) 14.3 H 14.3 H Eos % (Auto) 0.5 2.1 Baso % (Auto) 0.7 0.5 Lymph # (Auto) 1.0 L 1.1 L [place] # (Auto) 1.4 H 1.2 Eos # (Auto) 0.1 0.2 Baso # (Auto) 0.1 0.0 Abs Immat Gran (auto) 0.06 H 0.08 H Absolute Neuts (auto) 7.4 5.8 Absolute Nucleated RBC 0.000 0.000 Nucleated RBC % (auto) 0.0 0.0 Anion Gap 12 11 L Estim Creat Clear Calc 102.6 106.5 Estimated GFR > 60 > 60 Random Glucose 112 95 Lactic Acid 0.8 Calcium 9.3 8.4 D Magnesium 2.2 Total Bilirubin 1.9 H 1.0 Direct Bilirubin 1.2 H AST 488 H 214 H ALT 375 H 305 H Alkaline Phosphatase 113 104 Total Protein 7.6 6.8 Albumin 3.8 3.5 Lipase > 3000 H 1159 H Assessment and Plan (1) Acute gallstone pancreatitis: Status: Acute Plan 74-year-old male with a past medical history significant for COPD, HLD, BPH, obesity, kidney stones, parotid mass s/p resection, polymyositis, history melanoma right upper back, who presented to the ED by recommendation of urgent care due to right upper quadrant pain beginning 30-60 minutes after eating breakfast. ED provider spoke with surgeon who suggested IV antibiotics, medical admission with surgical consult. 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 Small gallstone noted within the neck. Positive sonographic Barajas's sign. Findings may represent acute on chronic cholecystitis. - abdominopelvic CT showed mild stranding take in the peripancreatic fat of the pancreatic head and proximal body could be compatible with interstitial edematous pancreatitis, no change in chronic appearance scar down gallbladder fundus, cholelithiasis, no findings to suggest acute cholecystitis - LFTs trending down, total bili normalized, lipase >3000 > 1159 / - continue IV Zosyn/ NPO/ivf/monitor labs/analgesics - seen by General surgery likely cholecystectomy once acute pancreatitis resolved COPD, no acute exacerbation - continue home inhalers BPH - not on home meds Obesity class 1 - BMI 35.0, Weight loss encouraged Full Code VTE prophylaxis: Pneumoboots Patient with episode of acute gallstone pancreatitis requiring admission for IV antibiotics and surgical consultation will require continued inpatient hospitalization Quality Stroke Does the patient have a stroke diagnosis?: No VTE Prior VTE?: No VTE Risk Level:: Medical - moderate - high VTE Device Contraindication: N/A - Device Ordered VTE Drug Contraindication: Treatment Not Indicated
[2025-01-01] MEDS: Lactated Ringers 1,000 ML 100 ML IVCONT ×2 (09:23→22:15)
--- NOTE | 2025-01-01 09:31 | PM.EVENT ---
Event Note Date of Service: 01/01/25 Event Note: He had severe upper abdominal pain yesterday Currently he feels much better Minimal tenderness on the epigastric area No Barajas's sign I have reviewed his imaging studies - some peripancreatic edema consistent with acute pancreatitis Gallbladder with chronic changes but without significant distention, or pericholecystic inflammatory changes Lipase more than 3000 Etiology of pancreatitis likely from gallstones - he does state he drinks 1 beer about 3 times a week Follow lipase and LFTs Abdomen is soft and benign Okay to have clear liquids Time Spent With Patient Time: Total time managing care of this patient today ____ minutes.
--- NOTE | 2025-01-01 09:48 | P.HPSUR_ITS ---
Pre-Procedural Eval Section A - 24 Hr Update-Section A only Date of Service: 01/02/25 The patient is an INPATIENT: Yes Changes since office visit: No Cold of Flu in the past 2 weeks, No New Medical Problems, No Changes in Medication and No Patient answered all questions Section B - Complete if H&P > 30 days Chief Complaint: Acute Cholecystitis Allergies: Allergies Allergy/AdvReac Type Severity Reaction Status Date / Time No Known Allergies Allergy Verified 12/31/24 19:18 [No Known Allergies*] Review of Systems Sugical H&P ROS: Negative: Constitution, Cardiovascular, Respiratory, Neurological, Psychiatric, Hem-Onc, Allergic/Immunologic, Gastrointestinal, Genitourinary, Musculoskeletal, Integumentary, Endocrine and Ey es/Ears/Nose/Throat Exam Surgical H&P Exam: Normal: HEENT, Normal: Heart, Normal: Lungs, Normal: Extremities, Normal: Abdomen, Normal: Skin and Normal: Neurological Plan I have reviewed the history and physical and performed a pertinent physical examination on my patient. No changes have occurred unless specified. Time Spent With Patient Time: Total time managing care of this patient today ____ minutes.
[2025-01-01 11:37] VITALS: BP 124/75; PULSE 56; RESP 16; TEMP 36.8; O2SAT 97
[2025-01-01 11:53] LABS: Triglycerides 73 mg/dL (<150)
--- NOTE | 2025-01-01 12:22 | MHC.CM.PN ---
CM met with Patient at bedside, in the ED, and addressed IMM with him; original was given to Patient and a copy will be placed on the chart. Patient lives alone in a house and was receiving MOWs. Home/resume said services is Patient's goal and CM has initiated and will follow for dc planning. PCP is Dr. Ch Po and Sister will transport to home at dc.
[2025-01-01 18:04] VITALS: BP 127/71; PULSE 71; RESP 18; O2SAT 98
[2025-01-01 20:00] VITALS: BP 147/88; PULSE 73; RESP 16; TEMP 36.3; O2SAT 99
[2025-01-01 20:55] VITALS: BMI 34.6
[2025-01-01 23:18] VITALS: BP 124/73; PULSE 71; RESP 20; TEMP 36.7; O2SAT 96
[2025-01-01] MEDS: 0.9 % Sodium Chloride Flush 3 ML SYRINGE IVFLUSH (23:41)
[2025-01-02] VITALS (14 sets, daily range): BP systolic 114–148; BP diastolic 65–83; PULSE 58–79; RESP 12–20; TEMP 36.1–37; O2SAT 93–98
[2025-01-02] MEDS: Lactated Ringers 1,000 ML 100 ML IVCONT ×2 (06:17→16:06)
[2025-01-02] MEDS: Piperacillin Sodium/Tazobactam 3.375 GM in 0.9 % Sodium Chloride 50 ML IV ×4 (06:17→22:54)
[2025-01-02 06:38] LABS: MANUAL DIFF FLAG NO
[2025-01-02 06:46] LABS: Basophils Absolute Auto 0.1 X10*3/uL (0.0-0.2); Basophils Percent Auto 0.6 % (0-2); Eosinophils Absolute Auto 0.2 X10*3/uL (0.0-0.4); Eosinophils Percent Auto 1.7 % (0-4); Hematocrit 39.8 % (42.0-52.0); Hemoglobin 13.4 g/dl (14.0-18.0); Imm Gran Abs Auto 0.06 X10*3/uL (0.00-0.03); Imm Gran Pct Auto 0.7 % (0.0-0.4); Lymphocytes Percent Auto 22.2 % (20-40); Mean Corpuscular HGB Conc 33.7 g/dl (31.0-36.0); Mean Platelet Volume 10.7 fL (9.4-12.4); Monocytes Absolute Auto 1.2 X10*3/uL (0.1-1.2); Monocytes Percent Auto 13.4 % (2-11); Neutrophils Absolute Auto 5.5 x10*3/uL (2.0-8.3); Neutrophils Percent Auto 61.4 % (45-73); Platelet Count 178 X10*3/uL (160-400); Red Blood Count 4.19 X10*6/uL (4.60-5.80); Red Cell Distribution Width 15.2 % (11.0-16.0); White Blood Count 8.9 X10*3/uL (4.8-10.8)
[2025-01-02 06:58] LABS: Alanine Aminotransferase 210 U/L (0-40); Albumin Level 3.7 g/dL (3.5-5.0); Alkaline Phosphatase 96 U/L (39-117); Anion Gap 13 (12-20); Aspartate Amino Transferase 92 U/L (5-37); Bilirubin Direct 0.4 mg/dL (0.0-0.5); Blood Urea Nitrogen 13 mg/dL (9-16); Calcium 8.9 mg/dL (8.4-10.2); Carbon Dioxide 24 mmol/L (22-29); Chloride 109 mmol/L (96-108); Creatinine Clr Calc Pharmacy 93.8; Estimated Glomerular Filt Rate > 60; Glucose Random 80 mg/dL (60-115); Lipase 143 U/L (8-78); Potassium 4.7 mmol/L (3.3-5.1); Sodium 141 mmol/L (135-145); Total Protein 7.3 g/dL (6.5-8.0)
--- NOTE | 2025-01-02 09:21 | PM.PNGS ---
Subjective Subjective Date of Service: 01/02/25 Interval history: Feels improved. Denies any abdominal pain. Physical Exam Vital Signs: Vital Signs: Last Vital Signs Temp 98.1 F 01/02/25 08:00 Pulse 60 01/02/25 08:00 Resp 18 01/02/25 08:00 BP 122/73 01/02/25 08:00 Pulse Ox 95 01/02/25 08:00 O2 Del Method Room Air 01/02/25 08:00 BMI result Body Mass Index 34.6 Const: General: comfortable, no acute distress and alert Orientation/consciousness: patient oriented x3 Resp: Effort & Inspection: normal respiratory effort GI: Inspection: Yes normal to inspection and No distended Palpation (GI): Soft to palpation, nontender and no guarding Skin: General skin exam: no rashes or lesions noted and no jaundice Neuro: General: patient oriented x3 and moves all extremities Objective Data Active Medications Acetaminophen (Acetaminophen 325 Mg Tablet) 650 mg PO Q6H PRN PRN Reason: Pain, Mild 1-3,fever,headache Albuterol Sulfate (Albuterol Sulfate 90 Mcg 8 Gm Inhaler) 2 puff INHALE Q4H PRN PRN Reason: shortness of breath or wheezing Calcium Carbonate (Calcium Carbonate 750 Mg Tab.Chew) 750 mg PO Q4H PRN PRN Reason: Heartburn Piperacillin Sod/Tazobactam (Sod 3.375 gm/ Sodium Chloride) 50 mls @ 100 mls/hr IV Q6H [facility] Last Infusion: 01/02/25 07:15 Dose: Infused Documented By: CINTHIA Lactated Ringer's (Lr) 1,000 mls @ 100 mls/hr IVCONT .Q10H [facility] Last Admin: 01/02/25 06:17 Dose: 100 mls/hr Documented By: CINTHIA Magnesium Hydroxide (Milk Of Magnesia 30 Ml Oral.Susp) 30 ml PO DAILY PRN PRN Reason: Constipation Melatonin (Melatonin 3 Mg Tablet) 6 mg PO BEDTIME PRN PRN Reason: Insomnia Morphine Sulfate (Morphine Sulfate 2 Mg/Ml Cartridge) 2 mg IVPUSH Q4H PRN; Protocol PRN Reason: Pain, Moderate(Pain Scale 4-6) Ondansetron HCl (Ondansetron Hcl 4 Mg/2 Ml Vial) 4 mg IVPUSH Q8H PRN PRN Reason: Nausea and Vomiting Polyethylene Glycol (Polyethylene Glycol 3350 17 Gm Powd.Pack) 17 gm PO DAILY PRN PRN Reason: Constipation Sodium Chloride (0.9 % Sodium Chloride Flush 3 Ml Syringe) 3 ml IVFLUSH QSHIFT [facility] Last Admin: 01/02/25 07:28 Dose: Not Given Documented By: BALTAZAR Non-Admin Reason: IV Running Labs 01/02/25 06:18 01/02/25 06:18 Labs: Laboratory Results - last 24 hr 01/01/25 01/02/25 01/02/25 05:37 06:18 06:18 MCV 95.0 MCH 32.0 MCHC 33.7 RDW 15.2 Plt Count 178 MPV 10.7 Immature Gran % (Auto) 0.7 H Neut % (Auto) 61.4 Lymph % (Auto) 22.2 [place] % (Auto) 13.4 H Eos % (Auto) 1.7 Baso % (Auto) 0.6 Lymph # (Auto) 2.0 [place] # (Auto) 1.2 Eos # (Auto) 0.2 Baso # (Auto) 0.1 Abs Immat Gran (auto) 0.06 H Absolute Neuts (auto) 5.5 Absolute Nucleated RBC 0.000 Nucleated RBC % (auto) 0.0 Anion Gap 13 Estim Creat Clear Calc 93.8 Estimated GFR > 60 Random Glucose 80 Calcium 8.9 Total Bilirubin Cancelled 1.0 Direct Bilirubin Cancelled AST ALT Alkaline Phosphatase Total Protein Albumin Triglycerides 73 Lipase 01/02/25 01/02/25 01/02/25 06:18 06:18 06:18 MCV MCH MCHC RDW Plt Count MPV Immature Gran % (Auto) Neut % (Auto) Lymph % (Auto) [place] % (Auto) Eos % (Auto) Baso % (Auto) Lymph # (Auto) [place] # (Auto) Eos # (Auto) Baso # (Auto) Abs Immat Gran (auto) Absolute Neuts (auto) Absolute Nucleated RBC Nucleated RBC % (auto) Anion Gap Estim Creat Clear Calc Estimated GFR Random Glucose Calcium Total Bilirubin Direct Bilirubin 0.4 AST Cancelled 92 H ALT Cancelled 210 H Alkaline Phosphatase Cancelled Total Protein Albumin Triglycerides Lipase 01/02/25 01/02/25 01/02/25 06:18 06:18 06:18 MCV MCH MCHC RDW Plt Count MPV Immature Gran % (Auto) Neut % (Auto) Lymph % (Auto) [place] % (Auto) Eos % (Auto) Baso % (Auto) Lymph # (Auto) [place] # (Auto) Eos # (Auto) Baso # (Auto) Abs Immat Gran (auto) Absolute Neuts (auto) Absolute Nucleated RBC Nucleated RBC % (auto) Anion Gap Estim Creat Clear Calc Estimated GFR Random Glucose Calcium Total Bilirubin Direct Bilirubin AST ALT Alkaline Phosphatase 96 Total Protein Cancelled 7.3 Albumin Cancelled 3.7 Triglycerides Lipase Cancelled 01/02/25 06:18 MCV MCH MCHC RDW Plt Count MPV Immature Gran % (Auto) Neut % (Auto) Lymph % (Auto) [place] % (Auto) Eos % (Auto) Baso % (Auto) Lymph # (Auto) [place] # (Auto) Eos # (Auto) Baso # (Auto) Abs Immat Gran (auto) Absolute Neuts (auto) Absolute Nucleated RBC Nucleated RBC % (auto) Anion Gap Estim Creat Clear Calc Estimated GFR Random Glucose Calcium Total Bilirubin Direct Bilirubin AST ALT Alkaline Phosphatase Total Protein Albumin Triglycerides Lipase 143 H Microbiology Microbiology Results: Microbiology 12/31/24 22:52 Blood Culture - Preliminary Blood - Venous No growth after 24 hours. 12/31/24 22:52 Blood Culture - Preliminary Blood - Venous No growth after 24 hours. Procedures Date of Service Date of Service: 01/02/25 Progress Note: A&P Assessment and plan (1) Acute gallstone pancreatitis: Status: Acute Plan Gallstone pancreatitis appears resolved, he is now asymptomatic and nontender. Discussed proceeding with mariaelena moreira today and he is in agreement. He is on the add on schedule. Cont NPO status, IVF. Time Spent With Patient Time: Total time managing care of this patient today ____ minutes. Quality Stroke Does the patient have a stroke diagnosis?: No VTE Prior VTE?: No VTE Risk Level:: Medical - moderate - high VTE Device Contraindication: N/A - Device Ordered VTE Drug Contraindication: Treatment Not Indicated
--- NOTE | 2025-01-02 12:28 | HO.ANESPROP2 ---
[facility] Active Problems Active Problems: All Active Problems Acute gallstone pancreatitis (Acute) Acute cholecystitis (Acute) Acute calculous cholecystitis (Acute) Coronary artery disease (Acute) Sinusitis (Acute) COPD exacerbation (Acute) Polymyositis (Acute) Peripheral vascular disease (Acute) Blood pressure elevated without history of HTN (Acute) Hypercholesterolemia (Acute) Impaired fasting glucose (Acute) COPD (chronic obstructive pulmonary disease) (Acute) Nicotine dependence, cigarettes, uncomplicated (Acute) Allergic rhinitis (Acute) Vitamin B 12 deficiency (Acute) BPH (benign prostatic hyperplasia) (Acute) Erectile dysfunction (Acute) Complex renal cyst (Acute) Tubular adenoma of colon (Acute) Obesity (BMI 30-39.9) (Acute) Left leg numbness (Acute) Eyelid abnormality (Acute) Weakness (Acute) Right lateral epicondylitis (Acute) Past Medical History Medical History Hx of malignant melanoma Polymyositis Parotid mass Peripheral vascular disease Hypercholesterolemia COPD (chronic obstructive pulmonary disease) Pulmonary nodule Nicotine dependence, cigarettes, uncomplicated Allergic rhinitis BPH (benign prostatic hyperplasia) Obesity (BMI 30-39.9) Knee osteoarthritis Cholelithiasis Vitamin D deficiency Erectile dysfunction Tubular adenoma of colon Renal calculi Functional capacity: independent ambulation Family History Family History Father Lung cancer CVD (cardiovascular disease) Stroke Liver cancer CHF (congestive heart failure) Mother CVD (cardiovascular disease) CHF (congestive heart failure) Sister Ovarian cancer Family history of problems with anesthesia: No Surgical History Surgical History History of parotidectomy History of melanoma excision History of rectal sphincterotomy History of hemorrhoidectomy History of colonoscopy History of Problems with Anesthesia: Yes Social History Social History Household Members: None Housing: House Do you presently have visiting nurse or other home services: No Alcohol intake: current Alcohol intake frequency: holidays/special occasions only Alcohol type: beer Patient Tobacco Use Status: Current everyday Tobacco user Tobacco use type: Cigarette Cigarettes Per Day: 15 Years Smoked: 40 e-Cigarette/Vaping Use: Never Used Second Hand Smoke Exposure: No Substance Use Type: Marijuana service: Yes Current occupational status: retired Cognitive needs: No Hearing needs: No Vision needs: Yes Meds Allergies Allergy/AdvReac Type Severity Reaction Status Date / Time No Known Allergies Allergy Verified 12/31/24 19:18 [No Known Allergies*] Active Medications: Current Medications Acetaminophen (Acetaminophen 325 Mg Tablet) 650 mg PO Q6H PRN PRN Reason: Pain, Mild 1-3,fever,headache Albuterol Sulfate (Albuterol Sulfate 90 Mcg 8 Gm Inhaler) 2 puff INHALE Q4H PRN PRN Reason: shortness of breath or wheezing Calcium Carbonate (Calcium Carbonate 750 Mg Tab.Chew) 750 mg PO Q4H PRN PRN Reason: Heartburn Piperacillin Sod/Tazobactam (Sod 3.375 gm/ Sodium Chloride) 50 mls @ 100 mls/hr IV Q6H [facility] Last Infusion: 01/02/25 12:21 Dose: Infused Lactated Ringer's (Lr) 1,000 mls @ 100 mls/hr IVCONT .Q10H [facility] Last Infusion: 01/02/25 12:21 Dose: 0 mls/hr Magnesium Hydroxide (Milk Of Magnesia 30 Ml Oral.Susp) 30 ml PO DAILY PRN PRN Reason: Constipation Melatonin (Melatonin 3 Mg Tablet) 6 mg PO BEDTIME PRN PRN Reason: Insomnia Morphine Sulfate (Morphine Sulfate 2 Mg/Ml Cartridge) 2 mg IVPUSH Q4H PRN; Protocol PRN Reason: Pain, Moderate(Pain Scale 4-6) Ondansetron HCl (Ondansetron Hcl 4 Mg/2 Ml Vial) 4 mg IVPUSH Q8H PRN PRN Reason: Nausea and Vomiting Polyethylene Glycol (Polyethylene Glycol 3350 17 Gm Powd.Pack) 17 gm PO DAILY PRN PRN Reason: Constipation Sodium Chloride (0.9 % Sodium Chloride Flush 3 Ml Syringe) 3 ml IVFLUSH QSHIFT [facility] Last Admin: 01/02/25 07:28 Dose: Not Given Home Medications ?Medication ?Instructions ?Recorded ?Confirmed ?Last Taken ?Type clotrimazole 1 % topical cream 1 appl topical BID PRN Rash 01/01/25 01/01/25 Unknown History ibuprofen 200 mg tablet (Advil) 600 mg PO Q8H PRN pain 01/01/25 01/01/25 Unknown History Exam Height,Weight and Vital Signs: Height 5 ft 11 in Weight 112.4 kg Last Vital Signs Temp 97.6 F 01/02/25 12:00 Pulse 77 01/02/25 12:00 Resp 14 01/02/25 12:00 BP 125/79 01/02/25 12:00 Pulse Ox 97 01/02/25 12:00 O2 Del Method Room Air 01/02/25 12:00 Pertinent Lab Results Pertinent Lab Results: Laboratory Tests 12/31/24 12/31/24 01/01/25 19:43 22:52 05:37 WBC 10.0 8.4 RBC 4.33 L 3.99 L Hgb 13.8 L 12.8 L Hct 40.5 L 37.0 L MCV 93.5 92.7 MCH 31.9 32.1 MCHC 34.1 34.6 RDW 15.0 15.0 Plt Count 180 166 MPV 9.7 9.8 Immature Gran % (Auto) 0.6 H 1.0 H Neut % (Auto) 73.5 H 68.7 Lymph % (Auto) 10.4 L 13.4 L [place] % (Auto) 14.3 H 14.3 H Eos % (Auto) 0.5 2.1 Baso % (Auto) 0.7 0.5 Lymph # (Auto) 1.0 L 1.1 L [place] # (Auto) 1.4 H 1.2 Eos # (Auto) 0.1 0.2 Baso # (Auto) 0.1 0.0 Abs Immat Gran (auto) 0.06 H 0.08 H Absolute Neuts (auto) 7.4 5.8 Absolute Nucleated RBC 0.000 0.000 Nucleated RBC % (auto) 0.0 0.0 Sodium 140 139 Potassium 4.4 4.2 Chloride 106 109 H Carbon Dioxide 26 23 Anion Gap 12 11 L BUN 16 13 Creatinine 0.81 0.78 Estim Creat Clear Calc 102.6 106.5 Estimated GFR > 60 > 60 Random Glucose 112 95 Lactic Acid 0.8 Calcium 9.3 8.4 D Magnesium 2.2 Total Bilirubin 1.9 H 1.0 Direct Bilirubin 1.2 H AST 488 H 214 H ALT 375 H 305 H Alkaline Phosphatase 113 104 Troponin I High Sens < 2.7 Total Protein 7.6 6.8 Albumin 3.8 3.5 Triglycerides 73 Lipase > 3000 H 1159 H 03/04/2301/02/25 01/02/25 06:18 06:18 06:18 WBC 8.9 RBC 4.19 L Hgb 13.4 L Hct 39.8 L MCV 95.0 MCH 32.0 MCHC 33.7 RDW 15.2 Plt Count 178 MPV 10.7 Immature Gran % (Auto) 0.7 H Neut % (Auto) 61.4 Lymph % (Auto) 22.2 [place] % (Auto) 13.4 H Eos % (Auto) 1.7 Baso % (Auto) 0.6 Lymph # (Auto) 2.0 [place] # (Auto) 1.2 Eos # (Auto) 0.2 Baso # (Auto) 0.1 Abs Immat Gran (auto) 0.06 H Absolute Neuts (auto) 5.5 Absolute Nucleated RBC 0.000 Nucleated RBC % (auto) 0.0 Sodium 141 Potassium 4.7 Chloride 109 H Carbon Dioxide 24 Anion Gap 13 BUN 13 Creatinine 0.88 Estim Creat Clear Calc 93.8 Estimated GFR > 60 Random Glucose 80 Lactic Acid Calcium 8.9 Magnesium Total Bilirubin Cancelled 1.0 Direct Bilirubin Cancelled 0.4 AST Cancelled ALT Alkaline Phosphatase Troponin I High Sens Total Protein Albumin Triglycerides Lipase 01/02/25 01/02/25 01/02/25 06:18 06:18 06:18 WBC RBC Hgb Hct MCV MCH MCHC RDW Plt Count MPV Immature Gran % (Auto) Neut % (Auto) Lymph % (Auto) [place] % (Auto) Eos % (Auto) Baso % (Auto) Lymph # (Auto) [place] # (Auto) Eos # (Auto) Baso # (Auto) Abs Immat Gran (auto) Absolute Neuts (auto) Absolute Nucleated RBC Nucleated RBC % (auto) Sodium Potassium Chloride Carbon Dioxide Anion Gap BUN Creatinine Estim Creat Clear Calc Estimated GFR Random Glucose Lactic Acid Calcium Magnesium Total Bilirubin Direct Bilirubin AST 92 H ALT Cancelled 210 H Alkaline Phosphatase Cancelled 96 Troponin I High Sens Total Protein Cancelled Albumin Triglycerides Lipase 01/02/25 01/02/25 01/02/25 06:18 06:18 06:18 WBC RBC Hgb Hct MCV MCH MCHC RDW Plt Count MPV Immature Gran % (Auto) Neut % (Auto) Lymph % (Auto) [place] % (Auto) Eos % (Auto) Baso % (Auto) Lymph # (Auto) [place] # (Auto) Eos # (Auto) Baso # (Auto) Abs Immat Gran (auto) Absolute Neuts (auto) Absolute Nucleated RBC Nucleated RBC % (auto) Sodium Potassium Chloride Carbon Dioxide Anion Gap BUN Creatinine Estim Creat Clear Calc Estimated GFR Random Glucose Lactic Acid Calcium Magnesium Total Bilirubin Direct Bilirubin AST ALT Alkaline Phosphatase Troponin I High Sens Total Protein 7.3 Albumin Cancelled 3.7 Triglycerides Lipase Cancelled 143 H Airway Mallampati Class: III TM Dist: >3cm Neck ROM: Full Denture: Upper and Lower Heart: RRR Lungs: CTA Assessment and Plan Assessment Anesthesia Assessment: Anesthesia Plan Discussed, Smoking Cess. Discussed and Chart Reviewed Final Anesthetic Review Family History of Problems with Anesthesia: No History of Problems with Anesthesia: Yes NPO: Yes ASA Class: III and Emergency Final Preanesthetic Review: Meds/Allgs Chart Reviewed, Consent Obtained/Reviewed and Anes Risks/Benef Reviewed Patient Risk: Intermediate Procedure Risk: Intermediate Anesthetic Plan Anesthetic Plan: GA Disposition: Standard PACU
--- NOTE | 2025-01-02 12:54 | HO.PM.IMPN ---
Subjective Subjective Date of Service: 01/02/25 Interval History: Abdominal pain resolved, denies nausea, no vomiting, no fevers, no chills. No acute events overnight, NPO for possible cholecystectomy Review of Systems All other system reviewed and are negative Physical Exam Vital Signs: Vital Signs: Last Vital Signs Temp 98.3 F 01/02/25 12:36 Pulse 74 01/02/25 12:36 Resp 16 01/02/25 12:36 BP 114/74 01/02/25 12:36 Pulse Ox 98 01/02/25 12:36 O2 Del Method Room Air 01/02/25 12:36 BMI result Body Mass Index 34.6 Const: Other: General resting comfortably in no acute distress. Anicteric sclera Neck no JVD. CVS regular rate rhythm, Respiratory lungs clear to auscultation, no respiratory distress Gastrointestinal abdomen soft, non tender , no guarding , no rigidity. Extremities no edema. Neuro non focal Skin no rash Appropriate affect Objective Data Active Medications Acetaminophen (Acetaminophen 325 Mg Tablet) 650 mg PO Q6H PRN PRN Reason: Pain, Mild 1-3,fever,headache Albuterol Sulfate (Albuterol Sulfate 90 Mcg 8 Gm Inhaler) 2 puff INHALE Q4H PRN PRN Reason: shortness of breath or wheezing Calcium Carbonate (Calcium Carbonate 750 Mg Tab.Chew) 750 mg PO Q4H PRN PRN Reason: Heartburn Fentanyl (Fentanyl Citrate/Pf 100 Mcg/2 Ml Vial) 25 mcg IVPUSH Q5M PRN PRN Reason: Pain, Moderate to Severe (Pain Scale 4-10) Stop: 01/02/25 18:35 Piperacillin Sod/Tazobactam (Sod 3.375 gm/ Sodium Chloride) 50 mls @ 100 mls/hr IV Q6H [facility] Last Infusion: 01/02/25 12:21 Dose: Infused Documented By: BALTAZAR Lactated Ringer's (Lr) 1,000 mls @ 100 mls/hr IVCONT .Q10H [facility] Last Infusion: 01/02/25 12:21 Dose: 0 mls/hr Documented By: BALTAZAR Magnesium Hydroxide (Milk Of Magnesia 30 Ml Oral.Susp) 30 ml PO DAILY PRN PRN Reason: Constipation Melatonin (Melatonin 3 Mg Tablet) 6 mg PO BEDTIME PRN PRN Reason: Insomnia Morphine Sulfate (Morphine Sulfate 2 Mg/Ml Cartridge) 2 mg IVPUSH Q4H PRN; Protocol PRN Reason: Pain, Moderate(Pain Scale 4-6) Naloxone HCl (Naloxone Hcl 0.4 Mg/Ml Vial) 0.04 mg IVPUSH Q5M PRN PRN Reason: Excessive sedation or RR < 8 Ondansetron HCl (Ondansetron Hcl 4 Mg/2 Ml Vial) 4 mg IVPUSH Q8H PRN PRN Reason: Nausea and Vomiting Ondansetron HCl (Ondansetron Hcl 4 Mg/2 Ml Vial) 4 mg IVPUSH ONCE PRN PRN Reason: Nausea and Vomiting Stop: 01/02/25 18:35 Oxycodone HCl (Oxycodone Hcl Immed Release 5 Mg Tablet) 5 mg PO ONCE PRN PRN Reason: Pain, Moderate(Pain Scale 4-6) if no IV Access Stop: 01/02/25 18:35 Polyethylene Glycol (Polyethylene Glycol 3350 17 Gm Powd.Pack) 17 gm PO DAILY PRN PRN Reason: Constipation Sodium Chloride (0.9 % Sodium Chloride Flush 3 Ml Syringe) 3 ml IVFLUSH QSHIFT [facility] Last Admin: 01/02/25 07:28 Dose: Not Given Documented By: BALTAZAR Non-Admin Reason: IV Running Labs 01/02/25 06:18 01/02/25 06:18 Labs: Laboratory Results - last 24 hr 01/02/25 01/02/25 01/02/25 06:18 06:18 06:18 MCV 95.0 MCH 32.0 MCHC 33.7 RDW 15.2 Plt Count 178 MPV 10.7 Immature Gran % (Auto) 0.7 H Neut % (Auto) 61.4 Lymph % (Auto) 22.2 [place] % (Auto) 13.4 H Eos % (Auto) 1.7 Baso % (Auto) 0.6 Lymph # (Auto) 2.0 [place] # (Auto) 1.2 Eos # (Auto) 0.2 Baso # (Auto) 0.1 Abs Immat Gran (auto) 0.06 H Absolute Neuts (auto) 5.5 Absolute Nucleated RBC 0.000 Nucleated RBC % (auto) 0.0 Anion Gap 13 Estim Creat Clear Calc 93.8 Estimated GFR > 60 Random Glucose 80 Calcium 8.9 Total Bilirubin Cancelled 1.0 Direct Bilirubin Cancelled 0.4 AST Cancelled ALT Alkaline Phosphatase Total Protein Albumin Lipase 01/02/25 01/02/25 01/02/25 06:18 06:18 06:18 MCV MCH MCHC RDW Plt Count MPV Immature Gran % (Auto) Neut % (Auto) Lymph % (Auto) [place] % (Auto) Eos % (Auto) Baso % (Auto) Lymph # (Auto) [place] # (Auto) Eos # (Auto) Baso # (Auto) Abs Immat Gran (auto) Absolute Neuts (auto) Absolute Nucleated RBC Nucleated RBC % (auto) Anion Gap Estim Creat Clear Calc Estimated GFR Random Glucose Calcium Total Bilirubin Direct Bilirubin AST 92 H ALT Cancelled 210 H Alkaline Phosphatase Cancelled 96 Total Protein Cancelled Albumin Lipase 01/02/25 01/02/25 01/02/25 06:18 06:18 06:18 MCV MCH MCHC RDW Plt Count MPV Immature Gran % (Auto) Neut % (Auto) Lymph % (Auto) [place] % (Auto) Eos % (Auto) Baso % (Auto) Lymph # (Auto) [place] # (Auto) Eos # (Auto) Baso # (Auto) Abs Immat Gran (auto) Absolute Neuts (auto) Absolute Nucleated RBC Nucleated RBC % (auto) Anion Gap Estim Creat Clear Calc Estimated GFR Random Glucose Calcium Total Bilirubin Direct Bilirubin AST ALT Alkaline Phosphatase Total Protein 7.3 Albumin Cancelled 3.7 Lipase Cancelled 143 H Microbiology Microbiology Results: Microbiology 12/31/24 22:52 Blood Culture - Preliminary Blood - Venous No growth after 24 hours. 12/31/24 22:52 Blood Culture - Preliminary Blood - Venous No growth after 24 hours. Assessment and Plan (1) Acute gallstone pancreatitis: Status: Acute Plan 74-year-old male with a past medical history significant for COPD, HLD, BPH, obesity, kidney stones, parotid mass s/p resection, polymyositis, history melanoma right upper back, who presented to the ED by recommendation of urgent care due to right upper quadrant pain beginning 30-60 minutes after eating breakfast. ED provider spoke with surgeon who suggested IV antibiotics, medical admission with surgical consult. 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 Small gallstone noted within the neck. Positive sonographic Barajas's sign. Findings may represent acute on chronic cholecystitis. - abdominopelvic CT showed mild stranding take in the peripancreatic fat of the pancreatic head and proximal body could be compatible with interstitial edematous pancreatitis, no change in chronic appearance scar down gallbladder fundus, cholelithiasis, no findings to suggest acute cholecystitis - LFTs trending down, total bili normalized, lipase >3000 > 1159 >143 - continue IV Zosyn/ NPO/ivf - seen by General surgery likely cholecystectomy today with intraoperative cholangiogram COPD, no acute exacerbation - continue home inhalers BPH - not on home meds Obesity class 1 - BMI 35.0, Weight loss encouraged Full Code VTE prophylaxis: Pneumoboots Patient with episode of acute gallstone pancreatitis requiring admission for IV antibiotics and cholecystectomy Quality Stroke Does the patient have a stroke diagnosis?: No VTE Prior VTE?: No VTE Risk Level:: Medical - moderate - high VTE Device Contraindication: N/A - Device Ordered VTE Drug Contraindication: Treatment Not Indicated
--- NOTE | 2025-01-02 15:04 | P.OP_ITS ---
Operative Note Operative Note Date of Service: 01/02/25 Narrative: Preoperative diagnosis: [] Gallstone pancreatitis Postop diagnosis: [] The same Procedure [] laparoscopic cholecystectomy with cholangiogram Surgeon: [] Art Hoop Maker Helper Machine: [] Rhina Type of Anesthesia: [] General Indication for surgery: [] Markedly intrahepatic gallbladder with multiple small gallstones. Significant omental adhesions to the gallbladder. Cholangiogram demonstrated free flow of contrast into the extrahepatic biliary system with no obvious filling defects. Patient had a very enlarged/dilated extrahepatic system/common bile duct. Corpulent abdomen. Findings: [] Patient brought to the operating room, placed on operative table supine position, after an adequate level general anesthesia was induced, the patient's abdomen is prepped and draped in usual sterile fashion. Using a supra umbilical curvilinear incision, Pickens technique was used to insufflate abdominal cavity to 15 mm of CO2 upper midline and right subcostal ports were placed under direct laparoscopic view, the patient placed in reverse Trendelenburg position, tilted to the left. Findings were as noted above. Gallbladder was grasped using laparoscopic graspers and retracted superiorly and laterally. Very dense omental adhesions were swept off the gallbladder and the hilum was approached. Cystic artery and cystic duct were each identified, circumferentially skeletonized, each traced directly into the gallbladder, and critical view obtained. Incision was made at the cystic duct/Jumana's pouch junction and cholangiocatheter advanced into the common bile duct. Cholangiogram findings were as noted above. Cystic duct was then clipped proximally x2 distally x1 and transected. Cystic artery was similarly clipped proximally x2, distally x1, and transected. Gallbladder was very intrahepatic. This was cauterized from the gallbladder fossa using Bovie. Toward the body/fundus area, a posterior ascending arterial vessel was identified and clipped. Gallbladder was completely excised from the gallbladder fossa using Bovie and placed in an Endo-Catch bag. This was retrieved through the umbilical port. Abdominal cavity was very copiously irrigated and secured hemostasis. All ports removed under direct laparoscopic view. Wounds were closed in the following manner; umbilical wound had it is fascia reapproximated using interrupted 0 Vicryl sutures. Skin wounds were closed in subcuticular 4-0 V icryl sutures followed by Steri-Strips and sterile dressings. Wounds were infiltrated with 0.5% Marcaine/at completion. Sponge, needle, and instrument counts reported correct. Patient tolerated the procedure well and emerged from anesthesia stable condition. EBL minimal
[2025-01-02] MEDS: fentaNYL citrate/PF 100 MCG/2 ML VIAL 25 MCG IVPUSH (15:25)
[2025-01-02] MEDS: oxyCODONE HCl Immed Release 5 MG TABLET PO (15:35)
[2025-01-02] MEDS: HYDROmorphone HCl 0.5 MG/0.5 ML SYRINGE IVPUSH ×2 (16:07→23:20)
[2025-01-02] MEDS: 0.9 % Sodium Chloride Flush 3 ML SYRINGE IVFLUSH (16:07)
[2025-01-03] VITALS: BP 130/76; PULSE 67; RESP 20; TEMP 37.2; O2SAT 95
[2025-01-03 04:00] VITALS: BP 139/98; PULSE 64; RESP 20; TEMP 37.1; O2SAT 94
[2025-01-03] MEDS: Piperacillin Sodium/Tazobactam 3.375 GM in 0.9 % Sodium Chloride 50 ML IV ×2 (04:55→11:37)
[2025-01-03 07:10] LABS: Hematocrit 36.1 % (42.0-52.0); Mean Corpuscular HGB Conc 33.2 g/dl (31.0-36.0); Mean Corpuscular Hemoglobin 31.5 pg (27.0-33.0); Mean Corpuscular Volume 94.8 fL (80.0-98.0); Mean Platelet Volume 10.4 fL (9.4-12.4); Platelet Count 172 X10*3/uL (160-400); Red Blood Count 3.81 X10*6/uL (4.60-5.80); Red Cell Distribution Width 14.9 % (11.0-16.0); WBC ABN SCTR FOR CBC 1
[2025-01-03 08:00] VITALS: BP 133/74; PULSE 61; RESP 18; TEMP 36.6; O2SAT 95
[2025-01-03 08:08] LABS: Alanine Aminotransferase 173 U/L (0-40); Alanine Aminotransferase 177 U/L (0-40); Albumin Level 3.6 g/dL (3.5-5.0); Anion Gap 12 (12-20); Aspartate Amino Transferase 83 U/L (5-37); Bilirubin Direct 0.3 mg/dL (0.0-0.5); Bilirubin Total 0.8 mg/dL (0.0-1.0); Blood Urea Nitrogen 13 mg/dL (9-16); Calcium 8.8 mg/dL (8.4-10.2); Carbon Dioxide 24 mmol/L (22-29); Chloride 106 mmol/L (96-108); Creatinine Clr Calc Pharmacy 90.8; Estimated Glomerular Filt Rate > 60; Glucose Random 92 mg/dL (60-115); Potassium 4.4 mmol/L (3.3-5.1); Sodium 138 mmol/L (135-145); Total Protein 7.1 g/dL (6.5-8.0)
[2025-01-03 08:17] LABS: Band Neutrophils Percent 6 % (3-5); Lymphocytes Percent Manual 10 % (20-40); Monocytes Percent Manual 7 % (2-11); Neutrophils Percent Manual 77 % (45-73)
[2025-01-03 08:18] LABS: RBC Morphology NOTED
[2025-01-03 08:19] LABS: Platelet Estimate NORMAL (NORMAL); Platelet Morphology Comment NORMAL; Schistocytes 1+ (0-2) /OIF
[2025-01-03 08:20] LABS: Acanthocytes 1+ (0-2) /OIF
[2025-01-03 08:21] LABS: Lymphocytes Absolute Manual 1.4 X10*3/uL (1.2-4.9); Neutrophils Absolute Manual 11.9 X10*3/uL (2.0-8.3); White Blood Count 14.3 X10*3/uL (4.8-10.8)
--- NOTE | 2025-01-03 08:50 | P.PNGS_ITS ---
Subjective Subjective Date of Service: 01/03/25 <Alva Lantigua PA-C - Last Filed: 01/03/25 08:53> 01/03/25 <William Cordova MD - Last Filed: 01/03/25 10:00> Interval history: Feels well. Has some mild incisional pain with movement. Tolerating full liquids and feels hungry. OOB to bathroom. <Alva Lantigua PA-C - Last Filed: 01/03/25 08:53> Physical Exam 2 Vital Signs: Vital Signs: Last Vital Signs Temp 97.9 F 01/03/25 08:00 Pulse 61 01/03/25 08:00 Resp 18 01/03/25 08:00 BP 133/74 01/03/25 08:00 Pulse Ox 95 01/03/25 08:00 O2 Del Method Room Air 01/03/25 08:00 O2 Flow Rate 2 01/02/25 15:35 BMI result Body Mass Index 34.6 <LINDSEY Vasquez Last Filed: 01/03/25 08:53> Const: General: comfortable, no acute distress and alert <Alva Lantigua PA-C - Last Filed: 01/03/25 08:53> Orientation/consciousness: patient oriented x3 <LINDSEY Vasquez Last Filed: 01/03/25 08:53> Resp: Effort & Inspection: normal respiratory effort <LINDSEY Vasquez Last Filed: 01/03/25 08:53> GI: Inspection: Yes distended (mild) and Yes incision (dressings clean and intact) <Alva Lantigua PA-C - Last Filed: 01/03/25 08:53> Palpation (GI): Soft to palpation, Tenderness to palpation present (GI) (mild incisional) and no guarding <LINDSEY Vasquez Last Filed: 01/03/25 08:53> Skin: General skin exam: no rashes or lesions noted and no jaundice < LINDSEY Vasquez Last Filed: 01/03/25 08:53> Neuro: General: patient oriented x3 and moves all extremities <LINDSEY Vasquez Filed: 01/03/25 08:53> Objective Data Active Medications Acetaminophen (Acetaminophen 325 Mg Tablet) 650 mg PO Q6H PRN PRN Reason: Pain, Mild 1-3,fever,headache Albuterol Sulfate (Albuterol Sulfate 90 Mcg 8 Gm Inhaler) 2 puff INHALE Q4H PRN PRN Reason: shortness of breath or wheezing Calcium Carbonate (Calcium Carbonate 750 Mg Tab.Chew) 750 mg PO Q4H PRN PRN Reason: Heartburn Hydromorphone HCl (Hydromorphone Hcl 0.5 Mg/0.5 Ml Syringe) 0.5 mg IVPUSH Q3H PRN; Protocol PRN Reason: Pain, Severe (Pain Scale 7-10) Last Admin: 01/02/25 23:20 Dose: 0.5 mg Documented By: KIRBY Piperacillin Sod/Tazobactam (Sod 3.375 gm/ Sodium Chloride) 50 mls @ 100 mls/hr IV Q6H [facility] Last Infusion: 01/03/25 05:25 Dose: Infused Documented By: KIRBY Magnesium Hydroxide (Milk Of Magnesia 30 Ml Oral.Susp) 30 ml PO DAILY PRN PRN Reason: Constipation Melatonin (Melatonin 3 Mg Tablet) 6 mg PO BEDTIME PRN PRN Reason: Insomnia Naloxone HCl (Naloxone Hcl 0.4 Mg/Ml Vial) 0.04 mg IVPUSH Q5M PRN PRN Reason: Excessive sedation or RR < 8 Ondansetron HCl (Ondansetron Hcl 4 Mg/2 Ml Vial) 4 mg IVPUSH Q8H PRN PRN Reason: Nausea and Vomiting Oxycodone HCl (Oxycodone Hcl Immed Release 5 Mg Tablet) 5 mg PO Q4H PRN PRN Reason: Pain, Moderate(Pain Scale 4-6) Polyethylene Glycol (Polyethylene Glycol 3350 17 Gm Powd.Pack) 17 gm PO DAILY PRN PRN Reason: Constipation Sodium Chloride (0.9 % Sodium Chloride Flush 3 Ml Syringe) [facility] Last Admin: 01/02/25 23:34 Dose: Not Given Documented By: KIRBY Non-Admin Reason: IV Running <Alva Lantigua PA-C - Last Filed: 01/03/25 08:53> Labs CBC & Chem 7: 01/03/25 06:59 01/03/25 06:59 <Alva Lantigua PA-C - Last Filed: 01/03/25 08:53> Labs: Laboratory Results - last 24 hr 01/03/25 01/03/25 01/03/25 06:59 06:59 06:59 MCV 94.8 MCH 31.5 MCHC 33.2 RDW 14.9 Plt Count 172 MPV 10.4 Immature Gran % (Auto) Cancelled Neut % (Auto) Cancelled Lymph % (Auto) Cancelled [place] % (Auto) Cancelled Eos % (Auto) Cancelled Baso % (Auto) Cancelled Lymph # (Auto) Cancelled [place] # (Auto) Cancelled Eos # (Auto) Cancelled Baso # (Auto) Cancelled Abs Immat Gran (auto) Cancelled Absolute Neuts (auto) Cancelled Absolute Nucleated RBC 0.000 Nucleated RBC % (auto) 0.0 Neutrophils % (Manual) 77 H Band Neutrophils % 6 H Lymphocytes % (Manual) 10 L Monocytes % (Manual) 7 Abs Neuts (Manual) 11.9 H Lymphocytes # (Manual) 1.4 Monocytes # (Manual) 1.0 Platelet Estimate NORMAL Plt Morphology Comment NORMAL RBC Morphology NOTED Acanthocytes (Spur) 1+ (0-2) Schistocytes 1+ (0-2) Anion Gap 12 Estim Creat Clear Calc 90.8 Estimated GFR > 60 Random Glucose 92 Calcium 8.8 Total Bilirubin 0.8 0.8 Direct Bilirubin 0.3 AST 83 H 83 H ALT 173 H Total Protein Albumin 01/03/25 01/03/25 01/03/25 06:59 06:59 06:59 MCV MCH MCHC RDW Plt Count MPV Immature Gran % (Auto) Neut % (Auto) Lymph % (Auto) [place] % (Auto) Eos % (Auto) Baso % (Auto) Lymph # (Auto) [place] # (Auto) Eos # (Auto) Baso # (Auto) Abs Immat Gran (auto) Absolute Neuts (auto) Absolute Nucleated RBC Nucleated RBC % (auto) Neutrophils % (Manual) Band Neutrophils % Lymphocytes % (Manual) Monocytes % (Manual) Abs Neuts (Manual) Lymphocytes # (Manual) Monocytes # (Manual) Platelet Estimate Plt Morphology Comment RBC Morphology Acanthocytes (Spur) Schistocytes Anion Gap Estim Creat Clear Calc Estimated GFR Random Glucose Calcium Total Bilirubin Direct Bilirubin AST ALT 177 H Total Protein 7.1 7.1 Albumin 3.6 3.6 <Alva Lantigau PA-C - Last Filed: 01/03/25 08:53> Microbiology Microbiology Results: Microbiology 12/31/24 22:52 Blood Culture - Preliminary Blood - Venous No growth after 48 hours. 12/31/24 22:52 Blood Culture - Preliminary Blood - Venous No growth after 48 hours. <Alva Lantigua PA-C - Last Filed: 01/03/25 08:53> Procedures Date of Service Date of Service: 01/03/25 <Alva Lantigua PA-C - Last Filed: 01/03/25 08:53> 01/03/25 <William Cordova MD - Last Filed: 01/03/25 10:00> Progress Note: A&P Assessment and plan (1) Acute gallstone pancreatitis: Status: Acute <Alva Lantigua PA-C - Last Filed: 01/03/25 08:53> (2) S/P laparoscopic cholecystectomy: Status: Acute <Alva Lantigua PA-C - Last Filed: 01/03/25 08:53> Assessment and Plan: POD #1 s/p lap lashonda with IOC for gallstone pancreatitis. Negative cholangiogram. Doing well post op, pain minimal and controlled. Tolerating full liquids. VSS. ABd exam benign with clean dressings, soft, appropriate post op tenderness. LFTs cont to downtrend. Advance to solid diet. Surgically stable for dc to home later today if tolerating. F/u in office in 1 week. Patient comfortable with plan. <Alva Lantigua PA-C - Last Filed: 01/03/25 08:53> Time Spent With Patient Time: Total time managing care of this patient today ____ minutes. <LINDSEY Vasquez Last Filed: 01/03/25 08:53> Quality Stroke Does the patient have a stroke diagnosis?: No <LINDSEY Vasquez Last Filed: 01/03/25 08:53> VTE Prior VTE?: No <Alva Lantigua PA-C - Last Filed: 01/03/25 08:53> VTE Risk Level:: Medical - moderate - high <LINDSEY Vasquez Last Filed: 01/03/25 08:53> VTE Device Contraindication: N/A - Device Ordered <LINDSEY Vasquez Last Filed: 01/03/25 08:53> VTE Drug Contraindication: Treatment Not Indicated <Alav Lantigua PA-C - Last Filed: 01/03/25 08:53>
[2025-01-03 10:13] LABS: Alkaline Phosphatase 77 U/L (39-117)
[2025-01-03 10:22] LABS: Alkaline Phosphatase 77 U/L (39-117)
--- NOTE | 2025-01-03 10:23 | MHC.CM.PN ---
IMM 01/01/25 s/p Olivia Jimenez Is discharged today to home self care. He has arranged for transportation home.
--- NOTE | 2025-01-03 11:55 | PM.DS ---
DS: Providers Provider Date of Service: 01/03/25 Date of admission: 12/31/24 23:48 Date of discharge: 01/03/25 Primary care physician: Dima Peacock MD Consults: 01/01/25 00:27 Consult to General Surgery Routine Consulting Provider: Jeremy De Reason for consultation: acute cholecystitis DS: Diagnosis Discharge Diagnosis (1) Acute gallstone pancreatitis: Status: Acute (2) S/P laparoscopic cholecystectomy: Status: Acute DS: Summary Hospital Course Hospital Course: History of presenting illness: Date of Service: 12/31/24 Attending physician on admission: Chetan Westbrook Chief Complaint: RUQ pain Patient is a 74-year-old male with a past medical history significant for COPD, HLD, BPH, obesity, kidney stones, parotid mass s/p resection, polymyositis, history melanoma right upper back, who presented to the ED by recommendation of urgent care due to right upper quadrant pain beginning 30-60 minutes after eating breakfast. He reports that he had an Malagasy muffin with border and peanut butter as well as 2 cups of coffee and then started to experience severe right upper quadrant pain. At that time and was about a 9/10 with nausea, the pain has improved and now he rates this a 3 to 4/10 without any pain management. The pain waxes and wanes, does not change with lying down. He reports that he was told many useful that he has a gallstone but has never had any issues with this. He has a strong family history of cholecystitis requiring cholecystectomy. He has no additional symptoms including any urinary symptoms, right lower quadrant pain, nausea or vomiting currently. No diarrhea, cough, shortness of breath or chest pain. Hospital course: 74-year-old male with a past medical history significant for COPD, HLD, BPH, obesity, kidney stones, parotid mass s/p resection, polymyositis, history melanoma right upper back, who presented to the ED by recommendation of urgent care due to right upper quadrant pain beginning 30-60 minutes after eating breakfast. ED provider spoke with surgeon who suggested IV antibiotics, medical admission with surgical consult. 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 Positive sonographic Barajas's sign. Findings may represent acute on chronic cholecystitis, abdominopelvic CT showed mild stranding take in the peripancreatic fat of the pancreatic head and proximal body could be compatible with interstitial edematous pancreatitis, no change in chronic appearance scar down gallbladder fundus, cholelithiasis, no findings to suggest acute cholecystitis, with the above management LFTs trending down, total bili normalized, lipase >3000 > 1159 >143 patient seen by General surgery and underwent laparoscopic cholecystectomy on 01/02 , intraoperative cholangiogram was normal, postoperatively patient is doing fine Will good pain control tolerating diet noted to have mild leukocytosis likely reactive, since patient is hemodynamically stable he is being discharged home with recommendation to follow low-fat diet, take Levaquin for 4 more days and have outpatient follow-up with Dr. Cordova in 1 week. COPD, no acute exacerbation- continue home inhalers BPH - not on home meds Obesity class 1 - BMI 35.0, Weight loss encouraged. Time Attestation Discharge Coordination Time (in mins): 40 Quality: Safe Use of Opioids Does Pt have an Active Cancer Diagnosis on the Problem List?: No Quality: Stroke Does the patient have a stroke diagnosis?: No Physical Exam Vital Signs: Vital Signs: Last Vital Signs Temp 97.9 F 01/03/25 08:00 Pulse 61 01/03/25 08:00 Resp 18 01/03/25 08:00 BP 133/74 01/03/25 08:00 Pulse Ox 95 01/03/25 08:00 O2 Del Method Room Air 01/03/25 08:00 O2 Flow Rate 2 01/02/25 15:35 BMI result Body Mass Index 34.6 Const: Other: General resting comfortably in no acute distress. Anicteric sclera Neck no JVD. CVS regular rate rhythm, Respiratory lungs clear to auscultation, no respiratory distress Gastrointestinal abdomen mild tenderness at incision size, incision clean, no guarding , no rigidity. Extremities no edema. Neuro non focal Skin no rash Appropriate affect DS: Data Data Completed and Pending Pending studies at discharge: Pending at discharge 01/02/25 14:42 Surgical [PTH] Routine Labs on day of discharge: Laboratory Results - last 24 hr 01/03/25 01/03/25 01/03/25 06:59 06:59 06:59 WBC 14.3 H RBC 3.81 L Hgb 12.0 L Hct 36.1 L MCV 94.8 MCH 31.5 MCHC 33.2 RDW 14.9 Plt Count 172 MPV 10.4 Immature Gran % (Auto) Cancelled Neut % (Auto) Cancelled Lymph % (Auto) Cancelled [place] % (Auto) Cancelled Eos % (Auto) Cancelled Baso % (Auto) Cancelled Lymph # (Auto) Cancelled [place] # (Auto) Cancelled Eos # (Auto) Cancelled Baso # (Auto) Cancelled Abs Immat Gran (auto) Cancelled Absolute Neuts (auto) Cancelled Absolute Nucleated RBC 0.000 Nucleated RBC % (auto) 0.0 Neutrophils % (Manual) 77 H Band Neutrophils % 6 H Lymphocytes % (Manual) 10 L Monocytes % (Manual) 7 Abs Neuts (Manual) 11.9 H Lymphocytes # (Manual) 1.4 Monocytes # (Manual) 1.0 Platelet Estimate NORMAL Plt Morphology Comment NORMAL RBC Morphology NOTED Acanthocytes (Spur) 1+ (0-2) Schistocytes 1+ (0-2) Sodium 138 Potassium 4.4 Chloride 106 Carbon Dioxide 24 Anion Gap 12 BUN 13 Creatinine 0.91 Estim Creat Clear Calc 90.8 Estimated GFR > 60 Random Glucose 92 Calcium 8.8 Total Bilirubin 0.8 0.8 Direct Bilirubin 0.3 AST 83 H 83 H ALT 173 H Alkaline Phosphatase Total Protein Albumin 01/03/25 01/03/25 01/03/25 06:59 06:59 06:59 WBC RBC Hgb Hct MCV MCH MCHC RDW Plt Count MPV Immature Gran % (Auto) Neut % (Auto) Lymph % (Auto) [place] % (Auto) Eos % (Auto) Baso % (Auto) Lymph # (Auto) [place] # (Auto) Eos # (Auto) Baso # (Auto) Abs Immat Gran (auto) Absolute Neuts (auto) Absolute Nucleated RBC Nucleated RBC % (auto) Neutrophils % (Manual) Band Neutrophils % Lymphocytes % (Manual) Monocytes % (Manual) Abs Neuts (Manual) Lymphocytes # (Manual) Monocytes # (Manual) Platelet Estimate Plt Morphology Comment RBC Morphology Acanthocytes (Spur) Schistocytes Sodium Potassium Chloride Carbon Dioxide Anion Gap BUN Creatinine Estim Creat Clear Calc Estimated GFR Random Glucose Calcium Total Bilirubin Direct Bilirubin AST ALT 177 H Alkaline Phosphatase 77 77 Total Protein 7.1 7.1 Albumin 3.6 01/03/25 06:59 WBC RBC Hgb Hct MCV MCH MCHC RDW Plt Count MPV Immature Gran % (Auto) Neut % (Auto) Lymph % (Auto) [place] % (Auto) Eos % (Auto) Baso % (Auto) Lymph # (Auto) [place] # (Auto) Eos # (Auto) Baso # (Auto) Abs Immat Gran (auto) Absolute Neuts (auto) Absolute Nucleated RBC Nucleated RBC % (auto) Neutrophils % (Manual) Band Neutrophils % Lymphocytes % (Manual) Monocytes % (Manual) Abs Neuts (Manual) Lymphocytes # (Manual) Monocytes # (Manual) Platelet Estimate Plt Morphology Comment RBC Morphology Acanthocytes (Spur) Schistocytes Sodium Potassium Chloride Carbon Dioxide Anion Gap BUN Creatinine Estim Creat Clear Calc Estimated GFR Random Glucose Calcium Total Bilirubin Direct Bilirubin AST ALT Alkaline Phosphatase Total Protein Albumin 3.6 Preliminary micro results at discharge 12/31/24 22:52 Blood Culture - Preliminary Blood - Venous No growth after 48 hours. 12/31/24 22:52 Blood Culture - Preliminary Blood - Venous No growth after 48 hours. Discharge Plan Discharge Anticipated Discharge Date/Time: 01/03/25 11:49 Patient Disposition: Home, Self-Care Discharge Diagnosis: gallstone pancreatitis, s/p cholecystectomy Referrals: Ayush,Dima Burleson MD [Primary Care Provider] - 1 Week William Cordova MD [Physician] - 1 Week Discharge Medications: New oxycodone 5 mg Tablet 5 mg PO Q4H PRN (Reason: Pain, Moderate(Pain Scale 4-6)) Qty: 16 0RF Rx Instructions: Partial Fill upon patient request. levofloxacin 500 mg tablet 500 mg PO DAILY Qty: 4 0RF acetaminophen 325 mg Tablet 650 mg PO Q6H PRN (Reason: Pain, Mild 1-3,Fever,Headache) Qty: 90 0RF Continued ibuprofen [Advil] 200 mg tablet 600 mg PO Q8H PRN (Reason: pain) Patient Comments: takes with food clotrimazole 1 % cream 1 appl topical BID PRN (Reason: Rash) albuterol sulfate 90 mcg/actuation HFA aerosol inhaler 2 puff inhalation Q4-6H PRN (Reason: shortness of breath or wheezing) Qty: 6.7 0RF Discharge Orders: Discharge Order (Routine); Ordered 01/03/25 Ordered By: Maria D Sosa Diet: Low fat, low cholesterol Activity on Discharge: No heavy lifting Stand Alone Forms: Patient Portal Discharge page Print Language: Malagasy Activity Restrictions/Additional Instructions: Apply an ice pack for short intervals (20 minutes on, followed by at least 20 minutes off) for the first 2 days. Do not apply heat. Do not use creams, lotions, or topical antibiotics. These can cause infection or allergic reaction. Ok to shower 48 hours after your surgery. Remove dressings in 2 days and replace as needed. You have steri strips (small white cloth strips) covering your incision- these will fall off ~1 week. Follow up in office with Dr. Cordova in 1 week. ([phone]) No heavy lifting (>10lbs) or strenuous activity! Call Your Doctor If: -Your temperature exceeds 101.5? F -You experience excessive pain or swelling -You have an unexpected reaction to medication -You have excessive bleeding -You experience continued vomiting/nausea -Your incision begins to separate -Your incision shows signs of infection such as increased redness, swelling, excessive pain, drainage (light blood or clear fluid is normal) or heat Care Plan Goals: Take Levaquin for 4 more days Use oxycodone for [id number] pain otherwise use Tylenol for mild pain Follow low-fat diet Health Concerns: Returned to check with worsening abdominal pain/fever Minimize use of ibuprofen Plan of Treatment: Outpatient follow-up with Dr. Cordova general surgery in 1 week Follow-up with primary care physician Assessment: As above
[2025-01-03 12:00] VITALS: BP 129/75; PULSE 58; RESP 18; TEMP 36.5; O2SAT 98
== END 2025-01-03 16:15 | disposition home or self-care (01) | DRG 419 ==
LOC: HO.ED 22:21 → HO.EDOVER 23:53 → HO.IMC 01-01 19:24
PROVIDERS: Nurse Practitioner Family; Physician Assistant Medical; Surgery; Admitting Provider Physician Assistant; Emergency Provider Emergency Medicine Emergency Medical Services; PCP Internal Medicine; Visit Provider Hospitalist
PROC: 0FT44ZZ Resection of Gallbladder, Percutaneous Endoscopic Approach (ICD-10-PCS; CPT 47562; principal; 2025-01-02 13:40)
DX: K85.10 Biliary acute pancreatitis without necrosis or infection (principal); K80.20 Calculus of gallbladder without cholecystitis without obstruction; J44.9 Chronic obstructive pulmonary disease, unspecified; N40.0 Benign prostatic hyperplasia without lower urinary tract symptoms; E66.811 Obesity, class 1; Z68.34 Body mass index [BMI] 34.0-34.9, adult; Z71.3 Dietary counseling and surveillance; Z79.899 Other long term (current) drug therapy
CPT/HCPCS: 36415; 74177; 76705; 80048; 80053; 80076; 82248; 83605; 83690; 83735; 84478; 84484; 85007; 85025; 85027; 87040; 88304; 93005; 99285; J0131; J1100; J1171; J2003; J2250; J2405; J2543; J2704; J2795; J3010; J7120; Q9967

== ENCOUNTER → 2024-12-31 19:24 | Outpatient (BNV) | payer MEDICARE, SELFPAY | PROVIDERS: Admitting Provider Physician Assistant; Emergency Provider Emergency Medicine Emergency Medical Services; PCP Internal Medicine; Visit Provider Internal Medicine Cardiovascular Disease | DX: I49.1 Atrial premature depolarization (principal) | CPT/HCPCS: 93010 ==

== ENCOUNTER → 2024-12-31 19:24 | Outpatient (BNV) | payer MEDICARE, SELFPAY | PROVIDERS: PCP Internal Medicine; Visit Provider Student in an Organized Health Care Education/Training Program | DX: K80.20 Calculus of gallbladder without cholecystitis without obstruction (principal) | CPT/HCPCS: 76705 ==

== ENCOUNTER → 2024-12-31 23:48 | Outpatient (BNV) | payer MEDICARE, SELFPAY | PROVIDERS: Admitting Provider Physician Assistant; Emergency Provider Emergency Medicine Emergency Medical Services; PCP Internal Medicine; Visit Provider Surgery | DX: K85.10 Biliary acute pancreatitis without necrosis or infection (principal); Z90.49 Acquired absence of other specified parts of digestive tract | CPT/HCPCS: 47563; 99024; 99222; 99232; 99499 ==

== ENCOUNTER → 2024-12-31 23:48 | Outpatient (BNV) | payer MEDICARE, SELFPAY | PROVIDERS: Admitting Provider Physician Assistant; Emergency Provider Emergency Medicine Emergency Medical Services; PCP Internal Medicine; Visit Provider Physician Assistant | DX: K85.10 Biliary acute pancreatitis without necrosis or infection (principal); Z90.49 Acquired absence of other specified parts of digestive tract; J44.9 Chronic obstructive pulmonary disease, unspecified; N40.1 Benign prostatic hyperplasia with lower urinary tract symptoms | CPT/HCPCS: 99223; 99232; 99239 ==

== ENCOUNTER 2025-01-13 12:54 | Outpatient (AMB) | payer MEDICARE, SELFPAY ==
--- NOTE | 2025-01-13 13:01 | MHC.OFFVIS ---
Intake Visit Reasons: cholecystectomy follow up Intake Note: Patient here s/p laparoscopic cholecystectomy with cholangiogram. Reports incision healing well. Patient c/o: no concerns. Only took rx pain meds for 2d after surgery. Banquet Chef Required: No Accompanied by: Self / Same As Patient Allergies No Known Allergies [No Known Allergies*] Allergy (Verified 01/13/25 13:04) HPI Comments Details: Patient was for follow-up status post laparoscopic cholecystectomy. He is doing well. He is tolerating a diet. Having regular bowel habits. He is increasing his activity level. He has minimal incisional discomfort [facility] Medical History (Updated 01/11/25 @ 00:02 by Background Daemon) Hx of malignant melanoma Polymyositis Parotid mass Peripheral vascular disease Hypercholesterolemia COPD (chronic obstructive pulmonary disease) Pulmonary nodule Nicotine dependence, cigarettes, uncomplicated Allergic rhinitis BPH (benign prostatic hyperplasia) Obesity (BMI 30-39.9) Knee osteoarthritis Cholelithiasis Vitamin D deficiency Erectile dysfunction Tubular adenoma of colon Renal calculi Surgical History (Updated 01/11/25 @ 00:02 by Background Daemon) Hx laparoscopic cholecystectomy (01/02/25) History of parotidectomy History of melanoma excision History of rectal sphincterotomy History of hemorrhoidectomy History of colonoscopy Family History Father Lung cancer CVD (cardiovascular disease) Stroke Liver cancer CHF (congestive heart failure) Mother CVD (cardiovascular disease) CHF (congestive heart failure) Sister Ovarian cancer Social History Household Members: None Housing: House Do you presently have visiting nurse or other home services: No Alcohol intake: current Alcohol intake frequency: holidays/special occasions only Alcohol type: beer Comment: COUNTS CORRECT Patient Tobacco Use Status: Current everyday Tobacco user Tobacco use type: Cigarette Cigarettes Per Day: 14 Years Smoked: 40 e-Cigarette/Vaping Use: Never Used Second Hand Smoke Exposure: No Substance Use Type: Marijuana service: Yes Current occupational status: retired Cognitive needs: No Hearing needs: No Vision needs: Yes Physical Exam Eyes Other: Anicteric GI Other: Abdomen is soft, benign. All wounds clean dry and intact healing well Quality Reporting (2019) Adult ([facility] 138/2/) Smoking risk assessment performed?: Yes Patient Tobacco Use Status: Current everyday Tobacco user Assessment & Plan Assessment & Plan (1) S/P laparoscopic cholecystectomy: Code(s): Z90.49 - Acquired absence of other specified parts of digestive tract Category: Medical Plan Patient was been given local wound instructions including strenuous activities next few weeks time and will otherwise follow-up p.r.n.. All questions answered. Coding Level of Care Code Global (14156) Diagnoses S/P laparoscopic cholecystectomy Z90.49
== END 2025-01-13 13:25 | disposition home or self-care (01) ==
LOC: HO.HGS 12:55
PROVIDERS: PCP Internal Medicine; Visit Provider Surgery
DX: Z90.49 Acquired absence of other specified parts of digestive tract (principal)
CPT/HCPCS: 99024

== ENCOUNTER → 2025-01-13 12:54 | Outpatient (BNVA) | payer MEDICARE, SELFPAY | PROVIDERS: PCP Internal Medicine; Visit Provider Surgery | DX: Z90.49 Acquired absence of other specified parts of digestive tract (principal) | CPT/HCPCS: 99212 ==

== ENCOUNTER 2025-01-17 13:54 | Outpatient (AMB) | payer MEDICARE, SELFPAY ==
--- NOTE | 2025-01-17 14:08 | A.OFFPC_ITS ---
Vital Signs 01/17/25 14:10 Height 5 ft 11 in Weight 251 lb 2 oz BMI 35.0 BP 122/72 Blood Pressure Location Lt brachial Position Sitting Pulse 44 L Pulse Source Pulse Oximeter Temp 97.1 F Temp Source Temporal Artery Scan Pulse Oximetry (%) 99 Oxygen Delivery Method Room Air Intake Visit Reasons: [facility] 01/03 cholecystitis Intake Note: Patient is here for hospital discharge follow up. Patient was discharged from [facility] on 01/03/25. Feed Research Technician Required: No Home Paraprofessional: Not Required per policy Accompanied by: Self / Same As Patient Allergies No Known Allergies [No Known Allergies*] Allergy (Verified 01/17/25 14:34) Medication List - Last Reconciled 01/17/25 by Natasha Moran PA-C acetaminophen 650 mg (2 x 325 mg) PO Q6H PRN albuterol sulfate 90 mcg/actuation 2 puffs inhalation Q4-6H PRN clotrimazole 1% 1 appl topical BID PRN ibuprofen (Advil) 600 mg PO Q8H PRN Tobacco use date assessed: 01/17/25 Fall risk assessment: No Falls in past year Last assessed Fall Risk: 01/17/25 Dental Screening Dental Screen Date: 12/12/24 HPI [facility] 01/03 cholecystitis HPI0 Details 74-year-old male with past medical histo ry of tobacco abuse, COPD, BPH, hypercholesterolemia coming gallstones, peripheral vascular disease last seen 11/[address] Peacock coming in for hospital discharge follow up.?In review of the notes, patient was seen in [facility] ED 12/31/2024 for right upper pain found to have acute gallstone pancreatitis and admitted for further management.? Treated with IV fluids, IV Zosyn bowel rest found to have chronic cholecystitis.?Underwent laparoscopic cholecystectomy 01/02/2025 and intraoperative cholangiogram doing well postoperatively. Patient was discharged home 01/03/2025 to follow up with Dr. Cordova in 1 week.?He was seen by Dr. Cordova 01/13/2025 doing well postoperatively advised to follow up as needed. Presenting for follow-up post-cholecystectomy. Discovery of gallstones occurred seven years ago during a renal scan, leading to an eventual gallbladder inflammation. Symptoms were initially mild, escalating around June with back pain that felt like a pulled muscle. The patient developed pancreatitis secondary to gallstones, leading to a subsequent cholecystectomy. Post- cholecystectomy, the patient reports improved belly pain with a normal diet but experiences looser stools. He reports episodic musculoskeletal symptoms associated with polymyositis, including back, neck, and shoulder pain, as well as transient wrist weakness impacting daily activities. TCM TCM Information Date of Discharge 01/03/25 Discharged From [facility] Medical History Hx of malignant melanoma Polymyositis Parotid mass Peripheral vascular disease Hypercholesterolemia COPD (chronic obstructive pulmonary disease) Pulmonary nodule Nicotine dependence, cigarettes, uncomplicated Allergic rhinitis BPH (benign prostatic hyperplasia) Obesity (BMI 30-39.9) Knee osteoarthritis Cholelithiasis Vitamin D deficiency Erectile dysfunction Tubular adenoma of colon Renal calculi Surgical History Hx laparoscopic cholecystectomy (01/02/25) History of parotidectomy History of melanoma excision History of rectal sphincterotomy History of hemorrhoidectomy History of colonoscopy Family History Father Lung cancer CVD (cardiovascular disease) Stroke Liver cancer CHF (congestive heart failure) Mother CVD (cardiovascular disease) CHF (congestive heart failure) Sister Ovarian cancer Social History Household Members: None Housing: House Do you presently have visiting nurse or other home services: No Alcohol intake: current Alcohol intake frequency: holidays/special occasions only Alcohol type: beer Comment: COUNTS CORRECT Patient Tobacco Use Status: Current everyday Tobacco user Tobacco use type: Cigarette Cigarette Packs Per Day: 1 Cigarettes Per Day: 15 Years Smoked: 40 e-Cigarette/Vaping Use: Never Used Second Hand Smoke Exposure: Yes Substance Use Type: Marijuana service: Yes Current occupational status: retired Cognitive needs: No Hearing needs: No Vision needs: Yes Questionnaire Thrive Questionnaire Date Thrive assessed: 01/01/25 ROB-7 AMB Questionnaire ROB-7 Date ROB - 7 assessed: 12/12/24 Source: Developed by Drs. Jah Altamirano, Nicole Sandhu, Mc Gomez and colleagues, with an educational katharine from [employer]. Review of Systems Const Denies body aches, Denies chills, Denies fever(s), Denies headache(s) and Denies poor appetite Eyes Reports no additional complaints ENT Denies dysphagia, Denies dizziness, Denies headache(s) and Denies odynophagia Card Denies chest pain, Denies syncope, Denies edema, Denies irregular heart rhythm, Denies lightheadedness and Denies dyspnea Resp Denies cough and Denies dyspnea GI Denies abdominal pain, Denies constipation, Denies dysphagia, Denies diarrhea, Denies nausea, Denies odynophagia and Denies vomiting Reports no additional complaints Musc Reports no additional complaints and Denies abnormal gait Skin/Breast Reports system reviewed and no additional complaints, except as documented Neuro Denies abnormal gait, Denies dizziness, Denies syncope and Denies headache(s) Psych Reports no additional complaints Physical exam (Primary Care) Vital Signs: Last Vital Signs Temp 97.1 F 01/17/25 14:10 Pulse 44 L 01/17/25 14:10 BP 122/72 01/17/25 14:10 Pulse Ox 99 01/17/25 14:10 Oxygen Delivery Method Room Air 01/17/25 14:10 BMI result Body Mass Index 35.0 Tobacco/Smoking Status: Tobacco use Status Tobacco use date assessed 01/17/25 01/17/25 14:14 Patient Tobacco Use Status Current everyday Tobacco 01/17/25 14:14 Tobacco use type Cigarette 01/17/25 14:14 e-Cigarette/Vaping Use Never Used 01/17/25 14:14 Thrive Assessment: Date of Thrive Assessment Date Thrive assessed 01/01/25 01/17/25 14:14 Const General: cooperative, healthy appearing, comfortable and no acute distress Orientation/consciousness: patient oriented x3 HENMT Head: Yes normocephalic Ears: hearing grossly normal bilaterally General nose exam: Normal external nose present Eyes General: appearance normal, both eyes and all related structures Conjunctivae: conjunctivae normal Neck Neck: Yes full ROM and Yes no lymphadenopathy Resp Effort & Inspection: normal respiratory effort Auscultation: clear to auscultation bilaterally, no crackles, no rales, no rhonchi and no wheezes Cardio Rate: regular rate Rhythm: regular rhythm GI Inspection: Yes normal to inspection Palpation (GI): Soft to palpation, not firm, nontender, no guarding, not rigid and No Rebound tenderness present Skin Other: incisions are clean dry and intact without signs of infection General skin exam: no rashes or lesions noted Neuro General: patient oriented x3 Gait exam (Neuro): Normal gait present Extrem General: Yes normal to inspection, Yes full ROM and No edema Psych Affect: normal affect Attitude: cooperative Insight: Good insight present (Psych) Judgement: Good judgement present (Psych) Coding Level of Care Code TCM Mod MDM <= 14 Days Complex EM visit Add On G2211 Diagnoses S/P laparoscopic cholecystectomy Z90.49 Coronary artery disease I25.10 Blood pressure elevated without history of HTN R03.0 Impaired fasting glucose R73.01 Obesity (BMI 30-39.9) E66.9 Polymyositis M33.20 Nicotine dependence, cigarettes, uncomplicated F17.210 Acute cholecystitis K81.0 Assessment & Plan Assessment & Plan (1) S/P laparoscopic cholecystectomy: Code(s): Z90.49 - Acquired absence of other specified parts of digestive tract Category: Surgical Plan: The patient is advised to continue following dietary modifications, particularly avoiding high-fat foods, to reduce gastrointestinal symptoms after cholecystectomy. His incisions are healing without infection, and he is urged to avoid activities that may cause strain for the next few weeks. (2) Coronary artery disease: Code(s): I25.10 - Atherosclerotic heart disease of [place] coronary artery without angina pectoris Category: Medical Plan: Advised good control of blood pressure, blood sugars and cholesterol. (3) Blood pressure elevated without history of HTN: Code(s): R03.0 - Elevated blood-pressure reading, without diagnosis of hypertension Category: Medical Plan: Avoid salt intake and encourage healthy diet and regular exercise. (4) Impaired fasting glucose: Code(s): R73.01 - Impaired fasting glucose Category: Medical Plan: Decrease the amount of carbohydrates such as pasta, bread, rice, and potatoes and limit the amount of sweets. Although fruits are generally healthy they should be eaten in moderation as they are still high in sugar. (5) Obesity (BMI 30-39.9): Code(s): E66.9 - Obesity, unspecified Category: Medical Plan: Healthy diet and regular exercise is encouraged. (6) Polymyositis: Comment: October 2018 NUMBNESS/WEAKNESS FINGERS LEFT HAND,LEFT FOOT Code(s): M33.20 - Polymyositis, organ involvement unspecified Category: Medical Plan: A referral to a oil spraying machine operator is made for ongoing management of polymyositis, and a comprehensive evaluation will help guide further treatment. (7) Nicotine dependence, cigarettes, uncomplicated: Comment: (40PYH), LUCKILY HE CLAIMS THAT HE HAS QUIT SMOKING . TODAY HE CLAIMS THAT HE SMOKES NO MORE THAN 1 CIGARETTE TODAY IN THE MORNING HOURS. 09/18/2024 CT scan Code(s): F17.210 - Nicotine dependence, cigarettes, uncomplicated Category: Medical Plan: Smoking cigarettes and the use of tobacco can be harmful. We discussed the imp ortance of stopping and options to aid in smoking cessation. (8) Acute cholecystitis: Code(s): K81.0 - Acute cholecystitis Category: Medical Plan This note was constructed using voice recognition software. While every effort has been made to ensure accuracy and interior mechanic, still areas may have been included sometimes these areas may affect the content or meeting of the given symptoms. Total time spent caring for the patient today was 20 minutes. This includes time spent before the visit reviewing the chart, time spent during the visit, and time spent after the visit and documentation. Patient was informed and verbally consented to the use of an ambient scribe for clinic note documentation during this visit. Orders: Referrals Rheumatology Referral M33.20 - Polymyositis, organ involvement unspecified
[2025-01-17 14:10] VITALS: BP 122/72; PULSE 44; TEMP 36.2; O2SAT 99; BMI 35.0
== END 2025-01-17 14:52 | disposition home or self-care (01) ==
LOC: HO.HMCH 13:55
PROVIDERS: PCP Internal Medicine
DX: I25.10 Atherosclerotic heart disease of native coronary artery without angina pectoris (principal); M33.20 Polymyositis, organ involvement unspecified; E66.9 Obesity, unspecified; Z68.35 Body mass index [BMI] 35.0-35.9, adult; Z90.49 Acquired absence of other specified parts of digestive tract; R03.0 Elevated blood-pressure reading, without diagnosis of hypertension; R73.01 Impaired fasting glucose; F17.210 Nicotine dependence, cigarettes, uncomplicated; K81.0 Acute cholecystitis

== ENCOUNTER → 2025-01-17 13:54 | Outpatient (BNVA) | payer MEDICARE, SELFPAY | PROVIDERS: PCP Internal Medicine | DX: I25.10 Atherosclerotic heart disease of native coronary artery without angina pectoris (principal); R03.0 Elevated blood-pressure reading, without diagnosis of hypertension; R73.01 Impaired fasting glucose; E66.9 Obesity, unspecified; M33.20 Polymyositis, organ involvement unspecified; K81.0 Acute cholecystitis; F17.210 Nicotine dependence, cigarettes, uncomplicated; Z90.49 Acquired absence of other specified parts of digestive tract; Z71.6 Tobacco abuse counseling; Z71.3 Dietary counseling and surveillance | CPT/HCPCS: 99495 ==

== ENCOUNTER 2025-03-04 11:18 | Outpatient (AMB) | payer MEDICARE, SELFPAY ==
--- NOTE | 2025-03-04 11:27 | A.OFFVIS_ITS ---
Vital Signs 03/04/25 11:28 Height 5 ft 11 in Weight 255 lb 4.725 oz BMI 35.6 BP 130/78 Blood Pressure Location Lt brachial Position Sitting Pulse 61 Pulse Source Pulse Oximeter Pulse Oximetry (%) 99 Oxygen Delivery Method Room Air Intake Visit Reasons: COPD Intake Note: pt is here for follow up and states he still has his short of breath that goes up and down. Consultant In Ergonomics And Safety Required: No Allergies No Known Allergies [No Known Allergies*] Allergy (Verified 03/04/25 11:35) Medication List - Last Reconciled 03/04/25 by Maximilian Hager MD acetaminophen 650 mg (2 x 325 mg) PO Q6H PRN albuterol sulfate 90 mcg/actuation 2 puffs inhalation Q4-6H PRN clotrimazole 1% 1 appl topical BID PRN ibuprofen (Advil) 600 mg PO Q8H PRN Do you need a note to return to daycare/school/sports/work: No HPI HPI COPD: Details: THIS 74 YEARS OLD VERY PLEASANT GENTLEMAN COMES FOR FOLLOW-UP AFTER 6 MONTHS. HE HAS MILD TO MODERATE DEGREE OF OBSTRUCTIVE AIRWAY DISORDER WHICH HAS REMAINED FAIRLY STABLE. HE DOES USE ALBUTEROL BUT ONLY ONCE IN A WHILE. HE IS NOT ON ANY REGULAR MAINTENANCE REGIMEN. HE GETS SHORT OF BREATH IF HE WALKS FAST AND UP [place]ILL, BUT CAN WALK ON A LEVEL GROUND AT HIS NORMAL PACE WITH OUT ANY ISSUE. HE HAS CHRONIC NASAL STUFFINESS, . WITH MILD INTERMITTENT COUGH HE HAS BEEN TREATED WITH ACUTE SINUSITIS ON HIS LOST TO VISITS. WAS PRESCRIBED MONTELUKAST TABLET TO TAKE 1 AND A AND LORATADINE P.R.N.. HE DID NOT TOLERATE THE FACT OF MONTELUKAST SO HAD TO STOP IT. HE USES LORATADINE ONLY OFF AND ON HE IS NOT ABLE TO USE NASAL SPRAYS . HE HAS QUESTION THAT DURING THE NIGHT WHEN HE WAKES UP TO GO TO THE BATHROOM SOMETIME HE FEELS LIGHTHEADED. AND COULD IT BE DUE TO HIS COPD. I EXPLAINED TO HIM THAT IT WILL NOT BE DUE TO COPD BUT HE COULD BE HAVING POSTURAL HYPOTENSION, SO HE SHOULD BE CAREFUL AND SIT BY THE SIDE OF THE BED FOR A MINUTE OR 2 BEFORE HE GOES TO THE BATHROOM. HE STILL SMOKES UP TO 15 CIGARETTES A DAY. LAST LDCT IN AUGUST 2024 , CLASS 2 BENIGN. [facility] Medical History Hx of malignant melanoma Polymyositis Parotid mass Peripheral vascular disease Hypercholesterolemia COPD (chronic obstructive pulmonary disease) Pulmonary nodule Nicotine dependence, cigarettes, uncomplicated Allergic rhinitis BPH (benign prostatic hyperplasia) Obesity (BMI 30-39.9) Knee osteoarthritis Cholelithiasis Vitamin D deficiency Erectile dysfunction Tubular adenoma of colon Renal calculi Surgical History Hx laparoscopic cholecystectomy (01/02/25) History of parotidectomy History of melanoma excision History of rectal sphincterotomy History of hemorrhoidectomy History of colonoscopy Family History Father Lung cancer CVD (cardiovascular disease) Stroke Liver cancer CHF (congestive heart failure) Mother CVD (cardiovascular disease) CHF (congestive heart failure) Sister Ovarian cancer Social History Household Members: None Housing: House Do you presently have visiting nurse or other home services: No Alcohol intake: current Alcohol intake frequency: holidays/special occasions only Alcohol type: beer Comment: COUNTS CORRECT Patient Tobacco Use Status: Current everyday Tobacco user Tobacco use type: Cigarette Cigarette Packs Per Day: 0.5 Cigarettes Per Day: 10 Years Smoked: 40 e-Cigarette/Vaping Use: Never Used Second Hand Smoke Exposure: Yes Substance Use Type: Marijuana service: Yes Current occupational status: retired Cognitive needs: No Hearing needs: No Vision needs: Yes Review of Systems Const All systems reviewed & are unremarkable except as noted in HPI and below ENT Reports hearing loss (WHEN HIS EARS FEEL BLOCKED) and Reports nasal congestion (IN A.M. HOURS) Card Denies chest pain and Reports dyspnea on exertion Resp Reports cough (mild intermittent .), Reports dyspnea on exertion and Denies wheezing Musc Reports arthralgias (rt elbow ) Aller/Immun Denies wheezing Physical Exam Vital Signs: Last Vital Signs Pulse 61 03/04/25 11:28 BP 130/78 03/04/25 11:28 Pulse Ox 99 03/04/25 11:28 Oxygen Delivery Method Room Air 03/04/25 11:28 BMI result Body Mass Index 35.6 Const General: healthy appearing (EXCEPT BEING MODERATELY OVERWEIGHT ), comfortable, no acute distress, alert and awake Orientation/consciousness: patient oriented x3 HEENT Head: Yes normal to inspection General nose exam: No nasal polyps present and No nasal discharge present Face and sinus: Yes sinuses nontender Mouth: oropharynx normal Throat: Yes posterior oropharynx normal Eyes General: appearance normal, both eyes and all related structures Neck Neck: Yes normal visual inspection, Yes no lymphadenopathy, Yes trachea midline and Yes no JVD Thyroid: Thyroid normal Chest Chest palpation & inspection: normal inspection of the chest, normal palpation of entire chest wall and no tenderness Resp Effort & Inspection: prolonged expiratory phase Auscultation: no crackles, no wheezes and diminished lung sounds (SLIGHTLY DISTANT ) Cardio Palpation: normal PMI Rate: regular rate Rhythm: regular rhythm Heart sounds: no gallops and no murmurs Peripheral pulses: Peripheral pulses 2+ throughout GI Palpation (GI): Soft to palpation, nontender, No hepatosplenomegaly present and no masses Auscultation: normal bowel sounds Back/Spine/Pelvis Thoracic/Lumbar Spine: thoracic and lumbar spine normal to inspection Skin General skin exam: no rashes or lesions noted Neuro General: patient oriented x3 and no focal motor deficits Cranial nerves: Yes CN's II-XII intact bilaterally Extrem General: Yes normal to inspection, Yes no clubbing, cyanosis or edema and Yes no calf tenderness Psych Speech and movement: Normal speech and movement present Results Reviewed Results Reviewed: SPIROMETRY 05/30/2023 03/04/25 FVC= 86 85 % FEV1 59 58 % FEF 25-75 40 26 % Assessment & Plan Assessment & Plan (1) COPD (chronic obstructive pulmonary disease): Comment: He does have Moderate degree of obstructive airway disorder. He is relatively asymptomatic and so he does not want to use any maintenance inhaler. Code(s): J44.9 - Chronic obstructive pulmonary disease, unspecified Category: Medical Qualifiers: COPD type: emphysema Emphysema type: panlobular Qualified Code(s): J43.1 - Panlobular emphysema Plan: OK TO USE ALBUTEROL HFA 2 PUFFS Q 6 HOURS P.R.N. IN CASE OF PERSISTENT COUGH OR WHEEZING. (2) Nicotine dependence, cigarettes, uncomplicated: Comment: (40PYH), HE HAD QUIT FOR A SHORT PERIOD, THEN WENT BACK TO SMOKING. CURRENTLY DOWN TO 10 CIGARETTES A DAY, AND HE DOES USE NICOTINE LOZENGES. Code(s): F17.210 - Nicotine dependence, cigarettes, uncomplicated Category: Medical Plan: COUNSELED TO QUIT COMPLETELY. CONTINUE YEARLY LDCT. LAST CT SCAN IN AUGUST 2024, CLASS 2, BENIGN (3) Allergic rhinitis: Comment: Allergic rhinitis symptoms especially in morning probably related to allergy to household air and other items, CHRONIC, with seasonal flare ups. He is not able to use nasal spray such as Flonase, also could not use montelukast. Code(s): J30.9 - Allergic rhinitis, unspecified Category: Medical Plan: Use loratadine 10 mg once a day p.r.n. in case of increased nasal congestion Coding Level of Care Code Est Pt Level 3 (53519) Diagnoses Panlobular emphysema J43.1 COPD type: emphysema Emphysema type: panlobular Nicotine dependence, cigarettes, uncomplicated F17.210 Allergic rhinitis J30.9
[2025-03-04 11:28] VITALS: BP 130/78; PULSE 61; O2SAT 99; BMI 35.6
== END 2025-03-04 12:05 | disposition home or self-care (01) ==
LOC: HO.HPS 11:18
PROVIDERS: PCP Internal Medicine; Visit Provider Internal Medicine
DX: J43.1 Panlobular emphysema (principal); F17.210 Nicotine dependence, cigarettes, uncomplicated; J30.9 Allergic rhinitis, unspecified
CPT/HCPCS: 94010; 99213

== ENCOUNTER → 2025-03-04 11:18 | Outpatient (BNVA) | payer MEDICARE, SELFPAY | PROVIDERS: PCP Internal Medicine; Visit Provider Internal Medicine | DX: J43.1 Panlobular emphysema (principal); J30.9 Allergic rhinitis, unspecified; F17.210 Nicotine dependence, cigarettes, uncomplicated | CPT/HCPCS: 94010; 99212 ==

== ENCOUNTER 2025-03-13 07:11 | Outpatient (REF) | payer MEDICARE, SELFPAY ==
[2025-03-13 07:26] LABS: MANUAL DIFF FLAG NO
[2025-03-13 07:43] LABS: Basophils Absolute Auto 0.1 X10*3/uL (0.0-0.2); Basophils Percent Auto 0.7 % (0-2); Eosinophils Absolute Auto 0.1 X10*3/uL (0.0-0.4); Eosinophils Percent Auto 1.6 % (0-4); Hematocrit 39.7 % (42.0-52.0); Hemoglobin 13.6 g/dl (14.0-18.0); Imm Gran Abs Auto 0.09 X10*3/uL (0.00-0.03); Lymphocytes Absolute Auto 2.3 X10*3/uL (1.2-4.9); Lymphocytes Percent Auto 25.8 % (20-40); Mean Corpuscular HGB Conc 34.3 g/dl (31.0-36.0); Mean Corpuscular Hemoglobin 31.9 pg (27.0-33.0); Mean Corpuscular Volume 93.2 fL (80.0-98.0); Mean Platelet Volume 10.5 fL (9.4-12.4); Monocytes Absolute Auto 1.2 X10*3/uL (0.1-1.2); Monocytes Percent Auto 14.2 % (2-11); Neutrophils Percent Auto 56.7 % (45-73); Platelet Count 190 X10*3/uL (160-400); Red Blood Count 4.26 X10*6/uL (4.60-5.80); Red Cell Distribution Width 14.9 % (11.0-16.0); White Blood Count 8.8 X10*3/uL (4.8-10.8)
[2025-03-13 07:52] LABS: Estimated Average Glucose 114 mg/dL; Hemoglobin A1c % 5.6 % (<6.0); Total Hemoglobin (HGBA1C) 3592.3758 umol/L
[2025-03-13 08:09] LABS: Appearance Urine Clear; Color Urine Yellow; Glucose Urine UA Negative (Negative); Leukocyte Esterase Urine Negative (Negative); Nitrite Urine Negative (Negative); PH 5.5 (5.0-9.0); UMIC TRIGGER UACC YES; Urine Blood Small (1+) (Negative); Urine Ketones Negative (Negative); Urine Protein Negative (Neg-Trace)
[2025-03-13 08:18] LABS: Alanine Aminotransferase 11 U/L (0-40); Albumin Level 3.9 g/dL (3.5-5.0); Alkaline Phosphatase 64 U/L (39-117); Anion Gap 11 (12-20); Aspartate Amino Transferase 18 U/L (5-37); Bilirubin Total 0.5 mg/dL (0.0-1.0); Blood Urea Nitrogen 17 mg/dL (9-16); Calcium 9.2 mg/dL (8.4-10.2); Carbon Dioxide 24 mmol/L (22-29); Chloride 106 mmol/L (96-108); Cholesterol 179 mg/dL (<200); Estimated Glomerular Filt Rate > 60; Glucose Random 97 mg/dL (60-115); HDL Cholesterol 43 mg/dL (>40); LDL Cholesterol Calculated 119 mg/dL (<100); Potassium 4.4 mmol/L (3.3-5.1); Sodium 137 mmol/L (135-145); Total Protein 7.4 g/dL (6.5-8.0); Triglycerides 87 mg/dL (<150)
[2025-03-13 08:19] LABS: Erythrocyte Sedimentation Rate 16 MM/HR (0-15)
[2025-03-13 08:28] LABS: Bacteria Urine None Seen (None Seen); Hyaline Casts Urine 0-2 /LPF (0-2); RBC Urine 0-2 /HPF (0-2); Squamous Epithelial Cell Urine 0-2 /HPF (0-2); WBC Urine 0-5 /HPF (0-5)
[2025-03-13 08:32] LABS: Free T4 (Free Thyroxine) 1.09 ng/dL (0.71-1.85); Thyroid Stimulating Hormone 2.04 uIU/mL (0.32-4.0)
[2025-03-13 08:42] LABS: Vitamin B12 333 pg/mL (200-900)
== END 2025-03-13 07:12 | disposition home or self-care (01) ==
LOC: HO.LAB 07:11
PROVIDERS: PCP Internal Medicine; Visit Provider Internal Medicine
DX: R73.01 Impaired fasting glucose (principal); E78.00 Pure hypercholesterolemia, unspecified; I25.10 Atherosclerotic heart disease of native coronary artery without angina pectoris; M33.20 Polymyositis, organ involvement unspecified
CPT/HCPCS: 36415; 80053; 80061; 81001; 81003; 82607; 82746; 83036; 84439; 84443; 85025; 85652; 86140

== ENCOUNTER 2025-03-14 14:15 | Outpatient (AMB) | payer MEDICARE, SELFPAY ==
--- NOTE | 2025-03-14 14:18 | MHC.PC.OV ---
Vital Signs 03/14/25 14:29 03/14/25 14:35 Height 5 ft 11 in Weight 247 lb 8 oz BMI 34.5 BP 148/70 H 120/70 Blood Pressure Location Lt brachial Lt brachial Position Sitting Sitting Pulse 93 Pulse Source Pulse Oximeter Temp 97.1 F Temp Source Temporal Artery Scan Pulse Oximetry (%) 95 Oxygen Delivery Method Room Air Intake Visit Reasons: COPD Cleat Layer Required: No Accompanied by: Self / Same As Patient Allergies No Known Allergies [No Known Allergies*] Allergy (Verified 03/14/25 14:18) Tobacco use date assessed: 01/17/25 Fall risk assessment: No Falls in past year Last assessed Fall Risk: 03/14/25 Dental Screening Dental Screen Date: 12/12/24 [facility] Medical History Hx of malignant melanoma Polymyositis Parotid mass Peripheral vascular disease Hypercholesterolemia COPD (chronic obstructive pulmonary disease) Pulmonary nodule Nicotine dependence, cigarettes, uncomplicated Allergic rhinitis BPH (benign prostatic hyperplasia) Obesity (BMI 30-39.9) Knee osteoarthritis Cholelithiasis Vitamin D deficiency Erectile dysfunction Tubular adenoma of colon Renal calculi Surgical History Hx laparoscopic cholecystectomy (01/02/25) History of parotidectomy History of melanoma excision History of rectal sphincterotomy History of hemorrhoidectomy History of colonoscopy Family History Father Lung cancer CVD (cardiovascular disease) Stroke Liver cancer CHF (congestive heart failure) Mother CVD (cardiovascular disease) CHF (congestive heart failure) Sister Ovarian cancer Social History Household Members: None Housing: House Do you presently have visiting nurse or other home services: No Alcohol intake: current Alcohol intake frequency: holidays/special occasions only Alcohol type: beer Comment: COUNTS CORRECT Patient Tobacco Use Status: Current everyday Tobacco user Tobacco use type: Cigarette Cigarette Packs Per Day: 0.5 Cigarettes Per Day: 10 Years Smoked: 40 e-Cigarette/Vaping Use: Never Used Second Hand Smoke Exposure: Yes Substance Use Type: Marijuana service: Yes Current occupational status: retired Cognitive needs: No Hearing needs: No Vision needs: Yes Questionnaire PHQ-9 Over the last 2 weeks, how often have you been bothered by any of the following problems? 1. Little interest or pleasure in doing things: not at all 2. Feeling down, depressed, or hopeless: not at all 3. Trouble falling or staying asleep, or sleeping too much: not at all 4. Feeling tired or having little energy: several days 5. Poor appetite or overeating: not at all 6. Feeling bad about yourself - or that you are a failure or have let yourself or your family down: not at all 7. Trouble concentrating on things, such as reading the newspaper or watching television: not at all 8. Moving or speaking so slowly that other people could have noticed. Or the opposite - being so fidgety or restless that you have been moving around a lot more than usual: not at all 9. Thoughts that you would be better off or of hurting yourself in some way: not at all Total score: 1 Depression Screening Interpretation: Negative Depression Screening Done: Yes 08396 - PHQ-9 Billing: Yes Source: Developed by Drs. Jah Altamirano, Nicole Sandhu, Mc Gomez and colleagues, with an educational katharine from [employer]. Thrive Questionnaire Date Thrive assessed: 03/14/25 I am a: Patient What is your living situation today?: I have a steady place to live Within the past 12 months, did the food you bought not last and you didn't have the money to get more?: Often true Within the past 12 months, did you worry whether your food would run out before you got money to buy more?: Never true Do you have trouble paying for medicines?: No Do you have trouble getting transportation to medical appointments?: No Do you have trouble paying your heating and electricity bill?: No Do you have trouble taking care of your child, family member or friend?: No Do you have trouble with day-to-day activities such as bathing, preparing meals, shopping, managing finances, etc.?: No Are you currently unemployed and looking for a job?: No Are you interested in more education?: No Please select the resources that you would like help with: None Currently or been in a relationship where the following occur: I choose not to answer THRIVE Score: 1 AUDIT C Alcohol Use Questionnaire (AUDIT-C) 1. How often do you have a drink containing alcohol?: 2-4 times a month 2. How many drinks containing alcohol do you have on a typical day when you are drinking?: 1 or 2 3. How often do you have six or more drinks on one occasion?: Never Total Score: 2 ROB-7 AMB Questionnaire ROB-7 Date ROB - 7 assessed: 03/14/25 Feeling nervous, anxious, or on edge: 0 = Not at all Not being able to stop or control worryin = Not at all Worrying too much about different things: 0 = Not at all Trouble relaxin = Not at all Being so restless that it is hard to sit still: 0 = Not at all Becoming easily annoyed or irritable: 0 = Not at all Feeling afraid as if something awful might happen: 0 = Not at all Total ROB-7 score (0-4 normal; 5-9 mild; 10-14 moderate; 15-21 severe): 0 Source: Developed by Drs. Jah Altamirano, Nicole Sandhu, Mc Gomez and colleagues, with an educational katharine from [employer]. ROB-7 Assessment Billing ROB-7 Assessment Tool: ROB-7 Assessment 39955 Physical exam (Primary Care) Vital Signs: Last Vital Signs Temp 97.1 F 03/14/25 14:29 Pulse 93 03/14/25 14:29 BP 120/70 03/14/25 14:35 Pulse Ox 95 03/14/25 14:29 Oxygen Delivery Method Room Air 03/14/25 14:29 BMI result Body Mass Index 34.5 Tobacco/Smoking Status: Tobacco use Status Tobacco use date assessed 01/17/25 03/14/25 14:19 Patient Tobacco Use Status Current everyday Tobacco 03/14/25 14:19 Tobacco use type Cigarette 03/14/25 14:19 e-Cigarette/Vaping Use Never Used 03/14/25 14:19 PHQ-9: PHQ-9 Score PHQ-9: Total score 1 03/14/25 14:36 Depression Screening Interpretation: Negative Thrive Assessment: Date of Thrive Assessment Date Thrive assessed 03/14/25 03/14/25 14:19 Currently or been in a relationship where the following occur: I choose not to answer Const General: alert; No acute distress Eyes Conjunctivae: conjunctivae normal Resp Auscultation: clear to auscultation bilaterally Cardio Rate: regular rate Rhythm: regular rhythm GI Inspection: Yes normal to inspection Extrem General: Yes normal to inspection and No edema Coding Level of Care Code Est Pt Level 4 (85698) Complex EM visit Add On G2211 Diagnoses Coronary artery disease I25.10 Hypercholesterolemia E78.00 Impaired fasting glucose R73.01 Panlobular emphysema J43.1 COPD type: emphysema Emphysema type: panlobular Nicotine dependence, cigarettes, uncomplicated F17.210 Tubular adenoma of colon D12.6 Hematuria R31.9 Additional Codes ROB-7 Assessment Billing - ROB-7 Assessment Tool: ROB-7 Assessment 94943 ([id number]) PHQ-9 - 54672 - PHQ-9 Billing: Yes ([id number]) Assessment & Plan Assessment & Plan (1) Coronary artery disease: Code(s): I25.10 - Atherosclerotic heart disease of [place] coronary artery without angina pectoris Category: Medical Plan: Control the cholesterol, weight, blood pressure, discussed about taking aspirin. (2) Hypercholesterolemia: Code(s): E78.00 - Pure hypercholesterolemia, unspecified Category: Medical Plan: Avoid fried foods, chicken skin, eggs, butter margarine, pastries and meat. Be it pork or beef they have a lot of cholesterol LDL goal of less than 70. (3) Impaired fasting glucose: Code(s): R73.01 - Impaired fasting glucose Category: Medical Plan: Decrease the amount of carbohydrate intake, pasta, bread, rice and potatoes are all sugar and that is aside from all the sweet stuff, remember that fruits are good but they are Sweet also. (4) COPD (chronic obstructive pulmonary disease): Comment: He does have Moderate degree of obstructive airway disorder. He is relatively asymptomatic and so he does not want to use any maintenance inhaler. Code(s): J44.9 - Chronic obstructive pulmonary disease, unspecified Category: Medical Qualifiers: COPD type: emphysema Emphysema type: panlobular Qualified Code(s): J43.1 - Panlobular emphysema Plan: Patient follows up with Pulmonary has been given albuterol as needed. Patient is strongly advised to stop smoking (5) Nicotine dependence, cigarettes, uncomplicated: Comment: (40PYH), HE HAD QUIT FOR A SHORT PERIOD, THEN WENT BACK TO SMOKING. CURRENTLY DOWN TO 10 CIGARETTES A DAY, AND HE DOES USE NICOTINE LOZENGES. Code(s): F17.210 - Nicotine dependence, cigarettes, uncomplicated Category: Medical Plan: Patient is strongly advised to stop smoking! (6) Tubular adenoma of colon: Comment: (TA on 2005, 2009 and 2019 scopes) Code(s): D12.6 - Benign neoplasm of colon, unspecified Category: Medical Plan: Reminded about colonoscopy. will be seeing Dr. Soto (7) Hematuria: Code(s): R31.9 - Hematuria, unspecified Category: Medical Plan History of Present Illness The patient is a 74-year-old male presenting with a follow-up for multiple chronic conditions including COPD, coronary artery disease, hypercholesterolemia, hyperglycemia, benign prostatic hyperplasia, and polymyositis. The patient has a history of smoking and was last seen in December 2024 with his most recent blood work in February 2025 indicating chronic stable anemia, normal renal and liver function, normal electrolytes, and adequate blood sugar levels. However, LDL cholesterol remains elevated at 119 mg/dL, above the targeted goal of less than 70 mg/dL. The patient was reminded of their risk for heart attacks due to existing coronary artery disease and calcifications in the blood vessels. He has not experienced chest pain, and the presence of atherosclerosis has been acknowledged. The patient declined the use of inhalers post-February 2025 pulmonary consult and opts for albuterol as needed while being strongly advised to cease smoking. A solitary blood finding of hematuria was also discovered during a recent test, which had an instance in the past but not sufficiently explored previously. The patient has no energy concerns and has not been diagnosed with sleep apnea, although he exhibits signs such as daytime sleepiness without formally seeking evaluation. The influence of the patient's previous cholecystectomy on their dietary responses was noted, particularly concerning fatty foods leading to bowel changes. Health Maintenance - Discussed LDL cholesterol goals with aim of <70 mg/dL. - Advised smoking cessation to reduce cardiovascular risks. - Encouraged dietary changes with a focus on plant-based proteins and reduced animal proteins to lower cholesterol. - Reminded of colonoscopy due from 2019. - Discussed implications of blood in urine for further monitoring. - Sleep study proposed due to symptoms suggestive of possible sleep apnea. - Reviewed vaccination history confirming up-to-date with pneumonia, tetanus, and herpes zoster vaccines. Social History - Tobacco use: Current smoker, strongly advised to quit due to increased risk for cardiovascular and respiratory conditions. - Diet: High intake of animal proteins and fatty foods, advised to reduce. - Activity level: Experiences fatigue and daytime sleepiness affecting energy levels. - Sleep: Reports regular snoring and disrupted sleep patterns leading to daytime drowsiness. - Compliance: Previous resistance to inhaler usage affecting COPD management. Review of Systems - Respiratory: Reports COPD management with occasional use of albuterol. - Cardiovascular: Denies chest pain, reports known coronary artery disease. - Renal/Genitourinary: Denies current symptoms, known BPH, reports past episodes of hematuria. - Gastrointestinal: Reports changes in bowel habits post-cholecystectomy related to fatty food intake. - Hematological: Reports stable anemia. - Neurological: Reports significant daytime sleepiness, denies known sleep apnea. - Endocrine: Reports stable blood sugar levels, known hyperglycemia. - Constitutional: Denies fever, weight loss. Reports fatigue and reduced energy levels. Physical Exam - General- Appears obese, fatigued. - Cardiovascular- No reported abnormalities in oxygenation, no swellings. - Respiratory- History of COPD noted. - Abdomen- Status post-cholecystectomy. - Neurological/Psychiatric- Appears sleepy but orientated. Results - Labs: Normal renal function, normal liver function tests, normal electrolytes, stable chronic anemia, LDL: 119 mg/dL, good HDL cholesterol remains low, normal thyroid and B12 levels. - Imaging: Last CT scan of chest in August 2024, findings stable. - Urine analysis: Notable for hematuria as of March 13. Plan The patient is advised to continue with albuterol as needed for COPD and urged to cease smoking to reduce his risk of progression of lung disease and cardiovascular risk. Blood cholesterol levels need attention with dietary modifications and potentially increased physical activity. Follow-up on sleep patterns with an emphasis on a formal sleep study evaluation is encouraged, considering his suggestive symptoms. Continuing with aspirin therapy due to coronary artery disease acknowledges the risk of heart attack while monitoring takes place through regular lab assessments and addressing sleep disturbances to potentially improve daytime function. The patient's hematuria is to be monitored, ensuring adequate hydration and repeated urinalysis if needed. Patient was informed and verbally consented to the use of an ambient scribe for clinic note documentation during this visit. Discussion Notes I reviewed the patient's chronic conditions including COPD, coronary artery disease, elevated cholesterol levels, and smoking habits. The risks associated with continued smoking and high LDL cholesterol were thoroughly discussed with a goal of reducing cholesterol through dietary changes and lifestyle interventions. I recommended a sleep study to rule out sleep apnea, especially given the symptoms of daytime sleepiness and historical reports of snoring. Consent for recommendations was acknowledged, with the patient indicating understanding and agreement. Regular follow-ups were advised to monitor chronic conditions and assess compliance with lifestyle modifications. I emphasized the importance of ongoing monitoring and evaluation of symptoms especially in relation to an elevated cardiovascular risk profile. Patient Instructions - Use albuterol as needed for shortness of breath. - Stop smoking to improve lung and heart health. - Follow a plant-based diet, reducing intake of animal proteins. - Ensure regular screening for cholesterol in 3 months. - Consider assessment for sleep apnea. - Stay hydrated and monitor for recurrent blood in urine. - Follow-up for vaccination status and any new symptoms. - Report any new onset of chest pain or significant changes in habits. Orders: Orders Lipid Panel 3 Months E78.00 - Pure hypercholesterolemia, unspecified, I25.10 - Atherosclerotic heart disease of [place] coronary artery without angina pectoris Comprehensive Met. Panel 3 Months I25.10 - Atherosclerotic heart disease of [place] coronary artery without angina pectoris Hemoglobin A1c 3 Months I25.10 - Atherosclerotic heart disease of [place] coronary artery without angina pectoris
[2025-03-14 14:29] VITALS: BP 148/70; PULSE 93; TEMP 36.2; O2SAT 95; BMI 34.5
[2025-03-14 14:35] VITALS: BP 120/70
== END 2025-03-14 14:50 | disposition home or self-care (01) ==
LOC: HO.HMCH 14:16
PROVIDERS: PCP Internal Medicine; Visit Provider Internal Medicine
DX: I25.10 Atherosclerotic heart disease of native coronary artery without angina pectoris (principal); E78.00 Pure hypercholesterolemia, unspecified; R73.01 Impaired fasting glucose; J43.1 Panlobular emphysema; F17.210 Nicotine dependence, cigarettes, uncomplicated; D12.6 Benign neoplasm of colon, unspecified; R31.9 Hematuria, unspecified

== ENCOUNTER → 2025-03-14 14:15 | Outpatient (BNVA) | payer MEDICARE, SELFPAY | PROVIDERS: PCP Internal Medicine; Visit Provider Internal Medicine | DX: I25.10 Atherosclerotic heart disease of native coronary artery without angina pectoris (principal); E78.00 Pure hypercholesterolemia, unspecified; R73.01 Impaired fasting glucose; J43.1 Panlobular emphysema; D12.6 Benign neoplasm of colon, unspecified; R31.9 Hematuria, unspecified; F17.210 Nicotine dependence, cigarettes, uncomplicated; Z71.6 Tobacco abuse counseling | CPT/HCPCS: 96127; 99212 ==

== ENCOUNTER 2025-03-21 16:25 | Outpatient (AMB) | payer MEDICARE, SELFPAY ==
--- NOTE | 2025-03-21 16:27 | MHC.PC.OV ---
Intake Visit Reasons: Sinus issue Director Toxicology Required: No Information Interpreted: non-clinical & clinical Ship Propeller Finisher: Not Required per policy Accompanied by: Self / Same As Patient Allergies No Known Allergies [No Known Allergies*] Allergy (Verified 03/21/25 16:28) Medication List - Last Reconciled 03/21/25 by Natasha Moran PA-C acetaminophen 650 mg (2 x 325 mg) PO Q6H PRN albuterol sulfate 90 mcg/actuation 2 puffs inhalation Q4-6H PRN clotrimazole 1% 1 appl topical BID PRN ibuprofen (Advil) 600 mg PO Q8H PRN Tobacco use date assessed: 01/17/25 Fall risk assessment: No Falls in past year Last assessed Fall Risk: 03/21/25 Dental Screening Dental Screen Date: 12/12/24 HPI Sinus issue HPI Details 74-year-old male with past medical history of tobacco abuse, COPD, BPH, hypercholesterolemia coming gallstones, peripheral vascular disease last seen 02/[address] Peacock presenting via telehealth for acute problem. Patient was seen by Dr. Peacock last week. He is complaining of runny nose and sneezing and coughing that improves with Zyrtec. He has been using [id number] cetirizine and found good relief with this. He is interested in finding where his symptoms are coming from. He is declining a referral to ENT but is interested in a referral to bioinformatics associate. [facility] Medical History Hx of malignant melanoma Polymyositis Parotid mass Peripheral vascular disease Hypercholesterolemia COPD (chronic obstructive pulmonary disease) Pulmonary nodule Nicotine dependence, cigarettes, uncomplicated Allergic rhinitis BPH (benign prostatic hyperplasia) Obesity (BMI 30-39.9) Knee osteoarthritis Cholelithiasis Vitamin D deficiency Erectile dysfunction Tubular adenoma of colon Renal calculi Surgical History Hx laparoscopic cholecystectomy (01/02/25) History of parotidectomy History of melanoma excision History of rectal sphincterotomy History of hemorrhoidectomy History of colonoscopy Family History Father Lung cancer CVD (cardiovascular disease) Stroke Liver cancer CHF (congestive heart failure) Mother CVD (cardiovascular disease) CHF (congestive heart failure) Sister Ovarian cancer Social History Household Members: None Housing: House Do you presently have visiting nurse or other home services: No Alcohol intake: current Alcohol intake frequency: holidays/special occasions only Alcohol type: beer Comment: COUNTS CORRECT Patient Tobacco Use Status: Current everyday Tobacco user Tobacco use type: Cigarette Cigarette Packs Per Day: 0.5 Cigarettes Per Day: 10 Years Smoked: 40 e-Cigarette/Vaping Use: Never Used Second Hand Smoke Exposure: Yes Substance Use Type: Marijuana service: Yes Current occupational status: retired Cognitive needs: No Hearing needs: No Vision needs: Yes Questionnaire Thrive Questionnaire Date Thrive assessed: 03/14/25 ROB-7 AMB Questionnaire ROB-7 Date ROB - 7 assessed: 03/14/25 Source: Developed by Drs. Jah Altamirano, Nicole Sandhu, Mc Gomez and colleagues, with an educational katharine from [employer]. Review of Systems Const Denies body aches, Denies chills, Denies fever(s), Denies headache(s) and Denies poor appetite Eyes Reports no additional complaints ENT Denies dizziness, Denies headache(s) and Reports nasal discharge Card Denies chest pain Resp Denies cough GI Denies abdominal pain, Denies nausea and Denies vomiting Reports no additional complaints Musc Reports no additional complaints and Denies abnormal gait Skin/Breast Reports system reviewed and no additional complaints, except as documented Neuro Denies abnormal gait, Denies dizziness and Denies headache(s) Psych Reports no additional complaints Physical exam (Primary Care) Vital Signs: Physical exam the vital signs not performed due to nature of telehealth visit Tobacco/Smoking Status: Tobacco use Status Tobacco use date assessed 01/17/25 03/21/25 16:27 Patient Tobacco Use Status Current everyday Tobacco 03/21/25 16:27 Tobacco use type Cigarette 03/21/25 16:27 e-Cigarette/Vaping Use Never Used 03/21/25 16:27 Thrive Assessment: Date of Thrive Assessment Date Thrive assessed 03/14/25 03/21/25 16:27 Telehealth Telehealth Telehealth Platform: Telephone Location of provider rendering services: practice address Location of patient: address on file Patient Identification confirmed using: Name, : Yes Telehealth method: voice only Patient verbally consented to treatment: Yes Patient verbally consented to billing insurance company: Yes Patient informed of any privacy concerns related to visit: Yes Minutes spent on Phone/Video with Pt.: 15 Coding Level of Care Code Tele Est Pt Level 3 (15665) Diagnoses Environmental allergies Z91.09 Assessment & Plan Assessment & Plan (1) Environmental allergies: Code(s): Z91.09 - Other allergy status, other than to drugs and biological substances Category: Medical Plan: Patient complaining of environmental allergies that improve with the use of Zyrtec. Advised to use saline spray and Zyrtec daily and referral was placed to bioinformatics associate at patient request. Follow up as needed for this concern. Plan This note was constructed using voice recognition software. While every effort has been made to ensure accuracy and route driver salesperson, still areas may have been included sometimes these areas may affect the content or meeting of the given symptoms. Total time spent caring for the patient today was 20 minutes. This includes time spent before the visit reviewing the chart, time spent during the visit, and time spent after the visit and documentation. Orders: Referrals Allergy & Immunology Referral Z91.09 - Other allergy status, other than to drugs and biological substances
== END 2025-03-21 17:10 | disposition home or self-care (01) ==
LOC: HO.HMCH 16:25
PROVIDERS: PCP Internal Medicine
DX: Z91.09 Other allergy status, other than to drugs and biological substances (principal)

== ENCOUNTER → 2025-03-21 16:25 | Outpatient (BNVA) | payer MEDICARE, SELFPAY | PROVIDERS: PCP Internal Medicine ==

== ENCOUNTER 2025-05-16 13:54 | Outpatient (REF) | payer MEDICARE, SELFPAY ==
--- NOTE | ~2025-05-16 | US_ITS ---
EXAMINATION: US KIDNEY BILATERAL HISTORY: N28.1 - Cyst of kidney, acquired TECHNIQUE: Real-time grayscale ultrasound imaging of the kidneys was performed and images were reviewed. COMPARISON: Correlation is made with a CT of the abdomen with contrast dated 12/31/2024. FINDINGS: Right kidney: The right kidney measures 11.6 x 4.7 x 6.2 cm. Renal parenchymal echotexture and thickness are normal. Multiple cysts are noted including a 4.4 x 3.9 x 3.7 cm upper pole cyst, a 4.1 x 4.2 x 4.6 cm upper pole cyst, and a 3.2 x 1.8 x 2.8 cm lower pole cyst. There is no hydronephrosis or renal calculi. Left Kidney: The left kidney measures 11.6 x 5.4 x 4.8 cm. Renal parenchymal echotexture and thickness are normal. There is an interpolar cyst measuring 2.8 x 2.3 x 3.0 cm in the lower pole cyst measuring 3.0 x 2.0 x 3.4 cm. There is no hydronephrosis or renal calculi. US/US renal BI IMPRESSION: Bilateral renal cysts as described. Electronically signed by: Jah Narvaez MD 05/16/2025 02:25 PM EDT
--- OUTSIDE RECORDS SUMMARY | 2025-05-16 13:57 | XMS_ITS | Patient Health Record ---
Author Organization [facility] E[facility] Address [address] [place] [address] Care Team Providers Care Machine Engraver Name Role Phone Dima Peacock Primary Care Provider Carrillo Saba Unavailable [phone] Reason For Referral No Information Medications Medication SIG (Take, Route, Frequency, Duration) Notes Start Date End Date Status Night Splint AFO - L1930 as directed 01/08/2020 Active Aleve PRN Active Physical Therapy . . . 2-3x/week; Durat ion: 3-4 weeks 01/08/2020 Active Advair Diskus 250-50 MCG/DOSE Inhalation; Duration: 30 PRN Act wanda Advil PRN Active Social History Tobacco Use: Social History Observation Description Date Details (start date - stop date) Current Smoker NA - NA Tobacco Use/Smoking Question Answer Notes Are you a: current smoker When did you start smoking? 1970 How often do you smoke cigarettes? every day How many cigarettes a day do you smoke? 11-20 Alcohol Screen Question Answer Notes Did you have a drink containing alcohol in the p ast year? Yes Points 0 Interpretation Negative Tobacco use other than smoking: Question Answer Notes Are you an other tobacco user? No Problems Problem Type SNOMED Code ICD Code Onset Dates Problem Status W/U Status Risk Notes Problem Idiopathic neuropathy (G60.9) Active confirmed Problem Polymyositis (32830453) Polymyositis (M33.20) Active confirmed Plan Of Treatment Pending Test Test Name Order Date X ray : Foot, left 3V 01/08/2020 Insurance Providers Payer Name Payer Address Payer Phone Subscriber Number Group Number Insured Name Patient Relationship to Insured Coverage Start Date Coverage End Date Medicare National Govt [facility] [address] [place] [address] [id number] Francisco Javier Michel Self - patient is the insured [facility] [address] [place] [address] [phone] [id number] FranciscoJ avier Michel Self - patient is the insured Medical (General) History Medical History History ICD Code Back,Hip,and Knee pain Cancer Lung disease Sciatica Measles Mumps Chicken pox Surgical History Surgery Date(Month/Year) melanoma excision 09/1996
--- OUTSIDE RECORDS SUMMARY | 2025-05-16 13:57 | XMS_ITS | Clinical Summary ---
Author Organization [facility] Address [address] [facility] [address] [place] [address] Phone Care Team Providers Care Technician Submarine Cable Equipment Name Role Phone Dima Peacock MD Primary Care Provider [phone] Social History Tobacco Use Types Packs/Day Years Used Date Smoking Tobacco: Never Assessed Education Answer Date Recorded Are you interested in more education? Not on jeremy e 03/13/2023 Are you concerned about learning? Not on file 03/13/2023 No 03/13/2023 No 03/13/2023 Digital Access Answer Date Recorded No 03/26/2023 No 03/26/2023 No 03/26/2023 Reliable internet access at home? Not on file 03/26/2023 Device with a working camera? Not on file Sex and Gender Information Value Date Recorded Sex Assigned at Not on file Legal Sex Male 7:01 PM EST Gender Identity Not on file Sexual Orientation Not on file Plan of Treatment Health Maintenance Due Date Last Done Comments LIPID PANEL 1950 DEPRESSION SCREENING 1962 HEPATITIS C SCREENING 1968 ZOSTER VACCINES (2 of 3) 09/30/2014 08/05/2014 COVID-19 VACCINE (2 - 2023-2 5 season) 2024 02/08/2021 RSV VACCINE (1 - 1-dose 75+ series) 2025 Adult Td,Tdap Booster 09/15/2031 09/15/2021 , 06/16/2010 PNEUMOCOCCAL VACCINES (50+ years) Completed 12/14/2017, 09/29/2016 COLORECTAL CANCER SCREENING Completed HEPATITIS A VACCINES Aged Out No long er eligible based on patient's age to complete this topic HIB VACCINES Aged Out No longer eligi ble based on patient's age to complete this topic MENINGOCOCCAL VACCINES (ACWY) Aged Out No longer eligible based on patient's age to complete this topic MENINGOCOCCAL VACCINES (B) Aged Out N o longer eligible based on patient's age to complete this topic Medical Devices Not on file Insurance [employer] MEDEX SUPPLEMENT MEDICARE PART A & B [employer] MEDEX SUPPLEMENT MEDICARE PART A & B [employer] MEDEX SUPPLEMENT MEDICARE PART A & B [employer] MEDEX SUPPLEMENT MEDICARE PART A & B [employer] MEDEX SUPPLEMENT MEDICARE PART A & B [employer] MEDEX SUPPLEMENT MEDICARE PART A & B [facility] MEDEX SUPPLEMENT MEDICARE PART A & B [email or web address] CROSS MEDEX SUPPLEMENT MEDICARE PART A & B [email or web address]OSS MEDEX SUPPLEMENT MEDICARE PART A & B Care Teams Technician Submarine Cable Equipment Relationship Specialty Start Date End Date Ayush, Dima Franco MD [address] [place] [address] PCP - General Internal Medicine 08/17/18 Additional Source Comments The information contained in this document represents components of the legal health record. It is not the complete legal health record.[facility]
--- OUTSIDE RECORDS SUMMARY | 2025-05-16 13:57 | XMS_ITS | Patient Health Record ---
Author Organization [facility] Address [address] [place] [address] Care Team Providers Care Top Lift Trimmer Name Role Phone Dima Peacock MD Primary Care Provider Jah Tracey [phone] Allergies No Known Allergies Reason For Referral No Information Medications Medication SIG (Take, Route, Frequency, Duration) Notes Start Date End Date Status Advil 200 MG 1 tablet as needed O rally every 6 hrs prn Active Immunizations Vaccine Route Administration Date Status Comme nts Influenza Unknown 06/30/2019 Administered Influenza Unknown 08/20/2024 Administered Social History Alcohol Screen Question Answer Notes Did you have a drink contain ing alcohol in the past year? Yes How often did you have a dri nk containing alcohol in the past year? Monthly or less (1 point) How many drinks did you have on a typical day when you were drinking in the past year? 1 or 2 drinks (0 point) How often did you have 6 or more drinks on one occasion in the past year? Never (0 point) Points 1 Interpretation Negative Section Notes: Smoker 1 ppd; 1-2 drinks a f ew times a week Smoker 1 ppd; 1-2 drinks a f ew times a week Smoker 1 ppd; 1-2 drinks a f ew times a week Problems Problem Type SNOMED Code ICD Code Onset Dates Problem Status W/U Status Risk Notes Problem 423563715 Encounter for screening for malignant neoplasm of colon (Z12.11) Active confirmed Problem 097616313 History of adenomatous polyp of colon (Z86.010) Active confirmed Problem 473570843513636 Preprocedural examination (Z01.818) Active confirmed Problem 626282657 Encntr long-term NSAID use (Z79.1) Active confirmed Problem 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 Vital Signs Temperature 98.9 degrees Fahrenheit 04/16/2025 Blood pressure diastolic 01 mm Hg 04/16/2025 Height 70 in 04/16/2025 Blood pressure systolic 001 mm Hg 04/16/2025 Weight 250 lbs 04/16/2025 BMI 35.87 kg/m2 04/16/2025 Procedures Procedure Date Ordered Date Performed Result Body Sit e COLONOSCOPY 04/16/2025 N/A Encounters Encounter Location Date Provider Diagnosis [facility] [address] [place] [address] 04/16/2025 Jah Roth History of adenomato us polyp of colon Z86.010 ; Bile salt-induced diarrhea K90.89 ; Encounter for screening for malignant neoplasm of colon Z12.11 ; Preprocedural examination Z01.818 and Encntr long-term NSAID use Z79.1 Assessments Encounter Date Diagnosis (ICD Code) Assessment Notes Treatment Notes Treatment Clinical Notes Section Notes 04/16/2025 History of adenomatous polyp of colon (ICD-10 - Z86.010) Overall, Francisco Javier appears well. Given his personal history of tubular adenomas of the colon and his last colonoscopy approaching 5 years ago, I did recommend a follow-up colonoscopy for further screening purposes. We did review the rationale for that in regard to colon cancer prevention. Full consent has been taken for this, including risks of bleeding and perforation. The procedure will be done with monitored anesthesia care. He was advised to stop Advil and all other NSAIDs for 1 week before the procedure. In regard to his looser bowel movements since his gallbladder surgery we did review that this may be related to some bile induced diarrhea subsequent to the cholecystectomy. However, since he just had the surgery fairly recently I advised him to observe things and hopefully this will correct itself as the body adapts to the recent surgery. However, I did advise him that if the bowel movements remain problematic he should contact me and we can put him on a trial of cholestyramine instead. Francisco Javier was comfortable with this plan. Thank you again for allowing me to participate in Francisco Javier's care. I shall continue to keep you advised of his progress. 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 Given his personal history of tubular adenomas of the colon and his last colonoscopy approaching 5 years ago, I did recommend a follow-up colonoscopy for further screening purposes. We did review the rationale for that in regard to colon cancer prevention. Full consent has been taken for this, including risks of bleeding and perforation. The procedure will be done with monitored anesthesia care. He was advised to stop Advil and all other NSAIDs for 1 week before the procedure. In regard to his looser bowel movements since his gallbladder surgery we did review that this may be related to some bile induced diarrhea subsequent to the cholecystectomy. However, since he just had the surgery fairly recently I advised him to observe things and hopefully this will correct itself as the body adapts to the recent surgery. However, I did advise him that if the bowel movements remain problematic he should contact me and we can put him on a trial of cholestyramine instead. Francisco Javier was comfortable with this plan. Thank you again for allowing me to participate in Francisco Javier's care. I shall continue to keep you advised of his progress. 04/16/2025 Encounter for screening for malignant neoplasm of colon (ICD-10 - Z12.11) Overall, Francisco Javier appears well. Given his personal history of tubular adenomas of the colon and his last colonoscopy approaching 5 years ago, I did recommend a follow-up colonoscopy for further screening purposes. We did review the rationale for that in regard to colon cancer prevention. Full consent has been taken for this, including risks of bleeding and perforation. The procedure will be done with monitored anesthesia care. He was advised to stop Advil and all other NSAIDs for 1 week before the procedure. In regard to his looser bowel movements since his gallbladder surgery we did review that this may be related to some bile induced diarrhea subsequent to the cholecystectomy. However, since he just had the surgery fairly recently I advised him to observe things and hopefully this will correct itself as the body adapts to the recent surgery. However, I did advise him that if the bowel movements remain problematic he should contact me and we can put him on a trial of cholestyramine instead. Francisco Javier was comfortable with this plan. Thank you again for allowing me to participate in Francisco Javier's care. I shall continue to keep you advised of his progress. 04/16/2025 Preprocedural examination (ICD-10 - Z01.818) Overall, Francisco Javier appears well. Given his personal history of tubular adenomas of the colon and his last colonoscopy approaching 5 years ago, I did recommend a follow-up colonoscopy for further screening purposes. We did review the rationale for that in regard to colon cancer prevention. Full consent has been taken for this, including risks of bleeding and perforation. The procedure will be done with monitored anesthesia care. He was advised to stop Advil and all other NSAIDs for 1 week before the procedure. In regard to his looser bowel movements since his gallbladder surgery we did review that this may be related to some bile induced diarrhea subsequent to the cholecystectomy. However, since he just had the surgery fairly recently I advised him to observe things and hopefully this will correct itself as the body adapts to the recent surgery. However, I did advise him that if the bowel movements remain problematic he should contact me and we can put him on a trial of cholestyramine instead. Francisco Javier was comfortable with this plan. Thank you again for allowing me to participate in Francisco Javier's care. I shall continue to keep you advised of his progress. 04/16/2025 Encntr long-term NSAID use (ICD-10 - Z79.1) Overall, Francisco Javier appears well. Given his personal history of tubular adenomas of the colon and his last colonoscopy approaching 5 years ago, I did recommend a follow-up colonoscopy for further screening purposes. We did review the rationale for that in regard to colon cancer prevention. Full consent has been taken for this, including risks of bleeding and perforation. The procedure will be done with monitored anesthesia care. He was advised to stop Advil and all other NSAIDs for 1 week before the procedure. In regard to his looser bowel movements since his gallbladder surgery we did review that this may be related to some bile induced diarrhea subsequent to the cholecystectomy. However, since he just had the surgery fairly recently I advised him to observe things and hopefully this will correct itself as the body adapts to the recent surgery. However, I did advise him that if the bowel movements remain problematic he should contact me and we can put him on a trial of cholestyramine instead. Francisco Javier was comfortable with this plan. Thank you again for allowing me to participate in Francisco Javier's care. I shall continue to keep you advised of his progress. Plan Of Treatment Pending Test Test Name Order Date COLONOSCOPY 04/16/2025 Future Test Test Name Order Date COLONOSCOPY 05/20/2015 COLONOSCOPY 07/21/2020 Next Appt Details Provider Name:Jah Roth , 07/09/2025 10:30:00 AM, [address] [place] [address], [id number], Insurance Providers Payer Name Payer Address Payer Phone Subscriber Number Group Number Insured Name Patient Relationship to Insured Coverage Start Date Coverage End Date MEDICARE OF [place] [address] [place] [address] [id number] FRANCISCO JAVIER SIDDIQUI Self - patient is the insured [employer] ATT[employer] CLAIMS [address] [place] [address] [id number] TONIFRANCISCO JAVIER DWYER Self - patient is the insured Medical (General) History Medical History History ICD Code Tubular adenomas removed in 2005 and 12/2009; colonoscopy 07/2015 with removal of small rectal hyperplastic polyp Denies [place],DM,CVA,renal disease Renal cyst COPD- beginning stage Polymyositis Melanoma with surgey as below--kumar d Interferon for 1 year Hzgpicnxmt-jqsxbccchzna-rngy d incidentally on a CAT scan for evaluation of hematuria--reviewed with him at the 07/21/2020 OV---had CCY as below Colonoscopy in August 2020 with a small tubular adenoma removed and several hyperplastic polyps Surgical History Surgery Date(Month/Year) CCY--12/[address] Cordova Left Parotidectomy 2019--benign Melanoma on his back with on e year of therapy with Interferon in the late Hemorrhoid and anal fissure surgery
== END 2025-05-16 13:55 | disposition home or self-care (01) ==
LOC: HO.US 13:54
PROVIDERS: PCP Internal Medicine; Visit Provider Urology
DX: N28.1 Cyst of kidney, acquired (principal)
CPT/HCPCS: 76775

== ENCOUNTER → 2025-05-16 13:56 | Outpatient (BNV) | payer MEDICARE, SELFPAY | PROVIDERS: PCP Internal Medicine; Visit Provider Radiology Diagnostic Radiology | DX: N28.1 Cyst of kidney, acquired (principal) | CPT/HCPCS: 76775 ==

== ENCOUNTER 2025-05-21 07:59 | Outpatient (REF) | payer MEDICARE, SELFPAY ==
--- OUTSIDE RECORDS SUMMARY | 2025-05-21 08:04 | XMS_ITS | Clinical Summary ---
Author Organization [facility] Address [address] [facility] [address] [place] [address] Phone Care Team Providers Care Garment Form Assembler Name Role Phone Dima Peacock MD Primary Care Provider [phone] Social History Tobacco Use Types Packs/Day Years [...] topic Medical Devices Not on file Insurance [employer] MEDEX SUPPLEMENT MEDICARE PART A & B [employer] MEDEX SUPPLEMENT MEDICARE PART A & B [employer] MEDEX SUPPLEMENT MEDICARE PART A & B [employer] MEDEX SUPPLEMENT MEDICARE PART A & B [employer] MEDEX SUPPLEMENT MEDICARE PART A & B [employer] MEDEX SUPPLEMENT MEDICARE PART A & B [facility] MEDEX SUPPLEMENT MEDICARE PART A & B [employer] CROSS MEDEX SUPPLEMENT MEDICARE PART A & B [employer] MEDEX SUPPLEMENT MEDICARE PART A & B Care Teams Garment Form Assembler Relationship Specialty Start Date End Date Ayush, Dima Franco MD [address] [place] [address] PCP - General Internal Medicine 08/17/18 Additional Source Comments The information contained in this document represents components of the legal health record. It is not the complete legal health record.[facility]
--- OUTSIDE RECORDS SUMMARY | 2025-05-21 08:04 | XMS_ITS | Patient Health Record ---
Author Organization [facility] Address [address] [place] [address] Care Team Providers Care Employee Relations Assistant Name Role Phone Dima Peacock MD Primary Care Provider Jah Tracey [phone] Allergies No Known Allergies Reason For Referral [...] Problem Status W/U Status Risk Notes Problem [id number] Encounter for screening for malignant neoplasm of colon (Z12.11) Active confirmed Problem 094925594 History of adenomatous polyp of colon (Z86.010) Active confirmed Problem 824959094907278 Preprocedural examination (Z01.818) Active confirmed Problem 124500205 Encntr long-term NSAID use (Z79.1) Active confirmed [...] N/A Encounters Encounter Location Date Provider Diagnosis [facility] [address] [place] [address] 04/16/2025 Jah Roth History of adenomato us [...] Provider Name:Jah Roth , 07/09/2025 10:30:00 AM, [address] [place] [address], [id number], Insurance Providers Payer Name Payer Address Payer Phone Subscriber Number Group Number Insured Name Patient Relationship to Insured Coverage Start Date Coverage End Date MED[place]ARE OF [place] [address] [place] [address] [id number] FRANCISCO JAVIER SIDDIQUI Self - patient is the insured MEDEX ATTN CLAIMS [address] [place] [address] [phone] [id number] TONIFRANCISCO JAVIER DWYER Self - patient is the insured Medical (General) History Medical History History ICD Code Tubular adenomas removed in 2005 and 12/2009; colonoscopy 07/2015 with removal of small rectal hyperplastic polyp Denies [place],DM,CVA,renal disease Renal cyst COPD- beginning stage Polymyositis Melanoma with surgey as below--kumar d Interferon for 1 year Cvnnaohssi-iatyjtrxsxgw-xppw d incidentally on a CAT scan for [...]
--- OUTSIDE RECORDS SUMMARY | 2025-05-21 08:04 | XMS_ITS | Patient Health Record ---
Author Organization [facility] Address [address] [place] [address] Care Team Providers Care Return Agent Airport Name Role Phone Dima Peacock Primary Care Provider Carrillo Saba Unavailable [phone] Reason For Referral No Information Medications Medication [...] Idiopathic neuropathy (G60.9) Active confirmed Problem Polymyositis (83002352) Polymyositis (M33.20) Active confirmed Plan Of Treatment Pending Test Test Name Order Date X ray : Foot, left 3V 01/08/2020 Insurance Providers Payer Name Payer Address Payer Phone Subscriber Number Group Number Insured Name Patient Relationship to Insured Coverage Start Date Coverage End Date Medicare National Govt [facility] [address] [place] [address] [id number] Francisco Javier Michel Self - patient is the insured [facility] [address] [place] [address] [id number] Francisco Javier Michel Self - patient is the insured Medical (General) History Medical History History ICD Code Back,Hip,and Knee pain Cancer Lung disease Sciatica Measles Mumps Chicken pox Surgical History Surgery Date(Month/Year) melanoma excision 09/1996
[2025-05-21 08:38] LABS: Hemoglobin A1C 133.9053 umol/L; Total Hemoglobin (HGBA1C) 3513.6940 umol/L
[2025-05-21 08:53] LABS: Alanine Aminotransferase 8 U/L (0-40); Albumin Level 4.0 g/dL (3.5-5.0); Alkaline Phosphatase 62 U/L (39-117); Anion Gap 11 (12-20); Aspartate Amino Transferase 21 U/L (5-37); Blood Urea Nitrogen 13 mg/dL (9-16); Calcium 9.5 mg/dL (8.4-10.2); Carbon Dioxide 26 mmol/L (22-29); Chloride 108 mmol/L (96-108); Cholesterol 148 mg/dL (<200); Estimated Glomerular Filt Rate > 60; HDL Cholesterol 43 mg/dL (>40); Potassium 4.3 mmol/L (3.3-5.1); Sodium 141 mmol/L (135-145); Total Protein 7.6 g/dL (6.5-8.0); Triglycerides 77 mg/dL (<150)
[2025-05-21 09:13] LABS: Prostate Specific Antigen 1.66 ng/mL (<0.05-4.0)
== END 2025-05-21 08:00 | disposition home or self-care (01) ==
LOC: HO.LAB 07:59
PROVIDERS: PCP Internal Medicine; Visit Provider Urology
DX: N40.0 Benign prostatic hyperplasia without lower urinary tract symptoms (principal); I25.10 Atherosclerotic heart disease of native coronary artery without angina pectoris; E78.00 Pure hypercholesterolemia, unspecified
CPT/HCPCS: 36415; 80053; 80061; 83036; 84153

== ENCOUNTER 2025-05-22 10:22 | Outpatient (REF) | payer MEDICARE, SELFPAY ==
--- OUTSIDE RECORDS SUMMARY | 2025-05-23 13:39 | XMS_ITS | Clinical Summary ---
Author Organization [facility] Address [address] [facility] [address] [place] [address] Phone Care Team Providers Care Vice President Safety Name Role Phone Dima Peacock MD Primary Care Provider [phone] Social History Tobacco Use Types Packs/Day Years [...] topic Medical Devices Not on file Insurance [employer] MEDEX SUPPLEMENT MEDICARE PART A & B [employer] MEDEX SUPPLEMENT MEDICARE PART A & B [employer] MEDEX SUPPLEMENT MEDICARE PART A & B [employer] MEDEX SUPPLEMENT MEDICARE PART A & B [employer] MEDEX SUPPLEMENT MEDICARE PART A & B [employer] MEDEX SUPPLEMENT MEDICARE PART A & B [facility] MEDEX SUPPLEMENT MEDICARE PART A & B [employer] MEDEX SUPPLEMENT MEDICARE PART A & B [employer] MEDEX SUPPLEMENT MEDICARE PART A & B Care Teams Vice President Safety Relationship Specialty Start Date End Date Ayush, Dima Franco MD [address] [place] [address] PCP - General Internal Medicine 08/17/18 Additional Source Comments The information contained in this document represents components of the legal health record. It is not the complete legal health record.[facility]
--- OUTSIDE RECORDS SUMMARY | 2025-05-23 13:39 | XMS_ITS | Patient Health Record ---
Author Organization [facility] Address [address] [place] [address] Care Team Providers Care Federal Mediator Name Role Phone Dima Peacock MD Primary Care Provider Jah Tracey [phone] Allergies No Known Allergies Reason For Referral [...] Problem Status W/U Status Risk Notes Problem 655190686 Encounter for screening for malignant neoplasm of colon (Z12.11) Active confirmed Problem 440763531 History of adenomatous polyp of colon (Z86.010) Active confirmed Problem 796725387943521 Preprocedural examination (Z01.818) Active confirmed Problem 291330349 Encntr long-term NSAID use (Z79.1) Active confirmed [...] N/A Encounters Encounter Location Date Provider Diagnosis [facility] [address] [place] [address] 04/16/2025 Jah Roth History of adenomato us [...] Provider Name:Jah Roth , 07/09/2025 10:30:00 AM, [address] [place] [address], [id number], Insurance Providers Payer Name Payer Address Payer Phone Subscriber Number Group Number Insured Name Patient Relationship to Insured Coverage Start Date Coverage End Date MED[place]ARE [place] [address] [place] [address] [id number] FRANCISCO JAVIER SIDDIQUI Self - patient is the insured [employer] ATTN CLAIMS [address] [place] [address] [phone] [id number] TONIFRANCISCO JAVIER DWYER Self - patient is the insured Medical (General) History Medical History History ICD Code Tubular adenomas removed in 2005 and 12/2009; colonoscopy 07/2015 with removal of small rectal hyperplastic polyp Denies [place],DM,CVA,renal disease Renal cyst COPD- beginning stage Polymyositis Melanoma with surgey as below--kumar d Interferon for 1 year Wmqiagwndw-laswtsdjqqdu-vvlu d incidentally on a CAT scan for [...]
--- OUTSIDE RECORDS SUMMARY | 2025-05-23 13:39 | XMS_ITS | Patient Health Record ---
Author Organization [facility] Address [address] [place] [address] Care Team Providers Care Drawing Supervisor Name Role Phone Dima Peacock Primary Care Provider Carrillo Saba Unavailable [phone] Reason For Referral No Information Medications Medication [...] Idiopathic neuropathy (G60.9) Active confirmed Problem Polymyositis (66846995) Polymyositis (M33.20) Active confirmed Plan Of Treatment Pending Test Test Name Order Date X ray : Foot, left 3V 01/08/2020 Insurance Providers Payer Name Payer Address Payer Phone Subscriber Number Group Number Insured Name Patient Relationship to Insured Coverage Start Date Coverage End Date Medicare National Govt [facility] [address] [place] [address] [id number] Francisco Javier Michel Self - patient is the insured [facility] [address] [place] [address] [id number] Francisco Javier Michel Self - patient is the insured Medical (General) History Medical History History ICD Code Back,Hip,and Knee pain Cancer Lung disease Sciatica Measles Mumps Chicken pox Surgical History Surgery Date(Month/Year) melanoma excision 09/1996
[2025-05-23 13:48] LABS: Appearance Urine Turbid; Glucose Urine UA Negative (Negative); PH 5.5 (5.0-9.0); Specific Gravity - Urine 1.025 (1.005-1.025); UMIC TRIGGER UACC YES
== END 2025-05-22 10:23 | disposition home or self-care (01) ==
LOC: HO.LNP 10:22
PROVIDERS: Visit Provider Internal Medicine
DX: R30.0 Dysuria (principal); M33.20 Polymyositis, organ involvement unspecified
CPT/HCPCS: 81001

== ENCOUNTER 2025-05-28 11:32 | Outpatient (AMB) | payer MEDICARE, SELFPAY ==
--- NOTE | 2025-05-28 11:35 | MHC.OFFVIS ---
Intake Visit Reasons: 1y/PSA(psa?) Intake Note: Patient is present for 1yr Follow Up/PSA Urology Medication: Sildenafil Antibiotic Allergies: None Blood Thinners: None Catalyst Operator Required: No Allergies No Known Allergies (No Known Allergies*) Allergy (Verified 05/28/25 11:36) HPI Comments Details: Mr Michel is a very pleasant male. They are a patient of Dr Peacock. They are seen in the office today for the following urologic conditions. - renal cyst - erectile dysfunction Yearly follow-up PSA 05/23 - 1.6 only needs to be checked every 3 or 4 years Continue with on demand sildenafil Twelve month follow-up Erectile dysfunction: Symptoms have been present for/since occurred after interferon therapy. Current treatment includes OTC. Prior therapies include oral medications - had side effects with viagra Microscopic Hematuria: Bilateral cysts on imaging. 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 They are here for the discussion of imaging findings. Since the last visit the patient has has not noticed gross hematuria, continues to test postive for microscopic hematuria. Relevant medical history for tobacco use. Radiographic imaging: CT IVP March [address] Dr Peacock - 12/16 US renal, bilateral cysts, 4 mm right kidney stone - 07/16 , US renal, bilateral cysts - 01/15 , US renal, bilateral small 1-2cm cysts, ? small right renal stone right - 12/19 US bilateral cysts 4cm, no stones - 01/17 renal ultrasound, bilateral cysts up to 4 cm, 3 cyst each side, no stones - 04/20 ultrasound bilateral renal cysts up to 4 cm, 3 cyst each side, question of stone on right side 7 mm Radiology report no genitourinary abnormality - hyperdense left upper pole renal cyst. Other investigations cytology, normal. Cystoscopy findings normal May 2016. Therapeutic plan surveillance imaging [facility] Medical History Hx of malignant melanoma Polymyositis Parotid mass Peripheral vascular disease Hypercholesterolemia COPD (chronic obstructive pulmonary disease) Pulmonary nodule Nicotine dependence, cigarettes, uncomplicated Allergic rhinitis BPH (benign prostatic hyperplasia) Obesity (BMI 30-39.9) Knee osteoarthritis Cholelithiasis Vitamin D deficiency Erectile dysfunction Tubular adenoma of colon Renal calculi Surgical History Hx laparoscopic cholecystectomy (01/02/25) History of parotidectomy History of melanoma excision History of rectal sphincterotomy History of hemorrhoidectomy History of colonoscopy Family History Father Lung cancer CVD (cardiovascular disease) Stroke Liver cancer CHF (congestive heart failure) Mother CVD (cardiovascular disease) CHF (congestive heart failure) Sister Ovarian cancer Social History Household Members: None Housing: House Do you presently have visiting nurse or other home services: No Alcohol intake: current Alcohol intake frequency: holidays/special occasions only Alcohol type: beer Comment: COUNTS CORRECT Patient Tobacco Use Status: Current everyday Tobacco user Tobacco use type: Cigarette Cigarette Packs Per Day: 0.5 Cigarettes Per Day: 10 Years Smoked: 40 e-Cigarette/Vaping Use: Never Used Second Hand Smoke Exposure: Yes Substance Use Type: Marijuana service: Yes Current occupational status: retired Cognitive needs: No Hearing needs: No Vision needs: Yes Review of Systems Const Denies chills and Denies fever(s) Card Reports no additional complaints and Denies syncope Resp Denies cough GI Denies abdominal pain and Denies heartburn Reports as per HPI and Denies change in libido Neuro Denies syncope Psych Denies change in libido Endo Denies change in libido Physical Exam Const General: cooperative, healthy appearing, comfortable and no acute distress Orientation/consciousness: patient oriented x3 HEENT Face and sinus: Yes normal facial exam Mouth: moist mucous membranes Neck Neck: Yes normal visual inspection, Yes full ROM and Yes trachea midline Chest Chest palpation & inspection: normal inspection of the chest Resp Effort & Inspection: normal respiratory effort, able to speak in complete sentences and no respiratory distress GI Inspection: Yes normal to inspection Back/Spine/Pelvis Cervical Spine: normal cervical lordosis Thoracic/Lumbar Spine: thoracic and lumbar spine normal to inspection Skin General skin exam: no rashes or lesions noted Neuro General: patient oriented x3, gait normal, tone normal and moves all extremities Extrem General: Yes normal to inspection and Yes capillary refill normal Assessment & Plan Assessment & Plan (1) BPH (benign prostatic hyperplasia): Comment: October 2016 Code(s): N40.0 - Benign prostatic hyperplasia without lower urinary tract symptoms Category: Medical (2) Erectile dysfunction: Code(s): N52.9 - Male erectile dysfunction, unspecified Category: Medical Plan Twelve month follow-up Patient Instructions: This note is constructed using voice recognition software. While every effort has been made to ensure accuracy welfare specialist errors may have been included. Imaging studies, laboratory and physical exam results were discussed and reviewed in detail. No major barriers to patient understanding were identified. An opportunity to ask questions regarding the treatment plan was provided. All questions were answered. The patient expressed understanding and agreement with the above treatment plan. The patient is aware they should contact our office by phone for worsening of their current condition or the appearance of new urologic symptoms. Compliance is encouraged with any medications and followup testing that is ordered. It is a privilege to participate in the urologic care of your patient. If you have any questions or concerns regarding treatment for the above conditions, or other urologic issues, please do not hesitate to contact me. The office telephone contact is [phone]. Sincerely, Dr Nino Castrejon MD, JD [facility] - Urology Compassionate Specialist Care for the Genitourinary System Coding Level of Care Code Est Pt Level 4 (35234) Complex EM visit Add On G2211 Diagnoses BPH (benign prostatic hyperplasia) N40.0 Erectile dysfunction N52.9
--- OUTSIDE RECORDS SUMMARY | 2025-05-28 12:34 | XMS_ITS | Clinical Summary ---
Author Organization [facility] Address [address] [place] [address] Phone Care Team Providers Care Continuous Linter Drier Operator Name Role Phone Dima Peacock MD Primary Care Provider [phone] Social History Tobacco Use Types Packs/Day Years [...] topic Medical Devices Not on file Insurance [employer] MEDEX SUPPLEMENT MEDICARE PART A & B [employer] MEDEX SUPPLEMENT MEDICARE PART A & B [employer] MEDEX SUPPLEMENT MEDICARE PART A & B [employer] MEDEX SUPPLEMENT MEDICARE PART A & B [employer] MEDEX SUPPLEMENT MEDICARE PART A & B [employer] MEDEX SUPPLEMENT MEDICARE PART A & B [facility] MEDEX SUPPLEMENT MEDICARE PART A & B [employer] MEDEX SUPPLEMENT MEDICARE PART A & B [employer] MEDEX SUPPLEMENT MEDICARE PART A & B Care Teams Continuous Linter Drier Operator Relationship Specialty Start Date End Date Ayush, Dima Franco MD [address] [place] [address] PCP - General Internal Medicine 08/17/18 Additional Source Comments The information contained in this document represents components of the legal health record. It is not the complete legal health record.[facility]
--- OUTSIDE RECORDS SUMMARY | 2025-05-28 12:34 | XMS_ITS | Patient Health Record ---
Author Organization [facility] Address [address] [place] [address] Care Team Providers Care Limb Driver Name Role Phone Dima Peacock Primary Care Provider Carrillo Saba Unavailable [phone] Reason For Referral No Information Medications Medication [...] Idiopathic neuropathy (G60.9) Active confirmed Problem Polymyositis (29870936) Polymyositis (M33.20) Active confirmed Plan Of Treatment Pending Test Test Name Order Date X ray : Foot, left 3V 01/08/2020 Insurance Providers Payer Name Payer Address Payer Phone Subscriber Number Group Number Insured Name Patient Relationship to Insured Coverage Start Date Coverage End Date Medicare National Govt [facility] [address] [place] [address] [id number] Francisco Javier Michel Self - patient is the insured [facility] [address] [place] [address] [id number] Francisco Javier Michel Self - patient is the insured Medical (General) History Medical History History ICD Code Back,Hip,and Knee pain Cancer Lung disease Sciatica Measles Mumps Chicken pox Surgical History Surgery Date(Month/Year) melanoma excision 09/1996
--- OUTSIDE RECORDS SUMMARY | 2025-05-28 12:34 | XMS_ITS | Patient Health Record ---
Author Organization [facility] Address [address] [place] [address] Care Team Providers Care Disk Recoater Name Role Phone Dima Peacock MD Primary Care Provider Jah Tracey [phone] Allergies No Known Allergies Reason For Referral [...] Problem Status W/U Status Risk Notes Problem [id number] Encounter for screening for malignant neoplasm of colon (Z12.11) Active confirmed Problem 114845724 History of adenomatous polyp of colon (Z86.010) Active confirmed Problem 789772974533010 Preprocedural examination (Z01.818) Active confirmed Problem 375788976 Encntr long-term NSAID use (Z79.1) Active confirmed [...] N/A Encounters Encounter Location Date Provider Diagnosis [facility] [address] [place] [address] 04/16/2025 Jah Roth History of adenomato us [...] Provider Name:Jah Roth , 07/09/2025 10:30:00 AM, [address] [place] [address], [id number], Insurance Providers Payer Name Payer Address Payer Phone Subscriber Number Group Number Insured Name Patient Relationship to Insured Coverage Start Date Coverage End Date MEDICARE OF [place] [address] [place] [address] [phone] [id number] FRANCISCO JAVIER SIDDIQUI Self - patient is the insured MEDEX ATTN CLAIMS [address] [place] [address] [id number] TONIFRANCISCO JAVIER DWYER Self - patient is the insured Medical (General) History Medical History History ICD Code Tubular adenomas removed in 2005 and 12/2009; colonoscopy 07/2015 with removal of small rectal hyperplastic polyp Denies [place],DM,CVA,renal disease Renal cyst COPD- beginning stage Polymyositis Melanoma with surgey as below--kumar d Interferon for 1 year Qdbvxsxvon-jtmiaskykfqb-znyg d incidentally on a CAT scan for [...]
== END 2025-05-28 12:03 | disposition home or self-care (01) ==
LOC: HO.HUSH 11:33
PROVIDERS: PCP Internal Medicine; Visit Provider Urology
DX: N40.0 Benign prostatic hyperplasia without lower urinary tract symptoms (principal); N52.9 Male erectile dysfunction, unspecified; Z13.9 Encounter for screening, unspecified
CPT/HCPCS: 99214; G2211

== ENCOUNTER → 2025-05-28 11:32 | Outpatient (BNVA) | payer MEDICARE, SELFPAY | PROVIDERS: PCP Internal Medicine; Visit Provider Urology | DX: N40.0 Benign prostatic hyperplasia without lower urinary tract symptoms (principal); N52.9 Male erectile dysfunction, unspecified; F17.210 Nicotine dependence, cigarettes, uncomplicated; Z13.9 Encounter for screening, unspecified | CPT/HCPCS: 81003; 99212 ==

== ENCOUNTER 2025-07-09 09:09 | Day surgery (SDC) | payer MEDICARE, SELFPAY ==
--- OUTSIDE RECORDS SUMMARY | 2025-05-26 09:36 | XMS_ITS | Patient Health Record ---
Author Organization [facility] Address [address] [place] [address] Care Team Providers Care Net Developer Software Engineer C Name Role Phone Dima Peacock MD Primary Care Provider Jah Tracey [phone] Allergies No Known Allergies Reason For Referral [...] Problem Status W/U Status Risk Notes Problem [id number] Encounter for screening for malignant neoplasm of colon (Z12.11) Active confirmed Problem 705756355 History of adenomatous polyp of colon (Z86.010) Active confirmed Problem [id number] Preprocedural examination (Z01.818) Active confirmed Problem 220689064 Encntr long-term NSAID use (Z79.1) Active confirmed [...] N/A Encounters Encounter Location Date Provider Diagnosis [facility] [address] [place] [address] 04/16/2025 Jah Roth History of adenomato us [...] again for allowing me to participate in Fracnisco Javier's care. I shall continue to keep [...] Provider Name:Jah Roth , 07/09/2025 10:30:00 AM, [address] [place] [address], [phone], Insurance Providers Payer Name Payer Address Payer Phone Subscriber Number Group Number Insured Name Patient Relationship to Insured Coverage Start Date Coverage End Date MEDICARE OF [place] [address] [place] [address] [id number] FRANCISCO JAVIER SIDDIQUI Self - patient is the insured MEDEX ATTN CLAIMS [address] [place] [address] [id number] TONIFRANCISCO JAVIER DWYER Self - patient is the insured Medical (General) History Medical History History ICD Code Tubular adenomas removed in 2005 and 12/2009; colonoscopy 07/2015 with removal of small rectal hyperplastic polyp Denies OR,DM,CVA,renal disease Renal cyst COPD- beginning stage Polymyositis Melanoma with surgey as below--kumar d Interferon for 1 year Hvigtprvny-mmzriqhvyspz-aoma d incidentally on a CAT scan for [...]
--- OUTSIDE RECORDS SUMMARY | 2025-05-26 09:37 | XMS_ITS | Patient Health Record ---
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) Idiopathic neuropathy (G60.9) Active confirmed Problem Polymyositis (00164701) Polymyositis (M33.20) Active confirmed Plan Of Treatment Pending Test Test Name Order Date X ray : Foot, left 3V 01/08/2020 Insurance Providers Payer Name Payer Address Payer Phone Subscriber Number Group Number Insured Name Patient Relationship to Insured Coverage Start Date Coverage End Date Medicare National Govt Svcs Inc [address] [place] [address] [id number] Francisco Javier Michel Self - patient is the insured [employer] [facility] [address] [place] [address] [id number] Francisco Javier Michel Self - patient is the insured Medical (General) History Medical History History ICD Code Back,Hip,and Knee pain Cancer Lung disease Sciatica Measles Mumps Chicken pox Surgical History Surgery Date(Month/Year) melanoma excision 09/1996
--- OUTSIDE RECORDS SUMMARY | 2025-05-26 09:37 | XMS_ITS | Clinical Summary ---
Author Organization [facility] Address [address] [place] [address] Phone Care Team Providers Care Obgyn Nurse Name Role Phone Dima Peacock MD Primary Care Provider [phone] Social History Tobacco Use Types Packs/Day Years [...] topic Medical Devices Not on file Insurance [employer] MEDEX SUPPLEMENT MEDICARE PART A & B [employer] MEDEX SUPPLEMENT MEDICARE PART A & B [employer] MEDEX SUPPLEMENT MEDICARE PART A & B [employer] MEDEX SUPPLEMENT MEDICARE PART A & B [employer] MEDEX SUPPLEMENT MEDICARE PART A & B [employer] MEDEX SUPPLEMENT MEDICARE PART A & B [facility] MEDEX SUPPLEMENT MEDICARE PART A & B [employer] MEDEX SUPPLEMENT MEDICARE PART A & B [employer] MEDEX SUPPLEMENT MEDICARE PART A & B Care Teams Obgyn Nurse Relationship Specialty Start Date End Date Ayush, Dima Franco MD [address] [place] [address] PCP - General Internal Medicine 08/17/18 Additional Source Comments The information contained in this document represents components of the legal health record. It is not the complete legal health record.[facility]
[2025-07-07 14:55] VITALS: BMI 35.9
--- NOTE | 2025-07-08 08:26 | HO.ANESPROP2 ---
Documented by User: Rossi Kamara NP 07/08/25 08:27 HPI - Anesthesia Eval Consult details Narrative: 74yo M for Colonoscopy PMF Active Problems Active Problems: All Active Problems Environmental allergies (Acute) Hematuria (Acute) S/P laparoscopic cholecystectomy (Acute) Coronary artery disease (Acute) Sinusitis (Acute) COPD exacerbation (Acute) Polymyositis (Acute) Peripheral vascular disease (Acute) Blood pressure elevated without history of HTN (Acute) Hypercholesterolemia (Acute) Impaired fasting glucose (Acute) COPD (chronic obstructive pulmonary disease) (Acute) Nicotine dependence, cigarettes, uncomplicated (Acute) Allergic rhinitis (Acute) Vitamin B 12 deficiency (Acute) BPH (benign prostatic hyperplasia) (Acute) Erectile dysfunction (Acute) Complex renal cyst (Acute) Tubular adenoma of colon (Acute) Obesity (BMI 30-39.9) (Acute) Left leg numbness (Acute) Eyelid abnormality (Acute) Weakness (Acute) Right lateral epicondylitis (Acute) Past Medical History Medical History Hx of malignant melanoma Polymyositis Parotid mass Peripheral vascular disease Hypercholesterolemia COPD (chronic obstructive pulmonary disease) Pulmonary nodule Nicotine dependence, cigarettes, uncomplicated Allergic rhinitis BPH (benign prostatic hyperplasia) Obesity (BMI 30-39.9) Knee osteoarthritis Cholelithiasis Vitamin D deficiency Erectile dysfunction Tubular adenoma of colon Renal calculi Family History Family History Father Lung cancer CVD (cardiovascular disease) Stroke Liver cancer CHF (congestive heart failure) Mother CVD (cardiovascular disease) CHF (congestive heart failure) Sister Ovarian cancer Family history of problems with anesthesia: No Surgical History Surgical History Hx laparoscopic cholecystectomy (01/02/25) History of parotidectomy History of melanoma excision History of rectal sphincterotomy History of hemorrhoidectomy History of colonoscopy History of Problems with Anesthesia: Yes Social History Social History Household Members: None Housing: House Do you presently have visiting nurse or other home services: No Alcohol intake: current Alcohol intake frequency: holidays/special occasions only Alcohol type: beer Comment: COUNTS CORRECT Patient Tobacco Use Status: Current everyday Tobacco user Tobacco use type: Cigarette Cigarette Packs Per Day: 0.5 Cigarettes Per Day: 10 Years Smoked: 40 e-Cigarette/Vaping Use: Never Used Second Hand Smoke Exposure: Yes Substance Use Type: Marijuana Advance Directives: No Advance Directives Information Provided: Yes service: Yes Current occupational status: retired Cognitive needs: No Hearing needs: No Vision needs: Yes Meds Allergies Allergy/AdvReac Type Severity Reaction Status Date / Time No Known Allergies (No Known Allergy Verified 07/09/25 09:38 Allergies*) Home Medications ?Medication ?Instructions ?Recorded ?Confirmed ?Last Taken ?Type clotrimazole 1 % topical cream 1 appl topical BID PRN Rash 01/01/25 03/21/25 Unknown History ibuprofen 200 mg tablet (Advil) 600 mg PO Q8H PRN pain 01/01/25 03/21/25 Unknown History Exam Height,Weight and Vital Signs: Height 5 ft 10 in Weight 113.398 kg Assessment and Plan Assessment Anesthesia Assessment: Chart Reviewed Final Anesthetic Review Family History of Problems with Anesthesia: No History of Problems with Anesthesia: Yes Documented by User: Alanna Barajas MD 07/09/25 09:54 [facility] Past Medical History Medical History Hx of malignant melanoma Polymyositis Parotid mass Peripheral vascular disease Hypercholesterolemia COPD (chronic obstructive pulmonary disease) Pulmonary nodule Nicotine dependence, cigarettes, uncomplicated Allergic rhinitis BPH (benign prostatic hyperplasia) Obesity (BMI 30-39.9) Knee osteoarthritis Cholelithiasis Vitamin D deficiency Erectile dysfunction Tubular adenoma of colon Renal calculi Family History Family History Father Lung cancer CVD (cardiovascular disease) Stroke Liver cancer CHF (congestive heart failure) Mother CVD (cardiovascular disease) CHF (congestive heart failure) Sister Ovarian cancer Surgical History Surgical History Hx laparoscopic cholecystectomy (01/02/25) History of parotidectomy History of melanoma excision History of rectal sphincterotomy History of hemorrhoidectomy History of colonoscopy Social History Social History Household Members: None Housing: House Do you presently have visiting nurse or other home services: No Alcohol intake: current Alcohol intake frequency: holidays/special occasions only Alcohol type: beer Comment: COUNTS CORRECT Patient Tobacco Use Status: Current everyday Tobacco user Tobacco use type: Cigarette Cigarette Packs Per Day: 0.5 Cigarettes Per Day: 10 Years Smoked: 40 e-Cigarette/Vaping Use: Never Used Second Hand Smoke Exposure: Yes Substance Use Type: Marijuana Advance Directives: No Advance Directives Information Provided: Yes service: Yes Current occupational status: retired Cognitive needs: No Hearing needs: No Vision needs: Yes Meds Allergies Allergy/AdvReac Type Severity Reaction Status Date / Time No Known Allergies (No Known Allergy Verified 07/09/25 09:38 Allergies*) Home Medications ?Medication ?Instructions ?Recorded ?Confirmed ?Last Taken ?Type clotrimazole 1 % topical cream 1 appl topical BID PRN Rash 01/01/25 03/21/25 Unknown History ibuprofen 200 mg tablet (Advil) 600 mg PO Q8H PRN pain 01/01/25 03/21/25 Unknown History Exam Airway Mallampati Class: II TM Dist: >3cm Neck ROM: Full Denture: Upper Heart: rrr Lungs: cta Assessment and Plan Assessment Anesthesia Assessment: Anesthesia Plan Discussed Final Anesthetic Review NPO: Yes ASA Class: III Final Preanesthetic Review: No Changes in Pt Med Stat, Meds/Allgs Chart Reviewed and Consent Obtained/Reviewed Patient Risk: Low Procedure Risk: Low Anesthetic Plan Anesthetic Plan: MAC: Disposition: Standard PACU
[2025-07-09 09:51] VITALS: BMI 33.1
[2025-07-09 10:01] VITALS: BP 158/87; PULSE 67; RESP 16; TEMP 36.3; O2SAT 96
[2025-07-09] MEDS: Lactated Ringers 1,000 ML 100 ML IVCONT (10:11)
[2025-07-09 11:30] VITALS: BP 113/68; PULSE 61; RESP 16; TEMP 36.1; O2SAT 95
--- NOTE | 2025-07-09 11:35 | P.BOP_ITS ---
Brief Operative Note Date of Service: 07/09/25 Pre-op diagnosis: Screening Post-op diagnosis: other (Coon polyps) Procedure: Colonoscopy to the cecum and TI with cold snare polypectomies and bx/removal of polyps Surgeon: Jah Roth MD Anesthesia: MAC Was an Production Line Solderer used for this Procedure?: No Estimated blood loss (mL): 2.0 Pathology: other (A. Polyp from area of appendiceal orifice B. Cecal polyp C. Ascending colon polyp D. Transverse colon polyps) Condition: stable Disposition: PACU
[2025-07-09 11:45] VITALS: BP 116/74; PULSE 61; RESP 16; O2SAT 98
[2025-07-09 12:00] VITALS: BP 109/68; PULSE 60; RESP 18; TEMP 36.1; O2SAT 98
--- NOTE | 2025-07-09 12:13 | OP_ITS ---
DATE OF SERVICE: 07/09/2025 SURGEON: Jah Roth MD INDICATIONS: The patient presents for followup of personal history of tubular adenoma of the colon and colorectal cancer screening. Full consent has been obtained from him for this, including risks of bleeding and perforation. PREOPERATIVE DIAGNOSIS: POSTOPERATIVE DIAGNOSIS: PROCEDURE PERFORMED: Colonoscopy to the cecum and terminal ileum with cold snare polypectomies and biopsy and removal of polyps. ESTIMATED BLOOD LOSS: COMPLICATIONS: ANESTHESIA: Medication used, monitored anesthesia care. ASSISTANTS: SPECIMENS: PREOPERATIVE DIAGNOSES: Colorectal cancer screening and personal history of tubular adenoma of the colon. POSTOPERATIVE DIAGNOSES: Colorectal cancer screening and personal history of tubular adenoma of the colon, colon polyps, diverticulosis, internal hemorrhoids. DESCRIPTION OF PROCEDURE: The patient was placed in the left lateral decubitus position. The digital rectal exam revealed no abnormalities. The [employer] video pediatric colonoscope was entered into the rectum and advanced easily to the cecum. Once in the cecum, I did identify cecal pouch with appendiceal orifice and a normal-appearing ileocecal valve. The terminal ileum was cannulated and appeared normal. The scope was withdrawn back in the colon. The entire cecum was well visualized. In the area of the appendiceal orifice was a flat, but raised approximately 6 to 8 mm polyp, which appeared to be grossly adenomatous. This was removed almost completely by cold snare polypectomy and the remaining small piece was removed by the cold biopsy forceps. The polypectomy site appeared clean, without any sign of residual polyp nor significant bleeding. Also in the cecum was a flat 3 mm polyp, which was biopsied and completely removed with a cold biopsy forceps. The scope was then slowly withdrawn assessing all mucosal surfaces carefully. Preparation was excellent. In the ascending colon was a flat 4 mm polyp, which was biopsied and completely removed with a cold biopsy forceps. In the region of the transverse colon were multiple polyps of approximately 4 or 5 mm in diameter. These were all biopsied and completely removed with a cold biopsy forceps. There was also an approximately 8 to 10 mm polyp, which was removed by cold snare polypectomy. I did not visualize any other significant polyps, colitis, or angiodysplasia. In the sigmoid colon and rectum were multiple, approximately 3 mm probable hyperplastic polyps, which were not biopsied nor removed given their minimal appearance and his age. There was a mild amount of sigmoid diverticulosis. I did not visualize any sign of colitis nor angiodysplasia. In the rectum, scope was retroflexed visualizing internal hemorrhoids, but no other pathology aside from the above-mentioned hyperplastic appearing polyps. The scope was straightened and withdrawn from the patient. He tolerated the procedure well and was returned to the recovery area in stable condition. IMPRESSION: 1. Colon polyps. 2. Diverticulosis. 3. Internal hemorrhoids. PLAN: The results of the Pathology will be checked. Given these findings and his age, I do not think he would need any further screening colonoscopies. He will otherwise see me as needed. He was advised not to use any aspirin nor NSAIDs for 1 week. MD CONOR Larry/PATRICK / [phone]
== END 2025-07-09 12:23 | disposition home or self-care (01) ==
PROVIDERS: PCP Internal Medicine; Visit Provider Internal Medicine
PROC: 0DJD8ZZ Inspection of Lower Intestinal Tract, Via Natural or Artificial Opening Endoscopic (ICD-10-PCS; CPT 45378; principal; 2025-07-09 10:30)
DX: Z12.11 Encounter for screening for malignant neoplasm of colon (principal); D12.0 Benign neoplasm of cecum; D12.3 Benign neoplasm of transverse colon; K57.30 Diverticulosis of large intestine without perforation or abscess without bleeding; K64.8 Other hemorrhoids; Z86.0101 Personal history of adenomatous and serrated colon polyps; J44.9 Chronic obstructive pulmonary disease, unspecified; Z79.1 Long term (current) use of non-steroidal anti-inflammatories (NSAID)
CPT/HCPCS: 45385; 45380; 88305; J2704

== ENCOUNTER 2025-07-28 11:08 | Outpatient (REF) | payer MEDICARE, SELFPAY ==
--- NOTE | ~2025-07-28 | XR_ITS ---
EXAMINATION: XR PARANASAL SINUSES 3 VIEWS HISTORY: CHRONIC RHINITIS COMPARISON: Comparison is made with the prior examination dated 08/01/2024. FINDINGS: Four views of the paranasal sinuses are submitted. The bilateral frontal, maxillary, ethmoid, and sphenoid sinuses are well aerated and clear. XR/XR sinus min 3V IMPRESSION: Unremarkable examination of the paranasal sinuses. Electronically signed by: Jah Narvaez MD 07/28/2025 01:16 PM EDT
== END 2025-07-28 11:09 | disposition home or self-care (01) ==
LOC: HO.XRAY 11:08
PROVIDERS: Absent Provider Allergy & Immunology; PCP Internal Medicine; Visit Provider Internal Medicine
DX: J31.0 Chronic rhinitis (principal); I25.10 Atherosclerotic heart disease of native coronary artery without angina pectoris; E78.00 Pure hypercholesterolemia, unspecified; R73.01 Impaired fasting glucose; E66.9 Obesity, unspecified; N40.0 Benign prostatic hyperplasia without lower urinary tract symptoms; J43.1 Panlobular emphysema; D12.6 Benign neoplasm of colon, unspecified; F17.210 Nicotine dependence, cigarettes, uncomplicated; Z79.899 Other long term (current) drug therapy; Z68.34 Body mass index [BMI] 34.0-34.9, adult
CPT/HCPCS: 70220; 99212

== ENCOUNTER 2025-07-28 11:08 | Outpatient (AMB) | payer MEDICARE, SELFPAY ==
--- OUTSIDE RECORDS SUMMARY | 2025-07-09 06:30 | XMS_ITS ---
Author Organization [facility] Address [address] [place] [address] Care Team Providers Care Disability Advocate Name Role Phone Dima Peacock MD Primary Care Provider Jah Tracey [phone] REASON FOR VISIT screening, hx polyps Encounters Encounter Location Date Provider Diagnosis [facility] [place] [facility] [address] [place] [id number] 07/09/2025 Jah Roth Plan Of Treatment No Information Progress Notes * RACHELLE SIDDIQUI RDOB: 0 (75 yo M)Acc No.[id number]:07/09/2025 COLON WITH MAC Patient: RACHELLE JACKSON Provider: Raven Roth MD :1950 A ge:74 Y S ex:Male Date:07/09/2025 Address:[address] [place], [place] [phone] Pcp:Dima Peacock MD Subjective: * Chief Complaints: [...] Pending * Provider: Raven Roth MD Date: 07/09/2025 Generated for Dharmesh gonzalez/Tish/Juan Diegoitting on: 07/28/2025 12:38 PM EDT
[2025-07-28 11:17] VITALS: BP 114/62; PULSE 68; O2SAT 97; BMI 34.4
--- NOTE | 2025-07-28 11:17 | A.OFFPC_ITS ---
Vital Signs 07/28/25 11:17 Height 5 ft 10 in Weight 240 lb BMI 34.4 BP 114/62 Blood Pressure Location Lt brachial Position Sitting Pulse 68 Pulse Source Pulse Oximeter Pulse Oximetry (%) 97 Oxygen Delivery Method Room Air Intake Visit Reasons: cad, hypercholesterol Allergies No Known Allergies (No Known Allergies*) Allergy (Verified 07/28/25 11:17) Medication List - Last Reconciled 07/28/25 by Dima Peacock MD clotrimazole 1% 1 appl topical BID PRN naproxen sodium (Aleve) 220 mg PO BID PRN Tobacco use date assessed: 01/17/25 Fall risk assessment: No Falls in past year Last assessed Fall Risk: 07/28/25 Dental Screening Dental Screen Date: 12/12/24 [facility] Medical History (Updated 07/28/25 @ 11:52 by Dima Peacock MD) Hx of malignant melanoma Polymyositis Parotid mass Peripheral vascular disease Hypercholesterolemia COPD (chronic obstructive pulmonary disease) Pulmonary nodule Nicotine dependence, cigarettes, uncomplicated Allergic rhinitis BPH (benign prostatic hyperplasia) Obesity (BMI 30-39.9) Knee osteoarthritis Cholelithiasis Vitamin D deficiency Erectile dysfunction Tubular adenoma of colon Renal calculi Surgical History Hx laparoscopic cholecystectomy (01/02/25) History of parotidectomy History of melanoma excision History of rectal sphincterotomy History of hemorrhoidectomy History of colonoscopy Family History Father Lung cancer CVD (cardiovascular disease) Stroke Liver cancer CHF (congestive heart failure) Mother CVD (cardiovascular disease) CHF (congestive heart failure) Sister Ovarian cancer Social History Household Members: None Housing: House Do you presently have visiting nurse or other home services: No Alcohol intake: current Alcohol intake frequency: holidays/special occasions only Alcohol type: beer Comment: COUNTS CORRECT Patient Tobacco Use Status: Current everyday Tobacco user Tobacco use type: Cigarette Cigarette Packs Per Day: 1 Cigarettes Per Day: 20.0 Years Smoked: 40 e-Cigarette/Vaping Use: Never Used Second Hand Smoke Exposure: Yes Substance Use Type: Marijuana service: Yes Current occupational status: retired Cognitive needs: No Hearing needs: No Vision needs: Yes Questionnaire Thrive Questionnaire Date Thrive assessed: 03/14/25 I am a: Patient What is your living situation today?: I have a steady place to live Within the past 12 months, did the food you bought not last and you didn't have the money to get more?: Often true Within the past 12 months, did you worry whether your food would run out before you got money to buy more?: Never true Do you have trouble paying for medicines?: No Do you have trouble getting transportation to medical appointments?: No Do you have trouble paying your heating and electricity bill?: No Do you have trouble taking care of your child, family member or friend?: No Do you have trouble with day-to-day activities such as bathing, preparing meals, shopping, managing finances, etc.?: No Are you currently unemployed and looking for a job?: No Are you interested in more education?: No Please select the resources that you would like help with: None Currently or been in a relationship where the following occur: I choose not to answer THRIVE Score: 1 ROB-7 AMB Questionnaire ROB-7 Date ROB - 7 assessed: 03/14/25 Source: Developed by Drs. Jah Altamirano, Nicole Sandhu, Mc Gomez and colleagues, with an educational katahrine from [employer]. Physical exam (Primary Care) Vital Signs: Last Vital Signs Pulse 68 07/28/25 11:17 BP 114/62 07/28/25 11:17 Pulse Ox 97 07/28/25 11:17 Oxygen Delivery Method Room Air 07/28/25 11:17 BMI result Body Mass Index 34.4 Tobacco/Smoking Status: Tobacco use Status Tobacco use date assessed 01/17/25 07/28/25 11:18 Patient Tobacco Use Status Current everyday Tobacco 07/28/25 11:18 Tobacco use type Cigarette 07/28/25 11:18 e-Cigarette/Vaping Use Never Used 07/28/25 11:18 Thrive Assessment: Date of Thrive Assessment Date Thrive assessed 03/14/25 07/28/25 11:18 Currently or been in a relationship where the following occur: I choose not to answer Const General: alert; No acute distress Eyes Conjunctivae: conjunctivae normal Resp Auscultation: clear to auscultation bilaterally Cardio Rate: regular rate Rhythm: regular rhythm GI Inspection: Yes normal to inspection Extrem General: Yes normal to inspection and No edema Coding Level of Care Code Est Pt Level 4 (27030) Complex EM visit Add On G2211 Diagnoses Coronary artery disease I25.10 Hypercholesterolemia E78.00 Impaired fasting glucose R73.01 Obesity (BMI 30-39.9) E66.9 BPH (benign prostatic hyperplasia) N40.0 Panlobular emphysema J43.1 COPD type: emphysema Emphysema type: panlobular Nicotine dependence, cigarettes, uncomplicated F17.210 Tubular adenoma of colon D12.6 Assessment & Plan Assessment & Plan (1) Coronary artery disease: Code(s): I25.10 - Atherosclerotic heart disease of pauma coronary artery without angina pectoris Category: Medical Plan: Control the cholesterol, weight, blood pressure, discussed about aspirin (2) Hypercholesterolemia: Code(s): E78.00 - Pure hypercholesterolemia, unspecified Category: Medical Plan: Avoid fried foods, chicken skin, eggs, butter margarine, pastries and meat. Be it pork or beef they have a lot of cholesterol LDL goal of less than 70 and triglyceride of less than 150 (3) Impaired fasting glucose: Code(s): R73.01 - Impaired fasting glucose Category: Medical Plan: Decrease the amount of carbohydrate intake, pasta, bread, rice and potatoes are all sugar and that is aside from all the sweet stuff, remember that fruits are good but they are Sweet also. (4) Obesity (BMI 30-39.9): Code(s): E66.9 - Obesity, unspecified Category: Medical Plan: Diet and exercise (5) BPH (benign prostatic hyperplasia): Comment: October 2016 Code(s): N40.0 - Benign prostatic hyperplasia without lower urinary tract symptoms Category: Medical Plan: Continue follow-up with urology (6) COPD (chronic obstructive pulmonary disease): Comment: He does have Moderate degree of obstructive airway disorder. He is relatively asymptomatic and so he does not want to use any maintenance inhaler. Code(s): J44.9 - Chronic obstructive pulmonary disease, unspecified Category: Medical Qualifiers: COPD type: emphysema Emphysema type: panlobular Qualified Code(s): J43.1 - Panlobular emphysema Plan: Strongly advised to stop smoking. On albuterol (7) Nicotine dependence, cigarettes, uncomplicated: Comment: (40PYH), HE HAD QUIT FOR A SHORT PERIOD, THEN WENT BACK TO SMOKING. CURRENTLY DOWN TO 10 CIGARETTES A DAY, AND HE DOES USE NICOTINE LOZENGES. Code(s): F17.210 - Nicotine dependence, cigarettes, uncomplicated Category: Medical Plan: Patient is strongly advised to stop smoking! (8) Tubular adenoma of colon: Comment: (TA on 2005, 2009 and 2019 scopes), June 2025 Code(s): D12.6 - Benign neoplasm of colon, unspecified Category: Medical Plan: Patient just had colonoscopy June 2025 Plan History of Present Illness The patient is a 75-year-old male presenting for a follow-up visit. The patient has a history of tubular adenoma of the colon, with the last colonoscopy performed in June 2025, during which a polypectomy was conducted. He follows up with urology for benign prostatic hyperplasia (BPH) and was last seen in April. The patient has a history of chronic obstructive pulmonary disease (COPD) and is a smoker, for which he has been strongly advised to cease smoking. He is on albuterol for management of COPD symptoms. The patient has impaired glucose tolerance and hypercholesterolemia, with the latest LDL cholesterol level recorded at 90 mg/dL, which is slightly elevated. His blood sugar and A1c levels are within normal limits. The patient has coronary artery disease and is on a management plan that includes aspirin and cholesterol management with a target LDL of less than 70 mg/dL and triglycerides of less than 150 mg/dL. An ultrasound of the kidneys revealed bilateral renal cysts. Blood work done on March 13 showed chronic stable anemia, with normal electrolytes and renal function. Liver function tests were normal, and the PSA level was 1.66. Health Maintenance - Colonoscopy performed in June 2025 for tubular adenoma surveillance - Strongly advised to stop smoking to manage COPD - Cholesterol management with LDL goal of less than 70 mg/dL Social History - Substance Use: Smoker, advised to quit smoking Review of Systems - Musculoskeletal: Reports swelling and soreness in hand and thumb, relieved by NSAIDs Physical Exam Results - Labs: Blood work showed chronic stable anemia, normal electrolytes, renal function, and liver function; LDL cholesterol 90 mg/dL, PSA 1.66 - Imaging: Ultrasound revealed bilateral renal cysts Plan Patient was informed and verbally consented to the use of an ambient scribe for clinic note documentation during this visit. 1. Tubular Adenoma Of The Colon The patient underwent a colonoscopy in June 2025, during which a polypectomy was performed for tubular adenoma. Continued surveillance is recommended. 2. Benign Prostatic Hyperplasia (Bph) The patient follows up with urology for BPH and was last seen in April. 3. Chronic Obstructive Pulmonary Disease (Copd) The patient is advised to stop smoking and is on albuterol for symptom management. 4. Impaired Glucose Tolerance The patient's blood sugar and A1c levels are within normal limits, indicating stable glucose tolerance. 5. Hypercholesterolemia The patient is on a cholesterol management plan with a target LDL of less than 70 mg/dL. 6. Coronary Artery Disease The patient is on a management plan that includes aspirin and cholesterol management with a target LDL of less than 70 mg/dL and triglycerides of less than 150 mg/dL. 7. Bilateral Renal Cysts An ultrasound revealed bilateral renal cysts, which are being monitored. 8. Anemia The patient has chronic stable anemia as indicated by recent blood work. Discussion Notes Patient Instructions - Continue follow-up with urology for BPH management. - Strongly advised to stop smoking to improve COPD symptoms. - Maintain cholesterol management with a target LDL of less than 70 mg/dL. Orders: Orders Thyroid Stimulating Hormone Today I25.10 - Atherosclerotic heart disease of pauma coronary artery without angina pectoris Comprehensive Met. Panel 3 Months I25.10 - Atherosclerotic heart disease of pauma coronary artery without angina pectoris Lipid Panel 3 Months E78.00 - Pure hypercholesterolemia, unspecified, I25.10 - Atherosclerotic heart disease of pauma coronary artery without angina pectoris Free T4 (Free Thyroxine) 3 Months I25.10 - Atherosclerotic heart disease of pauma coronary artery without angina pectoris Hemoglobin A1c 3 Months I25.10 - Atherosclerotic heart disease of pauma coronary artery without angina pectoris
--- OUTSIDE RECORDS SUMMARY | 2025-07-28 12:38 | XMS_ITS | Patient Health Record ---
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) Idiopathic neuropathy (G60.9) Active confirmed Problem Polymyositis (67712076) Polymyositis (M33.20) Active confirmed Plan Of Treatment Pending Test Test Name Order Date X ray : Foot, left 3V 01/08/2020 Insurance Providers Payer Name Payer Address Payer Phone Subscriber Number Group Number Insured Name Patient Relationship to Insured Coverage Start Date Coverage End Date Medicare National [employer] [address] [place] [address] [id number] Francisco Javier Michel Self - patient is the insured [facility] [address] [place] [address] [phone] [id number] Francisco Javier Michel Self - patient is the insured Medical (General) History Medical History History ICD Code Back,Hip,and Knee pain Cancer Lung disease Sciatica Measles Mumps Chicken pox Surgical History Surgery Date(Month/Year) melanoma excision 09/1996
--- OUTSIDE RECORDS SUMMARY | 2025-07-28 12:39 | XMS_ITS | Patient Health Record ---
Author Organization [facility] Address [address] [place] [address] Care Team Providers Care Sheet Hanger Name Role Phone Dima Peacock MD Primary Care Provider Jah Tracey [phone] Allergies No Known Allergies Results Component Value Reference Range Notes Pathology (Not yet reviewed by provider) Interpretation: Performing Lab:[facility], [address] [place] [id number] Notes/Report: Reason For Referral No Information Medications Medication [...] Problem Status W/U Status Risk Notes Problem [id number] Encounter for screening for malignant neoplasm of colon (Z12.11) Active confirmed Problem 832112202 History of adenomatous polyp of colon (Z86.010) Active confirmed Problem [id number] Preprocedural examination (Z01.818) Active confirmed Problem 701203563 Encntr long-term NSAID use (Z79.1) Active confirmed Problem Intestinal malabsorption (369894291) 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 Vital Signs Temperature 98.9 degrees Fahrenheit 04/16/2025 Blood pressure diastolic 01 mm Hg 04/16/2025 Height 70 in 04/16/2025 Blood pressure systolic 001 mm Hg 04/16/2025 Weight 250 lbs 04/16/2025 BMI 35.87 kg/m2 04/16/2025 Procedures Procedure Date Ordered Date Performed Result Body Sit e COLONOSCOPY 04/16/2025 N/A Encounters Encounter Location Date Provider Diagnosis [facility] [place] [address] [place] [phone] 07/09/2025 Jah Roth [facility] [address] [place] [address] 04/16/2025 Jah Roth History of adenomato us [...] Test Test Name Order Date COLONOSCOPY 04/16/2025 Pathology 07/09/2025 Future Test Test Name Order Date COLONOSCOPY 05/20/2015 COLONOSCOPY 07/21/2020 Insurance Providers Payer Name Payer Address Payer Phone Subscriber Number Group Number Insured Name Patient Relationship to Insured Coverage Start Date Coverage End Date MEDICARE OF [place] [address] [place] [id number] FRANCISCO JAVIER SIDDIQUI Self - patient is the insured [employer] CLAIM[employer] [address] [place] [address] [id number] FRANCISCO JAVIER SIDDIQUI Self - patient is the insured Medical (General) History Medical History History ICD Code Tubular adenomas removed in 2005 and 12/2009; colonoscopy 07/2015 with removal of small rectal hyperplastic polyp Denies SD,DM,CVA,renal disease Renal cyst COPD- beginning stage Polymyositis Melanoma with surgey as below--kumar d Interferon for 1 year Qvtijvtzji-pocfkluqrfzz-qgfo d incidentally on a CAT scan for [...]
== END 2025-07-28 12:13 | disposition home or self-care (01) ==
LOC: HO.HMCH 11:09
PROVIDERS: PCP Internal Medicine; Visit Provider Internal Medicine
DX: I25.10 Atherosclerotic heart disease of native coronary artery without angina pectoris (principal); J43.1 Panlobular emphysema; E66.9 Obesity, unspecified; Z68.34 Body mass index [BMI] 34.0-34.9, adult; E78.00 Pure hypercholesterolemia, unspecified; R73.01 Impaired fasting glucose; N40.0 Benign prostatic hyperplasia without lower urinary tract symptoms; F17.210 Nicotine dependence, cigarettes, uncomplicated; D12.6 Benign neoplasm of colon, unspecified

== ENCOUNTER → 2025-07-28 12:32 | Outpatient (BNV) | payer MEDICARE, SELFPAY | PROVIDERS: Absent Provider Allergy & Immunology; PCP Internal Medicine; Visit Provider Radiology Diagnostic Radiology | DX: J31.0 Chronic rhinitis (principal) | CPT/HCPCS: 70220 ==

== ENCOUNTER 2025-09-02 13:22 | Outpatient (AMB) | payer MEDICARE, SELFPAY ==
--- OUTSIDE RECORDS SUMMARY | 2025-07-09 05:30 | XMS_ITS ---
Author Organization [facility] Address [address] [place] [address] Care Team Providers Care Duck Farmer Name Role Phone Dima Peacock MD Primary Care Provider Jah Tracey [phone] REASON FOR VISIT screening, hx polyps Encounters Encounter Location Date Provider Diagnosis [facility] [address] [place] [phone] 07/09/2025 Jah Roth Plan Of Treatment No Information Progress Notes * RACHELLE SIDDIQUI RDOB: 0 (75 yo M)Acc No.[id number]:07/09/2025 COLON WITH MAC Patient: RACHELLE JACKSON Provider: Raven Roth MD :1950 A ge:74 Y S ex:Male Date:07/09/2025 Address:[address] [place], [place] [id number] Pcp:Dima Peacock MD Subjective: * Chief Complaints: [...] MD Date: 0 07/09/2025 Generated for Dharmesh gonzalez/Tish/Iram on: 11/02/2024 04:17 PM EST
--- NOTE | 2025-09-02 13:28 | MHC.OFFVIS ---
Vital Signs 09/02/25 13:31 Height 5 ft 10 in Weight 240 lb 4.862 oz BMI 34.5 BP 108/70 Blood Pressure Location Lt brachial Position Sitting Pulse 79 Pulse Source Pulse Oximeter Pulse Oximetry (%) 96 Oxygen Delivery Method Room Air Intake Visit Reasons: COPD Intake Note: pt is here for follow up and states his breathing is about the same. 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 FOLLOW-UP AFTER 6 MONTHS IS BREATHING STATUS IS ALMOST SAME BEFORE EXCEPT THAT HE IS HAVING BOUTS OF SHORTNESS OF BREATH AND COUGH MORE OFF. HE ALSO GETS INTERMITTENT NASAL CONGESTION WHICH CAUSES COUGH . HE ADMITS THAT WHEN HE DOES USE THE IPRATROPIUM NASAL SPRAY. HAS NASAL CONGESTION IS CONTROLLED FOR A FEW DAYS AT THE TIME. BUT HE IS JUST NOT FOUND USING THE MEDICATIONS. SIMILARLY HE DOES HAVE MODERATELY SEVERE OBSTRUCTIVE AIRWAY DISORDER. BUT HESITANT TO USE ANY CONTROLLER AGENT. HE ALSO DOES NOT USE ANY RESCUE INHALER. IS SMOKING 15 CIGARETTES A DAY. HE DOES GO FOR ANNUAL LUNG SCREENING, AND IS DUE TO HAVE LDCT T OF THE CHEST IN SEPTEMBER OF THIS YEAR. [facility] Medical History Hx of malignant melanoma Polymyositis Parotid mass Peripheral vascular disease Hypercholesterolemia COPD (chronic obstructive pulmonary disease) Pulmonary nodule Nicotine dependence, cigarettes, uncomplicated Allergic rhinitis BPH (benign prostatic hyperplasia) Obesity (BMI 30-39.9) Knee osteoarthritis Cholelithiasis Vitamin D deficiency Erectile dysfunction Tubular adenoma of colon Renal calculi Surgical History Hx laparoscopic cholecystectomy (01/02/25) History of parotidectomy History of melanoma excision History of rectal sphincterotomy History of hemorrhoidectomy History of colonoscopy Family History Father Lung cancer CVD (cardiovascular disease) Stroke Liver cancer CHF (congestive heart failure) Mother CVD (cardiovascular disease) CHF (congestive heart failure) Sister Ovarian cancer Social History Household Members: None Housing: House Do you presently have visiting nurse or other home services: No Alcohol intake: current Alcohol intake frequency: holidays/special occasions only Alcohol type: beer Comment: COUNTS CORRECT Patient Tobacco Use Status: Current everyday Tobacco user Tobacco use type: Cigarette Cigarette Packs Per Day: 1 Cigarettes Per Day: 20.0 Years Smoked: 40 e-Cigarette/Vaping Use: Never Used Second Hand Smoke Exposure: Yes Substance Use Type: Marijuana service: Yes Current occupational status: retired Cognitive needs: No Hearing needs: No Vision needs: Yes Review of Systems Const All systems reviewed & are unremarkable except as noted in HPI and below ENT Reports hearing loss (WHEN HIS EARS FEEL BLOCKED) and Reports nasal congestion (IN A.M. HOURS) Card Denies chest pain and Reports dyspnea on exertion Resp Reports cough (mild intermittent .), Reports dyspnea on exertion and Denies wheezing Musc Reports arthralgias (rt elbow ) Aller/Immun Denies wheezing Physical Exam Vital Signs: Last Vital Signs Pulse 79 09/02/25 13:31 BP 108/70 09/02/25 13:31 Pulse Ox 96 09/02/25 13:31 Oxygen Delivery Method Room Air 09/02/25 13:31 BMI result Body Mass Index 34.5 Const General: healthy appearing (EXCEPT BEING MODERATELY OVERWEIGHT ), comfortable, no acute distress, alert and awake Orientation/consciousness: patient oriented x3 HEENT Head: Yes normal to inspection General nose exam: No nasal polyps present and No nasal discharge present Face and sinus: Yes sinuses nontender Mouth: oropharynx normal Throat: Yes posterior oropharynx normal Eyes General: appearance normal, both eyes and all related structures Neck Neck: Yes normal visual inspection, Yes no lymphadenopathy, Yes trachea midline and Yes no JVD Thyroid: Thyroid normal Chest Chest palpation & inspection: normal inspection of the chest, normal palpation of entire chest wall and no tenderness Resp Effort & Inspection: prolonged expiratory phase Auscultation: no crackles, wheezes (HE DOES HAVE A FEW EXPIRATORY WHEEZES IN THE UPPER PARTS OF THE CHEST) and diminished lung sounds (SLIGHTLY DISTANT ) Cardio Palpation: normal PMI Rate: regular rate Rhythm: regular rhythm Heart sounds: no gallops and no murmurs Peripheral pulses: Peripheral pulses 2+ throughout GI Palpation (GI): Soft to palpation, nontender, No hepatosplenomegaly present and no masses Auscultation: normal bowel sounds Back/Spine/Pelvis Thoracic/Lumbar Spine: thoracic and lumbar spine normal to inspection Skin General skin exam: no rashes or lesions noted Neuro General: patient oriented x3 and no focal motor deficits Cranial nerves: Yes CN's II-XII intact bilaterally Extrem General: Yes normal to inspection, Yes no clubbing, cyanosis or edema and Yes no calf tenderness Psych Speech and movement: Normal speech and movement present Assessment & Plan Assessment & Plan (1) COPD (chronic obstructive pulmonary disease): Comment: He does have Moderate degree of obstructive airway disorder. He is relatively asymptomatic and so he does not want to use any maintenance inhaler. 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 I told him that he should try using a maintenance inhaler, for his moderately severe COPD. And the rescue inhaler only as needed. Code(s): J44.9 - Chronic obstructive pulmonary disease, unspecified Category: Medical Qualifiers: COPD type: emphysema Emphysema type: panlobular Qualified Code(s): J43.1 - Panlobular emphysema Plan: Will order Incruse Ellipta for him to use only 1 inhalation daily Also will order albuterol HFA 2 puffs Q 6 hours p.r.n.. (2) Nicotine dependence, cigarettes, uncomplicated: Comment: (currently 1/2ppd - 40PYH) . Today's conversation reveals that he has actually gone to about 14 cigarettes a day. Code(s): F17.210 - Nicotine dependence, cigarettes, uncomplicated Category: Medical Plan: Had a good talk with him and I had told him that he should try to quit smoking and at least cut it down to below 10 cigarettes a day at this time (3) Allergic rhinitis: Comment: Allergic rhinitis symptoms especially in morning probably related to allergy to household air and other items, CHRONIC, with seasonal flare ups. He is not able to use nasal spray such as Flonase . But he does tolerate ipratropium nasal spray. Code(s): J30.9 - Allergic rhinitis, unspecified Category: Medical Plan: Advise that he may use ipratropium 1 spray in each nostril at least once a day Medications: New umeclidinium 62.5 mcg/actuation (Incruse Ellipta) 1 inh inhalation DAILY 30 ea 3RF copd 30 days Coding Level of Care Code Est Pt Level 3 (46026) Diagnoses Panlobular emphysema J43.1 COPD type: emphysema Emphysema type: panlobular Nicotine dependence, cigarettes, uncomplicated F17.210 Allergic rhinitis J30.9
[2025-09-02 13:31] VITALS: BP 108/70; PULSE 79; O2SAT 96; BMI 34.5
--- OUTSIDE RECORDS SUMMARY | 2025-09-02 16:17 | XMS_ITS | Patient Health Record ---
Author Organization [facility] Address [address] [place] [address] Care Team Providers Care Acid Remover Name Role Phone Dima Peacock Primary Care Provider Carrillo Best Unavailable [phone] Reason For Referral No Information Medications Medication [...] many cigarettes a day do you smoke? 09-18 Alcohol Screen Question Answer Notes Did you have a drink containing alcohol in the p ast year? Yes Points 0 Interpretation Negative Tobacco use other than smoking: Question Answer Notes Are you an other tobacco user? 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) Idiopathic neuropathy (G60.9) Active confirmed Problem Polymyositis (41391948) Polymyositis (M33.20) Active confirmed Plan Of Treatment Pending Test Test Name Order Date X ray : Foot, left 3V 01/08/2020 Insurance Providers Payer Name Payer Address Payer Phone Subscriber Number Group Number Insured Name Patient Relationship to Insured Coverage Start Date Coverage End Date Medicare National Govt Sv[employer] [address] [place] [address] [id number] Francisco Javier Michel Self - patient is the insured [employer] [facility] [address] [place] [address] [id number] Francisco Javier Michel Self - patient is the insured Medical (General) History Medical History History ICD Code Back,Hip,and Knee pain Cancer Lung disease Sciatica Measles Mumps Chicken pox Surgical History Surgery Date(Month/Year) melanoma excision 09/1996
--- OUTSIDE RECORDS SUMMARY | 2025-09-02 16:17 | XMS_ITS | Patient Health Record ---
Author Organization [facility] Address [address] [place] [address] Care Team Providers Care Director Of Veterans Affairs Name Role Phone Dima Peacock MD Primary Care Provider Jah Tracey [phone] Allergies No Known Allergies Results Component Value Reference Range Notes Pathology Reviewed date:08/17/2025 09:10:27 PM Interpretation: Performing Lab:[facility], [address] [place] [id number] Notes/Report: Reason For Referral No Information Medications [...] Problem Status W/U Status Risk Notes Problem Screening for malignant neoplasm of colon (864432359) Encounter for screening for malignant neoplasm of colon (Z12.11) Active confirmed Problem History of adenomatous polyp of colon (050601309) History of adenomatous polyp of colon (Z86.010) Active confirmed Problem Preprocedural examination (856695156364319) Preprocedural examination (Z01.818) Active confirmed 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 current use of non-steroidal anti-inflammatory drug (523238277745439) Encntr long-term NSAID use (Z79.1) Active confirmed Problem Intestinal malabsorption (283187625) 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 Vital Signs Temperature 98.9 degrees Fahrenheit 04/16/2025 Blood pressure diastolic 01 mm Hg 04/16/2025 Height 70 in 04/16/2025 Blood pressure systolic 001 mm Hg 04/16/2025 Weight 250 lbs 04/16/2025 BMI 35.87 kg/m2 04/16/2025 Procedures Procedure Date Ordered Date Performed Result Body Sit e COLONOSCOPY 04/16/2025 N/A Encounters Encounter Location Date Provider Diagnosis [facility] Outpatient [address] [place] [address] [id number] 07/09/2025 Jah Roth [facility] [address] [place] [address] 04/16/2025 Jah Roth History of adenomato us [...] [place] [address] [place] [address] [id number] FRANCISCO JAVIER SIDDIQUI Self - patient is the insured [employer] CLAIM[employer] [address] [place] [address] [id number] FRANCISCO JAVIER SIDDIQUI Self - patient is the insured Medical (General) History Medical History History ICD Code Tubular adenomas removed in 2005 and 12/2009; colonoscopy 07/2015 with removal of small rectal hyperplastic polyp Denies CA,DM,CVA,renal disease Renal cyst COPD- beginning stage Polymyositis Melanoma with surgey as below--kumar d Interferon for 1 year Ewciefbwpr-edhnxbhyaxfs-[id number] d incidentally on a CAT scan for [...]
--- OUTSIDE RECORDS SUMMARY | 2025-09-02 16:17 | XMS_ITS | Clinical Summary ---
Author Organization [facility] Address [address] [place] [id number] Phone Care Team Providers Care Inside Sales Territory Manager Name Role Phone Dima Peacock MD Primary Care Provider [phone] Social History Tobacco Use Types Packs/Day Years [...] ZOSTER VACCINES (2 of 3) 09/30/2014 08/05/2014 INFLUENZA VACCINE (#1) 2025 , 08/20/2020, 08/08/2019, Additional history exists COVID-19 VACCINE ( - season) 2025 02/08/2021 RSV VACCINE (1 - 1-dose 75+ series) 2025 Adult Td,Tdap Booster 09/15/2031 09/15/2021, 010 PNEUMOCOCCAL VACCINES (50+ years) Completed 12/14/2017, 09/29/2016 [...] topic Medical Devices Not on file Insurance [employer] MEDEX SUPPLEMENT MEDICARE PART A & B [employer] MEDEX SUPPLEMENT MEDICARE PART A & B [employer] MEDEX SUPPLEMENT MEDICARE PART A & B [employer] MEDEX SUPPLEMENT MEDICARE PART A & B [facility] MEDEX SUPPLEMENT MEDICARE PART A & B [employer] MEDEX SUPPLEMENT MEDICARE PART A & B [employer]EX SUPPLEMENT MEDICARE PART A & B [employer] MEDEX SUPPLEMENT MEDICARE PART A & B [employer] SUPPLEMENT MEDICARE PART A & B Care Teams Inside Sales Territory Manager Relationship Specialty Start Date End Date Dima Peacock MD [address] [place] [address] [place] [phone] PCP - General Internal Medicine 08/17/18 Additional Source Comments The information contained in this document represents components of the legal health record. It is not the complete legal health record.[facility]
== END 2025-09-02 13:50 | disposition home or self-care (01) ==
LOC: HO.HPS 13:23
PROVIDERS: PCP Internal Medicine; Visit Provider Internal Medicine
DX: J43.1 Panlobular emphysema (principal); F17.210 Nicotine dependence, cigarettes, uncomplicated; J30.9 Allergic rhinitis, unspecified
CPT/HCPCS: 99213

== ENCOUNTER → 2025-09-02 13:22 | Outpatient (BNVA) | payer MEDICARE, SELFPAY | PROVIDERS: PCP Internal Medicine; Visit Provider Internal Medicine | DX: J43.1 Panlobular emphysema (principal); J30.9 Allergic rhinitis, unspecified; F17.210 Nicotine dependence, cigarettes, uncomplicated | CPT/HCPCS: 99212 ==

== ENCOUNTER 2025-09-04 10:57 | Outpatient (REF) | payer MEDICARE, SELFPAY ==
[2025-09-04 17:29] LABS: MANUAL DIFF FLAG NO
[2025-09-04 17:43] LABS: Hematocrit 40.1 % (42.0-52.0); Hemoglobin 13.2 g/dl (14.0-18.0); Imm Gran Abs Auto 0.06 X10*3/uL (0.00-0.03); Imm Gran Pct Auto 0.9 % (0.0-0.4); Lymphocytes Absolute Auto 1.7 X10*3/uL (1.2-4.9); Mean Corpuscular HGB Conc 32.9 g/dl (31.0-36.0); Mean Corpuscular Hemoglobin 31.2 pg (27.0-33.0); Mean Corpuscular Volume 94.8 fL (80.0-98.0); NRBC Abs Auto 0.000 X10*3/uL (0.0-0.012); NRBC Pct Auto 0.0 /100WBC (0.0-0.2); Platelet Count 202 X10*3/uL (160-400); Red Blood Count 4.23 X10*6/uL (4.60-5.80); White Blood Count 7.0 X10*3/uL (4.8-10.8)
[2025-09-04 18:00] LABS: Alanine Aminotransferase 11 U/L (0-40); Albumin Level 4.1 g/dL (3.5-5.0); Alkaline Phosphatase 68 U/L (39-117); Anion Gap 15 (12-20); Aspartate Amino Transferase 24 U/L (5-37); Blood Urea Nitrogen 17 mg/dL (9-16); Calcium 9.2 mg/dL (8.4-10.2); Carbon Dioxide 24 mmol/L (22-29); Chloride 104 mmol/L (96-108); Estimated Glomerular Filt Rate > 60; Potassium 4.7 mmol/L (3.3-5.1); Sodium 138 mmol/L (135-145); Total Protein 7.5 g/dL (6.5-8.0)
[2025-09-12 00:49] LABS: Cytosolic 5'nuc 1A Ab IgG <5 Units; HMGCR Ab IgG <2 CU (<20); MDA5 Ab <11 SI (<11); NXP-2 (MJ) Ab <11 SI (<11); SRP Ab <11 SI (<11)
== END 2025-09-04 10:58 | disposition home or self-care (01) ==
LOC: HO.HKASLDS 10:57
PROVIDERS: PCP Internal Medicine; Visit Provider Student in an Organized Health Care Education/Training Program
DX: R20.0 Anesthesia of skin (principal); M62.81 Muscle weakness (generalized)
CPT/HCPCS: 36415; 80053; 82085; 82550; 83516; 83520; 84182; 85025; 85652; 86140; 86235; 99202

== ENCOUNTER 2025-09-04 10:57 | Outpatient (AMB) | payer MEDICARE, SELFPAY ==
--- OUTSIDE RECORDS SUMMARY | 2025-07-09 05:30 | XMS_ITS ---
Author Organization [facility] Address [address] [place] [address] Care Team Providers Care Geospatial Intelligence Analyst Name Role Phone Dima Peacock MD Primary Care Provider Jah Tracey [phone] REASON FOR VISIT screening, hx polyps Encounters Encounter Location Date Provider Diagnosis [facility] [place] [address] [place] [phone] 07/09/2025 Jah Roth Plan Of Treatment No Information Progress Notes * RACHELLE SIDDIQUI RDOB: 0 (75 yo M)Acc No.[id number]:07/09/2025 COLON WITH MAC Patient: RACHELLE JACKSON Provider: Raven Roth MD :1950 A ge:74 Y S ex:Male Date:07/09/2025 Address:[address] [place], [place] [phone] Pcp:Dima Peacock MD Subjective: * Chief Complaints: * 1 . Screening, hx polyps. * Medical History: Objective: * Vitals: Assessment: Plan: * Treatment: * * The named appointment provid er may or may not be the originator of this progress note, and it is not deemed complete until electronically signed by the appointment provider. Sign off status: Pending * Provider: Raven Roth MD Date: 0 07/09/2025 Generated for Dharmesh gonzalez/Tish/Juan Diegoitting on: 11/04/2024 01:19 PM EST
--- NOTE | 2025-09-04 10:59 | A.OFFVIS_ITS ---
Vital Signs 09/04/25 11:07 Height 5 ft 10 in Weight 239 lb 3.225 oz BMI 34.3 BP 132/90 H Blood Pressure Location Lt brachial Position Sitting Pulse 79 Pulse Source Pulse Oximeter Pulse Oximetry (%) 98 Oxygen Delivery Method Room Air Intake Visit Reasons: Polymyositis Intake Note: Patient presents for Polymyositis follow up. Allergies No Known Allergies (No Known Allergies*) Allergy (Verified 09/04/25 11:04) Medication List - Last Reconciled 09/04/25 by Pretty Pope MD clotrimazole 1% 1 appl topical BID PRN ipratropium bromide 2 sprays intranasal BID PRN naproxen sodium (Aleve) 220 mg PO BID PRN umeclidinium 62.5 mcg/actuation (Incruse Ellipta) 1 inh inhalation DAILY 30 days HPI Comments Details: Patient is a 75 year old male with COPD, HLD c/b CAD and PVD, BPH and hx of polymyositis here today to re establish care Patient initially presented in 2018 with progressive lower extremity weakness that was ascending in nature. And then progressed to involve his upper extremities . He was admitted to the hospital. At that time they performed several investigations including an MRI which was concerning for inflammation in the muscle which could be polymyositis. He refused further confirmatory testing such as lumbar puncture to rule out Guillain-Lamar syndrome or muscle biopsies at that time He was given high-dose Prednisolone with resolution of his symptoms He was never placed on any DMARD or any immunosuppressive therapy Since then his last visit with rheumatology was back in 2020 and at that time there was no evidence of muscle weakness, his CK was normal and there was no positive myositis antibodies Today he presents because he has been having pain and stiffness in his neck radiating to his upper shoulders intermittently. This would happen 3 to 4 times a year. And he is concerned that this may be related to his previous diagnosis of polymyositis He denies any muscle weakness, difficulty lifting his hands above his head, difficulty walking up stairs or getting out of a seated position No rashes [facility] Medical History Hx of malignant melanoma Polymyositis Parotid mass Peripheral vascular disease Hypercholesterolemia COPD (chronic obstructive pulmonary disease) Pulmonary nodule Nicotine dependence, cigarettes, uncomplicated Allergic rhinitis BPH (benign prostatic hyperplasia) Obesity (BMI 30-39.9) Knee osteoarthritis Cholelithiasis Vitamin D deficiency Erectile dysfunction Tubular adenoma of colon Renal calculi Surgical History Hx laparoscopic cholecystectomy (01/02/25) History of parotidectomy History of melanoma excision History of rectal sphincterotomy History of hemorrhoidectomy History of colonoscopy Family History Father Lung cancer CVD (cardiovascular disease) Stroke Liver cancer CHF (congestive heart failure) Mother CVD (cardiovascular disease) CHF (congestive heart failure) Sister Ovarian cancer Social History Household Members: None Housing: House Do you presently have visiting nurse or other home services: No Alcohol intake: current Alcohol intake frequency: holidays/special occasions only Alcohol type: beer Comment: COUNTS CORRECT Patient Tobacco Use Status: Current everyday Tobacco user Tobacco use type: Cigarette Cigarette Packs Per Day: 1 Cigarettes Per Day: 20.0 Years Smoked: 40 e-Cigarette/Vaping Use: Never Used Second Hand Smoke Exposure: Yes Substance Use Type: Marijuana service: Yes Current occupational status: retired Cognitive needs: No Hearing needs: No Vision needs: Yes Review of Systems Narrative Review of Systems Constitutional: Denies fever, chills, weight loss ENT: Denies vision changes, eye pain or eye redness, dental caries, dry mouth GI: Denies nausea, vomiting, diarrhea, abdominal pain, change in BM Pulm: Denies SOB, JEAN, hemoptysis, wheezing Cards: Denies chest pain, palpitations Skin: Denies Raynaud's, rash, nail changes, photosensitivity, REFRIGERATION SPECIALIST: Denies headaches, weakness, paresthesias, recurrent falls MSK: as per HPI All other systems reviewed and are unremarkable except noted above Physical Exam Exam Exam: Vital signs reviewed Physical Examination CONSTITUITIONAL Patient alert and cooperative. Well appearing and in no apparent painful distress MSK Hands * Right Hand: Able to make a fist. No swelling or tenderness to palpation of the MCPs, PIPs or DIPs. * Left Hand: Able to make a fist. No swelling or tenderness to palpation of the MCPs, PIPs or DIPs. * Herbedens nodes noted bilaterally Wrists * Right Wrist: Full ROM to flexion and extension. No swelling or TTP * Left Wrist: Full ROM to flexion and extension. No swelling or TTP Elbows * Right Elbow: Full ROM. No swelling or TTP. No TTP of the medial epicondyle. No TTP of the lateral epicondyle * Left Elbow: Full ROM. No swelling or TTP. No TTP of the medial epicondyle. No TTP of the lateral epicondyle Shoulders * Right shoulder: No swelling noted. No TTP of the AC joint. No TTP of the subacromial bursa. No TTP of the posterior shoulder * Left shoulder: No swelling noted. No TTP of the AC joint. No TTP of the subacromial bursa. No TTP of the posterior shoulder Knees * Right knee: No swelling noted. No TTP of the knee joint line. No TTP of pes anserine bursa * Left knee: No swelling noted. No TTP of the knee joint line. No TTP of pes anserine bursa. * Crepitations felt bilaterally Ankles * Right ankle: Good ankle dorsiflexion and plantar flexion. No swelling. No TTP of the ankle joint * Left ankle: Good ankle dorsiflexion and plantar flexion. No swelling. No TTP of the ankle joint Feet * Right foot: Negative squeeze test * Left foot: Negative squeeze test Tender points? * No tenderness to palpation of the bilateral trapezius, supraspinatus, anterior costochondral junctions, bilateral suboccipital muscle insertions SKIN No rashes Right Left Seismograph Recorder strength 5 5 Wrist flexion 5 5 Wrist extension 5 5 Elbow extension 5 5 Elbow flexion 5 5 Shoulder abduction 5 5 Shoulder adduction 5 5 Hip flexion 5 5 Knee extension 5 5 Knee flexion 5 5 Ankle dorsiflexion 5 5 Ankle plantar flexion 5 5 Vital Signs: Last Vital Signs Pulse 79 09/04/25 11:07 BP 132/90 H 09/04/25 11:07 Pulse Ox 98 09/04/25 11:07 Oxygen Delivery Method Room Air 09/04/25 11:07 BMI result Body Mass Index 34.3 Results Reviewed Results Reviewed: Laboratory Tests 03/13/25 05/21/25 07:24 08:12 WBC 8.8 RBC 4.26 L Hgb 13.6 L Hct 39.7 L Plt Count 190 ESR 16 H Sodium 141 Potassium 4.3 Chloride 108 Carbon Dioxide 26 BUN 13 Creatinine 0.89 AST 21 ALT 8 C-Reactive Protein 1.10 H Laboratory Tests 08/03/18 15:23 Rheumatoid Factor < 15.0 Cycl Citrul Peptide IgG 73 H DOYLE Screen Positive H DOYLE Titer 1:160 H AKASH-1 Antibody <1.0 SS-A/Ro Antibody <1.0 SS-B/La Antibody <1.0 Assessment & Plan Assessment & Plan (1) Polymyositis: Comment: October 2018 NUMBNESS/WEAKNESS FINGERS LEFT HAND,LEFT FOOT Code(s): M33.20 - Polymyositis, organ involvement unspecified Category: Medical Plan: #?Polymyositis Patient is a 75-year-old male who is here to follow up about a previous diagnosis of polymyositis On extensive review of his chart as well as his history I am not convinced that has patient had polymyositis at onset. He did have an MRI showing muscle inflammation however this does not confirm the diagnosis of polymyositis. His CK was normal and his myositis antibodies were also negative. His symptoms improved after a course of steroids and did not require further immunosuppression which is very unlike myositis. I explained this to the patient in detail and advised him that he may have actually had a neurologic/neuropathic syndrome such as Guillain-Lamar which was never confirmed or ruled out with lumbar puncture. Today on exam he has good strength throughout and his history was not consistent with a patient with inflammatory myopathy. His history is more consistent with C-spine degenerative disease with conc omitant muscle spasm of the trapezius muscle. For completion we will recheck labs today but he does not require further rheumatology follow up Plan - Check CBC, CMP, ESR, CRP, CK, Aldolase, MSA extended panel - XR C spine - RTC prn Plan I spent 60 minutes reviewing the record and labs, taking a history, examining the patient, discussing the treatment plan, ordering diagnostic work up and documenting in the medical record Orders: Orders Complete Blood Count Auto Diff Today M33.20 - Polymyositis, organ involvement unspecified Creatine Kinase Total Today M33.20 - Polymyositis, organ involvement unspecified Erythrocyte Sedimentation Rate Today M33.20 - Polymyositis, organ involvement unspecified XR cervical spine 4V Today M54.2 - Cervicalgia Comprehensive Met. Panel Today M33.20 - Polymyositis, organ involvement unspecified C Reactive Protein Today M33.20 - Polymyositis, organ involvement unspecified Aldolase Today M33.20 - Polymyositis, organ involvement unspecified MSA Panel Extended Today M33.20 - Polymyositis, organ involvement unspecified Coding Level of Care Code New Pt Level 5 (30292) Complex EM visit Add On G2211 Diagnoses Polymyositis M33.20
[2025-09-04 11:07] VITALS: BP 132/90; PULSE 79; O2SAT 98; BMI 34.3
--- OUTSIDE RECORDS SUMMARY | 2025-09-04 13:19 | XMS_ITS | Patient Health Record ---
Author Organization [facility] Address [address] [place] [address] Care Team Providers Care Fish And Wildlife Scientific Aid Name Role Phone Dima Peacock MD Primary Care Provider Jah Tracey [phone] Allergies No Known Allergies Results Component Value Reference Range Notes Pathology Reviewed date:08/17/2025 09:10:27 PM Interpretation: Performing Lab:[facility], [address] [place] [id number] Notes/Report: Reason For Referral No Information Medications [...] Problem Screening for malignant neoplasm of colon (610795829) Encounter for screening for malignant neoplasm of colon (Z12.11) Active confirmed Problem History of adenomatous polyp of colon (128758656) History of adenomatous polyp of colon (Z86.010) Active confirmed Problem Preprocedural examination (217475350284335) Preprocedural examination (Z01.818) Active confirmed 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-steroidal anti-inflammatory drug (155880412637328) Encntr long-term NSAID use (Z79.1) Active confirmed Problem Intestinal malabsorption (449341340) 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 Vital Signs Temperature 98.9 degrees Fahrenheit 04/16/2025 Blood pressure diastolic 01 mm Hg 04/16/2025 Height 70 in 04/16/2025 Blood pressure systolic 001 mm Hg 04/16/2025 Weight 250 lbs 04/16/2025 BMI 35.87 kg/m2 04/16/2025 Procedures Procedure Date Ordered Date Performed Result Body Sit e COLONOSCOPY 04/16/2025 N/A Encounters Encounter Location Date Provider Diagnosis [facility] Outpatient [address] [place] [id number] 07/09/2025 Jah Roth [facility] [address] [place] [address] 04/16/2025 Jah Roth History of adenomato us [...] [place] [address] [place] [address] [id number] FRANCISCO JAVIER SIDDIQUI Self - patient is the insured [employer] CLAIMS [address] [place] [address] [id number] FRANCISCO JAVIER SIDDIQUI Self - patient is the insured Medical (General) History Medical History History ICD Code Tubular adenomas removed in 2005 and 12/2009; colonoscopy 07/2015 with removal of small rectal hyperplastic polyp Denies [place],DM,CVA,renal disease Renal cyst COPD- beginning stage Polymyositis Melanoma with surgey as below--kumar d Interferon for 1 year Syshedqycn-lrebfhxjywtp-mdvu d incidentally on a CAT scan for [...]
--- OUTSIDE RECORDS SUMMARY | 2025-09-04 13:19 | XMS_ITS | Clinical Summary ---
Author Organization [facility] Address [address] [place] [address] Phone Care Team Providers Care Supervisor Tower Name Role Phone Dima Peacock MD Primary Care Provider [phone] Social History Tobacco Use Types Packs/Day Years [...] topic Medical Devices Not on file Insurance [employer] MEDEX SUPPLEMENT MEDICARE PART A & B [employer] MEDEX SUPPLEMENT MEDICARE PART A & B [employer] MEDEX SUPPLEMENT MEDICARE PART A & B [employer] MEDEX SUPPLEMENT MEDICARE PART A & B [facility] MEDEX SUPPLEMENT MEDICARE PART A & B [employer] MEDEX SUPPLEMENT MEDICARE PART A & B [employer] MEDEX SUPPLEMENT MEDICARE PART A & B [employer] MEDEX SUPPLEMENT MEDICARE PART A & B [employer] MEDEX SUPPLEMENT MEDICARE PART A & B Care Teams Supervisor Tower Relationship Specialty Start Date End Date Dima Peacock MD [address] [place] [address] [place] [address] PCP - General Internal Medicine 08/17/18 Additional Source Comments The information contained in this document represents components of the legal health record. It is not the complete legal health record.[facility]
--- OUTSIDE RECORDS SUMMARY | 2025-09-04 13:19 | XMS_ITS | Patient Health Record ---
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) Idiopathic neuropathy (G60.9) Active confirmed Problem Polymyositis (93571463) Polymyositis (M33.20) Active confirmed Plan Of Treatment Pending Test Test Name Order Date X ray : Foot, left 3V 01/08/2020 Insurance Providers Payer Name Payer Address Payer Phone Subscriber Number Group Number Insured Name Patient Relationship to Insured Coverage Start Date Coverage End Date Medicare National Govt Svcs Inc [address] [place] [address] [id number] Francisco Javier Michel Self - patient is the insured [facility] [address] [place] [address] [id number] Francisco Javier Michel Self - patient is the insured Medical (General) History Medical History History ICD Code Back,Hip,and Knee pain Cancer Lung disease Sciatica Measles Mumps Chicken pox Surgical History Surgery Date(Month/Year) melanoma excision 09/1996
== END 2025-09-04 11:59 | disposition home or self-care (01) ==
LOC: HO.RHES 10:58
PROVIDERS: PCP Internal Medicine; Visit Provider Student in an Organized Health Care Education/Training Program
DX: M33.20 Polymyositis, organ involvement unspecified (principal)
CPT/HCPCS: 99205; G2211

== ENCOUNTER 2025-10-07 15:08 | Outpatient (REF) | payer MEDICARE, SELFPAY ==
--- OUTSIDE RECORDS SUMMARY | 2025-07-09 05:30 | XMS_ITS ---
Author Organization [facility] Address [address] [place] [address] Care Team Providers Care Item Processing Clerk Name Role Phone Dima Peacock MD Primary Care Provider Jah Tracey [phone] REASON FOR VISIT screening, hx polyps Encounters Encounter Location Date Provider Diagnosis [facility] [place] [facility] [address] [place] [phone] 07/09/2025 Jah Roth Plan Of Treatment No Information Progress Notes * RACHELLE SIDDIQUI RDOB: 0 (75 yo M)Acc No.[id number]:07/09/2025 COLON WITH MAC Patient: RACHELLE JACKSON Provider: Raven Roth MD :1950 A ge:74 Y S ex:Male Date:07/09/2025 Address:[address] [place], [place] [phone] Pcp:Dima ePacock MD Subjective: * Chief Complaints: * S creening, hx polyps Billing Information: * Procedure Codes: * The named appointment provid er may or may not be the originator of this progress note, and it is not deemed complete until electronically signed by the appointment provider. Sign off status: Pending * Provider: Raven Roth MD Date: 0 07/09/2025 Generated for Dharmesh gonzalez/Tish/Juan Diegoitting on: 12/08/2024 09:30 PM EST
--- NOTE | ~2025-10-07 | XR_ITS ---
EXAMINATION: XR CERVICAL SPINE CLINICAL INFORMATION: M54.2 - Cervicalgia COMPARISON: None available. TECHNIQUE: AP, oblique, lateral, swimmer's and atlantoodontoid views. FINDINGS: Craniocervical junction is intact. Marginal osteophyte formation C5-6 and C6-7 level. Grade 1 anterolisthesis C6-7. Multilevel left neuroforamina and narrowing secondary to posterior osteophyte formation from C3-4 to C5-6 levels. Mild right neuroforamina narrowing at C4-5 and C5-6 levels. No lytic or blastic lesions. Soft tissue calcification right neck likely carotid artery. XR/XR cervical spine 4V IMPRESSION: Multilevel cervical spondylosis pronounced at C4-5 and C5-6 levels with probable grade 1 anterolisthesis C6-7 and right neuroforamina stenosis C4-5 C5-6 and left-sided neuroforamina stenosis from C3-4 to C5-6. Electronically signed by: Papito Arias MD 10/07/2025 03:44 PM CHADD
--- NOTE | ~2025-10-07 | XR_ITS ---
EXAMINATION: XR SINUSES CLINICAL INFORMATION: SINUS SERIES- RHINITIS, CHRONIC COMPARISON: None available. TECHNIQUE: 3 views of the sinuses were obtained. FINDINGS: Paranasal sinuses appear clear without air-fluid levels. No fractures are identified. No radiodense foreign bodies. XR/XR sinus <3V IMPRESSION: Unremarkable examination. Electronically signed by: Dennys Pena MD 10/07/2025 03:44 PM EST
--- OUTSIDE RECORDS SUMMARY | 2025-10-07 21:30 | XMS_ITS | Patient Health Record ---
Author Organization [facility] Address [address] [place] [address] Care Team Providers Care Currency Machine Operator Name Role Phone Dima Peacock Primary Care Provider Carrillo Best Unavailable [phone] Reason For Referral No Information Medications Medication [...] Notes Problem Hereditary disorder of nervous system (818534376) Idiopathic neuropathy (G60.9) Active confirmed Problem Polymyositis (34556092) Polymyositis (M33.20) Active confirmed Plan Of Treatment Pending Test Test Name Order Date X ray : Foot, left 3V 01/08/2020 Insurance Providers Payer Name Payer Address Payer Phone Subscriber Number Group Number Insured Name Patient Relationship to Insured Coverage Start Date Coverage End Date Medicare National Govt Svcs Inc [address] [place] [address] [id number] Francisco Javier Michel Self - patient is the insured [employer] [facility] [address] [place] [address] [id number] Francisco Javier Michel Self - patient is the insured Medical (General) History Medical History History ICD Code Back,Hip,and Knee pain Cancer Lung disease Sciatica Measles Mumps Chicken pox Surgical History Surgery Date(Month/Year) melanoma excision 09/1996
--- OUTSIDE RECORDS SUMMARY | 2025-10-07 21:30 | XMS_ITS | Patient Health Record ---
Author Organization [facility] Address [address] [place] [address] Care Team Providers Care Childcare Worker Name Role Phone Dima Peacock MD Primary Care Provider Jah Tracey [phone] Allergies No Known Allergies Results Component Value Reference Range Notes Pathology Reviewed date:08/17/2025 09:10:27 PM Interpretation: Performing Lab:[facility], [address] [place] [phone] Notes/Report: Reason For Referral No Information Medications Medication SIG (Take, Route, Fr equency, Duration) Notes Start Date End Date Status Advil 200 MG Tablet 1 tablet as needed O rally every 6 hrs prn Unknown Immunizations Vaccine Route Administration Date Status Comme nts Influenza Unknown 06/30/2019 Administered Influenza Unknown 08/20/2024 Administered Social History Social History Drugs/Alcohol: Social Info Question Answer Notes Alcohol Screen Did you have a drink containing alcohol in the past year? Yes How often did you have a drink containing alcohol in the past year? Monthly or less (1 point) How many drinks did you have on a typical day when you were drinking in the past year? 1 or 2 drinks (0 point) How often did you have 6 or more drinks on one occasion in the past year? 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 Section Notes: Smoker 1 ppd; 1-2 drinks a f ew times a week Smoker 1 ppd; 1-2 drinks a f ew times a week Smoker 1 ppd; 1-2 drinks a f ew times a week Problems Problem Type SNOMED Code ICD Code Onset Dates Problem Status W/U Status Risk Notes Problem Screening for malignant neoplasm of colon (678279741) Encounter for screening for malignant neoplasm of colon (Z12.11) Active confirmed Problem History of adenomatous polyp of colon (478715070) History of adenomatous polyp of colon (Z86.010) Active confirmed Problem Preprocedural examination (573766214483733) Preprocedural examination (Z01.818) Active confirmed Problem custodial current use of non-steroidal anti-inflammatory drug (721100503264136) Encntr long-term NSAID use (Z79.1) Active confirmed Problem Intestinal malabsorption (917147747) 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 Vital Signs Temperature 98.9 degrees Fahrenheit 04/16/2025 Blood pressure diastolic 01 mm Hg 04/16/2025 Height 70 in 04/16/2025 Blood pressure systolic 001 mm Hg 04/16/2025 Weight 250 lbs 04/16/2025 BMI 35.87 kg/m2 04/16/2025 Procedures Procedure Date Ordered Date Performed Result Body Sit e COLONOSCOPY 04/16/2025 N/A Encounters Encounter Location Date Provider Diagnosis [facility] [place] [address] [place] [id number] 07/09/2025 Jah Roth [facility] [address] [place] [address] 04/16/2025 Jah Roth History of adenomato us polyp of colon Z86.010 ; Bile salt-induced diarrhea K90.89 ; Encounter for screening for malignant neoplasm of colon Z12.11 ; Preprocedural examination Z01.818 and Encntr long-term NSAID use Z79.1 [facility] [address] [place] [phone] 04/16/2025 Jah Roth [facility] [address] [place] [phone] 07/09/2025 Jah Roth Assessments Encounter Date Diagnosis (ICD Code) Assessment [...] Date MEDICARE OF [place] [address] [place] [phone] [id number] FRANCISCO JAVIER SIDDIQUI Self - patient is the insured MED[employer] ATTN CLAIMS [address] [place] [address] [phone] [id number] ARTURFRANCISCO JAVIER Self - patient is the insured Medical (General) History Medical History History ICD Code Tubular adenomas removed in 2005 and 12/2009; colonoscopy 07/2015 with removal of small rectal hyperplastic polyp Denies [place],DM,CVA,renal disease Renal cyst COPD- beginning stage Polymyositis Melanoma with surgey as below--kumar d Interferon for 1 year Jvcacotlet-hbxpmqpbnurc-qamv d incidentally on a CAT scan for evaluation of hematuria--reviewed with him at the 07/21/2020 OV---had CCY as below Colonoscopy in August 2020 with a small tubular adenoma removed and several hyperplastic polyps Surgical History Surgery Date(Month/Year) Hemorrhoid and anal fissure surgery Melanoma on his back with on e year of therapy with Interferon in the late Left Parotidectomy 2019--benign CCY--12/[address] Cordova
--- OUTSIDE RECORDS SUMMARY | 2025-10-07 21:30 | XMS_ITS | Clinical Summary ---
Author Organization [facility] Address [address] [place] [address] Phone Care Team Providers Care Certified Fraud Examiner Name Role Phone Dima Peacock MD Primary Care Provider [phone] Social History Tobacco Use Types Packs/Day Years [...] on patient's age to complete this topic IPV VACCINES Aged Out No longer eligi ble based on patient's age to complete this topic MENINGOCOCCAL VACCINES (ACWY) Aged Out No longer eligible based on patient's age to complete this topic MENINGOCOCCAL VACCINES (B) Aged Out N o longer eligible based on patient's age to complete this topic Medical Devices Not on file Insurance [employer] MEDEX SUPPLEMENT MEDICARE PART A & B [employer] MEDEX SUPPLEMENT MEDICARE PART A & B [employer] MEDEX SUPPLEMENT MEDICARE PART A & B [employer] MEDEX SUPPLEMENT MEDICARE PART A & B [employer] MEDEX SUPPLEMENT MEDICARE PART A & B [employer] CROSS MEDEX SUPPLEMENT MEDICARE PART A & B Member Subscriber Plan / Payer (Ef fective 2016-Present) Name:Francisco Javier Michel Member ID:[id number] Relation to Subscriber:Self Name:Anand Francisco Javier Subscriber ID:[id number] Payer ID:[id number] Group ID:Not on file Type:Medicare Address: [employer] [facility] [address] [address] [employer]OSS MEDEX SUPPLEMENT MEDICARE PART A & B [employer] CROSS MEDEX SUPPLEMENT MEDICARE PART A & B [employer] MEDEX SUPPLEMENT MEDICARE PART A & B Care Teams Certified Fraud Examiner Relationship Specialty Start Date End Date Dima Peacock MD [address] [place] [address] [address] [place] [address] PCP - General Internal Medicine 08/17/18 Additional Source Comments The information contained in this document represents components of the legal health record. It is not the complete legal health record.[facility]
== END 2025-10-07 15:09 | disposition home or self-care (01) ==
LOC: HO.LAB 15:08
PROVIDERS: PCP Internal Medicine; Visit Provider Allergy & Immunology
DX: M54.2 Cervicalgia (principal); J31.0 Chronic rhinitis
CPT/HCPCS: 70210; 72050

== ENCOUNTER → 2025-10-07 15:15 | Outpatient (BNV) | payer MEDICARE, SELFPAY | PROVIDERS: PCP Internal Medicine; Visit Provider Radiology Diagnostic Radiology | DX: M47.812 Spondylosis without myelopathy or radiculopathy, cervical region (principal); M48.02 Spinal stenosis, cervical region; J31.0 Chronic rhinitis | CPT/HCPCS: 70210; 72050 ==